=== PATIENT | male | born 1945 | race Caucasian/White ===

== ENCOUNTER 2016-10-25 06:45 | Day surgery (SDC) | payer OTHER ==
[2016-10-25] VITALS (10 sets, daily range): BP systolic 111–127; BP diastolic 57–61; PULSE 60–72; TEMP 36.6–37; O2SAT 93–96; Ht 182.9 cm; Wt 91.0 kg
[~2016-10-25] VITALS: Ht 182.9 cm; Wt 91.0 kg
--- NOTE | 2016-10-25 06:23 | History and Physical ---
History & Physical Date of Service October 25, 2016. History & Physical Dear Dr. Alston: I had the pleasure of seeing Mr. Vieyra in the office for a consultation today regarding peripheral arterial disease with claudication. The patient states that he has been having worsening discomfort in his right calf when ambulating. He states that his symptoms begin in calf and extend up into his distal thigh area as well. He states that this occurs after walking approximately 1-1/2 blocks, although he will frequently just push himself through it and continue trying to ambulate, but he states that it does appear to be getting worse. He denies rest pain, but states that he does get discomfort in his bilateral feet from his diabetic neuropathy, which is fairly severe. He denies any nonhealing wounds or ulcerations as well. He denies headaches, fevers, chills, dizziness, chest pain, shortness of breath, abdominal pain, nausea, vomiting, diarrhea, constipation, dysuria, hematuria, or other complaints. He did undergo an ultrasound evaluation at the present prior to today's appointment, which demonstrates an occlusion of distal right SFA with reconstitution of his popliteal with a high-grade stenosis of his proximal right SFA and the mid SFA of 90% and monophasic waveforms throughout his right lower extremity. He did appear to have a patent posterior tibial and dorsalis pedis artery. HIS ALLERGIES INCLUDE AZITHROMYCIN AND WOOL. His home medications were reconciled on the chart and include the following: Acetaminophen, amiodarone, aspirin, carvedilol, furosemide, glyburide, Klor-Con , losartan, metformin, nitroglycerin, ranitidine, rosuvastatin, spironolactone, tamsulosin, topiramate, Ventolin and vitamin D3. His past medical history is positive for atrial fibrillation, diabetes mellitus , hyperlipidemia, hypertension, benign prostatic hypertrophy, ischemic cardiomyopathy with an EF of 30% per patient, coronary artery disease status post coronary artery bypass grafting as well as coronary stent insertion, and chronic kidney disease. His past surgical history is positive for tonsillectomy, hernia repair, coronary artery stenting, coronary artery bypass graft, pacemaker insertion and mitral valve repair. Family history is positive for cancer, stroke and kidney disease. His social history is positive for a past history of tobacco use. The patient was smoking 1 pack of cigarettes daily and quit 3 weeks ago. He smoked for 50 years. He denies any alcohol or drug use. His review of systems is negative for fatigue, fevers, sweats, weight loss, abnormal moles or rashes, vision changes or photophobia, ear pain, sinus problems or sore throat, cough, shortness of breath, hemoptysis or wheezing, chest pain, palpitations, edema or syncope, abdominal pain, nausea, vomiting, diarrhea, constipation, dysuria, hematuria, rest pain, ulcerations, muscle weakness, headaches, dizziness, numbness or seizures. On physical examination, the patient's vital signs are as follows: Blood pressure of 134/60, heart rate of 75, respiratory rate of 18, oxygenation 93% on room air. Constitutional: In general, the patient is a chronically ill- appearing middle-aged male in no acute distress. He ambulates without assistance and is active, alert and oriented x4 with normal recent and remote memory. Head is normocephalic, atraumatic. Eyes are EOMI. ENMT exam demonstrates no hearing loss, rhinorrhea or pharyngeal erythema. Neck is supple , nontender with midline trachea without masses or crepitus. Lung exam demonstrates no dyspnea. They are decreased throughout with sparse wheezing noted. Cardiovascular exam demonstrates a nondisplaced apical impulse with a regular rate and rhythm. He does have a systolic ejection murmur noted. Peripheral pulses are full and equal in all extremities unless otherwise noted, specifically they are normal in his carotid, brachial and radial pulses. His right femoral pulse is +3. His left femoral pulse is +1. His left lower extremity distal pulses are +1. His right lower extremity distal pulses are nonpalpable. He has brisk capillary refill, warm, pink feet. No signs of distal ischemia in either foot. His abdomen is soft, nontender with normoactive bowel sounds in all 4 quadrants without guarding or rebound. He does have a right lower quadrant, likely an iliac artery bruit noted. Neurologic: The patient has grossly intact cranial nerves and grossly intact sensation. ASSESSMENT: Peripheral arterial disease with claudication in the right lower extremity. PLAN: At this time, after discussion with Dr. Cavazos who also met the patient today was to recommend that the patient to consider undergoing a right lower extremity angiography with intervention. While the patient likely has a distal SFA occlusion, opening up the severe stenoses proximal to the lesion would likely benefit his collateral circulation and hopefully alleviate his claudication even if unable to cross the distal SFA occlusion. The procedure, risks, benefits, alternatives were discussed at length with the patient. He expressed understanding and agreement to proceed. Patient was seen, examined, and chart reviewed. Agree with exam and treatment plan of the Vascular PA. I have discussed the risks options and benefits of the procedure with the patient. The patient understands the risks options and benefits and agrees to the procedure.
[~2016-10-25 06:45] MED LIST: ASPEC325 PO; CARV12.5 PO; CEFAZOLIN 2000 MG/60 ML D5W 60 ML IV SCH; CHOLTAB3 PO; D5W AND 1/4NSS 1,000 ML IV SCH; DOCU100C31 PO; FURO40TA3 PO; GLC500 PO; IBUP-1050 PO; LOSA1TAB PO; MCR5 PO; NORT50CA PO; NTRGSL/4 UT; POTA10CA28 PO; ROSU40TA PO; SPIR50TA2 PO; TAMS0.4C38 PO; ZNTT/150 PO
[2016-10-25] MEDS: SODIUM CHLORIDE 0.9% 1000ML 1,000 ML IV SCH ×2 (07:20→07:35)
[2016-10-25] MEDS ORDERED: NURSING VERBAL MED ORDER ONE ×2 (07:30→09:30)
[2016-10-25 07:45] LABS: BLOOD UREA NITROGEN 27 mg/dl (7-18)
[2016-10-25] MEDS ORDERED: ACET325T96 PO (07:46)
[2016-10-25] MEDS ORDERED: AMIO200T4 PO (07:46)
[2016-10-25] MEDS ORDERED: CLR10 PO (07:50)
[2016-10-25] MEDS ORDERED: ventolin inhaler INH (07:50)
--- NOTE | 2016-10-25 07:57 | History & Physical Bridge Note ---
H&P Re-Evaluation Bridge Note: I have examined the patient, reviewed the History & Physical and in the interval since the performance of the History & Physical I have noted the following changes of clinical significance: No changes noted
--- NOTE | 2016-10-25 07:57 | Procedure Note ---
Pre-Mod Sedation Assessment General Date of Moderate Sedation: October 25, 2016. Pre-Sedation Airway Assessment Smoking Status: Former Smoker Mallampati Classification: Class I ASA Classification: Class II Notes The planned sedation has been discussed with the patient and consent obtained. I have identified the patient, determined the appropriateness of sedation and have assessed the patient immediately prior to the procedure. All medicine(s) and interventions are by my order.
[2016-10-25] MEDS ORDERED: PRVHFAIN INH (08:56)
[2016-10-25] MEDS ORDERED: ALBUTEROL HFA 8 GM INHALER INH ONE (09:00)
[2016-10-25] MEDS ORDERED: HEPARIN SOD (PORCINE) 1000 UNIT/ML 10 ML VIAL ONE (09:48)
[2016-10-25] MEDS ORDERED: FENTANYL CITRATE INJ 50 MCG/1 ML 2 ML VIAL ONE (09:48)
[2016-10-25] MEDS ORDERED: MIDAZOLAM HCL 1 MG/ML 2ML VIAL ONE (09:48)
[2016-10-25] MEDS ORDERED: FENTANYL CITRATE INJ 50 MCG/1 ML 2 ML VIAL IV ONE ×2 (10:30→10:52)
[2016-10-25] MEDS ORDERED: MIDAZOLAM HCL 1 MG/ML 2ML VIAL IV ONE (10:33)
[2016-10-25] MEDS ORDERED: LIDOCAINE HCL 1% 20 ML VIAL SQ ONE (10:33)
[2016-10-25] MEDS ORDERED: HEPARIN SOD (PORCINE) 1000 UNIT/ML 10 ML VIAL IV ONE (10:45)
--- NOTE | 2016-10-25 11:26 | Procedure Note ---
Post-Moderate Sedation Plan General Date of Moderate Sedation October 25, 2016. Vital Signs: Vital Signs Past 12 Hours Date Time Temp Pulse Resp B/P Pulse Ox O2 Delivery O2 Flow Rate FiO2 10/25/16 09:55 36.9 72 18 122/58 94 Room Air 10/25/16 07:05 36.9 72 18 122/58 94 Room Air Review - Discharge Plan Post Moderate Sedation Plan: On clinical assessment, the patient appears to have tolerated the conscious sedation without complications. Patient is recovering as anticipated. Patient will continue to be monitored by nursing and may be discharged when conscious sedation discharge criteria are met.
--- NOTE | 2016-10-25 11:28 | [facility] Post Operative Brief Note ---
Immediate Operative Summary Operative Date October 25, 2016. Pre-Operative Diagnosis Right Lower Extremity Claudication Post-Operative Diagnosis Same Procedure(s) Performed Right Lower Extremity Angiogram, Percutaneous Transluminal Angioplasty and Stenting of Right Popliteal Artery and Right Superficial Femoral Artery, Mechanical Closure of Left Femoral Artery. Moderate Sedation (1030- 1125 ) Surgeon Dr. Cavazos Wig Comber Surgeon(s) None Estimated Blood Loss 10 Findings good PT and DP to doppler Specimens None Anesthesia Local with conscious sedation Complication(s) None Disposition
[2016-10-25] MEDS ORDERED: SODIUM CHLORIDE 0.9% 1000ML 1,000 ML IV SCH (11:29)
[2016-10-25] MEDS ORDERED: CLOPIDOGREL BISULFATE 300 MG TAB PO STA (11:29)
[2016-10-25] MEDS ORDERED: OXYCODONE/ACETAMINOPHEN 5-325 TAB PO PRN (11:30)
[2016-10-25] MEDS ORDERED: CLOP1TAB5 PO (11:33)
--- NOTE | 2016-10-25 11:33 | Discharge Instructions ---
Discharge Instructions Date of Service October 25, 2016. Visit Reason for Visit: Rue Peripheral Artery Disease W/Claudication Discharge Discharge Diagnosis / Problem: Right leg claudication, severe Discharge Goals Goal(s): Therapeutic intervention Activity Recommendations Activity Limitations: per Instructions/Follow-up section Anesthesia . Post Anesthesia Instructions: If you have had General Anesthesia or IV Sedation: * Do not drive today. * Resume driving when surgeon permits. * Do not make important decisions or sign legal documents today. * Call surgeon for: 1. Temperature elevations greater than 101 degrees F. 2. Uncontrollable pain. 3. Excessive bleeding. 4. Persistent nausea and vomiting. 5. Medication intolerance (nausea, vomiting or rash). * For nausea and vomiting use only clear liquids such as: tea, soda, bouillon until nausea subsides, then gradually increase diet as tolerated. * If you have any concerns or questions, call your surgeon's office. If physician is unavailable and it is an emergency, call 911 or go to the nearest emergency room. . Instructions / Follow-Up Instructions / Follow-Up Call [phone] to schedule a follow up appointment if one not already scheduled. SPECIAL CARE INSTRUCTIONS: Medications: * Continue to take your medications as directed. If you have been given a prescription for Plavix, please fill it immediately and take as directed. Incision Care: * Your puncture site may have some bruising and minor swelling for about one week. * You will have a small dressing covering your puncture site. You may remove the dressing after 24 hours and shower. You may let the warm soapy water run over it, but be sure to dry the puncture site well and keep it dry. * DO NOT IMMERSE THE INCISION IN A TUB/POOL/etc. UNTIL HEALED. * Puncture sites should be kept covered with a band-aid until it begins to heal. Restrictions: * Depending on whether you leg or arm was punctured to access the arteries, you will be required to lay flat, hold your arm still, or both, for about 4 hours after the procedure to prevent bleeding. * Limit your activity for the first 48 hours. You may walk and go up and down steps. Avoid excessive bending or movement at the puncture site. Possible Complications: * Excessive Swelling - after blood flow is improved you may notice increased swelling in the lower legs. This is a normal response. This usually depends on the amount of blockages in the leg, how long they have been there prior to your procedure and how much blood flow was restored. Elevating your legs will help to improve this. Please notify our office ([phone] ) if the swelling does not go away after lying in bed overnight. * Infection/Drainage/Bleeding - Drainage or bleeding from the puncture site should be minimal. If you have excessive bleeding or drainage, call our office ([phone]) right away. * Pain - You may experience some mild pain or soreness at your puncture site. If your pain does not improve, please contact our office ([phone]). Call your doctor and seek emergent treatment if you develop: * Temperature above 101 degrees * Any fever or chills * Any redness or purulent drainage from the puncture site * Any new dusky/blue colored toes or feet with coolness or sharp or aching pain. SKIN IRRITATION: * You may experience some redness and/or swelling in the area where radiation was administered. If any skin irritation occurs, please contact your family physician. FOLLOW UP VISIT: Keep any scheduled doctor appointments. Diet Recommendations Recommended Home Diet: resume previous diet Procedures Procedures Performed: Right Lower Extremity Angiogram, Percutaneous Transluminal Angioplasty and Stenting of Right Popliteal Artery and Right Superficial Femoral Artery, Mechanical Closure of Left Femoral Artery. Moderate Sedation (1030- 1125 ) Pending Studies Studies pending at discharge: no Medical Emergencies . Who to Call and When: Medical Emergencies: If at any time you feel your situation is an emergency, please call 911 immediately. . Non-Emergent Contact Non-Emergency issues call your: Surgeon . . "Provider Documentation" section prepared by Nikolas Cavazos. .
--- NOTE | 2016-10-25 12:29 | DIAGNOSTIC IMAGING REPORT ---
DATE OF PROCEDURE: 10/25/2016 PREOPERATIVE DIAGNOSIS: Severe significant claudication, right lower extremity. POSTOPERATIVE DIAGNOSIS: Same with occluded superficial femoral and proximal popliteal arteries. PROCEDURES: 1. Right lower extremity arteriography, balloon angioplasty and stenting in the proximal popliteal and superficial femoral artery. 2. Mechanical closure of the left femoral artery. 3. Conscious sedation with 55 minutes. SURGEON: Dr. Cavazos. ANESTHETIC: Local with conscious sedation. PROCEDURE INDICATIONS: The patient is a 71-year-old gentleman with severe claudication which is limiting his walking to a block. He was found to have superficial femoral artery occlusion and proximal popliteal artery occlusion on noninvasives with high grade stenosis of the proximal superficial femoral. Arteriography with intervention was recommended. He understood the risks, options and benefits and agreed to have this procedure. The patient was taken to the angio suite and placed in supine position. After the groins were prepped and draped in a sterile manner, local anesthetic was administered. Percutaneous puncture was made of the left common femoral artery. A 5-Wallisian sheath was inserted. An 0.035 wire and rim catheter was used and the right side was cannulated from the left. The rim catheter was passed down to the external iliac artery. Arteriography was then performed which showed a patent external and common profunda femoral arteries. The superficial femoral artery was patent at its origin, had a moderate stenosis in the proximal third of the artery, moderate to severe stenosis in the mid portion and occlusion from the distal superficial femoral artery to just beyond the adductor hiatus. The 0.035 stiffened Glidewire was inserted. Rim catheter was removed. The 5 Wallisian sheath was exchanged for a 6-Wallisian destination. Using an 0.035 wire and Quick-Cross the lesions were crossed. They went fairly easily. Once we were through the lesion the wire was removed. Quick-Cross was injected showing it to be true lumen in the distal popliteal. He did have anterior tibial runoff and posterior tibial runoff to his foot. At that point, a 800 balloon was then used. The occluded area was dilated. Once this was done, we decided to stent the area. We first placed the 6 x 100 and stacked it with a 6 x 60. There were still lesions noted above this. We then used the 7 x 80 and 7 x 100 to stent the more proximal superficial femoral artery. Hand injection done at that time showed the artery to be widely patent with minimal residual stenosis with excellent runoff down to the foot through the posterior tibial and anterior tibial arteries. No further lesions were noted. The sheath was then pulled over to the left side. Hand injection showed the puncture to be in the common femoral artery anteriorly. The Star closure device was then used to close the puncture site in the left groin. Adequate hemostasis was then obtained. The wounds were then dressed in a sterile manner. The patient left the angio suite in good condition and tolerated the procedure well. He had excellent dorsalis pedis and posterior tibial Doppler flow at the end of the procedure.
== END 2016-10-25 14:50 | disposition home or self-care (01) ==
LOC: C.ACU 06:45
PROVIDERS: ATTEND Surgery Vascular Surgery
DX: I73.9 Peripheral vascular disease, unspecified (principal); E11.40 Type 2 diabetes mellitus with diabetic neuropathy, unspecified; I48.91 Unspecified atrial fibrillation; E78.5 Hyperlipidemia, unspecified; N40.0 Benign prostatic hyperplasia without lower urinary tract symptoms; I25.5 Ischemic cardiomyopathy; I25.10 Atherosclerotic heart disease of native coronary artery without angina pectoris; Z79.82 Long term (current) use of aspirin; N18.9 Chronic kidney disease, unspecified; Z87.891 Personal history of nicotine dependence; Z95.1 Presence of aortocoronary bypass graft; Z95.0 Presence of cardiac pacemaker; Z82.3 Family history of stroke; Z84.1 Family history of disorders of kidney and ureter

== ENCOUNTER → 2017-09-25 | Outpatient (CLI) | payer OTHER ==
[~2017-09-25] MED LIST changes: +AMIO200T4 PO; -ASPEC325 PO; +ASPI-391 PO; -CEFAZOLIN 2000 MG/60 ML D5W 60 ML IV SCH; +CHOL1000 PO; +CHOL400C7 PO; -CHOLTAB3 PO; +CLOP1TAB15 PO; -D5W AND 1/4NSS 1,000 ML IV SCH; -GLC500 PO; +GLYB5TAB8 PO; +LEVA45AE INH; -MCR5 PO; -NORT50CA PO; +POTA8CAP6 PO; +RANI150T85 PO; +RANI300T2 PO; +SPIR25TA PO; -ZNTT/150 PO
[2017-09-25 09:21] LABS: BLOOD UREA NITROGEN 30 mg/dl (7-18); CALCIUM 9.1 mg/dl (8.5-10.1); CARBON DIOXIDE 30 mmol/L (21-32); CREATININE 2.07 mg/dl (0.60-1.40); GLUCOSE 125 mg/dl (70-99); POTASSIUM 4.5 mmol/L (3.5-5.1); SODIUM 141 mmol/L (136-145)
== END | disposition home or self-care (01) ==
LOC: C.LABSPEC 08:46
PROVIDERS: ATTEND Physician Assistant Medical
DX: Z01.818 Encounter for other preprocedural examination (principal); N18.9 Chronic kidney disease, unspecified

== ENCOUNTER 2017-09-29 12:40 | Inpatient (IN) | payer OTHER ==
[~2017-09-29] VITALS: Ht 182.9 cm; Wt 89.0 kg
[~2017-09-29 12:40] MED LIST changes: -ASPI-391 PO; -CHOL400C7 PO; -POTA8CAP6 PO; -RANI300T2 PO; -SPIR25TA PO
[2017-09-29] MEDS ORDERED: POTA8CAP6 PO (12:59)
[2017-09-29] MEDS ORDERED: SPIR25TA PO (12:59)
[2017-09-29] MEDS ORDERED: CHOL400C7 PO (12:59)
[2017-09-29] MEDS ORDERED: RANI300T2 PO (12:59)
[2017-09-29] MEDS ORDERED: ASPI-391 PO (12:59)
--- NOTE | 2017-09-29 13:21 | EMERGENCY ROOM VISIT NOTE ---
History First contact with patient: 13:10 Chief Complaint: LEG PAIN,LEG INJURY Stated Complaint: POSSIBLE BLOOD CLOT IN LEG, LEG PAIN History of Present Illness The patient is a 72 year old male who presents to the Emergency Room via state correctional vehicle accompanied correctional officers by with complaints of "possible blood clot in leg, leg pain". The patient states that he has a history of lower extremity neuropathy, as well as poor arterial flow to the right leg. He notes that he had surgery recently on the right leg for poor arterial flow of which was performed here at this hospital by Dr. Cavazos. The patient states that since then the leg pain has increased, and now his right foot has been red for the past 2 weeks. There is concern for potential DVT/ arterial occlusion. There is also concern for cellulitis. He notes no fevers, chills, cuts or scrapes but does note that today he did just find a cut that he is unsure how old it is on the medial aspect of the right distal great toe. Review of Systems A complete 10-point Review of Systems was discussed with the patient, with pertinent positives and negatives listed in the History of Present Illness. All remaining Review of Systems questions can be considered negative unless otherwise specified. Past Medical/Surgical History Medical Problems: (1) Congestive Heart Failure Nos (2) Coronary Atherosclerosis Of [place] Coronary Vessel (3) Esophageal Reflux (4) Hx Of Alcoholism (5) Hypothyroidism Nos (6) Mitral Stenosis Surgical Problems: (1) Hx of CABG (2) Stented coronary artery Social History Smoking Status: Former Smoker Alcohol Use: other Drug Use: other Marital Status: single Housing Status: other Occupation Status: other Current/Historical Medications Scheduled Amiodarone Hcl (Cordarone), 200 MG PO QAM Carvedilol (Coreg), 12.5 MG PO BID Cholecalciferol (Vitamin D 400 Iu), 400 INTER.UNIT PO BID Clopidogrel (Plavix), 75 MG PO DAILY Docusate Sodium (Docusate Sodium), 100 MG PO BID Furosemide (Lasix), 120 MG PO QAM Glyburide (Micronase), 5 MG PO BID Losartan Potassium (Cozaar), 25 MG PO DAILY Nitroglycerin (Nitrostat), 0.4 MG UT PRN Potassium Chloride (Klor-Con Ext Rel), 8 MEQ PO DAILY Ranitidine (Zantac), 300 MG PO BID Rosuvastatin Calcium (Crestor), 40 MG PO HS Spironolactone (Aldactone), 50 MG PO BID Tamsulosin Hcl (Flomax), 0.4 MG PO HS Scheduled PRN Ynhilsh-Eajjhwmbhqnll-Czyjzdwf (Excedrin Extra Strength), 2 TAB PO BID PRN for Pain Levalbuterol Tartrate (Levalbuterol Tartrate Hfa), 2 PUFF INH Q6 PRN for SOB/ Wheezing Physical Exam Vital Signs Date Time Temp Pulse Resp B/P (MAP) Pulse Ox O2 Delivery O2 Flow Rate FiO2 09/29/17 15:55 67 16 142/60 97 Room Air 09/29/17 12:43 36.4 72 20 157/71 96 Room Air Physical Exam VITAL SIGNS - Vital signs and nursing notes were reviewed. Stable. Afebrile. GENERAL -72-year-old male appearing his stated age who is in no acute distress. Communicates well with provider and answers questions appropriately. SKIN -there is erythema to the entire right foot extending to the right ankle. There is little petechial like rashes with some blanching. No purulence. No edema. Small subcentimeter superficial cut to the medial aspect of the right great toe. HEAD - NC/AT. EYES - Sclera anicteric. EARS - No deformities of external structures noted on gross examination bilaterally. NOSE - Midline and without cyanosis. EXTREMITIES - No clubbing or peripheral cyanosis. No pretibial edema present. I am unable to palpate pulses in the right lower extremity beginning at the ankle working just distal to this region. +5/5 strength noted in UE/LE bilaterally. There is tenderness noted to the right foot. NEUROLOGIC - Cranial nerves II through XII grossly intact. Sensory intact to light touch throughout. PSYCH - A&O, and cooperates fully with examiner. Pt is very pleasant and interacts well with examiner. Medical Decision & Procedures ER Provider Diagnostic Interpretation: R VENOUS DOPP LOWER EXT UNILAT CLINICAL HISTORY: R lower leg pain with R calf cramping. Hx arterial surgery. Pain. Edema. TECHNIQUE: Venous Doppler COMPARISON STUDY: 02/09/2015 FINDINGS: Normal venous Doppler right leg. Compressibility flow and augmentation characteristics are normal. IMPRESSION: Normal study The above report was generated using voice recognition software. It may contain grammatical, syntax or spelling errors. Electronically signed by: Pérez Mathews M.D. 09/29/2017 3:27 PM Dictated Date/Time: 09/29/2017 3:26 PM ARTERIAL DOPPLER ULTRASOUND THE RIGHT LOWER EXTREMITY CLINICAL HISTORY: Right lower leg pain. History bacterial surgery. COMPARISON STUDY: Right leg arteriographic study dated 10/25/2016 FINDINGS: The brachial arm systolic pressure on the right was 1 27 mmHg. The brachial arm systolic pressures in the left was 118 mmHg. Posterior tibial systolic pressures were 35 mmHg on the right and 95 mmHg on the left. Dorsalis pedis systolic pressures were 49 mmHg on the right and 104 mmHg on the left. These measurements indicate Ankle-brachial index on the right of 0.39, and an ankle-brachial index on the left of 0.82 There is monophasic flow within the right common femoral artery. There is a right profunda artery stenosis with an elevated velocity measuring 572 cm/s. The right superficial femoral artery is occluded. There is no evidence of acute distal reconstitution with monophasic popliteal anterior tibial and peroneal waveforms. There is evidence of prior superficial femoral artery stenting. IMPRESSION: 1. There is occlusion of the patient's right superficial femoral artery and stents. 2. The right superficial femoral artery is occluded from its proximal to distal portion. 3. Diminished right-sided ankle-brachial index of 0.39 Electronically signed by: Boris Hernandez M.D. 09/29/2017 3:45 PM Dictated Date/Time: 09/29/2017 3:40 PM Laboratory Results 09/29/17 13:25 Red Blood Count 4.13, Mean Corpuscular Volume 99.8, Mean Corpuscular Hemoglobin 35.6, Mean Corpuscular Hemoglobin Concent 35.7, Mean Platelet Volume 9.8, Neutrophils (%) (Auto) 72.1, Lymphocytes (%) (Auto) 13.9, Monocytes (%) (Auto) 9.6, Eosinophils (%) (Auto) 3.1, Basophils (%) (Auto) 0.8, Neutrophils # (Auto) 5.40, Lymphocytes # (Auto) 1.04, Monocytes # (Auto) 0.72, Eosinophils # (Auto) 0.23, Basophils # (Auto) 0.06 09/29/17 13:25 Test 09/29/17 13:25 White Blood Count 7.49 K/uL (4.8-10.8) Red Blood Count 4.13 M/uL (4.7-6.1) Hemoglobin 14.7 g/dL (14.0-18.0) Hematocrit 41.2 % (42-52) Mean Corpuscular Volume 99.8 fL (80-100) Mean Corpuscular Hemoglobin 35.6 pg (25-34) Mean Corpuscular Hemoglobin Concent 35.7 g/dl (32-36) Platelet Count 107 K/uL (130-400) Mean Platelet Volume 9.8 fL (7.4-10.4) Neutrophils (%) (Auto) 72.1 % Lymphocytes (%) (Auto) 13.9 % Monocytes (%) (Auto) 9.6 % Eosinophils (%) (Auto) 3.1 % Basophils (%) (Auto) 0.8 % Neutrophils # (Auto) 5.40 K/uL (1.4-6.5) Lymphocytes # (Auto) 1.04 K/uL (1.2-3.4) Monocytes # (Auto) 0.72 K/uL (0.11-0.59) Eosinophils # (Auto) 0.23 K/uL (0-0.5) Basophils # (Auto) 0.06 K/uL (0-0.2) RDW Standard Deviation 46.0 fL (36.4-46.3) RDW Coefficient of Variation 12.7 % (11.5-14.5) Immature Granulocyte % (Auto) 0.5 % Immature Granulocyte # (Auto) 0.04 K/uL (0.00-0.02) Anion Gap 4.0 mmol/L (3-11) Est Creatinine Clear Calc Drug Dose 46.0 ml/min Estimated GFR () 48.4 Estimated GFR (Non- 41.7 BUN/Creatinine Ratio 16.4 (10-20) Calcium Level 8.9 mg/dl (8.5-10.1) Medical Decision Patient was seen and evaluated as above in room D4. Review was performed of nursing notes and vital signs. After obtaining a thorough history and physical examination the above work up was performed. He presents to us today with redness of the left foot and ankle as well as severe pain in this region. He has a history of poor arterial flow. Surgery was performed in the past by Dr. Cavazos to restore vascular flow to the foot last october. Patient does note that there is pain with walking on the foot and it is now red 2 weeks. No fevers or chills. He does note a small cut on the side of the right great toe. He noticed this today. He was sent here from the correctional facility for further evaluation of his presentation here today. The venous Doppler was negative. There is no concerning leukocytosis noted. He does have evidence of kidney dysfunction however this appears to be chronic and is not new. The arterial study does reveal occlusion of the superficial femoral artery with further results as above. I discussed this with Dr. Cavazos as well as the physician surgical supply assistant. He recommended that the patient be admitted. I discussed this with the medicine team. Dr. Cavazos noted that he would place orders for the patient. The patient will be admitted for further evaluation and management. In the evaluation and treatment of this patient the following differential diagnoses were entertained: DVT, arterial occlusion, cellulitis, compartment syndrome, among others. Case was discussed with the attending physician. Impression Primary Impression: Leg pain, right Additional Impression: Superficial femoral artery occlusion Departure Information Dispostion Admitted as an inpatient Condition FAIR Referrals Nic MASSEY (PCP) Patient Instructions My [facility] Problem Qualifiers
[2017-09-29 13:39] LABS: BASO % 0.8 %; BASO ABS # 0.06 K/uL (0-0.2); EOS % 3.1 %; EOS ABS # 0.23 K/uL (0-0.5); HEMATOCRIT 41.2 % (42-52); HEMOGLOBIN 14.7 g/dL (14.0-18.0); IG# 0.04 K/uL (0.00-0.02); LYMPH % 13.9 %; LYMPH ABS # 1.04 K/uL (1.2-3.4); MEAN CELL VOLUME 99.8 fL (80-100); MEAN CORPUSCULAR HEMOGLOBIN 35.6 pg (25-34); MEAN CORPUSCULAR HGB CONC 35.7 g/dl (32-36); MEAN PLATELET VOLUME 9.8 fL (7.4-10.4); MONO % 9.6 %; MONO ABS # 0.72 K/uL (0.11-0.59); NEUT % 72.1 %; PLATELET COUNT 107 K/uL (130-400); RED CELL DISTRIBUTION WIDTH CV 12.7 % (11.5-14.5); WHITE BLOOD COUNT 7.49 K/uL (4.8-10.8)
[2017-09-29 13:52] LABS: CALCIUM 8.9 mg/dl (8.5-10.1); CREATININE 1.64 mg/dl (0.60-1.40); POTASSIUM 4.3 mmol/L (3.5-5.1)
--- NOTE | 2017-09-29 15:28 | DIAGNOSTIC IMAGING REPORT ---
R VENOUS DOPP LOWER EXT UNILAT CLINICAL HISTORY: R lower leg pain with R calf cramping. Hx arterial surgery. Pain. Edema. TECHNIQUE: Venous Doppler COMPARISON STUDY: 02/09/2015 FINDINGS: Normal venous Doppler right leg. Compressibility flow and augmentation characteristics are normal. IMPRESSION: Normal study The above report was generated using voice recognition software. It may contain grammatical, syntax or spelling errors. Electronically signed by: Pérez Mathews M.D. 09/29/2017 3:27 PM Dictated Date/Time: 09/29/2017 3:26 PM
--- NOTE | 2017-09-29 15:47 | DIAGNOSTIC IMAGING REPORT ---
ARTERIAL DOPPLER ULTRASOUND THE RIGHT LOWER EXTREMITY CLINICAL HISTORY: Right lower leg pain. History bacterial surgery. COMPARISON STUDY: Right leg arteriographic study dated 10/25/2016 FINDINGS: The brachial arm systolic pressure on the right was 1 27 mmHg. The brachial arm systolic pressures in the left was 118 mmHg. Posterior tibial systolic pressures were 35 mmHg on the right and 95 mmHg on the left. Dorsalis pedis systolic pressures were 49 mmHg on the right and 104 mmHg on the left. These measurements indicate Ankle-brachial index on the right of 0.39, and an ankle-brachial index on the left of 0.82 There is monophasic flow within the right common femoral artery. There is a right profunda artery stenosis with an elevated velocity measuring 572 cm/s. The right superficial femoral artery is occluded. There is no evidence of acute distal reconstitution with monophasic popliteal anterior tibial and peroneal waveforms. There is evidence of prior superficial femoral artery stenting. IMPRESSION: 1. There is occlusion of the patient's right superficial femoral artery and stents. 2. The right superficial femoral artery is occluded from its proximal to distal portion. 3. Diminished right-sided ankle-brachial index of 0.39 Electronically signed by: Boris Hernandez M.D. 09/29/2017 3:45 PM Dictated Date/Time: 09/29/2017 3:40 PM
--- NOTE | 2017-09-29 16:10 | EMERGENCY ROOM VISIT NOTE ---
ED Visit Note First contact with patient: 13:10 I did evaluate and examine this patient myself. I did guide management for the patient. I agree with the PA's assessment as discussed. Please see the PAs dictation for further details. I did independently review the ultrasound and blood work. He does have occlusion of his stent. The case was discussed with Dr. Cavazos. The patient was admitted to the hospital for further care and evaluation.
[2017-09-29] MEDS ORDERED: GLUCAGON FOR INJ 1 MG VIAL SQ PRN (17:15)
[2017-09-29] MEDS ORDERED: MAGNESIUM HYDROXIDE SUSP 30 ML UDC PO PRN (17:15)
[2017-09-29] MEDS ORDERED: LEValbuterol HFA 15GM INHALER INH PRN (17:15)
[2017-09-29] MEDS ORDERED: ONDANSETRON INJ 2 MG/ML 2 ML VIAL IV PRN (17:15)
[2017-09-29] MEDS ORDERED: DEXTROSE 50% 50 ML SYR IV PRN (17:15)
[2017-09-29] MEDS ORDERED: ALUMINUM/MAGNESIUM/SIMETH (MAALOX MAX) 30 ML UDC PO PRN (17:15)
[2017-09-29] MEDS ORDERED: GLUCOSE 40% GEL 15 GM TUBE PO PRN (17:15)
[2017-09-29] MEDS ORDERED: GLUCOSE 10 TABS/TUBE PO PRN (17:15)
[2017-09-29] MEDS ORDERED: POLYETHYLENE (MIRALAX) 17 GM PACK PO PRN (17:15)
[2017-09-29] MEDS ORDERED: ACETAMINOPHEN 325 MG TAB PO PRN (17:15)
[2017-09-29] MEDS ORDERED: ZOLPIDEM TARTRATE 5 MG TAB PO PRN ×2 (17:15)
[2017-09-29] MEDS ORDERED: NON-FORMULARY MEDICATION (Aspirin-Acetaminophen-Caffeine (Excedrin Extra Strength) 2 TAB) PO PRN (17:15)
--- NOTE | 2017-09-29 17:47 | History and Physical ---
History & Physical Date & Time of Service: Sep 29, 2017 at 17:33 Chief Complaint: Possible Blood Clot In Leg, Leg Pain Primary Care Physician: Nic MASSEY History of Present Illness Source: patient, hospital records 72 years old man with past medical history of severe peripheral vascular disease , coronary artery disease status post CABG/valve replacement in 2002, followed by multiple cardiac stents, diabetes mellitus and oral hypoglycemic, hypertension, ischemic cardiomyopathy with ejection fraction of 30% and global hypokinesia based on echo in 2014, Patient had a recent vascular procedure on October 2016 status post Right Lower Extremity Angiogram, [employer] and stenting of right popliteal/right superficial femoral artery and mechanical occlusion of left femoral artery. As per patient he is taking Excedrin and instead of aspirin, he was taking off Plavix a one month ago. About 2-3 weeks ago patient started having erythema, severe pain, tenderness and skin sensitivity in his right foot. Symptoms got progressively worse currently his right foot is swollen, tender, erythematous and painful. Patient denies any chest pain or shortness of breath. Prior to his right lower extremity pain he was able to walk for more than a block and go up the stairs for 2 flights without having any chest pain or shortness of breath Currently in the correction facility, smokes intermittently Strong family history for heart disease, his father from heart attack in his early 50s Past Medical/Surgical History Medical Problems: (1) Abdominal pain (2) Acute renal failure (3) Chronic kidney disease, stage III (moderate) (4) Congestive Heart Failure Nos (5) Coronary Atherosclerosis Of [place] Coronary Vessel (6) Esophageal Reflux (7) Hx Of Alcoholism (8) Hyperkalemia (9) Hypotension (10) Hypothyroidism Nos (11) Ischemic cardiomyopathy (12) Mitral Stenosis (13) Renal failure (14) SIRS (systemic inflammatory response syndrome) (15) Superficial femoral artery occlusion (16) supericial femoral artery occlusion (17) Ventricular tachycardia Surgical Problems: (1) Hx of CABG (2) Stented coronary artery Social History Smoking Status: Former Smoker Drug Use: other Marital Status: single Housing status: other Occupational Status: other Immunizations History of Influenza Vaccine: Unknown History of Tetanus Vaccine?: Unknown History of Pneumococcal: Unknown History of Hepatitis B Vaccine: Unknown Allergies Coded Allergies: Tetracycline (Unverified Allergy, Unknown, rash, 09/19/17) Home Medications Scheduled Amiodarone Hcl (Cordarone), 200 MG PO QAM Carvedilol (Coreg), 12.5 MG PO BID Cholecalciferol (Vitamin D 400 Iu), 400 INTER.UNIT PO BID Clopidogrel (Plavix), 75 MG PO DAILY Docusate Sodium (Docusate Sodium), 100 MG PO BID Furosemide (Lasix), 120 MG PO QAM Glyburide (Micronase), 5 MG PO BID Losartan Potassium (Cozaar), 25 MG PO DAILY Nitroglycerin (Nitrostat), 0.4 MG UT PRN Potassium Chloride (Klor-Con Ext Rel), 8 MEQ PO DAILY Ranitidine (Zantac), 300 MG PO BID Rosuvastatin Calcium (Crestor), 40 MG PO HS Spironolactone (Aldactone), 50 MG PO BID Tamsulosin Hcl (Flomax), 0.4 MG PO HS Scheduled PRN Geoonvu-Odlhdotgzrplg-Jghflgzq (Excedrin Extra Strength), 2 TAB PO BID PRN for Pain Levalbuterol Tartrate (Levalbuterol Tartrate Hfa), 2 PUFF INH Q6 PRN for SOB/ Wheezing Review of Systems Review of system Constitutional: No fever / no chills / no sweats / no weakness / no fatigue Eyes: no blurring of vision / no eye pain / no discharge / no redness ENT: no hearing loss / no epistaxis /no swallowing problems Respiratory: no cough / no wheezing / no SOB / no hemoptysis Cardiovascular: no Chest pain / no lower extremity edema / no palpitation Abdomen: no pain / no nausea / no vomiting / no constipation Musculoskeletal: As mentioned in HPI about right lower extremity Genitourinary: no dysuria / no incontinence / no urinary retention Neurologic: no focal weakness / no numbness/tingling / no ataxia Psychiatric: no depression symptoms / no anxiety / no insomnia Endocrine: no excessive thirst / no excessive urination Hematologic: no abnormal bleeding / no bruising / no LN swelling Skin: No rash / no pallor Physical Exam Vital Signs Date Time Temp Pulse Resp B/P (MAP) Pulse Ox O2 Delivery O2 Flow Rate FiO2 09/29/17 15:55 67 16 142/60 97 Room Air 09/29/17 12:43 36.4 72 20 157/71 96 Room Air Physical examination General patient appears to be comfortable, not in acute distress HEENT: Atraumatic , normocephalic /no jaundice /no pallor /anicteric /no dry mucous membrane /normal external ear inspection Neck: Supple /no swelling /central trach Heart: S1/S2 normal/regular rate and rhythm/no gallop /no rub /no murmur Lungs: Clear to auscultation bilaterally/normal chest with expansion/no rhonchi/ no rales/no wheezing/no use of accessory muscles of respiration Abdomen: Soft/nontender/no guarding/no rebound/no organomegaly/no pulsatile mass Musculoskeletal: Right lower extremity appears to be erythematous, tender, no pedal pulse is felt, left lower extremity is normal pedal pulse is +1 Neuro exam: Awake alert oriented 3/cranial nerves II through XII appear to be intact/sensation intact/moves all extremities/no abnormal movements Psychiatric evaluation: No depressed mood/normal affect Skin: No rash on exposed skin area/no erythema Extremity: Normal pulse/no pitting edema/no clubbing or cyanosis Endocrine/lymphatic: No obvious lymphadenopathy /no lymphedema Diagnostics Laboratory Results Results Past 24 Hours Test 09/29/17 13:25 09/29/17 17:09 Range/Units White Blood Count 7.49 4.8-10.8 K/uL Red Blood Count 4.13 4.7-6.1 M/uL Hemoglobin 14.7 14.0-18.0 g/dL Hematocrit 41.2 42-52 % Mean Corpuscular Volume 99.8 80-100 fL Mean Corpuscular Hemoglobin 35.6 25-34 pg Mean Corpuscular Hemoglobin Concent 35.7 32-36 g/dl Platelet Count 107 130-400 K/uL Mean Platelet Volume 9.8 7.4-10.4 fL Neutrophils (%) (Auto) 72.1 % Lymphocytes (%) (Auto) 13.9 % Monocytes (%) (Auto) 9.6 % Eosinophils (%) (Auto) 3.1 % Basophils (%) (Auto) 0.8 % Neutrophils # (Auto) 5.40 1.4-6.5 K/uL Lymphocytes # (Auto) 1.04 1.2-3.4 K/uL Monocytes # (Auto) 0.72 0.11-0.59 K/uL Eosinophils # (Auto) 0.23 0-0.5 K/uL Basophils # (Auto) 0.06 0-0.2 K/uL RDW Standard Deviation 46.0 36.4-46.3 fL RDW Coefficient of Variation 12.7 11.5-14.5 % Immature Granulocyte % (Auto) 0.5 % Immature Granulocyte # (Auto) 0.04 0.00-0.02 K/uL Sodium Level 140 136-145 mmol/L Potassium Level 4.3 3.5-5.1 mmol/L Chloride Level 110 98-107 mmol/L Carbon Dioxide Level 26 21-32 mmol/L Anion Gap 4.0 3-11 mmol/L Blood Urea Nitrogen 27 7-18 mg/dl Creatinine 1.64 0.60-1.40 mg/dl Est Creatinine Clear Calc Drug Dose 46.0 ml/min Estimated GFR () 48.4 Estimated GFR (Non- 41.7 BUN/Creatinine Ratio 16.4 10-20 Random Glucose 98 70-99 mg/dl Calcium Level 8.9 8.5-10.1 mg/dl Impression Assessment and Plan 72 years old man with past medical history of severe peripheral vascular disease , coronary artery disease status post CABG/valve replacement in 2002, followed by multiple cardiac stents, diabetes mellitus and oral hypoglycemic, hypertension, ischemic cardiomyopathy with ejection fraction of 30% and global hypokinesia based on echo in 2014, Patient had a recent vascular procedure on October 2016 status post Right Lower Extremity Angiogram, [employer] and stenting of right popliteal/right superficial femoral artery and mechanical occlusion of left femoral artery. Presented to the hospital with acute/subacute right superficial femoral artery occlusion Assessment Acute right superficial femoral artery occlusion Severe peripheral vascular disease Coronary artery disease status post CABG/valve replacement in 2002 followed by multiple coronary stents Chronic systolic congestive heart failure without exacerbation Hypertension Diabetes mellitus on oral hypoglycemics Plan Admit patient to telemetry N.p.o. from midnight Case discussed with Dr. Cavazos, vascular surgeon who will take patient to the OR name Heparin drip, aspirin Hold off Plavix as per Dr. Cavazos as he will load him, after the procedure tomorrow Hold oral hypoglycemic, start patient on a sliding scale insulin Obtain hemoglobin A1c and lipids panel to stratify patient's risk factors Since patient will be n.p.o. and will go through a surgery will hold Lasix in a.m. Also hold potassium We will lower the dose of Aldactone from 50 mg twice daily to 12.5 mg twice daily Continue Coreg Continue ranitidine for GI prophylaxis Discussed with patient CODE STATUS, patient is full code Resuscitation Status VTE Prophylaxis Will order VTE Prophylaxis: Yes
[2017-09-29 18:19] VITALS: BP 143/73; PULSE 66; TEMP 36.2; O2SAT 97; Ht 182.9 cm; Wt 89.0 kg
[2017-09-29 20:00] VITALS: BP 115/60; PULSE 66; TEMP 36.6; O2SAT 95
[2017-09-29] MEDS ORDERED: HEPARIN 25,000 UNIT/500ML D5W 500 ML IV SCH (20:15)
[2017-09-29] MEDS ORDERED: HEPARIN IV BOLUS 7,000 UNIT in SYRINGE 0 ML IV ONE (20:15)
[2017-09-29] MEDS: RANITIDINE HCL 150 MG TAB PO SCH (20:19)
[2017-09-29] MEDS: ROSUVASTATIN CALCIUM 20 MG TAB PO SCH (20:20)
[2017-09-29] MEDS: SPIRONOLACTONE 25 MG TAB PO SCH (20:21)
[2017-09-29] MEDS: CARVEDILOL 12.5 MG TAB PO SCH (20:22)
[2017-09-29] MEDS: TAMSULOSIN HCL 0.4 MG CAP PO SCH (20:24)
[2017-09-29] MEDS: INSULIN ASPART 100 UNITS/ML 3 ML PEN SC SCH (20:30)
[2017-09-29] MEDS: MoRPHine SULFATE 2 MG/ML CARP IV PRN (20:33)
[2017-09-29] MEDS: SODIUM CHLORIDE 0.9% 1000ML 1,000 ML IV SCH (20:33)
[2017-09-29 20:37] LABS: PTT PATIENT 26.1 SECONDS (21.0-31.0)
[2017-09-29] MEDS ORDERED: SPIRONOLACTONE 25 MG TAB PO SCH (21:00)
[2017-09-29 23:40] VITALS: BP 122/57; PULSE 68; TEMP 36.8; O2SAT 95
[2017-09-30] VITALS (20 sets, daily range): BP systolic 96–139; BP diastolic 44–65; PULSE 58–64; TEMP 36.6–37.1; O2SAT 94–99
[2017-09-30] MEDS: MoRPHine SULFATE 2 MG/ML CARP IV PRN (00:02)
[2017-09-30] MEDS: ACETYLCYSTEINE 600 MG CAP PO SCH ×3 (00:02→21:46)
[2017-09-30 02:43] LABS: BASO % 0.4 %; BASO ABS # 0.03 K/uL (0-0.2); EOS % 2.3 %; EOS ABS # 0.17 K/uL (0-0.5); HEMATOCRIT 37.9 % (42-52); HEMOGLOBIN 13.5 g/dL (14.0-18.0); IG# 0.04 K/uL (0.00-0.02); LYMPH % 17.9 %; LYMPH ABS # 1.34 K/uL (1.2-3.4); MEAN CELL VOLUME 99.2 fL (80-100); MEAN CORPUSCULAR HEMOGLOBIN 35.3 pg (25-34); MEAN CORPUSCULAR HGB CONC 35.6 g/dl (32-36); MONO % 8.2 %; MONO ABS # 0.61 K/uL (0.11-0.59); NEUT % 70.7 %; NEUT ABS # 5.28 K/uL (1.4-6.5); PLATELET COUNT 100 K/uL (130-400); RED CELL DISTRIBUTION WIDTH CV 12.6 % (11.5-14.5); RED CELL DISTRIBUTION WIDTH SD 45.7 fL (36.4-46.3); WHITE BLOOD COUNT 7.47 K/uL (4.8-10.8)
[2017-09-30 03:10] LABS: ALBUMIN 2.9 gm/dl (3.4-5.0); CALCIUM 8.4 mg/dl (8.5-10.1); CREATININE 1.54 mg/dl (0.60-1.40); POTASSIUM 3.8 mmol/L (3.5-5.1)
[2017-09-30 03:15] LABS: PHOSPHORUS 3.4 mg/dl (2.5-4.9)
[2017-09-30 03:17] LABS: PTT PATIENT 105.2 SECONDS (21.0-31.0)
[2017-09-30] MEDS ORDERED: CEFAZOLIN 2000MG IV PUSH 15 ML IV SCH (05:00)
[2017-09-30] MEDS ORDERED: SODIUM BICARBONATE 8.4% INJ 100 MEQ in STERILE WATER 1000 ML 1,000 ML IV SCH (05:00)
--- NOTE | 2017-09-30 06:24 | Medical Consult ---
Consultation Note Date of Service Sep 30, 2017. Consultation Note CC: Severe right leg pain HPI: Mr. Vieyra has been having worsening discomfort in his right that started about two weeks ago. It has gotten progressively worse, He had stents place in his right SFA one year ago. He has been doing well till recently. He can still has feeling in his foot and has good mobility. HIS ALLERGIES INCLUDE AZITHROMYCIN AND WOOL. His home medications were reconciled on the chart and include the following: Acetaminophen, amiodarone, aspirin, carvedilol, furosemide, glyburide, Klor-Con , losartan, metformin, nitroglycerin, ranitidine, rosuvastatin, spironolactone, tamsulosin, topiramate, Ventolin and vitamin D3. His past medical history is positive for atrial fibrillation, diabetes mellitus , hyperlipidemia, hypertension, benign prostatic hypertrophy, ischemic cardiomyopathy with an EF of 30% per patient, coronary artery disease status post coronary artery bypass grafting as well as coronary stent insertion, and chronic kidney disease. His past surgical history is positive for tonsillectomy, hernia repair, coronary artery stenting, coronary artery bypass graft, pacemaker insertion and mitral valve repair. Family history is positive for cancer, stroke and kidney disease. His social history is positive for a past history of tobacco use. The patient was smoking 1 pack of cigarettes daily and quit 3 weeks ago. He smoked for 50 years. He denies any alcohol or drug use. His review of systems is negative for fatigue, fevers, sweats, weight loss, abnormal moles or rashes, vision changes or photophobia, ear pain, sinus problems or sore throat, cough, shortness of breath, hemoptysis or wheezing, chest pain, palpitations, edema or syncope, abdominal pain, nausea, vomiting, diarrhea, constipation, dysuria, hematuria, rest pain, ulcerations, muscle weakness, headaches, dizziness, numbness or seizures. On physical examination, the patient's vital signs are as follows: Blood pressure of 134/60, heart rate of 75, respiratory rate of 18, oxygenation 93% on room air. Constitutional: In general, the patient is a chronically ill- appearing middle-aged male in no acute distress. He ambulates without assistance and is active, alert and oriented x4 with normal recent and remote memory. Head is normocephalic, atraumatic. Eyes are EOMI. ENMT exam demonstrates no hearing loss, rhinorrhea or pharyngeal erythema. Neck is supple , nontender with midline trachea without masses or crepitus. Lung exam demonstrates no dyspnea. They are decreased throughout with sparse wheezing noted. Cardiovascular exam demonstrates a nondisplaced apical impulse with a regular rate and rhythm. He does have a systolic ejection murmur noted. Peripheral pulses are full and equal in all extremities unless otherwise noted, specifically they are normal in his carotid, brachial and radial pulses. His right femoral pulse is +3. His left femoral pulse is +1. His left lower extremity distal pulses are +1. His right lower extremity distal pulses are nonpalpable. He has brisk capillary refill, warm, pink feet on the left. No signs of distal ischemia of his left foot. His right foot is cool with decreased capillary refill. His abdomen is soft, nontender with normoactive bowel sounds in all 4 quadrants without guarding or rebound. He does have a right lower quadrant, likely an iliac artery bruit noted. Neurologic: The patient has grossly intact cranial nerves and grossly intact sensation. ASSESSMENT: Occlusion of the SFA of the right lower extremity. PLAN: Patient is to undergo arteriography with possible intervention. I have discussed the risks options and benefits of the procedure with the patient. The patient understands the risks options and benefits and agrees to the procedure.
[2017-09-30 06:32] LABS: HEMOGLOBIN A1C 5.8 % (4.5-5.6)
[2017-09-30] MEDS: INSULIN ASPART 100 UNITS/ML 3 ML PEN SC SCH ×4 (07:00→21:48)
[2017-09-30] MEDS: RANITIDINE HCL 150 MG TAB PO SCH ×2 (09:00→21:47)
[2017-09-30] MEDS: AMIODARONE 200 MG TAB PO SCH (09:00)
[2017-09-30] MEDS: CARVEDILOL 12.5 MG TAB PO SCH ×2 (09:00→21:48)
[2017-09-30] MEDS: SPIRONOLACTONE 25 MG TAB PO SCH ×2 (09:00→21:46)
[2017-09-30] MEDS: FUROSEMIDE 40 MG TAB PO SCH (09:00)
[2017-09-30] MEDS ORDERED: CLOPIDOGREL BISULFATE 75 MG TAB PO SCH (09:00)
--- NOTE | 2017-09-30 09:29 | Pre Sedation Assessment ---
Pre Sedation Assessment General Date of Sedation: Sep 30, 2017. Vital Signs Past 12 Hours Date Time Temp Pulse Resp B/P (MAP) Pulse Ox O2 Delivery O2 Flow Rate FiO2 09/30/17 07:09 36.7 62 20 121/44 (69) 94 Room Air 09/30/17 04:00 Room Air 09/30/17 03:51 36.8 62 20 123/50 (74) 96 Room Air 09/30/17 00:00 Room Air 09/29/17 23:40 36.8 68 21 122/57 (78) 95 Room Air Review Cardiovascular: regular rate, rhythm Lungs: lungs clear Pre-Sedation Airway Assessment Smoking Status: Current Every Day Smoker Hx of Sleep Apnea: No Short Thick Neck: No Thyro-mental Distance: > 3 Finger Breadths Oral Cavity: Dentures Mallampati Classification: Class I ASA Classification: Class II NPO Status Date of Last Intake of Fluids: Sep 29, 2017 Time of Last Intake of Fluids: 2330 Date of Last Intake of Solids: Sep 29, 2017 Time of Last Intake of Solids: 2029 Procedure Planning Contraindications for Sedation: None Current Medications Reviewed: Yes Notes The planned sedation has been discussed with the patient. Informed Consent was obtained. I have identified the patient, determined the appropriateness of sedation and have assessed the patient immediately prior to the procedure. All medicine(s) and interventions are by my order.
[2017-09-30] MEDS ORDERED: FENTANYL CITRATE INJ 50 MCG/1 ML 2 ML VIAL ONE (09:46)
[2017-09-30] MEDS ORDERED: HEPARIN SOD (PORCINE) 1000 UNIT/ML 10 ML VIAL ONE (09:46)
[2017-09-30] MEDS ORDERED: MIDAZOLAM HCL 1 MG/ML 2ML VIAL ONE (09:46)
[2017-09-30] MEDS ORDERED: FENTANYL CITRATE INJ 50 MCG/1 ML 2 ML VIAL IV ONE (10:14)
[2017-09-30] MEDS ORDERED: MIDAZOLAM HCL 1 MG/ML 2ML VIAL IV ONE (10:14)
--- NOTE | 2017-09-30 11:03 | [facility] Post Operative Brief Note ---
Immediate Operative Summary Operative Date Sep 30, 2017. Pre-Operative Diagnosis Occlusion of the SFA of the right lower extremity. Post-Operative Diagnosis Occlusion of the SFA of the right lower extremity. Procedure(s) Performed Right Lower Extremity Angiogram Insertion of Infusion Catheter Thrombolytic infusion Moderate Sedation [id number] Surgeon Dirk Manager Actuarial Surgeon(s) Hardeep Estimated Blood Loss 5 Findings Consistent with Post-Op Diagnosis Specimens None Drains None Anesthesia Type IV Sedat Cons RN Only Complication(s) none Disposition Accompanied Pt To Recover: no Disposition:
[2017-09-30] MEDS ORDERED: LIDOCAINE HCL 1% 20 ML VIAL INJ ONE (11:05)
[2017-09-30] MEDS ORDERED: IODIXANOL (VISIPAQUE) 270 MG/ML 50ML XX ONE (11:05)
[2017-09-30] MEDS ORDERED: NURSING VERBAL MED ORDER ONE ×2 (11:15→17:45)
[2017-09-30] MEDS ORDERED: ONDANSETRON INJ 2 MG/ML 2 ML VIAL IV PRN (11:15)
--- NOTE | 2017-09-30 11:22 | Post Sedation Assessment ---
Post Sedation Assessment General Date of Sedation Sep 30, 2017. Vital Signs: Vital Signs Past 12 Hours Date Time Temp Pulse Resp B/P (MAP) Pulse Ox O2 Delivery O2 Flow Rate FiO2 09/30/17 07:09 36.7 62 20 121/44 (69) 94 Room Air 09/30/17 04:00 Room Air 09/30/17 03:51 36.8 62 20 123/50 (74) 96 Room Air 09/30/17 00:00 Room Air 09/29/17 23:40 36.8 68 21 122/57 (78) 95 Room Air Post Procedure Recovery Score Activity: (2) Moves 4 extremities * Respiration: (2) Deep breath/cough Circulation: (2) +/-20% PreAnes Value Consciousness: (2) Fully Awake Oxygen Saturation: (2) > 92% On Room Air Post Anesthesia Score: 10 Discharge Sedation Level of Care: Fast Track Phase II Post Sedation Plan On clinical assessment, the patient appears to have tolerated the sedation without complications. Patient is recovering as anticipated. Patient will continue to be monitored by nursing and may be discharged when sedation discharge criteria are met per below protocol. Upon Completions of procedure and additional 15 minutes continue every 5 minute vital signs and the P.A.R. score; then discharge to a Phase I or Fast Track to Phase II per the following guidelines: * Discharge Patient to appropriate Phase II area if PAR is 8 or greater or return to pre- procedure baseline. The post - procedure orders will be as directed. * If PAR score is less than 8 or not return to pre-procedure baseline then patient will follow Phase I monitoring till PAR is reached for Phase II. The Phase I may be done in procedure room or may call to secure a Phase I area. * If naloxone or flumazenil are used for reversal, hold in Phase I for an additional 60 -120 minutes before discharge to Phase II. Please call the Sedation Physician to re-evaluate and complete post-note for discharge to Phase II area. Do NOT discharge from procedure sedation or Phase 1 until post- sedation evaluation note is complete by procedure /sedation MD Sedation Discharge Instructions to be given to the patient at discharge to home.
[2017-09-30 11:43] LABS: HEMATOCRIT 37.9 % (42-52); HEMOGLOBIN 13.1 g/dL (14.0-18.0); MEAN CELL VOLUME 100.8 fL (80-100); MEAN CORPUSCULAR HEMOGLOBIN 34.8 pg (25-34); RED CELL DISTRIBUTION WIDTH CV 12.6 % (11.5-14.5); WHITE BLOOD COUNT 8.38 K/uL (4.8-10.8)
[2017-09-30] MEDS ORDERED: SODIUM CHLORIDE 0.9% 1000ML 1,000 ML IV SCH (11:45)
[2017-09-30 11:47] LABS: MEAN CORPUSCULAR HGB CONC 34.6 g/dl (32-36); PLATELET COUNT 93 K/uL (130-400)
[2017-09-30] MEDS ORDERED: SODIUM CHLORIDE 0.9% IV SCH ×2 (12:00)
[2017-09-30] MEDS ORDERED: ALTEPLASE IV SCH ×2 (12:00)
[2017-09-30] MEDS ORDERED: RECOMBINANT IV SCH ×2 (12:00)
[2017-09-30 12:05] LABS: BASO % 0.5 %; BASO ABS # 0.04 K/uL (0-0.2); EOS % 2.4 %; IG# 0.02 K/uL (0.00-0.02); LYMPH % 15.8 %; LYMPH ABS # 1.32 K/uL (1.2-3.4); MONO % 8.6 %; MONO ABS # 0.72 K/uL (0.11-0.59); NEUT % 72.5 %; NEUT ABS # 6.08 K/uL (1.4-6.5)
[2017-09-30] MEDS: SODIUM CHLORIDE 0.9% 1000ML 1,000 ML IV SCH ×2 (12:08→18:05)
[2017-09-30] MEDS: HEPARIN 25,000 UNIT/500ML D5W 500 ML IV SCH ×2 (12:11→18:05)
[2017-09-30 12:18] LABS: PTT PATIENT 60.9 SECONDS (21.0-31.0)
--- NOTE | 2017-09-30 16:22 | Hospitalist Progress Note ---
Hospitalist Progress Note Date of Service Sep 30, 2017. (Liz Guillen ., JEFF) Subjective Pt evaluation today including: conversation w/ patient, physical exam, chart review, lab review, review of inpatient medication list Voiding: no voiding problems Mr. Vieyra is post Right Lower Extremity Angiogram, Insertion of Infusion Catheter , and Thrombolytic infusion. He is in the ICU for close observation. He has some mild back pain from laying down but otherwise has no complaints ROS Constitutional: no chills, aches, sweats or fever Respiratory: no sob,cough, sputum, or wheezing Cardiac: no chest pain, palpitations, edema, orthopnea or lightheadedness GI: no abdominal pain, nausea, vomiting, diarrhea or constipation : no dysuria or hesitancy Extremities: no joint pain or weakness Skin: no rash All other systems reviewed and negative (Liz Guillen ., JEFF) Medications Medications Administered Medications (Trade) Dose Ordered Sig/Ronnie Route Start Time Stop Time Status Last Admin Dose Admin Carvedilol (Coreg Tab) 12.5 mg BID PO 09/29/17 21:00 10/29/17 20:59 09/29/17 20:22 12.5 MG Rosuvastatin Calcium (Crestor Tab) 40 mg HS PO 09/29/17 21:00 10/29/17 20:59 09/29/17 20:20 40 MG Ranitidine HCl (zANTac TAB) 300 mg BID PO 09/29/17 21:00 10/29/17 20:59 09/29/17 20:19 300 MG Sodium Chloride 1,000 ml @ 15 mls/hr Q24H IV 09/29/17 19:30 10/29/17 19:29 09/29/17 20:33 15 MLS/HR Morphine Sulfate (MoRPHine SULFATE INJ) 2 mg Q30M PRN IV 09/29/17 17:15 09/30/17 11:26 DC 09/30/17 00:02 2 MG Insulin Aspart (novoLOG ASPART) SLIDING SCALE If C... ACHS SC 09/29/17 21:00 10/29/17 20:59 09/29/17 20:30 2 UNITS Spironolactone (Aldactone Tab) 12.5 mg BID PO 09/29/17 21:00 10/29/17 20:59 09/29/17 20:21 12.5 MG Heparin Sodium (Porcine) 7000 unit/Syringe 7 ml @ 10 mls/min NOW ONCE IV 09/29/17 20:15 09/29/17 20:16 DC 09/29/17 20:31 10 MLS/MIN Heparin Sodium/ Dextrose 500 ml @ 26 mls/hr [id number] IV 09/29/17 20:15 09/30/17 11:17 DC 09/29/17 20:32 29 MLS/HR Cefazolin Sodium 15 ml @ 3.75 mls/ min PRE-SPECIALS@0500 IV 09/30/17 05:00 09/30/17 18:00 09/30/17 09:38 3.75 MLS/MIN Acetylcysteine (Acetylcysteine Cap) 600 mg Q12H PO 09/29/17 22:00 10/01/17 10:01 09/30/17 14:42 600 MG Sodium Chloride 1,000 ml @ 44 mls/hr [id number] IV 09/30/17 05:00 10/30/17 04:59 09/30/17 12:08 44 MLS/HR Sodium Bicarbonate 100 meq/Sterile Water 1,100 ml @ 80 mls/hr [id number] IV 09/30/17 05:00 09/30/17 14:00 DC 09/30/17 07:19 80 MLS/HR Lidocaine HCl (Xylocaine 1% Inj (Local)) 2 ml ONE ONCE INJ 09/30/17 11:05 09/30/17 11:07 DC 09/30/17 11:05 2 ML Heparin Sodium/ Sodium Chloride (Heparin Sod/Ns 2 Units/Ml) 100 unit ONE ONCE IV 09/30/17 11:05 09/30/17 11:07 DC 09/30/17 11:05 100 UNIT Iodixanol (Visipaque 50ml) 8,100 mg ONE ONCE XX 09/30/17 11:05 09/30/17 11:07 DC 09/30/17 11:05 8,100 MG Midazolam HCl (Versed Inj) 2 mg ONE ONCE IV 09/30/17 10:14 09/30/17 11:07 DC 09/30/17 10:14 2 MG Fentanyl Citrate (Fentanyl Inj) 50 mcg ONE ONCE IV 09/30/17 10:14 09/30/17 11:07 DC 09/30/17 10:14 50 MCG Heparin Sodium/ Dextrose 500 ml @ 16 mls/hr Q24H IV 09/30/17 11:15 10/30/17 11:14 09/30/17 12:11 16 MLS/HR Alteplase, Recombinant 24 mg/ Sodium Chloride 240 ml @ 20 mls/hr Q12H IV 09/30/17 12:00 09/30/17 23:59 09/30/17 12:12 20 MLS/HR Sodium Chloride 1,000 ml @ 30 mls/hr Q24H IV 09/30/17 11:45 09/30/17 12:00 DC 09/30/17 12:15 30 MLS/HR (Liz Guillen, JEFF) Objective Vital Signs Date Time Temp Pulse Resp B/P (MAP) Pulse Ox O2 Delivery O2 Flow Rate FiO2 09/30/17 15:00 58 20 122/53 (76) 96 09/30/17 14:00 61 134/55 (81) 97 09/30/17 13:15 61 18 123/52 (75) 96 Room Air 09/30/17 13:00 62 16 138/55 (82) 97 Room Air 09/30/17 12:30 60 16 96/47 (63) 96 Room Air 09/30/17 12:15 64 17 129/48 (75) 99 Room Air 09/30/17 12:00 96 09/30/17 12:00 37.1 61 16 114/50 (71) 95 Room Air 09/30/17 11:45 62 14 118/49 (72) 95 Room Air 09/30/17 11:30 60 21 131/53 (79) 09/30/17 11:15 65 19 126/56 96 Oxymask 2 09/30/17 11:10 66 19 119/65 96 Oxymask 2 09/30/17 11:05 60 19 135/62 98 Oxymask 2 09/30/17 11:00 62 15 133/56 98 Oxymask 2 09/30/17 10:59 98 Oxymask 2 09/30/17 10:54 98 Oxymask 2 09/30/17 10:49 60 12 119/58 98 Oxymask 2 09/30/17 10:44 60 12 119/58 98 Oxymask 2 09/30/17 10:39 60 19 112/54 99 Oxymask 2 09/30/17 10:34 60 16 115/55 98 Oxymask 2 09/30/17 10:29 61 10 115/53 98 Oxymask 2 09/30/17 10:24 61 11 116/54 98 Oxymask 2 09/30/17 10:19 61 11 105/47 97 Oxymask 2 09/30/17 10:14 64 14 131/59 98 Oxymask 2 09/30/17 10:05 60 17 133/60 99 Oxymask 2 09/30/17 07:09 36.7 62 20 121/44 (69) 94 Room Air 09/30/17 04:00 Room Air 09/30/17 03:51 36.8 62 20 123/50 (74) 96 Room Air 09/30/17 00:00 Room Air 09/29/17 23:40 36.8 68 21 122/57 (78) 95 Room Air 09/29/17 20:00 Room Air 09/29/17 20:00 36.6 66 16 115/60 (78) 95 Room Air 09/29/17 18:19 36.2 66 14 143/73 97 Room Air 09/29/17 18:02 61 15 115/63 95 09/29/17 15:55 67 16 142/60 97 Room Air (Liz Guillen CRNP) Physical Exam Notes: General: no distress Eyes: normal inspection, PERLL Respiratory: chest non tender, clear to auscultation, normal breath sounds, no respiratory distress, no accessory muscle use Cardiac: regular rate and rhythm, no rub or gallop, no murmur, no edema, no jvd , pedal and tibial pulses dopplered by nursing while I was bedside - right pedal weak GI/: active bowel sounds, no abd pain or tenderness, soft, non distended Extremities: normal range of motion, normal strength, non tender Neuro/Psych: alert and oriented x 3, normal mood and affect Skin: normal color, dry (Liz Guillen CRNP) Laboratory Results Last 24 Hours Test 09/29/17 19:57 09/29/17 20:04 09/30/17 02:31 09/30/17 06:02 Bedside Glucose 140 mg/dl 119 mg/dl Prothrombin Time 10.4 SECONDS Prothromb Time International Ratio 1.0 Activated Partial Thromboplast Time 26.1 SECONDS 105.2 SECONDS Partial Thromboplastin Ratio 1.0 4.0 White Blood Count 7.47 K/uL Red Blood Count 3.82 M/uL Hemoglobin 13.5 g/dL Hematocrit 37.9 % Mean Corpuscular Volume 99.2 fL Mean Corpuscular Hemoglobin 35.3 pg Mean Corpuscular Hemoglobin Concent 35.6 g/dl Platelet Count 100 K/uL Mean Platelet Volume 10.0 fL Neutrophils (%) (Auto) 70.7 % Lymphocytes (%) (Auto) 17.9 % Monocytes (%) (Auto) 8.2 % Eosinophils (%) (Auto) 2.3 % Basophils (%) (Auto) 0.4 % Neutrophils # (Auto) 5.28 K/uL Lymphocytes # (Auto) 1.34 K/uL Monocytes # (Auto) 0.61 K/uL Eosinophils # (Auto) 0.17 K/uL Basophils # (Auto) 0.03 K/uL RDW Standard Deviation 45.7 fL RDW Coefficient of Variation 12.6 % Immature Granulocyte % (Auto) 0.5 % Immature Granulocyte # (Auto) 0.04 K/uL Sodium Level 142 mmol/L Potassium Level 3.8 mmol/L Chloride Level 112 mmol/L Carbon Dioxide Level 26 mmol/L Anion Gap 4.0 mmol/L Blood Urea Nitrogen 23 mg/dl Creatinine 1.54 mg/dl Est Creatinine Clear Calc Drug Dose 49.0 ml/min Estimated GFR () 52.2 Estimated GFR (Non- 45.0 BUN/Creatinine Ratio 15.3 Random Glucose 121 mg/dl Estimated Average Glucose 120 mg/dl Hemoglobin A1c 5.8 % Calcium Level 8.4 mg/dl Phosphorus Level 3.4 mg/dl Magnesium Level 2.1 mg/dl Total Bilirubin 0.6 mg/dl Aspartate Amino Transf (AST/SGOT) 14 U/L Alanine Aminotransferase (ALT/SGPT) 23 U/L Alkaline Phosphatase 67 U/L Total Protein 6.0 gm/dl Albumin 2.9 gm/dl Globulin 3.1 gm/dl Albumin/Globulin Ratio 0.9 Triglycerides Level 79 mg/dl Cholesterol Level 166 mg/dl HDL Cholesterol 42 mg/dl LDL Cholesterol, Calculated 108 mg/dl VLDL Cholesterol, Calculated 16 mg/dl Cholesterol/HDL Ratio 4.0 Test 09/30/17 11:31 09/30/17 12:19 White Blood Count 8.38 K/uL Red Blood Count 3.76 M/uL Hemoglobin 13.1 g/dL Hematocrit 37.9 % Mean Corpuscular Volume 100.8 fL Mean Corpuscular Hemoglobin 34.8 pg Mean Corpuscular Hemoglobin Concent 34.6 g/dl Platelet Count 93 K/uL Mean Platelet Volume 10.0 fL Neutrophils (%) (Auto) 72.5 % Lymphocytes (%) (Auto) 15.8 % Monocytes (%) (Auto) 8.6 % Eosinophils (%) (Auto) 2.4 % Basophils (%) (Auto) 0.5 % Neutrophils # (Auto) 6.08 K/uL Lymphocytes # (Auto) 1.32 K/uL Monocytes # (Auto) 0.72 K/uL Eosinophils # (Auto) 0.20 K/uL Basophils # (Auto) 0.04 K/uL RDW Standard Deviation 46.0 fL RDW Coefficient of Variation 12.6 % Immature Granulocyte % (Auto) 0.2 % Immature Granulocyte # (Auto) 0.02 K/uL Platelet Estimate DECREASED Macrocytosis PRESENT Activated Partial Thromboplast Time 60.9 SECONDS Partial Thromboplastin Ratio 2.3 Fibrinogen 352 mg/dl Bedside Glucose 109 mg/dl (Liz Guillen ., JEFF) Assessment and Plan 72 years old man with past medical history of severe peripheral vascular disease , coronary artery disease status post CABG/valve replacement in 2002, followed by multiple cardiac stents, diabetes mellitus and oral hypoglycemic, hypertension, ischemic cardiomyopathy with ejection fraction of 30% and global hypokinesia based on echo in 2014, Patient had a recent vascular procedure on October 2016 status post Right Lower Extremity Angiogram, 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 Presented to the hospital with acute/subacute right superficial femoral artery occlusion Acute right superficial femoral artery occlusion, severe PVD - post OR today with vascular surgery for angiogram and antithrombotic infusion - sent to ICU - will return to OR tomorrow - remain NPO - Continue alteplase, heparin infusions per vascular surgery orders - Hold off Plavix as per Dr. Cavazos as he will load him, after the procedure tomorrow Diabetes mellitus on oral hypoglycemics - Hold oral hypoglycemic, continue ss - bsgs ac & hs - A1c 5.8, lipids wnl Htn, CAD post CABG/valve replacement in 2002 and multiple stents, chronic systolic CHF without exacerbation - continue coreg and lasix when taking po, - hold potassium for now - continue lowered dose of Aldactone from 50 mg twice daily to 12.5 mg twice daily CKD III - Creat 1.5 - unknown what his baseline is - prp am - acetylcysteine per surgery Full code (Liz Guillen, JEFF) Supervising Note Dr. Vázquez I performed a history and physical examination on the patient. I reviewed above note and agree with it. I discussed plan with APC and patient. During my face to face encounter with the patient, I answered all of the patient's questions. Patient will need to go to OR again tomorrow for popliteal thrombosis. (Harvinder Vázquez M.D.)
[2017-09-30 17:14] LABS: HEMATOCRIT 37.4 % (42-52); HEMOGLOBIN 13.3 g/dL (14.0-18.0); MEAN CORPUSCULAR HEMOGLOBIN 35.6 pg (25-34); MEAN CORPUSCULAR HGB CONC 35.6 g/dl (32-36); RED CELL DISTRIBUTION WIDTH CV 12.7 % (11.5-14.5); RED CELL DISTRIBUTION WIDTH SD 46.4 fL (36.4-46.3)
[2017-09-30 17:34] LABS: PLATELET COUNT 89 K/uL (130-400)
[2017-09-30 17:35] LABS: BASO % 0.4 %; BASO ABS # 0.03 K/uL (0-0.2); EOS % 2.6 %; EOS ABS # 0.21 K/uL (0-0.5); IG# 0.04 K/uL (0.00-0.02); LYMPH % 15.4 %; LYMPH ABS # 1.26 K/uL (1.2-3.4); MONO % 8.4 %; MONO ABS # 0.69 K/uL (0.11-0.59); NEUT % 72.7 %; NEUT ABS # 5.97 K/uL (1.4-6.5)
[2017-09-30 18:14] LABS: PTT PATIENT 41.1 SECONDS (21.0-31.0)
[2017-09-30] MEDS: MoRPHine SULFATE 4 MG/ML 1 ML CARP\\VIAL IV PRN ×2 (20:26→23:16)
--- NOTE | 2017-09-30 21:14 | Critical Care Consultation ---
Critical Care Consultation Date of Consultation: Sep 30, 2017. Attending Physician: Brigid Rosario MD Reason for Consultation: Right Superficial Femoral Occlusion History of Present Illness Melquiades Vieyra is a 72yo inmate from [facility] with a past medical hx including PVD, CAD with CABG and 2002 mitral valve replacement, multiple coronary stents, DM, HTN, ischemic cardiomyopathy, 02/2015 ECHO with EF 30% and Global Hypokinesis. Pt presents with 2-3 weeks of redness, pain, and sensitivity to his right foot which has progressed over time until it became severely painful and swollen without fevers or chills. Arterial Doppler US in the ED demonstrated occlusion of the R SFA and stents, R SFA occlusion from it s proximal to distal portion, and diminished right-sided ankle-brachial index of 0.39. Pt has prior stenting of right SFA 1 yr ago. He also has history of occlusion to the LLE. He is ambulatory at baseline. Pt smokes intermittently, 1ppd, states he quit approx 3 weeks ago after 50 yr hx. Pt was taken by Dr. Cavazos to the OR and underwent Right lower extremity angiogram, insertion of infusion catheter, thrombolytic infusion for occlusion of the Right superficial femoral artery. EBL of 5cc. The patient denies weight loss, fever, dizziness, headache, muscle weakness, numbness, change in vision, sore throat, chest pain, palpitations, awareness of tachyarrhythmias, shortness of breath, nausea, vomiting, bloody stools, diarrhea , constipation, abdominal pain, other changes in urine or bowel habits. Pt has a hx of hypothyroidism but does not take medication. Does admit to mildly productive cough without SOB. Past Medical/Surgical History Medical Problems: BPH Congestive Heart Failure Nos CAD CABG Coronary Artery Stenting CKD Diabetes Mellitus Dyslipidemia Esophageal Reflux Hx Of Alcoholism Hypothyroidism Nos Ischemic Cardiomyopathy Ischemia of right lower extremity Mitral Stenosis Superficial femoral artery occlusion Surgical Problems: Hx of CABG Stented coronary artery Tonsillectomy Herniorrhaphy Pacemaker Insertion Mitral Valve Replacement Family History Family history is positive for cancer, stroke and kidney disease. 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) Alcohol Use: Prior Hx Marital Status: single Housing Status: other (Inmate) Occupation Status: other (Inmate at [facility]) Allergies Coded Allergies: Tetracycline (Unverified Allergy, Unknown, rash, 09/19/17) Home Medications Scheduled Amiodarone Hcl (Cordarone), 200 MG PO QAM Carvedilol (Coreg), 12.5 MG PO BID Cholecalciferol (Vitamin D 400 Iu), 400 INTER.UNIT PO BID Clopidogrel (Plavix), 75 MG PO DAILY Docusate Sodium (Docusate Sodium), 100 MG PO BID Furosemide (Lasix), 120 MG PO QAM Glyburide (Micronase), 5 MG PO BID Losartan Potassium (Cozaar), 25 MG PO DAILY Nitroglycerin (Nitrostat), 0.4 MG UT PRN Potassium Chloride (Klor-Con Ext Rel), 8 MEQ PO DAILY Ranitidine (Zantac), 300 MG PO BID Rosuvastatin Calcium (Crestor), 40 MG PO HS Spironolactone (Aldactone), 50 MG PO BID Tamsulosin Hcl (Flomax), 0.4 MG PO HS Scheduled PRN Clnkifn-Dhijzovmekuyh-Gaguzxdq (Excedrin Extra Strength), 2 TAB PO BID PRN for Pain Levalbuterol Tartrate (Levalbuterol Tartrate Hfa), 2 PUFF INH Q6 PRN for SOB/ Wheezing Current Inpatient Medications Current Inpatient Medications Medications (Trade) Dose Ordered Sig/Ronnie Route Start Time Stop Time Status Last Admin Dose Admin Amiodarone HCl (Cordarone Tab) 200 mg QAM PO 09/30/17 09:00 10/30/17 08:59 Carvedilol (Coreg Tab) 12.5 mg BID PO 09/29/17 21:00 10/29/17 20:59 09/29/17 20:22 12.5 MG Furosemide (Lasix Tab) 40 mg QAM PO 09/30/17 09:00 10/30/17 08:59 Levalbuterol (Xopenex Hfa Inhaler) 2 puffs Q6 PRN INH 09/29/17 17:15 10/29/17 17:14 Rosuvastatin Calcium (Crestor Tab) 40 mg HS PO 09/29/17 21:00 10/29/17 20:59 09/29/17 20:20 40 MG Tamsulosin HCl (Flomax Cap) 0.4 mg HS PO 09/29/17 21:00 10/29/17 20:59 Ranitidine HCl (zANTac TAB) 300 mg BID PO 09/29/17 21:00 10/29/17 20:59 09/29/17 20:19 300 MG Sodium Chloride 1,000 ml @ 15 mls/hr Q24H IV 09/29/17 19:30 10/29/17 19:29 09/29/17 20:33 15 MLS/HR Acetaminophen (Tylenol Tab) 650 mg Q8H PRN PO 09/29/17 17:15 10/29/17 17:14 Al Hydrox/Mg Hydrox/Simethicone (Maalox Max Susp) 15 ml Q4H PRN PO 09/29/17 17:15 10/29/17 17:14 Magnesium Hydroxide (Milk Of Magnesia Susp) 30 ml Q12H PRN PO 09/29/17 17:15 10/29/17 17:14 Zolpidem Tartrate (Ambien Tab) 5 mg HSZ PRN PO 09/29/17 17:15 10/29/17 17:14 Polyethylene (Miralax Powder Packet) 17 gm DAILY PRN PO 09/29/17 17:15 10/29/17 17:14 Insulin Aspart (novoLOG ASPART) SLIDING SCALE If C... ACHS SC 09/29/17 21:00 10/29/17 20:59 09/29/17 20:30 2 UNITS Glucose (Glucose 40% Gel) 15-30 GRAMS 15 GRAMS... UD PRN PO 09/29/17 17:15 10/29/17 17:14 Glucose (Glucose Chew Tab) 4-8 Tablets 4 Tabl... UD PRN PO 09/29/17 17:15 10/29/17 17:14 Dextrose (Dextrose 50% 50ML Syringe) 25-50ML OF 50% DW IV FOR... UD PRN IV 09/29/17 17:15 10/29/17 17:14 Glucagon (Glucagon Inj) 1 mg UD PRN SQ 09/29/17 17:15 10/29/17 17:14 Spironolactone (Aldactone Tab) 12.5 mg BID PO 09/29/17 21:00 10/29/17 20:59 09/29/17 20:21 12.5 MG Acetylcysteine (Acetylcysteine Cap) 600 mg Q12H PO 09/29/17 22:00 10/01/17 10:01 09/30/17 14:42 600 MG Sodium Chloride 1,000 ml @ 44 mls/hr [id number] IV 09/30/17 05:00 10/30/17 04:59 09/30/17 12:08 44 MLS/HR Sodium Bicarbonate 100 meq/Sterile Water 1,100 ml @ 80 mls/hr [id number] IV 10/01/17 05:00 10/31/17 04:59 Morphine Sulfate (MoRPHine SULFATE INJ) Q2H PRN IV 09/30/17 11:15 10/14/17 11:14 Ondansetron HCl (Zofran Inj) 4 mg Q6H PRN IV 09/30/17 11:15 10/30/17 11:14 Heparin Sodium/ Dextrose 500 ml @ 12 mls/hr Q24H IV 09/30/17 11:15 10/30/17 11:14 09/30/17 18:05 12 MLS/HR Alteplase, Recombinant 24 mg/ Sodium Chloride 240 ml @ 20 mls/hr Q12H IV 09/30/17 12:00 09/30/17 23:59 09/30/17 12:12 20 MLS/HR Alteplase, Recombinant 12 mg/ Sodium Chloride 240 ml @ 20 mls/hr Q12H IV 10/01/17 00:00 10/01/17 11:59 Cefazolin Sodium 15 ml @ 3.75 mls/ min PREOP IV 10/01/17 06:00 10/01/17 18:00 Review of Systems 12 systems reviewed and negative other than previously mentioned in the HPI. Physical Exam Date Time Temp Pulse Resp B/P (MAP) Pulse Ox O2 Delivery O2 Flow Rate FiO2 09/30/17 18:00 63 20 139/65 (89) 97 Room Air 09/30/17 17:00 63 20 117/50 (72) 95 Room Air 09/30/17 16:00 96 09/30/17 16:00 37.0 58 20 133/50 (77) 95 Room Air 09/30/17 15:00 58 20 122/53 (76) 96 09/30/17 14:00 61 134/55 (81) 97 09/30/17 13:15 61 18 123/52 (75) 96 Room Air 09/30/17 13:00 62 16 138/55 (82) 97 Room Air 09/30/17 12:30 60 16 96/47 (63) 96 Room Air 09/30/17 12:15 64 17 129/48 (75) 99 Room Air 09/30/17 12:00 96 09/30/17 12:00 37.1 61 16 114/50 (71) 95 Room Air 09/30/17 11:45 62 14 118/49 (72) 95 Room Air 09/30/17 11:30 60 21 131/53 (79) 09/30/17 11:15 65 19 126/56 96 Oxymask 2 09/30/17 11:10 66 19 119/65 96 Oxymask 2 09/30/17 11:05 60 19 135/62 98 Oxymask 2 09/30/17 11:00 62 15 133/56 98 Oxymask 2 09/30/17 10:59 98 Oxymask 2 09/30/17 10:54 98 Oxymask 2 09/30/17 10:49 60 12 119/58 98 Oxymask 2 09/30/17 10:44 60 12 119/58 98 Oxymask 2 09/30/17 10:39 60 19 112/54 99 Oxymask 2 09/30/17 10:34 60 16 115/55 98 Oxymask 2 09/30/17 10:29 61 10 115/53 98 Oxymask 2 09/30/17 10:24 61 11 116/54 98 Oxymask 2 09/30/17 10:19 61 11 105/47 97 Oxymask 2 09/30/17 10:14 64 14 131/59 98 Oxymask 2 09/30/17 10:05 60 17 133/60 99 Oxymask 2 09/30/17 07:09 36.7 62 20 121/44 (69) 94 Room Air 09/30/17 04:00 Room Air 09/30/17 03:51 36.8 62 20 123/50 (74) 96 Room Air 09/30/17 00:00 Room Air 09/29/17 23:40 36.8 68 21 122/57 (78) 95 Room Air 09/29/17 20:00 Room Air 09/29/17 20:00 36.6 66 16 115/60 (78) 95 Room Air Vital Signs - as noted Laboratory Data - as noted Physical Exam: General - NAD, resting comfortably in bed Eyes - PERRL, EOMI No icterus, gaze conjugate ENT - Mucosa dry, no lesions or candidiasis, edentulous Neck - Supple, trachea midline, no masses or lymphadenopathy, no JVD. Bilateral bruits L > R Lungs - No paradoxical chest wall movement, clear to auscultation bilaterally, no wheezes, rales, or rhonchi Heart - Reg rate and rhythm, No murmur, rubs, clicks, or gallops appreciated Abdomen - BS present, no bruits noted, tympanic to percussion, soft, nontender, nondistended, no organomegaly Extremities - right foot erythema minimal swelling noted, pulses not palpable, can be located via doppler. Surgical dressing in place in left groin, clean dry and intact. lower left without edema and pulses intact Neuro - A&OX3 Strength extremities equal and appropriate bilaterally Reflexes: normal and equal CN:PERRL, EOMI, no facial asymmetry, uvula/tongue midline Laboratory Results Last 24 Hours Test 09/29/17 20:04 09/30/17 02:31 09/30/17 06:02 09/30/17 11:31 Prothrombin Time 10.4 SECONDS Prothromb Time International Ratio 1.0 Activated Partial Thromboplast Time 26.1 SECONDS 105.2 SECONDS 60.9 SECONDS Partial Thromboplastin Ratio 1.0 4.0 2.3 White Blood Count 7.47 K/uL 8.38 K/uL Red Blood Count 3.82 M/uL 3.76 M/uL Hemoglobin 13.5 g/dL 13.1 g/dL Hematocrit 37.9 % 37.9 % Mean Corpuscular Volume 99.2 fL 100.8 fL Mean Corpuscular Hemoglobin 35.3 pg 34.8 pg Mean Corpuscular Hemoglobin Concent 35.6 g/dl 34.6 g/dl Platelet Count 100 K/uL 93 K/uL Mean Platelet Volume 10.0 fL 10.0 fL Neutrophils (%) (Auto) 70.7 % 72.5 % Lymphocytes (%) (Auto) 17.9 % 15.8 % Monocytes (%) (Auto) 8.2 % 8.6 % Eosinophils (%) (Auto) 2.3 % 2.4 % Basophils (%) (Auto) 0.4 % 0.5 % Neutrophils # (Auto) 5.28 K/uL 6.08 K/uL Lymphocytes # (Auto) 1.34 K/uL 1.32 K/uL Monocytes # (Auto) 0.61 K/uL 0.72 K/uL Eosinophils # (Auto) 0.17 K/uL 0.20 K/uL Basophils # (Auto) 0.03 K/uL 0.04 K/uL RDW Standard Deviation 45.7 fL 46.0 fL RDW Coefficient of Variation 12.6 % 12.6 % Immature Granulocyte % (Auto) 0.5 % 0.2 % Immature Granulocyte # (Auto) 0.04 K/uL 0.02 K/uL Sodium Level 142 mmol/L Potassium Level 3.8 mmol/L Chloride Level 112 mmol/L Carbon Dioxide Level 26 mmol/L Anion Gap 4.0 mmol/L Blood Urea Nitrogen 23 mg/dl Creatinine 1.54 mg/dl Est Creatinine Clear Calc Drug Dose 49.0 ml/min Estimated GFR () 52.2 Estimated GFR (Non- 45.0 BUN/Creatinine Ratio 15.3 Random Glucose 121 mg/dl Estimated Average Glucose 120 mg/dl Hemoglobin A1c 5.8 % Calcium Level 8.4 mg/dl Phosphorus Level 3.4 mg/dl Magnesium Level 2.1 mg/dl Total Bilirubin 0.6 mg/dl Aspartate Amino Transf (AST/SGOT) 14 U/L Alanine Aminotransferase (ALT/SGPT) 23 U/L Alkaline Phosphatase 67 U/L Total Protein 6.0 gm/dl Albumin 2.9 gm/dl Globulin 3.1 gm/dl Albumin/Globulin Ratio 0.9 Triglycerides Level 79 mg/dl Cholesterol Level 166 mg/dl HDL Cholesterol 42 mg/dl LDL Cholesterol, Calculated 108 mg/dl VLDL Cholesterol, Calculated 16 mg/dl Cholesterol/HDL Ratio 4.0 Bedside Glucose 119 mg/dl Platelet Estimate DECREASED Macrocytosis PRESENT Fibrinogen 352 mg/dl Test 09/30/17 12:19 09/30/17 16:33 09/30/17 17:03 Bedside Glucose 109 mg/dl 85 mg/dl White Blood Count 8.20 K/uL Red Blood Count 3.74 M/uL Hemoglobin 13.3 g/dL Hematocrit 37.4 % Mean Corpuscular Volume 100.0 fL Mean Corpuscular Hemoglobin 35.6 pg Mean Corpuscular Hemoglobin Concent 35.6 g/dl Platelet Count 89 K/uL Mean Platelet Volume 10.0 fL Neutrophils (%) (Auto) 72.7 % Lymphocytes (%) (Auto) 15.4 % Monocytes (%) (Auto) 8.4 % Eosinophils (%) (Auto) 2.6 % Basophils (%) (Auto) 0.4 % Neutrophils # (Auto) 5.97 K/uL Lymphocytes # (Auto) 1.26 K/uL Monocytes # (Auto) 0.69 K/uL Eosinophils # (Auto) 0.21 K/uL Basophils # (Auto) 0.03 K/uL RDW Standard Deviation 46.4 fL RDW Coefficient of Variation 12.7 % Immature Granulocyte % (Auto) 0.5 % Immature Granulocyte # (Auto) 0.04 K/uL Activated Partial Thromboplast Time 41.1 SECONDS Partial Thromboplastin Ratio 1.6 Fibrinogen 352 mg/dl Diagnostic Results ARTERIAL DOPPLER ULTRASOUND THE RIGHT LOWER EXTREMITY CLINICAL HISTORY: Right lower leg pain. History bacterial surgery. COMPARISON STUDY: Right leg arteriographic study dated 10/25/2016 FINDINGS: The brachial arm systolic pressure on the right was 1 27 mmHg. The brachial arm systolic pressures in the left was 118 mmHg. Posterior tibial systolic pressures were 35 mmHg on the right and 95 mmHg on the left. Dorsalis pedis systolic pressures were 49 mmHg on the right and 104 mmHg on the left. These measurements indicate Ankle-brachial index on the right of 0.39, and an ankle-brachial index on the left of 0.82 There is monophasic flow within the right common femoral artery. There is a right profunda artery stenosis with an elevated velocity measuring 572 cm/s. The right superficial femoral artery is occluded. There is no evidence of acute distal reconstitution with monophasic popliteal anterior tibial and peroneal waveforms. There is evidence of prior superficial femoral artery stenting. IMPRESSION: 1. There is occlusion of the patient's right superficial femoral artery and stents. 2. The right superficial femoral artery is occluded from its proximal to distal portion. 3. Diminished right-sided ankle-brachial index of 0.39 Electronically signed by: Boris Hernandez M.D. 09/29/2017 3:45 PM Dictated Date/Time: 09/29/2017 3:40 PM R VENOUS DOPP LOWER EXT UNILAT CLINICAL HISTORY: R lower leg pain with R calf cramping. Hx arterial surgery. Pain. Edema. TECHNIQUE: Venous Doppler COMPARISON STUDY: 02/09/2015 FINDINGS: Normal venous Doppler right leg. Compressibility flow and augmentation characteristics are normal. IMPRESSION: Normal study The above report was generated using voice recognition software. It may contain grammatical, syntax or spelling errors. Electronically signed by: Pérez Mathews M.D. 09/29/2017 3:27 PM Dictated Date/Time: 09/29/2017 3:26 PM Assessment & Plan (1) Ischemic cardiomyopathy (2) Chronic kidney disease, stage III (moderate) (3) Hypothyroidism Nos (4) Esophageal Reflux (5) Coronary Atherosclerosis Of [place] Coronary Vessel (6) Congestive Heart Failure Nos (7) Superficial femoral artery occlusion Reason Critically Ill: Patient is a 72-year-old male who is transferred to the ICU for management and monitoring 2/2 right superficial femoral artery occlusion s/p catheter directed thrombolysis. PLAN: Heme: * Arterial Occlusion POD # 0 for Right lower extremity angiogram, insertion of infusion catheter, thrombolytic infusion for occlusion of the Right superficial femoral artery * Pt with left groin infusion catheter with TPA and Heparin infusion per Dr. Cavazos * Clean, dry and intact dressing * Pulses non-palpable * DVT Prophylaxis: PTT prolonged secondary to Heparin infusion Neuro: * Morphine for pain control when necessary * Recently treated with 4mg of Morphine, pt reported some improvement * Alert and Oriented * Neuro checks per protocol. Resp: * Supplemental oxygen as required * Currently on room air with adequate saturations * Hx of heart failure with reduced EF, monitor for fluid overload * Respiratory regimen in place PRN CV: * Hx fo HF, Dyslipidemia, and A. Fib * Continue Amiodarone, Coreg, Lasix, Crestor * Lasix increased currently 120mg PO qAM * EKG unchanged from prior EKGs per Cardiology review * Wide QRS with ICD in place Fluids/Renal: * NSS @ 44ml/hr, reduced rate due to HF Hx * Continue Tamsulosin for BPH * Hold Losartan * Spironolactone dose reduced to 12.5 BID * BUN/Cr: 23/1.54 (Unknown baseline, last admit 10/25/16 1.5) * Monitor Daily * Without thomas, using urinal * Strict I&Os ID: * Preop Ancef * Afebrile without leukocytosis * Trend fever curve * Daily CBC for WBC GI/Nutrition: * Hx of Reflux: Zantac 300mg PO BID * NPO after midnight in preparation for additional procedure in AM * No elevation in LFTs Endocrine: * DM * Accu-Checks per protocol, started insulin infusion for 2 blood sugars greater than 180 * SSI in place * Hx of hypothyroidism: * Recheck TSH * No outpt medication on EMR/ per pt does not take oral meds for thyroid Thank you for involving us in the care of this patient. Please refer to Dr. Rudy Luna's addendum for further recommendations. I have personally evaluated and examined this patient. I agree with assessment and plan of Melba Jack PA-C. Patient's anticoagulation being managed per vascular surgery, patient critically ill due to need for TPA given acute arterial thrombus.
[2017-09-30] MEDS: ROSUVASTATIN CALCIUM 20 MG TAB PO SCH (21:47)
[2017-09-30] MEDS: TAMSULOSIN HCL 0.4 MG CAP PO SCH (21:47)
[2017-09-30 23:03] LABS: HEMATOCRIT 34.9 % (42-52); HEMOGLOBIN 12.4 g/dL (14.0-18.0); MEAN CELL VOLUME 100.3 fL (80-100); MEAN CORPUSCULAR HEMOGLOBIN 35.6 pg (25-34); MEAN CORPUSCULAR HGB CONC 35.5 g/dl (32-36); RED CELL DISTRIBUTION WIDTH CV 12.6 % (11.5-14.5); RED CELL DISTRIBUTION WIDTH SD 45.9 fL (36.4-46.3); WHITE BLOOD COUNT 8.12 K/uL (4.8-10.8)
[2017-09-30 23:05] LABS: MEAN PLATELET VOLUME 9.9 fL (7.4-10.4); PLATELET COUNT 92 K/uL (130-400)
[2017-09-30 23:38] LABS: BASO % 0.4 %; BASO ABS # 0.03 K/uL (0-0.2); EOS % 2.8 %; EOS ABS # 0.23 K/uL (0-0.5); IG# 0.05 K/uL (0.00-0.02); LYMPH % 15.3 %; LYMPH ABS # 1.24 K/uL (1.2-3.4); MONO % 9.1 %; MONO ABS # 0.74 K/uL (0.11-0.59); NEUT % 71.8 %; NEUT ABS # 5.83 K/uL (1.4-6.5)
[2017-10-01] VITALS (73 sets, daily range): BP systolic 86–145; BP diastolic 35–72; PULSE 58–155; TEMP 36.7–37.2; O2SAT 91–100
[2017-10-01 00:01] LABS: PTT PATIENT 33.4 SECONDS (21.0-31.0)
[2017-10-01] MEDS ORDERED: NURSING VERBAL MED ORDER ONE ×4 (00:15→18:45)
[2017-10-01] MEDS: HEPARIN 25,000 UNIT/500ML D5W 500 ML IV SCH (00:21)
[2017-10-01] MEDS ORDERED: HEPARIN IV BOLUS 3,000 UNIT in SYRINGE 0 ML IV ONE (00:30)
[2017-10-01] MEDS: MoRPHine SULFATE 4 MG/ML 1 ML CARP\\VIAL IV PRN ×7 (03:51→14:18)
[2017-10-01] MEDS: SODIUM CHLORIDE 0.9% 1000ML 1,000 ML IV SCH ×2 (04:02→23:18)
[2017-10-01 04:23] LABS: HEMATOCRIT 35.2 % (42-52); HEMOGLOBIN 12.2 g/dL (14.0-18.0); MEAN CELL VOLUME 100.3 fL (80-100); MEAN CORPUSCULAR HEMOGLOBIN 34.8 pg (25-34); RED CELL DISTRIBUTION WIDTH CV 12.6 % (11.5-14.5); RED CELL DISTRIBUTION WIDTH SD 45.9 fL (36.4-46.3); WHITE BLOOD COUNT 9.51 K/uL (4.8-10.8)
[2017-10-01 04:26] LABS: MEAN CORPUSCULAR HGB CONC 34.7 g/dl (32-36); MEAN PLATELET VOLUME 9.8 fL (7.4-10.4); PLATELET COUNT 93 K/uL (130-400)
[2017-10-01 04:48] LABS: CALCIUM 7.7 mg/dl (8.5-10.1); CREATININE 1.45 mg/dl (0.60-1.40); POTASSIUM 4.1 mmol/L (3.5-5.1)
[2017-10-01 04:54] LABS: BASO % 0.3 %; BASO ABS # 0.03 K/uL (0-0.2); EOS % 2.9 %; EOS ABS # 0.28 K/uL (0-0.5); IG# 0.05 K/uL (0.00-0.02); LYMPH % 11.7 %; LYMPH ABS # 1.11 K/uL (1.2-3.4); MONO % 9.9 %; MONO ABS # 0.94 K/uL (0.11-0.59); NEUT % 74.7 %
[2017-10-01] MEDS ORDERED: SODIUM BICARBONATE 8.4% INJ 100 MEQ in STERILE WATER 1000 ML 1,000 ML IV SCH (05:00)
[2017-10-01] MEDS ORDERED: SODIUM CHLORIDE 0.9% 1000ML 1,000 ML IV SCH ×2 (05:00→07:45)
[2017-10-01 05:03] LABS: PTT PATIENT 46.5 SECONDS (21.0-31.0)
[2017-10-01] MEDS ORDERED: CEFAZOLIN 2000MG IV PUSH 15 ML IV SCH ×2 (06:00→13:00)
[2017-10-01] MEDS ORDERED: CEFAZOLIN IV 2,000 MG in DEXTROSE 5% 50ML 50 ML IV SCH (06:00)
[2017-10-01] MEDS: INSULIN ASPART 100 UNITS/ML 3 ML PEN SC SCH ×4 (06:45→22:02)
--- NOTE | 2017-10-01 07:04 | Progress Note ---
Progress Note Date of Service Oct 01, 2017. Progress Note Patient for recheck of his TPA with possible intervention. I have discussed the risks options and benefits of the procedure with the patient. The patient understands the risks options and benefits and agrees to the procedure. Doppler PT on right I have examined the patient, reviewed the History & Physical and in the interval since the performance of the History & Physical I have noted the following changes of clinical significance: No changes noted
--- NOTE | 2017-10-01 07:15 | Pre Sedation Assessment ---
Pre Sedation Assessment General Date of Sedation: Oct 01, 2017. Vital Signs Past 12 Hours Date Time Temp Pulse Resp B/P (MAP) Pulse Ox O2 Delivery O2 Flow Rate FiO2 10/01/17 06:03 62 19 129/56 (78) 97 10/01/17 05:05 71 18 132/69 (90) 97 10/01/17 04:02 Oxymask 3.0 10/01/17 04:02 37.2 Oxymask 3.0 10/01/17 04:02 61 22 114/49 (62) 99 10/01/17 03:06 63 20 143/57 (76) 99 10/01/17 02:03 65 22 125/53 (97) 98 10/01/17 01:09 60 18 135/57 (79) 97 10/01/17 00:03 36.7 60 20 97 Oxymask 3.0 10/01/17 00:00 Oxymask 3.0 10/01/17 00:00 36.7 58 16 117/53 (74) 98 09/30/17 23:01 64 18 132/52 (73) 99 09/30/17 22:01 60 20 118/47 (77) 94 09/30/17 21:01 61 19 98/50 (66) 95 09/30/17 20:01 61 20 132/51 (72) 96 09/30/17 20:00 36.6 09/30/17 20:00 96 Room Air Review Cardiovascular: regular rate, rhythm Lungs: lungs clear Pre-Sedation Airway Assessment Smoking Status: Current 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 Informed Consent was obtained. I have identified the patient, determined the appropriateness of sedation and have assessed the patient immediately prior to the procedure. All medicine(s) and interventions are by my order.
[2017-10-01] MEDS ORDERED: FENTANYL CITRATE INJ 50 MCG/1 ML 2 ML VIAL ONE ×3 (07:36→19:39)
[2017-10-01] MEDS ORDERED: MIDAZOLAM HCL 1 MG/ML 2ML VIAL ONE ×2 (07:36→15:07)
[2017-10-01] MEDS ORDERED: FENTANYL CITRATE INJ 50 MCG/1 ML 2 ML VIAL IV ONE (08:11)
[2017-10-01] MEDS ORDERED: MIDAZOLAM HCL 1 MG/ML 2ML VIAL IV ONE ×2 (08:11→16:21)
[2017-10-01] MEDS: RANITIDINE HCL 150 MG TAB PO SCH ×2 (09:00→21:58)
[2017-10-01] MEDS: CARVEDILOL 12.5 MG TAB PO SCH ×2 (09:00→21:57)
[2017-10-01] MEDS: SPIRONOLACTONE 25 MG TAB PO SCH ×2 (09:00→21:56)
--- NOTE | 2017-10-01 09:55 | Post Sedation Assessment ---
Post Sedation Assessment General Date of Sedation Oct 01, 2017. Vital Signs: Vital Signs Past 12 Hours Date Time Temp Pulse Resp B/P (MAP) Pulse Ox O2 Delivery O2 Flow Rate FiO2 10/01/17 08:00 96 Room Air Oxymask 10/01/17 08:00 36.8 78 16 119/60 (79) 96 Oxymask 2.0 10/01/17 06:03 62 19 129/56 (78) 97 10/01/17 05:05 71 18 132/69 (90) 97 10/01/17 04:02 Oxymask 3.0 10/01/17 04:02 37.2 Oxymask 3.0 10/01/17 04:02 61 22 114/49 (62) 99 10/01/17 03:06 63 20 143/57 (76) 99 10/01/17 02:03 65 22 125/53 (97) 98 10/01/17 01:09 60 18 135/57 (79) 97 10/01/17 00:03 36.7 60 20 97 Oxymask 3.0 10/01/17 00:00 Oxymask 3.0 10/01/17 00:00 36.7 58 16 117/53 (74) 98 09/30/17 23:01 64 18 132/52 (73) 99 09/30/17 22:01 60 20 118/47 (77) 94 Post Procedure Recovery Score Activity: (2) Moves 4 extremities * Respiration: (2) Deep breath/cough Circulation: (2) +/-20% PreAnes Value Consciousness: (2) Fully Awake Oxygen Saturation: (2) > 92% On Room Air Post Anesthesia Score: 10 Discharge Sedation Level of Care: Higher Level of Care Post Sedation Plan On clinical assessment, the patient appears to have tolerated the sedation without complications. Patient is recovering as anticipated. Patient will continue to be monitored by nursing and may be discharged when sedation discharge criteria are met per below protocol. Upon Completions of procedure and additional 15 minutes continue every 5 minute vital signs and the P.A.R. score; then discharge to a Phase I or Fast Track to Phase II per the following guidelines: * Discharge Patient to appropriate Phase II area if PAR is 8 or greater or return to pre- procedure baseline. The post - procedure orders will be as directed. * If PAR score is less than 8 or not return to pre-procedure baseline then patient will follow Phase I monitoring till PAR is reached for Phase II. The Phase I may be done in procedure room or may call to secure a Phase I area. * If naloxone or flumazenil are used for reversal, hold in Phase I for an additional 60 -120 minutes before discharge to Phase II. Please call the Sedation Physician to re-evaluate and complete post-note for discharge to Phase II area. Do NOT discharge from procedure sedation or Phase 1 until post- sedation evaluation note is complete by procedure /sedation MD Sedation Discharge Instructions to be given to the patient at discharge to home.
--- NOTE | 2017-10-01 09:56 | [facility] Post Operative Brief Note ---
Immediate Operative Summary Operative Date Oct 01, 2017. Pre-Operative Diagnosis Recheck TPA Post-Operative Diagnosis Popliteal Thrombos Procedure(s) Performed Right Lower Extremity Angiogram Percutaneous angioplasty and Stenting of Right Superficial Femoral Artery Insertion of Infusion Catheter Moderate Sedation [id number] Surgeon Dirk Solar Sales Manager Surgeon(s) Hardeep Estimated Blood Loss 5 Findings Consistent with Post-Op Diagnosis Specimens None Drains None Anesthesia Type IV Sedat Cons RN Only Complication(s) none Disposition Accompanied Pt To Recover: no Disposition:
[2017-10-01] MEDS: ACETYLCYSTEINE 600 MG CAP PO SCH (10:00)
[2017-10-01] MEDS ORDERED: IODIXANOL (VISIPAQUE) 270 MG/ML 150ML IV ONE (10:01)
[2017-10-01] MEDS ORDERED: ALTEPLASE IV SCH ×4 (10:30)
[2017-10-01] MEDS ORDERED: RECOMBINANT IV SCH ×4 (10:30)
[2017-10-01] MEDS ORDERED: SODIUM CHLORIDE 0.9% IV SCH ×4 (10:30)
--- NOTE | 2017-10-01 10:42 | Critical Care Progress Note ---
Critical Care Progress Note Date of Service Oct 01, 2017. Attending Dr. Luna Subjective Found patient resting comfortably this morning. States that his right groin feels sore. Otherwise he denies any acute pains to include chest pain, shortness of breath, or other extremity pains. No voiced patient concerns acutely. He is aware he is going back to the OR shortly. Objective General Appearance: Awake, alert & oriented, comfortable in general, NAD. CV: +S1S2 RRR, no murmur. Pulm: Clear to auscultation throughout. Abdomen: +BS, soft, non-tender, non-distended. Surgical dressing over left groin is clean, dry, and intact. Extremities: Right foot feels cool to touch. Patient can move bilateral toes without difficulty. Neuro: No gross neuro deficits. Intact distal sensation to bilateral feet. Assessment & Plan 72-year-old male admitted on [id number] for an acute/subacute right superficial femoral artery occlusion. PMH: Severe peripheral vascular disease, CAD s/p CABG and valve replacement in 2002, multiple cardiac stents, DM, HTN, ischemic cardiomyopathy and global hypokinesia, GERD, hypothyroidism, V tach in 2014, CKD stage 3, alcoholism, BPH , CVA PSH: Tonsillectomy, hernia repair, pacemaker insertion, CABG x3 vessel in 1999, stents x3 s/p [place] in 2000, mitral valve repair. October 2016 s/p RLE angiogram [employer] [facility] [employer] and stenting of right popliteal/right superficial femoral artery and mechanical occlusion of left femoral artery. BRICK YARD HAND: CAM-ICU negative. Received 4 mg morphine overnight. Pain control as needed. Otherwise no known underlying issues. Pulm: On 3L oxygen mask overnight with good saturation. PMH heart failure with reduced EF. On Xopenex as needed. CVS: POD #1 (24Apr) for right lower extremity angiogram, insertion of infusion catheter, thrombolytic infusion for occlusion of the right superficial femoral artery. Past medical history of heart failure, dyslipidemia, and A. fib. ICD in place. Continuing amiodarone, Coreg, Crestor. Spironolactone reduced to 12.5 mg twice daily. Holding losartan. - Plan for thrombectomy this morning. ID: Received perioperative Ancef. Afebrile without leukocytosis. Monitoring. Endo: History of diabetes and hypothyroidism. No outpatient meds for the latter. Blood sugars currently under control. HbA1c 5.8. Renal/Lytes: Current Cr 1.45. Unknown baseline. Monitoring I's and O's. On tamsulosin for BPH. GI: History of reflux. On Zantac BID. Heme: Hb stable at 12. Platelets slightly decreased to 93. Monitoring. DVT prophy: Heparin. Lines: Left femoral access. Code status: Full code. PT/OT: Deferred. Disposition: ICU. Back to OR today. Resident of [place]. Resident Physician Supervision Note: Dr. De La Rosa was resident physician during care of patient. I separately evaluated patient and did history and exam. I discussed the case with the resident and generally agree with the findings and plan. Patient required repeat trip to OR for arterial thrombus. While in the operating room he had an episode of ventricular tachycardia, this nonsustained ventricular tachycardia continued upon return to the ICU. Ultimately the patient developed recurrent ventricular tachycardia for which his AICD did not fire. I believe that this could possibly be atrial fibrillation with aberrancy or his AICD settings are set at a higher zone than the tachycardia the patient is experiencing because at this time he is not experiencing shocks with the wide complex tachycardia. Initially treated the patient with a 150 mg bolus of amiodarone with an infusion to continue, while waiting for the infusion to arrive from pharmacy the patient developed another episode of prolonged ventricular tachycardia and was given a second 150 mg load and the infusion was subsequently started. I discussed the case with oncology account specialist cardiology and we will also administer beta-vianney as this may be driven by an adrenergic predominance given the operative nature of the patient's admission. We will also obtain a AICD interrogation of his device. I have personally spent 85 minutes of critical care time in the direct management of this patient. This is a life/limb threatening event. This includes time spent evaluating patient, direct bedside care, chart review, placing orders, interpretation of diagnostic studies, discussion with consultants, patient, and/or family members regarding treatment decisions, as well as other required patient management activities. This time is exclusive of all separately billable procedures, and teaching time and separate from and in addition to any other critical care service time. Documented By: Rudy Luna DO Consults & Procedures Procedures: See assessment and plan. Data Medications: Current Inpatient Medications Medications (Trade) Dose Ordered Sig/Ronnie Route Start Time Stop Time Status Last Admin Dose Admin Amiodarone HCl (Cordarone Tab) 200 mg QAM PO 09/30/17 09:00 10/30/17 08:59 Carvedilol (Coreg Tab) 12.5 mg BID PO 09/29/17 21:00 10/29/17 20:59 09/30/17 21:48 12.5 MG Furosemide (Lasix Tab) 40 mg QAM PO 09/30/17 09:00 10/30/17 08:59 Levalbuterol (Xopenex Hfa Inhaler) 2 puffs Q6 PRN INH 09/29/17 17:15 10/29/17 17:14 Rosuvastatin Calcium (Crestor Tab) 40 mg HS PO 09/29/17 21:00 10/29/17 20:59 09/30/17 21:47 40 MG Tamsulosin HCl (Flomax Cap) 0.4 mg HS PO 09/29/17 21:00 10/29/17 20:59 09/30/17 21:47 0.4 MG Ranitidine HCl (zANTac TAB) 300 mg BID PO 09/29/17 21:00 10/29/17 20:59 09/30/17 21:47 300 MG Acetaminophen (Tylenol Tab) 650 mg Q8H PRN PO 09/29/17 17:15 10/29/17 17:14 Al Hydrox/Mg Hydrox/Simethicone (Maalox Max Susp) 15 ml Q4H PRN PO 09/29/17 17:15 10/29/17 17:14 Magnesium Hydroxide (Milk Of Magnesia Susp) 30 ml Q12H PRN PO 09/29/17 17:15 10/29/17 17:14 Zolpidem Tartrate (Ambien Tab) 5 mg HSZ PRN PO 09/29/17 17:15 10/29/17 17:14 Polyethylene (Miralax Powder Packet) 17 gm DAILY PRN PO 09/29/17 17:15 10/29/17 17:14 Insulin Aspart (novoLOG ASPART) SLIDING SCALE If C... ACHS SC 09/29/17 21:00 10/29/17 20:59 09/29/17 20:30 2 UNITS Glucose (Glucose 40% Gel) 15-30 GRAMS 15 GRAMS... UD PRN PO 09/29/17 17:15 10/29/17 17:14 Glucose (Glucose Chew Tab) 4-8 Tablets 4 Tabl... UD PRN PO 09/29/17 17:15 10/29/17 17:14 Dextrose (Dextrose 50% 50ML Syringe) 25-50ML OF 50% DW IV FOR... UD PRN IV 09/29/17 17:15 10/29/17 17:14 Glucagon (Glucagon Inj) 1 mg UD PRN SQ 09/29/17 17:15 10/29/17 17:14 Spironolactone (Aldactone Tab) 12.5 mg BID PO 09/29/17 21:00 10/29/17 20:59 09/30/17 21:46 12.5 MG Sodium Chloride 1,000 ml @ 100 mls/hr Q10H IV 09/30/17 05:00 10/30/17 04:59 10/01/17 04:02 44 MLS/HR Sodium Bicarbonate 100 meq/Sterile Water 1,100 ml @ 80 mls/hr [id number] IV 10/01/17 05:00 10/31/17 04:59 10/01/17 05:04 80 MLS/HR Morphine Sulfate (MoRPHine SULFATE INJ) Q2H PRN IV 09/30/17 11:15 10/14/17 11:14 10/01/17 07:53 4 MG Ondansetron HCl (Zofran Inj) 4 mg Q6H PRN IV 09/30/17 11:15 10/30/17 11:14 Heparin Sodium/ Dextrose 500 ml @ 14 mls/hr Q24H IV 09/30/17 11:15 10/30/17 11:14 10/01/17 00:21 14 MLS/HR Cefazolin Sodium 15 ml @ 3.75 mls/ min PREOP IV 10/01/17 06:00 10/01/17 18:00 10/01/17 07:52 3.75 MLS/MIN Alteplase, Recombinant 6 mg/ Sodium Chloride 120 ml @ 20 mls/hr Q6H IV 10/01/17 10:30 10/01/17 16:29 Cefazolin Sodium 1000 mg/Syringe 7.5 ml @ 2.5 mls/min PREOP IV 10/01/17 13:00 10/01/17 20:00 Vital Signs: Date Time Temp Pulse Resp B/P (MAP) Pulse Ox O2 Delivery O2 Flow Rate FiO2 10/01/17 10:05 72 18 165/67 94 Room Air 10/01/17 10:00 70 16 139/59 94 Room Air 10/01/17 09:55 66 13 132/59 98 Oxymask 2 10/01/17 09:50 68 12 146/50 99 Oxymask 2 10/01/17 09:45 66 16 135/53 99 Oxymask 2 10/01/17 09:40 68 14 135/61 99 Oxymask 2 10/01/17 09:35 85 15 124/58 98 Oxymask 2 10/01/17 09:30 72 12 151/56 99 Oxymask 2 10/01/17 09:25 68 16 130/60 99 Oxymask 2 10/01/17 09:20 66 12 133/58 99 Oxymask 2 10/01/17 09:15 65 15 160/63 99 Oxymask 2 10/01/17 09:10 64 14 135/59 99 Oxymask 2 10/01/17 09:05 66 14 122/55 99 Oxymask 2 10/01/17 09:00 82 14 131/56 99 Oxymask 2 10/01/17 08:55 84 17 129/57 98 Oxymask 2 10/01/17 08:50 68 17 118/56 98 Oxymask 2 10/01/17 08:45 82 16 117/57 98 Oxymask 2 10/01/17 08:40 82 18 115/57 98 Oxymask 2 10/01/17 08:35 81 19 118/56 98 Oxymask 2 10/01/17 08:30 80 16 118/56 98 Oxymask 2 10/01/17 08:25 80 13 140/56 98 Oxymask 2 10/01/17 08:20 79 13 118/59 98 Oxymask 2 10/01/17 08:15 82 16 111/51 97 Oxymask 2 10/01/17 08:10 79 20 139/63 96 Oxymask 2 10/01/17 08:05 60 21 153/62 98 Oxymask 2 10/01/17 08:00 96 Room Air Oxymask 10/01/17 08:00 36.8 78 16 119/60 (79) 96 Oxymask 2.0 10/01/17 06:03 62 19 129/56 (78) 97 10/01/17 05:05 71 18 132/69 (90) 97 10/01/17 04:02 Oxymask 3.0 10/01/17 04:02 37.2 Oxymask 3.0 10/01/17 04:02 61 22 114/49 (62) 99 10/01/17 03:06 63 20 143/57 (76) 99 10/01/17 02:03 65 22 125/53 (97) 98 10/01/17 01:09 60 18 135/57 (79) 97 10/01/17 00:03 36.7 60 20 97 Oxymask 3.0 10/01/17 00:00 Oxymask 3.0 10/01/17 00:00 36.7 58 16 117/53 (74) 98 09/30/17 23:01 64 18 132/52 (73) 99 09/30/17 22:01 60 20 118/47 (77) 94 09/30/17 21:01 61 19 98/50 (66) 95 09/30/17 20:01 61 20 132/51 (72) 96 09/30/17 20:00 36.6 09/30/17 20:00 96 Room Air 09/30/17 19:01 63 20 128/55 (87) 96 09/30/17 18:00 63 20 139/65 (89) 97 Room Air 09/30/17 17:00 63 20 117/50 (72) 95 Room Air 09/30/17 16:00 96 09/30/17 16:00 37.0 58 20 133/50 (77) 95 Room Air 09/30/17 15:00 58 20 122/53 (76) 96 09/30/17 14:00 61 134/55 (81) 97 09/30/17 13:15 61 18 123/52 (75) 96 Room Air 09/30/17 13:00 62 16 138/55 (82) 97 Room Air 09/30/17 12:30 60 16 96/47 (63) 96 Room Air 09/30/17 12:15 64 17 129/48 (75) 99 Room Air 09/30/17 12:00 96 09/30/17 12:00 37.1 61 16 114/50 (71) 95 Room Air 09/30/17 11:45 62 14 118/49 (72) 95 Room Air 09/30/17 11:30 60 21 131/53 (79) 09/30/17 11:15 65 19 126/56 96 Oxymask 2 09/30/17 11:10 66 19 119/65 96 Oxymask 2 09/30/17 11:05 60 19 135/62 98 Oxymask 2 09/30/17 11:00 62 15 133/56 98 Oxymask 2 09/30/17 10:59 98 Oxymask 2 09/30/17 10:54 98 Oxymask 2 09/30/17 10:49 60 12 119/58 98 Oxymask 2 09/30/17 10:44 60 12 119/58 98 Oxymask 2 09/30/17 10:39 60 19 112/54 99 Oxymask 2 09/30/17 10:34 60 16 115/55 98 Oxymask 2 Laboratory Results: Last 24 Hours Test 09/30/17 11:31 09/30/17 12:19 09/30/17 16:33 09/30/17 17:03 White Blood Count 8.38 K/uL 8.20 K/uL Red Blood Count 3.76 M/uL 3.74 M/uL Hemoglobin 13.1 g/dL 13.3 g/dL Hematocrit 37.9 % 37.4 % Mean Corpuscular Volume 100.8 fL 100.0 fL Mean Corpuscular Hemoglobin 34.8 pg 35.6 pg Mean Corpuscular Hemoglobin Concent 34.6 g/dl 35.6 g/dl Platelet Count 93 K/uL 89 K/uL Mean Platelet Volume 10.0 fL 10.0 fL Neutrophils (%) (Auto) 72.5 % 72.7 % Lymphocytes (%) (Auto) 15.8 % 15.4 % Monocytes (%) (Auto) 8.6 % 8.4 % Eosinophils (%) (Auto) 2.4 % 2.6 % Basophils (%) (Auto) 0.5 % 0.4 % Neutrophils # (Auto) 6.08 K/uL 5.97 K/uL Lymphocytes # (Auto) 1.32 K/uL 1.26 K/uL Monocytes # (Auto) 0.72 K/uL 0.69 K/uL Eosinophils # (Auto) 0.20 K/uL 0.21 K/uL Basophils # (Auto) 0.04 K/uL 0.03 K/uL RDW Standard Deviation 46.0 fL 46.4 fL RDW Coefficient of Variation 12.6 % 12.7 % Immature Granulocyte % (Auto) 0.2 % 0.5 % Immature Granulocyte # (Auto) 0.02 K/uL 0.04 K/uL Platelet Estimate DECREASED Macrocytosis PRESENT Activated Partial Thromboplast Time 60.9 SECONDS 41.1 SECONDS Partial Thromboplastin Ratio 2.3 1.6 Fibrinogen 352 mg/dl 352 mg/dl Bedside Glucose 109 mg/dl 85 mg/dl Test 09/30/17 20:45 09/30/17 22:52 10/01/17 04:14 10/01/17 06:39 Bedside Glucose 123 mg/dl 143 mg/dl White Blood Count 8.12 K/uL 9.51 K/uL Red Blood Count 3.48 M/uL 3.51 M/uL Hemoglobin 12.4 g/dL 12.2 g/dL Hematocrit 34.9 % 35.2 % Mean Corpuscular Volume 100.3 fL 100.3 fL Mean Corpuscular Hemoglobin 35.6 pg 34.8 pg Mean Corpuscular Hemoglobin Concent 35.5 g/dl 34.7 g/dl Platelet Count 92 K/uL 93 K/uL Mean Platelet Volume 9.9 fL 9.8 fL Neutrophils (%) (Auto) 71.8 % 74.7 % Lymphocytes (%) (Auto) 15.3 % 11.7 % Monocytes (%) (Auto) 9.1 % 9.9 % Eosinophils (%) (Auto) 2.8 % 2.9 % Basophils (%) (Auto) 0.4 % 0.3 % Neutrophils # (Auto) 5.83 K/uL 7.10 K/uL Lymphocytes # (Auto) 1.24 K/uL 1.11 K/uL Monocytes # (Auto) 0.74 K/uL 0.94 K/uL Eosinophils # (Auto) 0.23 K/uL 0.28 K/uL Basophils # (Auto) 0.03 K/uL 0.03 K/uL RDW Standard Deviation 45.9 fL 45.9 fL RDW Coefficient of Variation 12.6 % 12.6 % Immature Granulocyte % (Auto) 0.6 % 0.5 % Immature Granulocyte # (Auto) 0.05 K/uL 0.05 K/uL Red Blood Cell Morphology Unremarkable Unremarkable Activated Partial Thromboplast Time 33.4 SECONDS 46.5 SECONDS Partial Thromboplastin Ratio 1.3 1.8 Fibrinogen 314 mg/dl 342 mg/dl Sodium Level 139 mmol/L Potassium Level 4.1 mmol/L Chloride Level 109 mmol/L Carbon Dioxide Level 27 mmol/L Anion Gap 3.0 mmol/L Blood Urea Nitrogen 18 mg/dl Creatinine 1.45 mg/dl Est Creatinine Clear Calc Drug Dose 52.0 ml/min Estimated GFR () 56.1 Estimated GFR (Non- 48.4 BUN/Creatinine Ratio 12.1 Random Glucose 120 mg/dl Calcium Level 7.7 mg/dl Phosphorus Level 3.0 mg/dl Magnesium Level 1.9 mg/dl Resident Tracking Resident Involvement: Resident Care Provided Care Provided: Adult Hospital Medicine (ICU)
[2017-10-01 11:30] LABS: HEMATOCRIT 32.9 % (42-52); HEMOGLOBIN 11.7 g/dL (14.0-18.0); MEAN CELL VOLUME 99.4 fL (80-100); MEAN CORPUSCULAR HEMOGLOBIN 35.3 pg (25-34); MEAN CORPUSCULAR HGB CONC 35.6 g/dl (32-36); RED CELL DISTRIBUTION WIDTH CV 12.4 % (11.5-14.5); WHITE BLOOD COUNT 9.79 K/uL (4.8-10.8)
[2017-10-01 11:39] LABS: PTT PATIENT 37.7 SECONDS (21.0-31.0)
[2017-10-01 11:56] LABS: MEAN PLATELET VOLUME 9.9 fL (7.4-10.4); PLATELET COUNT 86 K/uL (130-400)
[2017-10-01 12:01] LABS: BASO % 0.3 %; BASO ABS # 0.03 K/uL (0-0.2); EOS % 1.6 %; EOS ABS # 0.16 K/uL (0-0.5); IG# 0.05 K/uL (0.00-0.02); LYMPH % 9.8 %; LYMPH ABS # 0.96 K/uL (1.2-3.4); MONO % 9.7 %; MONO ABS # 0.95 K/uL (0.11-0.59); NEUT % 78.1 %; NEUT ABS # 7.64 K/uL (1.4-6.5)
[2017-10-01] MEDS ORDERED: CEFAZOLIN IV 1,000 MG in SYRINGE 0 ML IV SCH (13:00)
--- NOTE | 2017-10-01 14:11 | Progress Note ---
Progress Note Date of Service Oct 01, 2017. Progress Note Patient for recheck of his TPA infusion. I have discussed the risks options and benefits of the procedure with the patient. The patient understands the risks options and benefits and agrees to the procedure.
--- NOTE | 2017-10-01 14:12 | Pre Sedation Assessment ---
Pre Sedation Assessment General Date of Sedation: Oct 01, 2017. Vital Signs Past 12 Hours Date Time Temp Pulse Resp B/P (MAP) Pulse Ox O2 Delivery O2 Flow Rate FiO2 10/01/17 12:00 91 Room Air Oxymask 10/01/17 12:00 36.8 86 16 136/61 (86) 91 Room Air 10/01/17 11:45 84 124/58 (80) 10/01/17 11:15 87 124/54 (77) 10/01/17 11:00 83 132/54 (80) 10/01/17 10:45 86 136/57 (83) 10/01/17 10:30 83 133/57 (82) 10/01/17 10:17 83 112/59 (76) 10/01/17 10:05 72 18 165/67 94 Room Air 10/01/17 10:00 70 16 139/59 94 Room Air 10/01/17 09:55 66 13 132/59 98 Oxymask 2 10/01/17 09:50 68 12 146/50 99 Oxymask 2 10/01/17 09:45 66 16 135/53 99 Oxymask 2 10/01/17 09:40 68 14 135/61 99 Oxymask 2 10/01/17 09:35 85 15 124/58 98 Oxymask 2 10/01/17 09:30 72 12 151/56 99 Oxymask 2 10/01/17 09:25 68 16 130/60 99 Oxymask 2 10/01/17 09:20 66 12 133/58 99 Oxymask 2 10/01/17 09:15 65 15 160/63 99 Oxymask 2 10/01/17 09:10 64 14 135/59 99 Oxymask 2 10/01/17 09:05 66 14 122/55 99 Oxymask 2 10/01/17 09:00 82 14 131/56 99 Oxymask 2 10/01/17 08:55 84 17 129/57 98 Oxymask 2 10/01/17 08:50 68 17 118/56 98 Oxymask 2 10/01/17 08:45 82 16 117/57 98 Oxymask 2 10/01/17 08:40 82 18 115/57 98 Oxymask 2 10/01/17 08:35 81 19 118/56 98 Oxymask 2 10/01/17 08:30 80 16 118/56 98 Oxymask 2 10/01/17 08:25 80 13 140/56 98 Oxymask 2 10/01/17 08:20 79 13 118/59 98 Oxymask 2 10/01/17 08:15 82 16 111/51 97 Oxymask 2 10/01/17 08:10 79 20 139/63 96 Oxymask 2 10/01/17 08:05 60 21 153/62 98 Oxymask 2 10/01/17 08:00 Oxymask 10/01/17 08:00 96 Room Air Oxymask 10/01/17 08:00 36.8 78 16 119/60 (79) 96 Oxymask 2.0 10/01/17 06:03 62 19 129/56 (78) 97 10/01/17 05:05 71 18 132/69 (90) 97 10/01/17 04:02 Oxymask 3.0 10/01/17 04:02 37.2 Oxymask 3.0 10/01/17 04:02 61 22 114/49 (62) 99 10/01/17 03:06 63 20 143/57 (76) 99 Review Cardiovascular: regular rate, rhythm Lungs: lungs clear Pre-Sedation Airway Assessment Smoking Status: Current Every Day Smoker (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 Informed Consent was obtained. I have identified the patient, determined the appropriateness of sedation and have assessed the patient immediately prior to the procedure. All medicine(s) and interventions are by my order.
--- NOTE | 2017-10-01 15:59 | [facility] Post Operative Brief Note ---
Immediate Operative Summary Operative Date Oct 01, 2017. Pre-Operative Diagnosis Popliteal Thrombosis Post-Operative Diagnosis Popliteal Thrombosis Procedure(s) Performed TPA recheck and compleation, Percutaneous Transluminal Angioplasty of Popliteal Artery, Moderate Sedation from [id number], Mechanical Closure of Left femoral artery. Surgeon Dr. Cavazos Religious Education Coordinator Surgeon(s) Dr. Meier Estimated Blood Loss 5 Findings Consistent with Post-Op Diagnosis Specimens None Drains None Anesthesia Type None Complication(s) none Disposition Accompanied Pt To Recover: no Disposition: Surgical ICU
[2017-10-01] MEDS ORDERED: CLOPIDOGREL BISULFATE 300 MG TAB PO STA (16:00)
--- NOTE | 2017-10-01 16:13 | Post Sedation Assessment ---
Post Sedation Assessment General Date of Sedation Oct 01, 2017. Vital Signs: Vital Signs Past 12 Hours Date Time Temp Pulse Resp B/P (MAP) Pulse Ox O2 Delivery O2 Flow Rate FiO2 10/01/17 12:00 91 Room Air Oxymask 10/01/17 12:00 36.8 86 16 136/61 (86) 91 Room Air 10/01/17 11:45 84 124/58 (80) 10/01/17 11:15 87 124/54 (77) 10/01/17 11:00 83 132/54 (80) 10/01/17 10:45 86 136/57 (83) 10/01/17 10:30 83 133/57 (82) 10/01/17 10:17 83 112/59 (76) 10/01/17 10:05 72 18 165/67 94 Room Air 10/01/17 10:00 70 16 139/59 94 Room Air 10/01/17 09:55 66 13 132/59 98 Oxymask 2 10/01/17 09:50 68 12 146/50 99 Oxymask 2 10/01/17 09:45 66 16 135/53 99 Oxymask 2 10/01/17 09:40 68 14 135/61 99 Oxymask 2 10/01/17 09:35 85 15 124/58 98 Oxymask 2 10/01/17 09:30 72 12 151/56 99 Oxymask 2 10/01/17 09:25 68 16 130/60 99 Oxymask 2 10/01/17 09:20 66 12 133/58 99 Oxymask 2 10/01/17 09:15 65 15 160/63 99 Oxymask 2 10/01/17 09:10 64 14 135/59 99 Oxymask 2 10/01/17 09:05 66 14 122/55 99 Oxymask 2 10/01/17 09:00 82 14 131/56 99 Oxymask 2 10/01/17 08:55 84 17 129/57 98 Oxymask 2 10/01/17 08:50 68 17 118/56 98 Oxymask 2 10/01/17 08:45 82 16 117/57 98 Oxymask 2 10/01/17 08:40 82 18 115/57 98 Oxymask 2 10/01/17 08:35 81 19 118/56 98 Oxymask 2 10/01/17 08:30 80 16 118/56 98 Oxymask 2 10/01/17 08:25 80 13 140/56 98 Oxymask 2 10/01/17 08:20 79 13 118/59 98 Oxymask 2 10/01/17 08:15 82 16 111/51 97 Oxymask 2 10/01/17 08:10 79 20 139/63 96 Oxymask 2 10/01/17 08:05 60 21 153/62 98 Oxymask 2 10/01/17 08:00 Oxymask 10/01/17 08:00 96 Room Air Oxymask 10/01/17 08:00 36.8 78 16 119/60 (79) 96 Oxymask 2.0 10/01/17 06:03 62 19 129/56 (78) 97 10/01/17 05:05 71 18 132/69 (90) 97 Post Procedure Recovery Score Activity: (2) Moves 4 extremities * Respiration: (2) Deep breath/cough Circulation: (2) +/-20% PreAnes Value Consciousness: (1) Arouseable (by name) Oxygen Saturation: (2) > 92% On Room Air Post Anesthesia Score: 9 Discharge Sedation Level of Care: Fast Track Phase II Post Sedation Plan On clinical assessment, the patient appears to have tolerated the sedation without complications. Patient is recovering as anticipated. Patient will continue to be monitored by nursing and may be discharged when sedation discharge criteria are met per below protocol. Upon Completions of procedure and additional 15 minutes continue every 5 minute vital signs and the P.A.R. score; then discharge to a Phase I or Fast Track to Phase II per the following guidelines: * Discharge Patient to appropriate Phase II area if PAR is 8 or greater or return to pre- procedure baseline. The post - procedure orders will be as directed. * If PAR score is less than 8 or not return to pre-procedure baseline then patient will follow Phase I monitoring till PAR is reached for Phase II. The Phase I may be done in procedure room or may call to secure a Phase I area. * If naloxone or flumazenil are used for reversal, hold in Phase I for an additional 60 -120 minutes before discharge to Phase II. Please call the Sedation Physician to re-evaluate and complete post-note for discharge to Phase II area. Do NOT discharge from procedure sedation or Phase 1 until post- sedation evaluation note is complete by procedure /sedation MD Sedation Discharge Instructions to be given to the patient at discharge to home.
[2017-10-01] MEDS ORDERED: IODIXANOL (VISIPAQUE) 270 MG/ML 50ML FLUSH ONE (16:21)
--- NOTE | 2017-10-01 17:08 | Progress Note ---
Progress Note Date of Service Oct 01, 2017. Progress Note 18 [place] cathether inserted using usual sterile technique. 1000 cc clear urine obtained
[2017-10-01] MEDS: MAGNESIUM SULFATE 1GM / D5W 100 ML IV SCH ×2 (17:21→18:32)
[2017-10-01] MEDS: FUROSEMIDE 40 MG TAB PO SCH (17:23)
[2017-10-01] MEDS: AMIODARONE 200 MG TAB PO SCH (17:24)
--- NOTE | 2017-10-01 17:27 | DIAGNOSTIC IMAGING REPORT ---
DATE OF PROCEDURE: 10/01/2017 PREOPERATIVE DIAGNOSIS: Popliteal thrombus. POSTOPERATIVE DIAGNOSIS: Popliteal thrombus with a popliteal dissection. PROCEDURE: Right lower extremity angiogram, percutaneous transluminal angioplasty of popliteal artery with 4 x 80 balloon, moderate sedation 30 minutes, mechanical closure of left femoral artery with StarClose closure device. SURGEON: Dr. Nikolas Cavazos. GARAGE MANAGER: Dr. Phyllis Meier. ESTIMATED BLOOD LOSS: 5 mL FINDINGS: Intraoperative self-limited episode of V-tach lasting approximately 30 seconds. SPECIMEN: None. ANESTHESIA: Moderate sedation. COMPLICATIONS: None. INDICATIONS: Mr. Jarrell Arnett is a 72-year-old gentleman with history of atrial fibrillation, diabetes, hyperlipidemia, hypertension, BPH, ischemic cardiomyopathy with EF of 30%, coronary artery disease status post CABG, chronic kidney disease with history of in-stent thrombosis of his previously placed right SFA stents. He underwent 2 previous right lower extremity angiograms with placement of a lytic catheter followed by placement of 4 Viabahn stents within the right SFA. Following stent placement, he had a formation of thrombus within his popliteal artery. A lytic catheter was placed and he was brought back to the ICU earlier today for continued TPA infusion through the lytic catheter. He presents for repeat right lower extremity angiogram and possible intervention. Risks, benefits and alternatives were discussed with the patient and he consented to the procedure. DESCRIPTION OF PROCEDURE: Patient was taken to the endovascular suite and placed in the supine position. A safety timeout was performed and the patient, procedure, and sidedness were correctly identified. Prior to removing the dressing, contrast was injected through the previously placed sheath and infusion catheter. This showed the improvement in the right popliteal thrombus with peroneal and posterior tibial arteries patent which was significantly improved from the angiogram earlier this morning. The sterile dressing was removed and the bilateral groins were prepped and draped in the usual sterile fashion. We accessed the previously placed infusion catheter and placed a floppy angled Glidewire through the infusion catheter. The catheter was removed and a 4 x 80 balloon was placed over the wire and down into the popliteal artery at the level of the knee joint. This was used to angioplasty an area of dissection within the popliteal artery. The balloon was withdrawn and an angiogram was obtained. This showed improvement in the dissection; however, the dissection was still present. It did not appear to be flow limiting. The balloon was withdrawn and angiogram was obtained of the right groin. This showed a patent common femoral, SFA and newly placed SFA stents, and profunda arteries. The destination sheath was withdrawn. An angiogram was obtained over the left groin to assess the access to see if it was adequate for a mechanical closure. It appeared appropriate for closure device. The sheath was removed and a StarClose device was placed in the left groin. This was deployed without difficulty. Of note, the patient did have a slight hematoma in the left groin prior to placement of the StarClose. The closure device deployed without difficulty and manual pressure was held over the access site for several minutes with good hemostasis. The hematoma was stable following mechanical closure device placement. Patient had a dopplerable PT signal on the right at the close of the case. He was transferred to the ICU in stable condition. Of note, he did have a less than 30-second episode of V-tach intraoperatively that was self-limited and resolved without intervention. He was stable throughout that episode. Dr. Nikolas Cavazos was present for the entire procedure.
[2017-10-01] MEDS ORDERED: AMIODARONE IV BOLUS / DRIP IV STA (18:23)
[2017-10-01] MEDS ORDERED: AMIODARONE / D5W 100 ML PHARMACY PREPARED IV ONE ×2 (19:00)
[2017-10-01] MEDS ORDERED: 0.2 MICRON FILTER SET 1 EA IV SCH (19:00)
[2017-10-01] MEDS ORDERED: AMIODARONE / D5W 200 ML IV SCH (19:10)
[2017-10-01] MEDS ORDERED: ETOMIDATE 2 MG/ML 20 ML VIAL IV ONE (19:38)
[2017-10-01] MEDS ORDERED: ADENOSINE IV SOLN 3 MG/ML 2 ML VIAL ONE (19:39)
[2017-10-01] MEDS ORDERED: METOPROLOL TARTRATE 1 MG/ML VIAL ONE (20:00)
[2017-10-01 20:01] LABS: CALCIUM 7.5 mg/dl (8.5-10.1); CREATININE 1.4 mg/dl (0.60-1.40); PHOSPHORUS 3.2 mg/dl (2.5-4.9); POTASSIUM 4.1 mmol/L (3.5-5.1)
[2017-10-01] MEDS ORDERED: METOPROLOL TARTRATE 1 MG/ML VIAL IV STA (20:01)
[2017-10-01] MEDS ORDERED: POTASSIUM CHLORIDE 10 MEQ TABCR PO STA (20:02)
[2017-10-01] MEDS ORDERED: AMIODARONE HCL INJ 50 MG/ML 3 ML VIAL IV ONE (20:22)
[2017-10-01] MEDS ORDERED: DEXTROSE 5% 100 ML BAG IV ONE (20:22)
[2017-10-01] MEDS: ROSUVASTATIN CALCIUM 20 MG TAB PO SCH (21:57)
[2017-10-01] MEDS: TAMSULOSIN HCL 0.4 MG CAP PO SCH (21:58)
--- NOTE | 2017-10-01 22:50 | Progress Note ---
Subjective Date of Service: Oct 01, 2017. Subjective Pt evaluation today including: conversation w/ patient, physical exam 72 yo male who is seen at 19:30. Patient had surgery today. Patient had 2 interventions yesterday to relieve a Occlusion of the SFA and popliteal thrombosis of the right lower extremity. Patient reports he is very hungry. Denies any symptoms, during the patient encounter, patient developed Ventricular tachycardia in the 150s. Patient remained awake throughout this event. The rhtym would maintain and would abtae for about 10 seconds but then retrun to V Tach. Patient has a pacemaker and an AICD and patient states that it fired once before but not during this hospital stay. Dr. Luna was the code leader throughout this event. Problem List Medical Problems: (1) Leg pain, right Status: Acute (2) Superficial femoral artery occlusion Status: Acute Review of Systems Constitutional: no chills, aches, sweats or fever Respiratory: no sob,cough, sputum, or wheezing Cardiac: no chest pain, palpitations, edema, orthopnea or lightheadedness GI: no abdominal pain, nausea, vomiting, diarrhea or constipation : no dysuria or hesitancy Extremities: no joint pain or weakness Skin: no rash All other systems reviewed and negative All Other Systems: Reviewed and Negative Medications Current Inpatient Medications Medications (Trade) Dose Ordered Sig/Ronnie Route Start Time Stop Time Status Last Admin Dose Admin Amiodarone HCl (Cordarone Tab) 200 mg QAM PO 09/30/17 09:00 10/30/17 08:59 Future Hold 10/01/17 17:24 200 MG Carvedilol (Coreg Tab) 12.5 mg BID PO 09/29/17 21:00 10/29/17 20:59 10/01/17 21:57 12.5 MG Furosemide (Lasix Tab) 40 mg QAM PO 09/30/17 09:00 10/30/17 08:59 10/01/17 17:23 40 MG Levalbuterol (Xopenex Hfa Inhaler) 2 puffs Q6 PRN INH 09/29/17 17:15 10/29/17 17:14 Rosuvastatin Calcium (Crestor Tab) 40 mg HS PO 09/29/17 21:00 10/29/17 20:59 10/01/17 21:57 40 MG Tamsulosin HCl (Flomax Cap) 0.4 mg HS PO 09/29/17 21:00 10/29/17 20:59 10/01/17 21:58 0.4 MG Ranitidine HCl (zANTac TAB) 300 mg BID PO 09/29/17 21:00 10/29/17 20:59 10/01/17 21:58 300 MG Acetaminophen (Tylenol Tab) 650 mg Q8H PRN PO 09/29/17 17:15 10/29/17 17:14 Al Hydrox/Mg Hydrox/Simethicone (Maalox Max Susp) 15 ml Q4H PRN PO 09/29/17 17:15 10/29/17 17:14 Magnesium Hydroxide (Milk Of Magnesia Susp) 30 ml Q12H PRN PO 09/29/17 17:15 10/29/17 17:14 Zolpidem Tartrate (Ambien Tab) 5 mg HSZ PRN PO 09/29/17 17:15 10/29/17 17:14 Polyethylene (Miralax Powder Packet) 17 gm DAILY PRN PO 09/29/17 17:15 10/29/17 17:14 Insulin Aspart (novoLOG ASPART) SLIDING SCALE If C... ACHS SC 09/29/17 21:00 10/29/17 20:59 10/01/17 22:02 2 UNITS Glucose (Glucose 40% Gel) 15-30 GRAMS 15 GRAMS... UD PRN PO 09/29/17 17:15 10/29/17 17:14 Glucose (Glucose Chew Tab) 4-8 Tablets 4 Tabl... UD PRN PO 09/29/17 17:15 10/29/17 17:14 Dextrose (Dextrose 50% 50ML Syringe) 25-50ML OF 50% DW IV FOR... UD PRN IV 09/29/17 17:15 10/29/17 17:14 Glucagon (Glucagon Inj) 1 mg UD PRN SQ 09/29/17 17:15 10/29/17 17:14 Spironolactone (Aldactone Tab) 12.5 mg BID PO 09/29/17 21:00 10/29/17 20:59 10/01/17 21:56 12.5 MG Morphine Sulfate (MoRPHine SULFATE INJ) Q2H PRN IV 09/30/17 11:15 10/14/17 11:14 10/02/17 06:47 4 MG Ondansetron HCl (Zofran Inj) 4 mg Q6H PRN IV 09/30/17 11:15 10/30/17 11:14 Acetaminophen/ Hydrocodone Bitart ([place] 5/325 Tab) FOR MODERATE PAIN ... Q6H PRN PO 10/01/17 16:00 10/15/17 15:59 Clopidogrel Bisulfate (plAVix TAB) 75 mg QAM PO 10/02/17 09:00 11/01/17 08:59 Amiodarone HCL/ Dextrose 200 ml @ 16.7 mls/hr [id number] IV 10/02/17 01:11 11/01/17 01:10 10/02/17 01:09 16.7 MLS/HR Objective Vital Signs Date Time Temp Pulse Resp B/P (MAP) Pulse Ox O2 Delivery O2 Flow Rate FiO2 10/01/17 20:16 71 101/45 10/01/17 16:48 97 21 145/65 (91) 99 Oxymask 3.0 10/01/17 16:34 92 24 98 Oxymask 3.0 10/01/17 16:19 37.1 91 117/56 (76) 91 Oxymask 3.0 10/01/17 16:19 92 Oxymask 3.0 10/01/17 16:00 92 16 119/61 98 Oxymask 2 10/01/17 15:55 92 14 101/55 97 Oxymask 2 10/01/17 15:50 92 14 123/58 99 Oxymask 2 10/01/17 15:45 91 18 123/58 100 Oxymask 2 10/01/17 15:40 88 21 123/59 100 Oxymask 2 10/01/17 15:35 91 21 137/59 100 Oxymask 2 10/01/17 15:30 94 21 134/57 100 Oxymask 2 10/01/17 15:25 93 20 116/55 100 Oxymask 2 10/01/17 15:20 93 14 152/60 100 Oxymask 2 10/01/17 15:08 91 12 128/61 99 Oxymask 2 10/01/17 12:00 91 Room Air Oxymask 10/01/17 12:00 36.8 86 16 136/61 (86) 91 Room Air 10/01/17 11:45 84 124/58 (80) 10/01/17 11:15 87 124/54 (77) 10/01/17 11:00 83 132/54 (80) 10/01/17 10:45 86 136/57 (83) 10/01/17 10:30 83 133/57 (82) 10/01/17 10:17 83 112/59 (76) 10/01/17 10:05 72 18 165/67 94 Room Air 10/01/17 10:00 70 16 139/59 94 Room Air 10/01/17 09:55 66 13 132/59 98 Oxymask 2 10/01/17 09:50 68 12 146/50 99 Oxymask 2 10/01/17 09:45 66 16 135/53 99 Oxymask 2 10/01/17 09:40 68 14 135/61 99 Oxymask 2 10/01/17 09:35 85 15 124/58 98 Oxymask 2 10/01/17 09:30 72 12 151/56 99 Oxymask 2 10/01/17 09:25 68 16 130/60 99 Oxymask 2 10/01/17 09:20 66 12 133/58 99 Oxymask 2 10/01/17 09:15 65 15 160/63 99 Oxymask 2 10/01/17 09:10 64 14 135/59 99 Oxymask 2 10/01/17 09:05 66 14 122/55 99 Oxymask 2 10/01/17 09:00 82 14 131/56 99 Oxymask 2 10/01/17 08:55 84 17 129/57 98 Oxymask 2 10/01/17 08:50 68 17 118/56 98 Oxymask 2 10/01/17 08:45 82 16 117/57 98 Oxymask 2 10/01/17 08:40 82 18 115/57 98 Oxymask 2 10/01/17 08:35 81 19 118/56 98 Oxymask 2 10/01/17 08:30 80 16 118/56 98 Oxymask 2 10/01/17 08:25 80 13 140/56 98 Oxymask 2 10/01/17 08:20 79 13 118/59 98 Oxymask 2 10/01/17 08:15 82 16 111/51 97 Oxymask 2 10/01/17 08:10 79 20 139/63 96 Oxymask 2 10/01/17 08:05 60 21 153/62 98 Oxymask 2 10/01/17 08:00 Oxymask 10/01/17 08:00 96 Room Air Oxymask 10/01/17 08:00 36.8 78 16 119/60 (79) 96 Oxymask 2.0 10/01/17 06:03 62 19 129/56 (78) 97 10/01/17 05:05 71 18 132/69 (90) 97 10/01/17 04:02 Oxymask 3.0 10/01/17 04:02 37.2 Oxymask 3.0 10/01/17 04:02 61 22 114/49 (62) 99 10/01/17 03:06 63 20 143/57 (76) 99 10/01/17 02:03 65 22 125/53 (97) 98 10/01/17 01:09 60 18 135/57 (79) 97 10/01/17 00:03 36.7 60 20 97 Oxymask 3.0 10/01/17 00:00 Oxymask 3.0 10/01/17 00:00 36.7 58 16 117/53 (74) 98 09/30/17 23:01 64 18 132/52 (73) 99 Physical Exam Comments: General: no distress Eyes: normal inspection, PERLL Respiratory: clear to auscultation, normal breath sounds, no respiratory distress, no accessory muscle use Cardiac: AICD is noted, Tachycardia, no rub or gallop, no murmur, no edema, no jvd, GI/: active bowel sounds, no abd pain or tenderness, soft, non distended Extremities: normal range of motion, normal strength, non tender Neuro/Psych: alert and oriented x 3, normal mood and affect Skin: normal color, dry Laboratory Results Last 24 Hours Test 09/30/17 22:52 10/01/17 04:14 10/01/17 06:39 10/01/17 11:20 White Blood Count 8.12 K/uL 9.51 K/uL Red Blood Count 3.48 M/uL 3.51 M/uL Hemoglobin 12.4 g/dL 12.2 g/dL Hematocrit 34.9 % 35.2 % Mean Corpuscular Volume 100.3 fL 100.3 fL Mean Corpuscular Hemoglobin 35.6 pg 34.8 pg Mean Corpuscular Hemoglobin Concent 35.5 g/dl 34.7 g/dl Platelet Count 92 K/uL 93 K/uL Mean Platelet Volume 9.9 fL 9.8 fL Neutrophils (%) (Auto) 71.8 % 74.7 % Lymphocytes (%) (Auto) 15.3 % 11.7 % Monocytes (%) (Auto) 9.1 % 9.9 % Eosinophils (%) (Auto) 2.8 % 2.9 % Basophils (%) (Auto) 0.4 % 0.3 % Neutrophils # (Auto) 5.83 K/uL 7.10 K/uL Lymphocytes # (Auto) 1.24 K/uL 1.11 K/uL Monocytes # (Auto) 0.74 K/uL 0.94 K/uL Eosinophils # (Auto) 0.23 K/uL 0.28 K/uL Basophils # (Auto) 0.03 K/uL 0.03 K/uL RDW Standard Deviation 45.9 fL 45.9 fL RDW Coefficient of Variation 12.6 % 12.6 % Immature Granulocyte % (Auto) 0.6 % 0.5 % Immature Granulocyte # (Auto) 0.05 K/uL 0.05 K/uL Red Blood Cell Morphology Unremarkable Unremarkable Activated Partial Thromboplast Time 33.4 SECONDS 46.5 SECONDS 37.7 SECONDS Partial Thromboplastin Ratio 1.3 1.8 1.5 Fibrinogen 314 mg/dl 342 mg/dl 334 mg/dl Sodium Level 139 mmol/L Potassium Level 4.1 mmol/L Chloride Level 109 mmol/L Carbon Dioxide Level 27 mmol/L Anion Gap 3.0 mmol/L Blood Urea Nitrogen 18 mg/dl Creatinine 1.45 mg/dl Est Creatinine Clear Calc Drug Dose 52.0 ml/min Estimated GFR () 56.1 Estimated GFR (Non- 48.4 BUN/Creatinine Ratio 12.1 Random Glucose 120 mg/dl Calcium Level 7.7 mg/dl Phosphorus Level 3.0 mg/dl Magnesium Level 1.9 mg/dl Bedside Glucose 143 mg/dl Test 10/01/17 11:21 10/01/17 14:09 10/01/17 17:27 10/01/17 18:51 White Blood Count 9.79 K/uL Red Blood Count 3.31 M/uL Hemoglobin 11.7 g/dL Hematocrit 32.9 % Mean Corpuscular Volume 99.4 fL Mean Corpuscular Hemoglobin 35.3 pg Mean Corpuscular Hemoglobin Concent 35.6 g/dl Platelet Count 86 K/uL Mean Platelet Volume 9.9 fL Neutrophils (%) (Auto) 78.1 % Lymphocytes (%) (Auto) 9.8 % Monocytes (%) (Auto) 9.7 % Eosinophils (%) (Auto) 1.6 % Basophils (%) (Auto) 0.3 % Neutrophils # (Auto) 7.64 K/uL Lymphocytes # (Auto) 0.96 K/uL Monocytes # (Auto) 0.95 K/uL Eosinophils # (Auto) 0.16 K/uL Basophils # (Auto) 0.03 K/uL RDW Standard Deviation 45.0 fL RDW Coefficient of Variation 12.4 % Immature Granulocyte % (Auto) 0.5 % Immature Granulocyte # (Auto) 0.05 K/uL Bedside Glucose 144 mg/dl 140 mg/dl Sodium Level 136 mmol/L Potassium Level 4.1 mmol/L Chloride Level 106 mmol/L Carbon Dioxide Level 25 mmol/L Anion Gap 5.0 mmol/L Blood Urea Nitrogen 18 mg/dl Creatinine 1.40 mg/dl Est Creatinine Clear Calc Drug Dose 53.9 ml/min Estimated GFR () 58.6 Estimated GFR (Non- 50.5 BUN/Creatinine Ratio 13.0 Random Glucose 171 mg/dl Calcium Level 7.5 mg/dl Phosphorus Level 3.2 mg/dl Magnesium Level 2.3 mg/dl Troponin I 0.041 ng/ml Test 10/01/17 21:19 Bedside Glucose 198 mg/dl Assessment and Plan 72 years old man with past medical history of severe peripheral vascular disease , coronary artery disease status post CABG/valve replacement in 2002, followed by multiple cardiac stents, diabetes mellitus and oral hypoglycemic, hypertension, ischemic cardiomyopathy with ejection fraction of 30% and global hypokinesia based on echo in 2014, Patient had a recent vascular procedure on October 2016 status post Right Lower Extremity Angiogram, ROD FILLER and stenting of right popliteal/right superficial femoral artery and mechanical occlusion of left femoral artery. Presented to the hospital with acute/subacute right superficial femoral artery occlusion Vent. Tachycardia in the setting of a. fib Patient may have an adrenergic rsponse from surgery. Given that underlying rate appears to be a. fib as EKG was obtained. Patient was started on amiodarone. IV beta blockers were also initiated. Cardio and Vascular were notified by Code logistics team lead. I remained as part of the code team to assist. Event lasted for about 30 minutes. Patient rthym was controlled with HR in the 60s Will have AICD and pacemaker interrogated tomorrow. Acute right superficial femoral artery occlusion, severe PVD - Patient had 3 interventions. It appear the third procedure was a success - remain NPO - Continue alteplase, heparin infusions per vascular surgery orders - Hold off Plavix as per Dr. Cavazos as he will load him, after the procedure tomorrow Diabetes mellitus on oral hypoglycemics - Hold oral hypoglycemic, continue ss - bsgs ac & hs - A1c 5.8, lipids wnl Htn, CAD post CABG/valve replacement in 2002 and multiple stents, chronic systolic CHF without exacerbation - continue coreg and lasix when taking po, - hold potassium for now - continue lowered dose of Aldactone from 50 mg twice daily to 12.5 mg twice daily CKD III - Creat 1.5 - unknown what his baseline is - prp am - acetylcysteine per surgery Full code Spent 45 minutes with patient.
[2017-10-02] VITALS (14 sets, daily range): BP systolic 92–127; BP diastolic 43–58; PULSE 63–75; TEMP 36.8–37.6; O2SAT 90–100
[2017-10-02] MEDS ORDERED: NURSING VERBAL MED ORDER ONE (00:30)
[2017-10-02] MEDS: AMIODARONE / D5W 200 ML IV SCH ×2 (01:09→14:20)
[2017-10-02 06:25] LABS: HEMATOCRIT 26.3 % (42-52); HEMOGLOBIN 9.6 g/dL (14.0-18.0); MEAN CORPUSCULAR HEMOGLOBIN 35.4 pg (25-34); MEAN CORPUSCULAR HGB CONC 36.5 g/dl (32-36); RED CELL DISTRIBUTION WIDTH CV 12.3 % (11.5-14.5); WHITE BLOOD COUNT 12.09 K/uL (4.8-10.8)
[2017-10-02] MEDS: MoRPHine SULFATE 4 MG/ML 1 ML CARP\\VIAL IV PRN (06:47)
[2017-10-02 06:51] LABS: BASO % 0.3 %; BASO ABS # 0.04 K/uL (0-0.2); EOS % 0.5 %; EOS ABS # 0.06 K/uL (0-0.5); IG# 0.04 K/uL (0.00-0.02); LYMPH % 5.7 %; LYMPH ABS # 0.69 K/uL (1.2-3.4); MEAN PLATELET VOLUME 9.9 fL (7.4-10.4); MONO % 11.9 %; MONO ABS # 1.44 K/uL (0.11-0.59); NEUT % 81.3 %; NEUT ABS # 9.82 K/uL (1.4-6.5); PLATELET COUNT 78 K/uL (130-400)
[2017-10-02 06:55] LABS: CALCIUM 7.7 mg/dl (8.5-10.1); CREATININE 1.35 mg/dl (0.60-1.40); POTASSIUM 4.4 mmol/L (3.5-5.1)
--- NOTE | 2017-10-02 07:26 | Progress Note ---
Progress Note Date of Service: Oct 02, 2017. Subjective Occasional foot pain but not like pre intervention. Pain is very intermittent and just sharp stabbing in nature Problem List Medical Problems: (1) Leg pain, right Status: Acute (2) Superficial femoral artery occlusion Status: Acute Objective Vital Signs Vital Signs Past 12 Hours Date Time Temp Pulse Resp B/P (MAP) Pulse Ox O2 Delivery O2 Flow Rate FiO2 10/02/17 06:01 66 20 102/43 (62) 98 10/02/17 05:01 65 18 112/48 (81) 100 10/02/17 04:01 63 18 92/47 (61) 98 10/02/17 04:00 97 Oxymask 3.0 10/02/17 04:00 36.8 10/02/17 03:01 66 20 106/46 (80) 97 10/02/17 02:01 66 19 94/45 (60) 98 10/02/17 01:01 71 21 113/46 (82) 94 10/02/17 00:01 72 19 106/44 (75) 90 10/01/17 23:59 99 Oxymask 3.0 10/01/17 23:59 36.8 10/01/17 23:01 72 20 101/45 (67) 98 10/01/17 20:35 73 21 107/51 (69) 99 10/01/17 20:33 72 23 106/49 (68) 99 10/01/17 20:31 73 29 97/67 (77) 98 10/01/17 20:30 73 21 99 10/01/17 20:29 73 29 102/47 (65) 99 10/01/17 20:27 72 19 107/52 (70) 99 10/01/17 20:25 73 20 99/50 (66) 99 10/01/17 20:23 71 22 98/35 (56) 99 10/01/17 20:21 72 23 93/49 (64) 100 10/01/17 20:19 72 25 100/53 (69) 100 10/01/17 20:17 72 25 96/63 (74) 100 10/01/17 20:16 71 101/45 10/01/17 20:15 69 20 101/45 (63) 99 10/01/17 20:13 71 22 95/50 (65) 98 10/01/17 20:11 68 23 101/60 (74) 98 10/01/17 20:09 68 24 101/50 (67) 99 10/01/17 20:07 68 24 112/47 (68) 97 10/01/17 20:05 69 23 95/52 (66) 98 10/01/17 20:03 73 19 105/55 (72) 98 10/01/17 20:01 70 10 98/49 (65) 98 10/01/17 20:00 71 16 98 10/01/17 20:00 94 Oxymask 3.0 10/01/17 19:59 68 25 105/50 (68) 97 10/01/17 19:53 125 14 122/ (40) 97 10/01/17 19:51 146 25 117/72 (87) 97 10/01/17 19:49 143 27 89/55 (66) 97 10/01/17 19:47 149 18 91/64 (73) 100 10/01/17 19:45 153 90/67 (75) 99 10/01/17 19:43 148 20 86/58 (67) 98 10/01/17 19:41 155 21 108/58 (75) 99 10/01/17 19:39 143 24 94/64 (74) 99 10/01/17 19:31 75 125/58 (80) 99 10/01/17 19:30 77 98 Exam VSS Afebrile No further V tach after two boluses and drip of amiodarone Groin hematomas are unchanged. Good Post tib to doppler on right. Meza in place due to inability of void Laboratory and Microbiology Results Past 24 Hours Test 10/01/17 11:20 10/01/17 11:21 10/01/17 14:09 10/01/17 17:27 Range/Units Activated Partial Thromboplast Time 37.7 21.0-31.0 SECONDS Partial Thromboplastin Ratio 1.5 Fibrinogen 334 184-400 mg/dl White Blood Count 9.79 4.8-10.8 K/uL Red Blood Count 3.31 4.7-6.1 M/uL Hemoglobin 11.7 14.0-18.0 g/dL Hematocrit 32.9 42-52 % Mean Corpuscular Volume 99.4 80-100 fL Mean Corpuscular Hemoglobin 35.3 25-34 pg Mean Corpuscular Hemoglobin Concent 35.6 32-36 g/dl Platelet Count 86 130-400 K/uL Mean Platelet Volume 9.9 7.4-10.4 fL Neutrophils (%) (Auto) 78.1 % Lymphocytes (%) (Auto) 9.8 % Monocytes (%) (Auto) 9.7 % Eosinophils (%) (Auto) 1.6 % Basophils (%) (Auto) 0.3 % Neutrophils # (Auto) 7.64 1.4-6.5 K/uL Lymphocytes # (Auto) 0.96 1.2-3.4 K/uL Monocytes # (Auto) 0.95 0.11-0.59 K/uL Eosinophils # (Auto) 0.16 0-0.5 K/uL Basophils # (Auto) 0.03 0-0.2 K/uL RDW Standard Deviation 45.0 36.4-46.3 fL RDW Coefficient of Variation 12.4 11.5-14.5 % Immature Granulocyte % (Auto) 0.5 % Immature Granulocyte # (Auto) 0.05 0.00-0.02 K/uL Bedside Glucose 144 140 70-99 mg/dl Test 10/01/17 18:51 10/01/17 21:19 10/02/17 00:24 10/02/17 06:07 Range/Units Sodium Level 136 136-145 mmol/L Potassium Level 4.1 3.5-5.1 mmol/L Chloride Level 106 98-107 mmol/L Carbon Dioxide Level 25 21-32 mmol/L Anion Gap 5.0 3-11 mmol/L Blood Urea Nitrogen 18 7-18 mg/dl Creatinine 1.40 0.60-1.40 mg/dl Est Creatinine Clear Calc Drug Dose 53.9 ml/min Estimated GFR () 58.6 Estimated GFR (Non- 50.5 BUN/Creatinine Ratio 13.0 10-20 Random Glucose 171 70-99 mg/dl Calcium Level 7.5 8.5-10.1 mg/dl Phosphorus Level 3.2 2.5-4.9 mg/dl Magnesium Level 2.3 1.8-2.4 mg/dl Troponin I 0.041 0.043 0-0.045 ng/ml Bedside Glucose 198 174 70-99 mg/dl Test 4/26/18 06:18 Range/Units White Blood Count 12.09 4.8-10.8 K/uL Red Blood Count 2.71 4.7-6.1 M/uL Hemoglobin 9.6 14.0-18.0 g/dL Hematocrit 26.3 42-52 % Mean Corpuscular Volume 97.0 80-100 fL Mean Corpuscular Hemoglobin 35.4 25-34 pg Mean Corpuscular Hemoglobin Concent 36.5 32-36 g/dl Platelet Count 78 130-400 K/uL Mean Platelet Volume 9.9 7.4-10.4 fL Neutrophils (%) (Auto) 81.3 % Lymphocytes (%) (Auto) 5.7 % Monocytes (%) (Auto) 11.9 % Eosinophils (%) (Auto) 0.5 % Basophils (%) (Auto) 0.3 % Neutrophils # (Auto) 9.82 1.4-6.5 K/uL Lymphocytes # (Auto) 0.69 1.2-3.4 K/uL Monocytes # (Auto) 1.44 0.11-0.59 K/uL Eosinophils # (Auto) 0.06 0-0.5 K/uL Basophils # (Auto) 0.04 0-0.2 K/uL RDW Standard Deviation 44.0 36.4-46.3 fL RDW Coefficient of Variation 12.3 11.5-14.5 % Immature Granulocyte % (Auto) 0.3 % Immature Granulocyte # (Auto) 0.04 0.00-0.02 K/uL Platelet Estimate DECREASED Sodium Level 135 136-145 mmol/L Potassium Level 4.4 3.5-5.1 mmol/L Chloride Level 106 98-107 mmol/L Carbon Dioxide Level 25 21-32 mmol/L Anion Gap 4.0 3-11 mmol/L Blood Urea Nitrogen 17 7-18 mg/dl Creatinine 1.35 0.60-1.40 mg/dl Est Creatinine Clear Calc Drug Dose 55.9 ml/min Estimated GFR () 61.2 Estimated GFR (Non- 52.8 BUN/Creatinine Ratio 12.5 10-20 Random Glucose 159 70-99 mg/dl Calcium Level 7.7 8.5-10.1 mg/dl Phosphorus Level 3.0 2.5-4.9 mg/dl Magnesium Level 2.3 1.8-2.4 mg/dl Troponin I 0.042 0-0.045 ng/ml Imp: Post right lower extremity intervention Urinary retention V tach Plan: Will continue on plavix for at least 3months and then reevaluate. May d/c from a vascular standpoint once medically stable.
[2017-10-02] MEDS ORDERED: POTASSIUM CHLORIDE 10 MEQ TABCR PO STA (08:36)
--- NOTE | 2017-10-02 08:53 | DIAGNOSTIC IMAGING REPORT ---
SINGLE VIEW CHEST CLINICAL HISTORY: Postoperative examination. FINDINGS: An AP, portable, upright chest radiograph is compared to study dated 02/11/2015. The examination is degraded by portable technique and apical lordotic positioning. A 2-lead cardiac AICD partially obscures the left apex. This is new from 2014. The patient is status post midline sternotomy. The heart is enlarged and there is atherosclerotic calcification of the thoracic aorta. The pulmonary vasculature is noncongested. Chronic interstitial thickening is similar to previous. Small pleural effusions are identified. No airspace consolidation is seen typical for pneumonia. No pneumothorax is seen. The skeletal structures are osteopenic. The bony thorax is grossly intact. IMPRESSION: 1. Cardiomegaly and AICD. There is no radiographic evidence of congestive failure. 2. Trace pleural effusions are identified. No airspace consolidation is seen typical for pneumonia. Electronically signed by: Radu Butler M.D. 10/02/2017 8:37 AM Dictated Date/Time: 10/02/2017 8:35 AM
--- NOTE | 2017-10-02 09:57 | Progress Note ---
Subjective Date of Service: Oct 02, 2017. Subjective Pt evaluation today including: conversation w/ patient, chart review, lab review Voiding: thomas catheter in place (patent, draining clear, yellow urine ) Patient status post thrombectomy by Dr. Cavazos. consulted for Thomas catheter placement after surgery. Thomas catheter currently in place draining clear yellow urine. Patient reports baseline nocturia 3-4 times per night. Denies weak stream or hesitancy prior to admission. He states that he is currently on Flomax and has been on this for several years.Patient denies a family history of prostate cancer or history of elevated PSA. Patient has never seen a urologist in the past. Patient complains of pain in right foot this morning. Problem List Medical Problems: (1) Leg pain, right Status: Acute (2) Superficial femoral artery occlusion Status: Acute Review of Systems Constitutional: No fever, No chills Respiratory: No shortness of breath Cardiac: No chest pain Abdomen: No pain, No nausea, No vomiting Musculoskeletal: + problem reported (Right foot pain) Male : No hematuria Heme: No abnormal bleeding/bruising Objective Vital Signs Date Time Temp Pulse Resp B/P (MAP) Pulse Ox O2 Delivery O2 Flow Rate FiO2 10/02/17 08:00 36.8 71 18 112/48 (69) 100 Oxymask 2.0 10/02/17 06:01 66 20 102/43 (62) 98 10/02/17 05:01 65 18 112/48 (81) 100 10/02/17 04:01 63 18 92/47 (61) 98 10/02/17 04:00 97 Oxymask 3.0 10/02/17 04:00 36.8 10/02/17 03:01 66 20 106/46 (80) 97 10/02/17 02:01 66 19 94/45 (60) 98 10/02/17 01:01 71 21 113/46 (82) 94 10/02/17 00:01 72 19 106/44 (75) 90 10/01/17 23:59 99 Oxymask 3.0 10/01/17 23:59 36.8 10/01/17 23:01 72 20 101/45 (67) 98 10/01/17 20:35 73 21 107/51 (69) 99 10/01/17 20:33 72 23 106/49 (68) 99 18 20:31 73 29 97/67 (77) 98 18 20:30 73 21 99 18 20:29 73 29 102/47 (65) 99 18 20:27 72 19 107/52 (70) 99 10/01/18 20:25 73 20 99/50 (66) 99 10/01/18 20:23 71 22 98/35 (56) 99 18 20:21 72 23 93/49 (64) 100 10/01/18 20:19 72 25 100/53 (69) 100 10/01/18 20:17 72 25 96/63 (74) 100 18 20:16 71 101/45 18 20:15 69 20 101/45 (63) 99 10/01/18 20:13 71 22 95/50 (65) 98 18 20:11 68 23 101/60 (74) 98 10/01/17 20:09 68 24 101/50 (67) 99 10/01/17 20:07 68 24 112/47 (68) 97 18 20:05 69 23 95/52 (66) 98 18 20:03 73 19 105/55 (72) 98 10/01/17 20:01 70 10 98/49 (65) 98 18 20:00 71 16 98 10/01/17 20:00 94 Oxymask 3.0 10/01/17 19:59 68 25 105/50 (68) 97 18 19:53 125 14 122/ (40) 97 18 19:51 146 25 117/72 (87) 97 18 19:49 143 27 89/55 (66) 97 18 19:47 149 18 91/64 (73) 100 18 19:45 153 90/67 (75) 99 18 19:43 148 20 86/58 (67) 98 10/01/18 19:41 155 21 108/58 (75) 99 10/01/18 19:39 143 24 94/64 (74) 99 10/01/18 19:31 75 125/58 (80) 99 10/01/18 19:30 77 98 4//18 19:16 80 116/56 (76) 98 10/01/17 19:15 82 10/01/17 19:01 83 117/63 (81) 99 10/01/17 19:00 84 98 10/01/17 18:46 84 121/50 (73) 100 10/01/17 18:45 84 100 10/01/17 18:31 87 127/67 (87) 99 10/01/17 18:30 86 10/01/17 18:22 87 108/62 (77) 100 10/01/17 18:16 87 113/51 (71) 100 10/01/17 18:15 86 10/01/17 18:01 89 116/54 (74) 99 10/01/17 18:00 87 100 10/01/17 17:46 88 21 118/51 (73) 99 10/01/17 17:45 88 27 10/01/17 17:31 91 27 131/56 (81) 98 10/01/17 17:30 91 30 100 10/01/17 17:16 90 34 129/57 (81) 100 10/01/17 17:15 89 27 100 10/01/17 17:01 94 19 130/55 (80) 99 10/01/17 17:00 92 18 99 10/01/17 16:48 97 21 145/65 (91) 99 Oxymask 3.0 10/01/17 16:34 92 24 98 Oxymask 3.0 10/01/17 16:19 37.1 91 117/56 (76) 91 Oxymask 3.0 10/01/17 16:19 92 Oxymask 3.0 10/01/17 16:00 92 16 119/61 98 Oxymask 2 10/01/17 15:55 92 14 101/55 97 Oxymask 2 10/01/17 15:50 92 14 123/58 99 Oxymask 2 10/01/17 15:45 91 18 123/58 100 Oxymask 2 10/01/17 15:40 88 21 123/59 100 Oxymask 2 10/01/17 15:35 91 21 137/59 100 Oxymask 2 10/01/17 15:30 94 21 134/57 100 Oxymask 2 10/01/17 15:25 93 20 116/55 100 Oxymask 2 10/01/17 15:20 93 14 152/60 100 Oxymask 2 10/01/17 15:08 91 12 128/61 99 Oxymask 2 10/01/17 12:00 91 Room Air Oxymask 10/01/17 12:00 36.8 86 16 136/61 (86) 91 Room Air 10/01/17 11:45 84 124/58 (80) 10/01/17 11:15 87 124/54 (77) 10/01/17 11:00 83 132/54 (80) 10/01/17 10:45 86 136/57 (83) 10/01/17 10:30 83 133/57 (82) 10/01/17 10:17 83 112/59 (76) 10/01/17 10:05 72 18 165/67 94 Room Air 10/01/17 10:00 70 16 139/59 94 Room Air 10/01/17 09:55 66 13 132/59 98 Oxymask 2 10/01/17 09:50 68 12 146/50 99 Oxymask 2 10/01/17 09:45 66 16 135/53 99 Oxymask 2 Physical Exam General Appearance: no apparent distress Eyes: normal inspection ENT: hearing grossly normal Neck: no JVD Respiratory/Chest: no respiratory distress, no accessory muscle use Cardiovascular: no JVD Extremities: + pertinent finding (Right foot erythema and swelling) Neurologic/Psychiatric: alert, normal mood/affect, oriented x 3 Skin: normal color Laboratory Results Last 24 Hours Test 10/01/17 11:20 10/01/17 11:21 10/01/17 14:09 10/01/17 17:27 Activated Partial Thromboplast Time 37.7 SECONDS Partial Thromboplastin Ratio 1.5 Fibrinogen 334 mg/dl White Blood Count 9.79 K/uL Red Blood Count 3.31 M/uL Hemoglobin 11.7 g/dL Hematocrit 32.9 % Mean Corpuscular Volume 99.4 fL Mean Corpuscular Hemoglobin 35.3 pg Mean Corpuscular Hemoglobin Concent 35.6 g/dl Platelet Count 86 K/uL Mean Platelet Volume 9.9 fL Neutrophils (%) (Auto) 78.1 % Lymphocytes (%) (Auto) 9.8 % Monocytes (%) (Auto) 9.7 % Eosinophils (%) (Auto) 1.6 % Basophils (%) (Auto) 0.3 % Neutrophils # (Auto) 7.64 K/uL Lymphocytes # (Auto) 0.96 K/uL Monocytes # (Auto) 0.95 K/uL Eosinophils # (Auto) 0.16 K/uL Basophils # (Auto) 0.03 K/uL RDW Standard Deviation 45.0 fL RDW Coefficient of Variation 12.4 % Immature Granulocyte % (Auto) 0.5 % Immature Granulocyte # (Auto) 0.05 K/uL Bedside Glucose 144 mg/dl 140 mg/dl Test 10/01/17 18:51 10/01/17 21:19 10/02/17 00:24 10/02/17 06:07 Sodium Level 136 mmol/L Potassium Level 4.1 mmol/L Chloride Level 106 mmol/L Carbon Dioxide Level 25 mmol/L Anion Gap 5.0 mmol/L Blood Urea Nitrogen 18 mg/dl Creatinine 1.40 mg/dl Est Creatinine Clear Calc Drug Dose 53.9 ml/min Estimated GFR () 58.6 Estimated GFR (Non- 50.5 BUN/Creatinine Ratio 13.0 Random Glucose 171 mg/dl Calcium Level 7.5 mg/dl Phosphorus Level 3.2 mg/dl Magnesium Level 2.3 mg/dl Troponin I 0.041 ng/ml 0.043 ng/ml Bedside Glucose 198 mg/dl 174 mg/dl Test 10/02/17 06:18 White Blood Count 12.09 K/uL Red Blood Count 2.71 M/uL Hemoglobin 9.6 g/dL Hematocrit 26.3 % Mean Corpuscular Volume 97.0 fL Mean Corpuscular Hemoglobin 35.4 pg Mean Corpuscular Hemoglobin Concent 36.5 g/dl Platelet Count 78 K/uL Mean Platelet Volume 9.9 fL Neutrophils (%) (Auto) 81.3 % Lymphocytes (%) (Auto) 5.7 % Monocytes (%) (Auto) 11.9 % Eosinophils (%) (Auto) 0.5 % Basophils (%) (Auto) 0.3 % Neutrophils # (Auto) 9.82 K/uL Lymphocytes # (Auto) 0.69 K/uL Monocytes # (Auto) 1.44 K/uL Eosinophils # (Auto) 0.06 K/uL Basophils # (Auto) 0.04 K/uL RDW Standard Deviation 44.0 fL RDW Coefficient of Variation 12.3 % Immature Granulocyte % (Auto) 0.3 % Immature Granulocyte # (Auto) 0.04 K/uL Platelet Estimate DECREASED Sodium Level 135 mmol/L Potassium Level 4.4 mmol/L Chloride Level 106 mmol/L Carbon Dioxide Level 25 mmol/L Anion Gap 4.0 mmol/L Blood Urea Nitrogen 17 mg/dl Creatinine 1.35 mg/dl Est Creatinine Clear Calc Drug Dose 55.9 ml/min Estimated GFR () 61.2 Estimated GFR (Non- 52.8 BUN/Creatinine Ratio 12.5 Random Glucose 159 mg/dl Calcium Level 7.7 mg/dl Phosphorus Level 3.0 mg/dl Magnesium Level 2.3 mg/dl Troponin I 0.042 ng/ml Assessment and Plan A/P: Urinary retention AFVSS Will plan to leave Thomas catheter in place for now. Plan for trial of void prior to discharge. Continue Flomax. Will check a PSA while inpatient. Will continue to follow along with primary service.
[2017-10-02] MEDS: SPIRONOLACTONE 25 MG TAB PO SCH ×2 (10:43→20:56)
[2017-10-02] MEDS: FUROSEMIDE 40 MG TAB PO SCH (10:43)
[2017-10-02] MEDS: RANITIDINE HCL 150 MG TAB PO SCH ×2 (10:43→20:55)
[2017-10-02] MEDS: CARVEDILOL 12.5 MG TAB PO SCH ×2 (10:43→20:55)
[2017-10-02] MEDS: CLOPIDOGREL BISULFATE 75 MG TAB PO SCH (10:43)
[2017-10-02] MEDS ORDERED: POTASSIUM CHLORIDE 10 MEQ TABCR ONE (10:54)
[2017-10-02] MEDS: HEPARIN SOD 5000 UNIT/0.5 ML CARP SQ SCH ×2 (10:56→21:00)
[2017-10-02] MEDS: INSULIN ASPART 100 UNITS/ML 3 ML PEN SC SCH ×3 (11:00→20:55)
--- NOTE | 2017-10-02 11:10 | Critical Care Progress Note ---
Critical Care Progress Note Date of Service Oct 02, 2017. Attending Dr. Luna Subjective Found patient resting comfortably in bed. His only current concern/complaint was being hungry. He denies any chest pain or shortness of breath. Says is mostly right foot pain was controlled by IV medication. No other acute concerns. Objective General Appearance: Awake, alert & oriented, comfortable in general, NAD. CV: +S1S2 RRR, no murmur. Pulm: Clear to auscultation throughout. Abdomen: +BS, soft, non-tender, non-distended. Surgical dressing over left groin is clean, dry, and intact. Extremities: Bilateral feet warmer to touch today. Mild right foot edema. Neuro: No gross neuro deficits. Intact distal sensation to bilateral feet. Assessment & Plan 72-year-old male admitted on [id number] for an acute/subacute right superficial femoral artery occlusion. PMH: Severe peripheral vascular disease, CAD s/p CABG and valve replacement in 2002, multiple cardiac stents, DM, HTN, ischemic cardiomyopathy and global hypokinesia, GERD, hypothyroidism, V tach in 2014, CKD stage 3, alcoholism, BPH , CVA PSH: Tonsillectomy, hernia repair, pacemaker insertion, CABG x3 vessel in 1999, stents x3 s/p ND in 2000, mitral valve repair. October 2016 s/p RLE angiogram [employer] and stenting of right popliteal/right superficial femoral artery and mechanical occlusion of left femoral artery. 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 Receiving morphine as needed for pain control postop. Otherwise no known underlying issues. Pulm: Was on CPAP overnight. Presently on 3L oxygen mask overnight with good saturation. PMH heart failure with reduced EF. On Xopenex as needed. CVS: POD #2 (24Apr) for right lower extremity angiogram, insertion of infusion catheter, thrombolytic infusion for occlusion of the right superficial femoral artery. POD #1 (25Apr) for angioplasty of popliteal artery, mechanical closure of left femoral artery. - ? V tach: Noted non- and sustained wide complex tachycardia in the OR and again yesterday evening. Question of A. fib with aberrancy (pt has prior history of A. fib) versus V. tach. His AICD did not fire, which may be related to its settings versus malfunction. Previously on home amiodarone. During the evening's event, pt was given amiodarone 150 mg 2 boluses with follow-on infusion. Case discussed with on-call cardiology. Thought to be adrenergic drive. Given metoprolol 2.5 mg 1. Patient remained awake, comfortable, and hemodynamically stable throughout the evening's events. No further overnights events. Max TnI 0.043. Working towards AICD interrogation today. - PMH heart failure and dyslipidemia. On coreg, Crestor. Spironolactone reduced to 12.5 mg twice daily. Holding losartan. - Echocardiogram read pending. Written cardiology consult recommendations pending. ID: Received perioperative Ancef. Afebrile, WBC 12. No known acute infectious issues. Monitoring. Endo: History of diabetes and hypothyroidism. No outpatient meds for the latter. Blood sugars currently under control. HbA1c 5.8. Renal/Lytes: Max Cr 1.64, current Cr 1.35. Unknown baseline. Urology consulted for urinary retention. Placed Meza. They plan on trial of void prior to discharge and PSA check. Please see their note. Continue Flomax. - Monitoring I's and O's. Is approximately 2 L positive thus far. Started on Lasix 40 mg p.o. daily. GI: History of reflux. On Zantac BID. DM2 and AHA diet. Heme: Hb down to 9.6 postop. Thrombocytopenia down to 78. Vascular surgery recommended Plavix for 3 months. On heparin here. Monitoring surgical sites and overall. DVT prophy: Heparin 5000 units subq BID. Lines: Left arm PIV 2. Right arm PIV 2. Code status: Full code. PT/OT: Deferred. Disposition: ICU. Stable for transfer to telemetry. Resident of [facility]. Resident Physician Supervision Note: Dr. De La Rosa was resident physician during care of patient. I separately evaluated patient and did history and exam. I discussed the case with the resident and generally agree with the findings and plan. Patient was slated for possible operative procedure, that has been canceled per Dr. Thompson. There is been no recurrence of the wide-complex tachycardia, discussed the case with Dr. Mai. At this point we will continue the amiodarone loading as this appears to be effective. We are reinstituting DVT prophylaxis in the form of heparin 5000 units twice daily, I have reviewed that the patient is mildly thrombocytopenic. We are awaiting a pacemaker AICD interrogation and patient's acute critical care issues are resolved and the patient is stable for downgrade to telemetry status. Documented By: Rudy Luna DO Consults & Procedures Procedures: See assessment and plan. Data Medications: Current Inpatient Medications Medications (Trade) Dose Ordered Sig/Ronnie Route Start Time Stop Time Status Last Admin Dose Admin Carvedilol (Coreg Tab) 12.5 mg BID PO 09/29/17 21:00 10/29/17 20:59 10/02/17 10:43 12.5 MG Furosemide (Lasix Tab) 40 mg QAM PO 09/30/17 09:00 10/30/17 08:59 10/02/17 10:43 40 MG Levalbuterol (Xopenex Hfa Inhaler) 2 puffs Q6 PRN INH 09/29/17 17:15 10/29/17 17:14 Rosuvastatin Calcium (Crestor Tab) 40 mg HS PO 09/29/17 21:00 10/29/17 20:59 10/01/17 21:57 40 MG Tamsulosin HCl (Flomax Cap) 0.4 mg HS PO 09/29/17 21:00 10/29/17 20:59 10/01/17 21:58 0.4 MG Ranitidine HCl (zANTac TAB) 300 mg BID PO 09/29/17 21:00 10/29/17 20:59 10/02/17 10:43 300 MG Acetaminophen (Tylenol Tab) 650 mg Q8H PRN PO 09/29/17 17:15 10/29/17 17:14 Al Hydrox/Mg Hydrox/Simethicone (Maalox Max Susp) 15 ml Q4H PRN PO 09/29/17 17:15 10/29/17 17:14 Magnesium Hydroxide (Milk Of Magnesia Susp) 30 ml Q12H PRN PO 09/29/17 17:15 10/29/17 17:14 Zolpidem Tartrate (Ambien Tab) 5 mg HSZ PRN PO 09/29/17 17:15 10/29/17 17:14 Polyethylene (Miralax Powder Packet) 17 gm DAILY PRN PO 09/29/17 17:15 10/29/17 17:14 Insulin Aspart (novoLOG ASPART) SLIDING SCALE If C... ACHS SC 09/29/17 21:00 10/29/17 20:59 10/01/17 22:02 2 UNITS Glucose (Glucose 40% Gel) 15-30 GRAMS 15 GRAMS... UD PRN PO 09/29/17 17:15 10/29/17 17:14 Glucose (Glucose Chew Tab) 4-8 Tablets 4 Tabl... UD PRN PO 09/29/17 17:15 10/29/17 17:14 Dextrose (Dextrose 50% 50ML Syringe) 25-50ML OF 50% DW IV FOR... UD PRN IV 09/29/17 17:15 10/29/17 17:14 Glucagon (Glucagon Inj) 1 mg UD PRN SQ 09/29/17 17:15 10/29/17 17:14 Spironolactone (Aldactone Tab) 12.5 mg BID PO 09/29/17 21:00 10/29/17 20:59 10/02/17 10:43 12.5 MG Morphine Sulfate (MoRPHine SULFATE INJ) Q2H PRN IV 09/30/17 11:15 10/14/17 11:14 10/02/17 06:47 4 MG Ondansetron HCl (Zofran Inj) 4 mg Q6H PRN IV 09/30/17 11:15 10/30/17 11:14 Acetaminophen/ Hydrocodone Bitart ([place] 5/325 Tab) FOR MODERATE PAIN ... Q6H PRN PO 10/01/17 16:00 10/15/17 15:59 Clopidogrel Bisulfate (plAVix TAB) 75 mg QAM PO 10/02/17 09:00 11/01/17 08:59 10/02/17 10:43 75 MG Amiodarone HCL/ Dextrose 200 ml @ 16.7 mls/hr [id number] IV 10/02/17 01:11 11/01/17 01:10 10/02/17 01:09 16.7 MLS/HR Heparin Sodium (Porcine) (Heparin Sq 5000 Unit/0.5ml) 5,000 unit Q12 SQ 10/02/17 10:15 11/01/17 10:14 10/02/17 10:56 5,000 UNIT Vital Signs: Date Time Temp Pulse Resp B/P (MAP) Pulse Ox O2 Delivery O2 Flow Rate FiO2 10/02/17 08:00 36.8 71 18 112/48 (69) 100 Oxymask 2.0 10/02/17 06:01 66 20 102/43 (62) 98 10/02/17 05:01 65 18 112/48 (81) 100 10/02/17 04:01 63 18 92/47 (61) 98 10/02/17 04:00 97 Oxymask 3.0 10/02/17 04:00 36.8 10/02/17 03:01 66 20 106/46 (80) 97 10/02/17 02:01 66 19 94/45 (60) 98 10/02/17 01:01 71 21 113/46 (82) 94 10/02/17 00:01 72 19 106/44 (75) 90 10/01/17 23:59 99 Oxymask 3.0 10/01/17 23:59 36.8 10/01/17 23:01 72 20 101/45 (67) 98 10/01/17 20:35 73 21 107/51 (69) 99 10/01/17 20:33 72 23 106/49 (68) 99 10/01/17 20:31 73 29 97/67 (77) 98 10/01/17 20:30 73 21 99 10/01/17 20:29 73 29 102/47 (65) 99 10/01/17 20:27 72 19 107/52 (70) 99 10/01/17 20:25 73 20 99/50 (66) 99 10/01/17 20:23 71 22 98/35 (56) 99 10/01/17 20:21 72 23 93/49 (64) 100 10/01/17 20:19 72 25 100/53 (69) 100 18 20:17 72 25 96/63 (74) 100 10/01/17 20:16 71 101/45 10/01/17 20:15 69 20 101/45 (63) 99 18 20:13 71 22 95/50 (65) 98 18 20:11 68 23 101/60 (74) 98 18 20:09 68 24 101/50 (67) 99 10/01/17 20:07 68 24 112/47 (68) 97 10/01/17 20:05 69 23 95/52 (66) 98 4/25/18 20:03 73 19 105/55 (72) 98 4/25/18 20:01 70 10 98/49 (65) 98 4//18 20:00 71 16 98 4/25/18 20:00 94 Oxymask 3.0 4/18 19:59 68 25 105/50 (68) 97 4/25/18 19:53 125 14 122/ (40) 97 4/25/18 19:51 146 25 117/72 (87) 97 4/25/18 19:49 143 27 89/55 (66) 97 4//18 19:47 149 18 91/64 (73) 100 4//18 19:45 153 90/67 (75) 99 4//18 19:43 148 20 86/58 (67) 98 4//18 19:41 155 21 108/58 (75) 99 4/25/18 19:39 143 24 94/64 (74) 99 //18 19:31 75 125/58 (80) 99 4//18 19:30 77 98 4/25/18 19:16 80 116/56 (76) 98 4//18 19:15 82 4//18 19:01 83 117/63 (81) 99 4//18 19:00 84 98 4//18 18:46 84 121/50 (73) 100 4//18 18:45 84 100 4//18 18:31 87 127/67 (87) 99 4/18 18:30 86 4//18 18:22 87 108/62 (77) 100 4//18 18:16 87 113/51 (71) 100 4/25/18 18:15 86 4/25/18 18:01 89 116/54 (74) 99 4/25/18 18:00 87 100 4/25/18 17:46 88 21 118/51 (73) 99 4/25/18 17:45 88 27 4/25/18 17:31 91 27 131/56 (81) 98 4/25/18 17:30 91 30 100 4/25/18 17:16 90 34 129/57 (81) 100 4/25/18 17:15 89 27 100 4/25/18 17:01 94 19 130/55 (80) 99 10/01/17 17:00 92 18 99 10/01/17 16:48 97 21 145/65 (91) 99 Oxymask 3.0 10/01/17 16:34 92 24 98 Oxymask 3.0 10/01/17 16:19 37.1 91 117/56 (76) 91 Oxymask 3.0 10/01/17 16:19 92 Oxymask 3.0 10/01/17 16:00 92 16 119/61 98 Oxymask 2 10/01/17 15:55 92 14 101/55 97 Oxymask 2 10/01/17 15:50 92 14 123/58 99 Oxymask 2 10/01/17 15:45 91 18 123/58 100 Oxymask 2 10/01/17 15:40 88 21 123/59 100 Oxymask 2 10/01/17 15:35 91 21 137/59 100 Oxymask 2 10/01/17 15:30 94 21 134/57 100 Oxymask 2 10/01/17 15:25 93 20 116/55 100 Oxymask 2 10/01/17 15:20 93 14 152/60 100 Oxymask 2 10/01/17 15:08 91 12 128/61 99 Oxymask 2 10/01/17 12:00 91 Room Air Oxymask 10/01/17 12:00 36.8 86 16 136/61 (86) 91 Room Air 10/01/17 11:45 84 124/58 (80) 10/01/17 11:15 87 124/54 (77) Laboratory Results: Last 24 Hours Test 10/01/17 11:20 10/01/17 11:21 10/01/17 14:09 10/01/17 17:27 Activated Partial Thromboplast Time 37.7 SECONDS Partial Thromboplastin Ratio 1.5 Fibrinogen 334 mg/dl White Blood Count 9.79 K/uL Red Blood Count 3.31 M/uL Hemoglobin 11.7 g/dL Hematocrit 32.9 % Mean Corpuscular Volume 99.4 fL Mean Corpuscular Hemoglobin 35.3 pg Mean Corpuscular Hemoglobin Concent 35.6 g/dl Platelet Count 86 K/uL Mean Platelet Volume 9.9 fL Neutrophils (%) (Auto) 78.1 % Lymphocytes (%) (Auto) 9.8 % Monocytes (%) (Auto) 9.7 % Eosinophils (%) (Auto) 1.6 % Basophils (%) (Auto) 0.3 % Neutrophils # (Auto) 7.64 K/uL Lymphocytes # (Auto) 0.96 K/uL Monocytes # (Auto) 0.95 K/uL Eosinophils # (Auto) 0.16 K/uL Basophils # (Auto) 0.03 K/uL RDW Standard Deviation 45.0 fL RDW Coefficient of Variation 12.4 % Immature Granulocyte % (Auto) 0.5 % Immature Granulocyte # (Auto) 0.05 K/uL Bedside Glucose 144 mg/dl 140 mg/dl Test 10/01/17 18:51 10/01/17 21:19 10/02/17 00:24 10/02/17 06:07 Sodium Level 136 mmol/L Potassium Level 4.1 mmol/L Chloride Level 106 mmol/L Carbon Dioxide Level 25 mmol/L Anion Gap 5.0 mmol/L Blood Urea Nitrogen 18 mg/dl Creatinine 1.40 mg/dl Est Creatinine Clear Calc Drug Dose 53.9 ml/min Estimated GFR () 58.6 Estimated GFR (Non- 50.5 BUN/Creatinine Ratio 13.0 Random Glucose 171 mg/dl Calcium Level 7.5 mg/dl Phosphorus Level 3.2 mg/dl Magnesium Level 2.3 mg/dl Troponin I 0.041 ng/ml 0.043 ng/ml Bedside Glucose 198 mg/dl 174 mg/dl Test 10/02/17 06:18 White Blood Count 12.09 K/uL Red Blood Count 2.71 M/uL Hemoglobin 9.6 g/dL Hematocrit 26.3 % Mean Corpuscular Volume 97.0 fL Mean Corpuscular Hemoglobin 35.4 pg Mean Corpuscular Hemoglobin Concent 36.5 g/dl Platelet Count 78 K/uL Mean Platelet Volume 9.9 fL Neutrophils (%) (Auto) 81.3 % Lymphocytes (%) (Auto) 5.7 % Monocytes (%) (Auto) 11.9 % Eosinophils (%) (Auto) 0.5 % Basophils (%) (Auto) 0.3 % Neutrophils # (Auto) 9.82 K/uL Lymphocytes # (Auto) 0.69 K/uL Monocytes # (Auto) 1.44 K/uL Eosinophils # (Auto) 0.06 K/uL Basophils # (Auto) 0.04 K/uL RDW Standard Deviation 44.0 fL RDW Coefficient of Variation 12.3 % Immature Granulocyte % (Auto) 0.3 % Immature Granulocyte # (Auto) 0.04 K/uL Platelet Estimate DECREASED Sodium Level 135 mmol/L Potassium Level 4.4 mmol/L Chloride Level 106 mmol/L Carbon Dioxide Level 25 mmol/L Anion Gap 4.0 mmol/L Blood Urea Nitrogen 17 mg/dl Creatinine 1.35 mg/dl Est Creatinine Clear Calc Drug Dose 55.9 ml/min Estimated GFR () 61.2 Estimated GFR (Non- 52.8 BUN/Creatinine Ratio 12.5 Random Glucose 159 mg/dl Calcium Level 7.7 mg/dl Phosphorus Level 3.0 mg/dl Magnesium Level 2.3 mg/dl Troponin I 0.042 ng/ml Prostate Specific Antigen 0.455 ng/ml Resident Tracking Resident Involvement: Resident Care Provided Care Provided: Adult Hospital Medicine (ICU)
--- NOTE | 2017-10-02 11:26 | ECHOCARDIOGRAM REPORT ---
*NOTICE TO RECEIVING [facility] This information is strictly Confidential and protected under [place] law. [place] law prohibits you from making any further disclosure of this information unless further disclosure is expressly permitted by the written consent of the person to whom it pertains or is authorized by law. A general authorization for the release of medical or other information is not sufficient for this purpose. Hospital accepts no responsibility if the information is made available to any other person, INCLUDING THE PATIENT. Interpretation Summary * Name: ROLANDO HICKS [id number] Study Date: 10/02/2017 06:36 AM BP: 106/46 mmHg * Patient Location: .MSICU\S\E101\S\1 HR: 66 * : 1945 (M/d/yyyy) Gender: Male Height: 72 in * Age: 72 yrs Ethnicity: [place] Weight: 195 lb * Ordering Physician: Rudy Luna * Referring Physician: Nic MASSEY * Performed By: Chantale Ayala RDCS * * Reason For Study: V-Flutter * BSA: 2.1 m2 * -- Conclusions -- * 1. Normal LV size. Normal LV wall thickness. * 2. Moderate LV dysfunction. LVEF 35-40%. Aneurysmal apex. * 3. Normal RV size with borderline RV dysfunction * 4. Mild mitral stenosis, mild mitral regurgitation. * 5. Mild aortic regurgitation. * 6. Normal estimated PA and RA pressures. * 7. Trivial pericardial effusion * 8. Compared with prior study on 02/09/2015: LV function mildly improved. Regional wall motion abnormalities persist. Procedure Details * A complete two-dimensional transthoracic echocardiogram was performed (2D, M-mode, Doppler and color flow Doppler). Left Ventricle * The left ventricle is grossly normal size. * There is normal left ventricular wall thickness. * Ejection Fraction = 35-40%. * Aneurysmal apex. See bull's-eye for details. Right Ventricle * The right ventricle is grossly normal size. * There is a pacemaker lead in the right ventricle. * The right ventricular systolic function is mildly reduced. Atria * The left atrium is mildly dilated. * Right atrial size is normal. * No ASD detected; PFO is not assessed. Mitral Valve * Suspected mitral annuloplasty ring * There is mild mitral stenosis. * There is mild mitral regurgitation. Tricuspid Valve * Significant tricuspid regurgitation is absent. Aortic Valve * The aortic valve opens well. * No hemodynamically significant valvular aortic stenosis. * Mild aortic regurgitation. Pulmonic Valve * The pulmonary valve is inadequately visualized, but the Doppler data is adequate for interpretation. * Pulmonic stenosis is absent. * There is no significant pulmonary regurgitation. Pericardium/Pleural * Trivial pericardial effusion Great Vessels * Normal inferior vena cava size and collapsability with sniff indicates a normal right atrial pressure of 3 mmHg MMode 2D Measurements and Calculations IVSd 0.93 cm LVIDd 4.0 cm LVIDs 3.0 cm LVPWd 0.87 cm IVS/LVPW 1.1 FS 24.7 % EDV(Teich) 69.1 ml ESV(Teich) 34.9 ml EF(Teich) 49.5 % EDV(cubed) 63.0 ml ESV(cubed) 26.9 ml EF(cubed) 57.3 % LV mass(C)d 108.7 grams LV mass(C)dI 51.6 grams/m\S\2 SV(Teich) 34.2 ml SI(Teich) 16.2 ml/m\S\2 SV(cubed) 36.1 ml SI(cubed) 17.1 ml/m\S\2 Ao root diam 3.4 cm Ao root area 9.1 cm\S\2 ACS 1.6 cm asc Aorta Diam 3.4 cm LVOT diam 2.0 cm LVOT area 3.2 cm\S\2 LVAd ap4 45.1 cm\S\2 LVLd ap4 10.3 cm EDV(MOD-sp4) 161.8 ml EDV(sp4-el) 168.5 ml LVAs ap4 35.7 cm\S\2 LVLs ap4 9.8 cm ESV(MOD-sp4) 102.5 ml ESV(sp4-el) 109.9 ml EF(MOD-sp4) 36.6 % EF(sp4-el) 34.8 % LVAd ap2 46.0 cm\S\2 LVLd ap2 10.3 cm EDV(MOD-sp2) 166.4 ml EDV(sp2-el) 175.2 ml LVAs ap2 30.2 cm\S\2 LVLs ap2 9.5 cm ESV(MOD-sp2) 77.0 ml ESV(sp2-el) 81.7 ml EF(MOD-sp2) 53.7 % EF(sp2-el) 53.4 % LVLd %diff 0.12 % EDV(MOD-bp) 164.8 ml LVLs %diff -3.72 % ESV(MOD-bp) 90.0 ml EF(MOD-bp) 45.4 % SV(MOD-sp4) 59.3 ml SI(MOD-sp4) 28.1 ml/m\S\2 SV(MOD-sp2) 89.4 ml SI(MOD-sp2) 42.4 ml/m\S\2 SV(MOD-bp) 74.8 ml SI(MOD-bp) 35.5 ml/m\S\2 SV(sp4-el) 58.6 ml SI(sp4-el) 27.8 ml/m\S\2 SV(sp2-el) 93.5 ml SI(sp2-el) 44.4 ml/m\S\2 Doppler Measurements and Calculations MV E max mindy 171.4 cm/sec MV A max mindy 70.7 cm/sec MV E/A 2.4 MV dec time 0.36 sec Ao V2 max 150.7 cm/sec Ao max PG 9.1 mmHg Ao max PG (full) 4.8 mmHg DELORES(V,A) 2.2 cm\S\2 DELORES(V,D) 2.2 cm\S\2 AI max mindy 281.3 cm/sec AI max PG 31.7 mmHg AI dec slope 150.1 cm/sec\S\2 AI P1/2t 548.8 msec LV V1 max PG 4.3 mmHg LV V1 max 103.6 cm/sec PA V2 max 94.0 cm/sec PA max PG 3.5 mmHg PA acc slope 532.5 cm/sec\S\2 PA acc time 0.13 sec TR max mindy 231.9 cm/sec PA pr(Accel) 20.7 mmHg
[2017-10-02] MEDS: HYDROCODONE/ACETAMIN 5/325MG TAB PO PRN ×2 (12:10→19:28)
--- NOTE | 2017-10-02 18:05 | Hospitalist Progress Note ---
Hospitalist Progress Note Date of Service Oct 02, 2017. (Liz Guillen ., JEFF) Subjective Pt evaluation today including: conversation w/ patient, physical exam, chart review, lab review, review of inpatient medication list Mr. Vieyra is having some pain in his right leg but otherwise has no complaints. He has some Vtach last evening but no events overnight ROS Constitutional: no chills, aches, sweats or fever Respiratory: no sob,cough, sputum, or wheezing Cardiac: no chest pain, palpitations, edema, orthopnea or lightheadedness GI: no abdominal pain, nausea, vomiting, diarrhea or constipation : no dysuria or hesitancy Extremities: no joint pain or weakness Skin: no rash All other systems reviewed and negative (Liz Guillen CRNP) Medications Medications Administered Medications (Trade) Dose Ordered Sig/Ronnie Route Start Time Stop Time Status Last Admin Dose Admin Amiodarone HCl (Cordarone Tab) 200 mg QAM PO 09/30/17 09:00 10/02/17 09:42 DC 10/01/17 17:24 200 MG Carvedilol (Coreg Tab) 12.5 mg BID PO 09/29/17 21:00 10/29/17 20:59 10/02/17 10:43 12.5 MG Furosemide (Lasix Tab) 40 mg QAM PO 09/30/17 09:00 10/30/17 08:59 10/02/17 10:43 40 MG Rosuvastatin Calcium (Crestor Tab) 40 mg HS PO 09/29/17 21:00 10/29/17 20:59 10/01/17 21:57 40 MG Tamsulosin HCl (Flomax Cap) 0.4 mg HS PO 09/29/17 21:00 10/29/17 20:59 10/01/17 21:58 0.4 MG Ranitidine HCl (zANTac TAB) 300 mg BID PO 09/29/17 21:00 10/29/17 20:59 10/02/17 10:43 300 MG Sodium Chloride 1,000 ml @ 15 mls/hr Q24H IV 09/29/17 19:30 10/01/17 10:06 DC 09/29/17 20:33 15 MLS/HR Morphine Sulfate (MoRPHine SULFATE INJ) 2 mg Q30M PRN IV 09/29/17 17:15 09/30/17 11:26 DC 09/30/17 00:02 2 MG Insulin Aspart (novoLOG ASPART) SLIDING SCALE If C... ACHS SC 09/29/17 21:00 10/29/17 20:59 10/02/17 17:42 4 UNITS Spironolactone (Aldactone Tab) 12.5 mg BID PO 09/29/17 21:00 10/29/17 20:59 10/02/17 10:43 12.5 MG Heparin Sodium (Porcine) 7000 unit/Syringe 7 ml @ 10 mls/min NOW ONCE IV 09/29/17 20:15 09/29/17 20:16 DC 09/29/17 20:31 10 MLS/MIN Heparin Sodium/ Dextrose 500 ml @ 26 mls/hr [id number] IV 09/29/17 20:15 09/30/17 11:17 DC 09/29/17 20:32 29 MLS/HR Cefazolin Sodium 15 ml @ 3.75 mls/ min PRE-SPECIALS@0500 IV 09/30/17 05:00 09/30/17 18:00 DC 09/30/17 09:38 3.75 MLS/MIN Acetylcysteine (Acetylcysteine Cap) 600 mg Q12H PO 09/29/17 22:00 10/01/17 10:01 DC 09/30/17 21:46 600 MG Sodium Chloride 1,000 ml @ 100 mls/hr Q10H IV 09/30/17 05:00 10/01/17 18:00 DC 10/01/17 04:02 44 MLS/HR Sodium Bicarbonate 100 meq/Sterile Water 1,100 ml @ 80 mls/hr [id number] IV 09/30/17 05:00 09/30/17 14:00 DC 09/30/17 07:19 80 MLS/HR Lidocaine HCl (Xylocaine 1% Inj (Local)) 2 ml ONE ONCE INJ 09/30/17 11:05 09/30/17 11:07 DC 09/30/17 11:05 2 ML Heparin Sodium/ Sodium Chloride (Heparin Sod/Ns 2 Units/Ml) 100 unit ONE ONCE IV 09/30/17 11:05 09/30/17 11:07 DC 09/30/17 11:05 100 UNIT Iodixanol (Visipaque 50ml) 8,100 mg ONE ONCE XX 09/30/17 11:05 09/30/17 11:07 DC 09/30/17 11:05 8,100 MG Midazolam HCl (Versed Inj) 2 mg ONE ONCE IV 09/30/17 10:14 09/30/17 11:07 DC 09/30/17 10:14 2 MG Fentanyl Citrate (Fentanyl Inj) 50 mcg ONE ONCE IV 09/30/17 10:14 09/30/17 11:07 DC 09/30/17 10:14 50 MCG Sodium Bicarbonate 100 meq/Sterile Water 1,100 ml @ 80 mls/hr [id number] IV 10/01/17 05:00 10/01/17 18:00 DC 10/01/17 05:04 80 MLS/HR Morphine Sulfate (MoRPHine SULFATE INJ) Q2H PRN IV 09/30/17 11:15 10/14/17 11:14 10/02/17 06:47 4 MG Heparin Sodium/ Dextrose 500 ml @ 14 mls/hr Q24H IV 09/30/17 11:15 10/01/17 16:09 DC 10/01/17 00:21 14 MLS/HR Alteplase, Recombinant 24 mg/ Sodium Chloride 240 ml @ 20 mls/hr Q12H IV 09/30/17 12:00 09/30/17 23:59 DC 09/30/17 12:12 20 MLS/HR Alteplase, Recombinant 12 mg/ Sodium Chloride 240 ml @ 20 mls/hr Q12H IV 10/01/17 00:00 10/01/17 07:41 DC 09/30/17 23:54 20 MLS/HR Sodium Chloride 1,000 ml @ 30 mls/hr Q24H IV 09/30/17 11:45 09/30/17 12:00 DC 09/30/17 12:15 30 MLS/HR Cefazolin Sodium 15 ml @ 3.75 mls/ min PREOP IV 10/01/17 06:00 10/01/17 16:09 DC 10/01/17 07:52 3.75 MLS/MIN Heparin Sodium (Porcine) 3000 unit/Syringe 3 ml @ 10 mls/min NOW ONCE IV 10/01/17 00:30 10/01/17 00:31 DC 10/01/17 00:20 10 MLS/MIN Sodium Chloride 1,000 ml @ 30 mls/hr Q24H IV 10/01/17 07:45 10/01/17 10:06 DC 10/01/17 08:11 30 MLS/HR Alteplase, Recombinant 6 mg/ Sodium Chloride 120 ml @ 20 mls/hr Q6H IV 10/01/17 10:30 10/01/17 16:09 DC 10/01/17 10:46 20 MLS/HR Iodixanol (Visipaque 150ml) 14,800 mg ONE ONCE IV 10/01/17 10:01 10/01/17 10:03 DC 10/01/17 10:01 14,800 MG Heparin Sodium/ Sodium Chloride (Heparin Sod/Ns 2 Units/Ml) 200 unit ONE ONCE IV 10/01/17 10:01 10/01/17 10:03 DC 10/01/17 10:01 200 UNIT Midazolam HCl (Versed Inj) 2 mg ONE ONCE IV 10/01/17 08:11 10/01/17 10:03 DC 10/01/17 08:11 2 MG Fentanyl Citrate (Fentanyl Inj) 25 mcg ONE ONCE IV 10/01/17 08:11 10/01/17 10:03 DC 10/01/17 08:11 25 MCG Cefazolin Sodium 15 ml @ 3.75 mls/ min PREOP IV 10/01/17 13:00 10/01/17 16:09 DC 10/01/17 14:43 3.75 MLS/MIN Acetaminophen/ Hydrocodone Bitart (Snyder 5/325 Tab) FOR MODERATE PAIN ... Q6H PRN PO 10/01/17 16:00 10/15/17 15:59 10/02/17 12:10 2 TAB Clopidogrel Bisulfate (plAVix TAB) 300 mg NOW STAT PO 10/01/17 16:00 10/01/17 16:27 DC 10/01/17 17:25 300 MG Clopidogrel Bisulfate (plAVix TAB) 75 mg QAM PO 10/02/17 09:00 11/01/17 08:59 10/02/17 10:43 75 MG Heparin Sodium (Porcine) (Heparin 100 Unit/ml 5ml Flush) 60 ml ONE ONCE FLUSH 10/01/17 16:21 10/01/17 16:22 DC 10/01/17 16:21 60 ML Iodixanol (Visipaque 50ml) 38 mg ONE ONCE FLUSH 10/01/17 16:21 10/01/17 16:22 DC 10/01/17 16:21 38 MG Midazolam HCl (Versed Inj) 2 mg ONE ONCE IV 10/01/17 16:21 10/01/17 16:22 DC 10/01/17 16:21 2 MG Magnesium Sulfate 100 ml @ 100 mls/hr Q1H IV 10/01/17 17:15 10/01/17 19:14 DC 10/01/17 18:32 100 MLS/HR Amiodarone HCl 150 mg/Dextrose 103 ml @ 618 mls/hr 1900 ONCE IV 10/01/17 19:00 10/01/17 19:09 DC 10/01/17 19:02 618 MLS/HR Amiodarone HCL/ Dextrose 200 ml @ 33.3 mls/hr Q6H1M IV 10/01/17 19:10 10/02/17 01:10 DC 10/01/17 20:10 33.3 MLS/HR Amiodarone HCL/ Dextrose 200 ml @ 16.7 mls/hr [id number] IV 10/02/17 01:11 11/01/17 01:10 10/02/17 14:20 16.7 MLS/HR Fentanyl Citrate (Fentanyl Inj) 100 mcg STK-MED ONCE .ROUTE 10/01/17 19:39 10/01/17 19:40 DC 10/02/17 00:25 50 MCG Metoprolol Tartrate (Lopressor Iv) 2.5 mg NOW STAT IV 10/01/17 20:01 10/01/17 20:03 DC 10/01/17 20:16 2.5 MG Potassium Chloride (Klor-Con M10) 20 meq NOW STAT PO 10/01/17 20:02 10/01/17 20:04 DC 10/01/17 21:56 20 MEQ Potassium Chloride (Klor-Con M10) 40 meq NOW STAT PO 10/02/17 08:36 10/02/17 08:46 DC 10/02/17 10:54 40 MEQ Heparin Sodium (Porcine) (Heparin Sq 5000 Unit/0.5ml) 5,000 unit Q12 SQ 10/02/17 10:15 11/01/17 10:14 10/02/17 10:56 5,000 UNIT (Liz Guillen CRNP) Objective Vital Signs Date Time Temp Pulse Resp B/P (MAP) Pulse Ox O2 Delivery O2 Flow Rate FiO2 10/02/17 16:00 Room Air 10/02/17 16:00 37.0 71 18 101/47 (65) 92 Room Air 10/02/17 12:00 36.8 71 18 126/58 (80) 95 Room Air 10/02/17 12:00 Room Air 10/02/17 08:00 Oxymask 10/02/17 08:00 Room Air 10/02/17 08:00 36.8 71 18 112/48 (69) 100 Oxymask 2.0 10/02/17 06:01 66 20 102/43 (62) 98 10/02/17 05:01 65 18 112/48 (81) 100 10/02/17 04:01 63 18 92/47 (61) 98 10/02/17 04:00 97 Oxymask 3.0 10/02/17 04:00 36.8 10/02/17 03:01 66 20 106/46 (80) 97 10/02/17 02:01 66 19 94/45 (60) 98 10/02/17 01:01 71 21 113/46 (82) 94 10/02/17 00:01 72 19 106/44 (75) 90 10/01/17 23:59 99 Oxymask 3.0 10/01/17 23:59 36.8 10/01/17 23:01 72 20 101/45 (67) 98 10/01/17 20:35 73 21 107/51 (69) 99 10/01/17 20:33 72 23 106/49 (68) 99 10/01/17 20:31 73 29 97/67 (77) 98 10/01/17 20:30 73 21 99 10/01/17 20:29 73 29 102/47 (65) 99 10/01/17 20:27 72 19 107/52 (70) 99 10/01/17 20:25 73 20 99/50 (66) 99 10/01/17 20:23 71 22 98/35 (56) 99 10/01/17 20:21 72 23 93/49 (64) 100 4/25/18 20:19 72 25 100/53 (69) 100 10/01/18 20:17 72 25 96/63 (74) 100 10/01/18 20:16 71 101/45 4//18 20:15 69 20 101/45 (63) 99 //18 20:13 71 22 95/50 (65) 98 //18 20:11 68 23 101/60 (74) 98 10/01/18 20:09 68 24 101/50 (67) 99 10/01/18 20:07 68 24 112/47 (68) 97 10/01/18 20:05 69 23 95/52 (66) 98 10/01/18 20:03 73 19 105/55 (72) 98 18 20:01 70 10 98/49 (65) 98 10/01/18 20:00 71 16 98 18 20:00 94 Oxymask 3.0 10/01/17 19:59 68 25 105/50 (68) 97 10/01/18 19:53 125 14 122/ (40) 97 10/01/18 19:51 146 25 117/72 (87) 97 18 19:49 143 27 89/55 (66) 97 18 19:47 149 18 91/64 (73) 100 18 19:45 153 90/67 (75) 99 18 19:43 148 20 86/58 (67) 98 10/01/18 19:41 155 21 108/58 (75) 99 10/01/18 19:39 143 24 94/64 (74) 99 10/01/18 19:31 75 125/58 (80) 99 10/01/18 19:30 77 98 10/01/18 19:16 80 116/56 (76) 98 10/01/18 19:15 82 //18 19:01 83 117/63 (81) 99 10/01/18 19:00 84 98 10/01/18 18:46 84 121/50 (73) 100 10/01/18 18:45 84 100 10/01/18 18:31 87 127/67 (87) 99 10/01/18 18:30 86 4//18 18:22 87 108/62 (77) 100 10/01/17 18:16 87 113/51 (71) 100 10/01/17 18:15 86 10/01/17 18:01 89 116/54 (74) 99 10/01/17 18:00 87 100 (Liz Guillen CRNP) Physical Exam Notes: General: no distress Eyes: normal inspection, PERLL Respiratory: chest non tender, clear to auscultation, normal breath sounds, no respiratory distress, no accessory muscle use Cardiac: regular rate and rhythm, no rub or gallop, no murmur, no edema, no jvd GI/: active bowel sounds, no abd pain or tenderness, soft, non distended Extremities: normal range of motion, normal strength, non tender, dressing site soft, no bleeding Neuro/Psych: alert and oriented x 3, normal mood and affect Skin: normal color, dry (Liz Guillen CRNP) Laboratory Results Last 24 Hours Test 10/01/17 18:51 10/01/17 21:19 10/02/17 00:24 10/02/17 06:07 Sodium Level 136 mmol/L Potassium Level 4.1 mmol/L Chloride Level 106 mmol/L Carbon Dioxide Level 25 mmol/L Anion Gap 5.0 mmol/L Blood Urea Nitrogen 18 mg/dl Creatinine 1.40 mg/dl Est Creatinine Clear Calc Drug Dose 53.9 ml/min Estimated GFR () 58.6 Estimated GFR (Non- 50.5 BUN/Creatinine Ratio 13.0 Random Glucose 171 mg/dl Calcium Level 7.5 mg/dl Phosphorus Level 3.2 mg/dl Magnesium Level 2.3 mg/dl Troponin I 0.041 ng/ml 0.043 ng/ml Bedside Glucose 198 mg/dl 174 mg/dl Test 10/02/17 06:18 10/02/17 10:59 10/02/17 16:08 White Blood Count 12.09 K/uL Red Blood Count 2.71 M/uL Hemoglobin 9.6 g/dL Hematocrit 26.3 % Mean Corpuscular Volume 97.0 fL Mean Corpuscular Hemoglobin 35.4 pg Mean Corpuscular Hemoglobin Concent 36.5 g/dl Platelet Count 78 K/uL Mean Platelet Volume 9.9 fL Neutrophils (%) (Auto) 81.3 % Lymphocytes (%) (Auto) 5.7 % Monocytes (%) (Auto) 11.9 % Eosinophils (%) (Auto) 0.5 % Basophils (%) (Auto) 0.3 % Neutrophils # (Auto) 9.82 K/uL Lymphocytes # (Auto) 0.69 K/uL Monocytes # (Auto) 1.44 K/uL Eosinophils # (Auto) 0.06 K/uL Basophils # (Auto) 0.04 K/uL RDW Standard Deviation 44.0 fL RDW Coefficient of Variation 12.3 % Immature Granulocyte % (Auto) 0.3 % Immature Granulocyte # (Auto) 0.04 K/uL Platelet Estimate DECREASED Sodium Level 135 mmol/L Potassium Level 4.4 mmol/L Chloride Level 106 mmol/L Carbon Dioxide Level 25 mmol/L Anion Gap 4.0 mmol/L Blood Urea Nitrogen 17 mg/dl Creatinine 1.35 mg/dl Est Creatinine Clear Calc Drug Dose 55.9 ml/min Estimated GFR () 61.2 Estimated GFR (Non- 52.8 BUN/Creatinine Ratio 12.5 Random Glucose 159 mg/dl Calcium Level 7.7 mg/dl Phosphorus Level 3.0 mg/dl Magnesium Level 2.3 mg/dl Troponin I 0.042 ng/ml Prostate Specific Antigen 0.455 ng/ml Bedside Glucose 206 mg/dl 168 mg/dl (Liz Guillen ., JEFF) Assessment and Plan 72 years old man with past medical history of severe peripheral vascular disease , coronary artery disease status post CABG/valve replacement in 2002, followed by multiple cardiac stents, diabetes mellitus and oral hypoglycemic, hypertension, ischemic cardiomyopathy with ejection fraction of 30% and global hypokinesia based on echo in 2014, Patient had a recent vascular procedure on October 2016 status post Right Lower Extremity Angiogram, [employer]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 Presented to the hospital with acute/subacute right superficial femoral artery occlusion Acute right superficial femoral artery occlusion, severe PVD - post OR today with vascular surgery for thrombectomy - Yesterday OR with Dr. Cavazos for angiogram/alteplase, heparin infusions - Continue Plavix per Dr. 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 - PSA Full code (Liz Guillen ., JEFF) Supervising Note Dr. Vázquez I performed a history and physical examination on the patient. I reviewed above note and agree with it. I discussed plan with APC and patient. During my face to face encounter with the patient, I answered all of the patient's questions. Patient has [employer]tr[employer] pacemaker. Awaiting for interrogation. (Harvinder Vázquez M.D.)
[2017-10-02] MEDS ORDERED: AMIODARONE 200 MG TAB PO ONE (18:30)
--- NOTE | 2017-10-02 19:46 | CARDIOLOGY CONSULTATION ---
DATE OF CONSULTATION: 10/02/2017 Cardiology consult. CONSULTING PHYSICIAN: Dr. De La Rosa. REASON FOR CONSULTATION: Recurrent ventricular tachycardia. TIME: 1806. HISTORY OF PRESENT ILLNESS: Mr. Vieyra is a 72-year-old gentleman with a history significant for severe peripheral vascular disease, CAD status post CABG x3 and also PCI x3, reported valve repair during the time of his CABG, stroke, ischemic cardiomyopathy, ventricular tachycardia status post ICD, diabetes. In October of 2016, he reportedly underwent right lower extremity angiography, [employer], and stenting of the right popliteal/right superficial femoral artery with mechanical occlusion of the left femoral artery. He then replaced aspirin with Excedrin and stopped taking Plavix several weeks ago. He then started to have a developing erythema and pain in his right foot. He presented to [facility] and underwent further vascular procedures by Dr. Cavazos. On 09/30/2017 he underwent right lower extremity angiography and thrombolytic infusion for an occluded right SFA. On 10/01/2017, he underwent angioplasty and stenting of the right SFA. Later that day, he underwent [employer] of the popliteal thrombosis, once again with Dr. Cavazos. Yesterday he was noted to have sustained episodes of ventricular tachycardia. Dr. Luna reported that his systolic blood pressure was approximately 120 and would drop into the 90s during these sustained episodes. He did not undergo cardioversion and did not receive an ICD therapy via his indwelling ICD. He was then placed on IV amiodarone after receiving 150 mg bolus x2. His ventricular tachycardia then resolved. He had been taking amiodarone 200 mg daily as an outpatient and missed one dose while hospitalized. He takes carvedilol as an outpatient and a total of 2 doses had been held during the hospitalization up until that point. He denied shortness of breath while experiencing ventricular tachycardia but did feel palpitations as though his heart was fast/racing and then developed chest discomfort and lightheadedness. When the palpitations resolved, his chest pain and lightheadedness also resolved. He recalls being shocked with his ICD on one occasion since he has had the ICD. He believes he had the ICD placed in 2014 and follows with [facility] in [place] for ICD interrogations twice per year. Currently, he denies chest discomfort, palpitations, shortness of breath, syncope or near syncope. He denies bleeding. He has had some discomfort in his right lower extremity. REVIEW OF SYSTEMS: As above. Review of systems is otherwise negative/unremarkable. PAST MEDICAL HISTORY: 1. Ischemic cardiomyopathy status post ICD. 2. Coronary artery disease status post CABG x3 and PCI x3. Underwent CABG in the year 1999 at [facility]. PCI performed in 2000 following PR. 3. He has reported in the past, heart valve repair. 4. Diabetes. 5. Stroke in 2004. 6. Dyslipidemia. 7. Chronic systolic congestive heart failure. 8. Ventricular tachycardia status post ICD and on amiodarone therapy. 9. Peripheral arterial disease status post intervention as described above. 10. CKD. 11. Esophageal reflux. 12. Hypothyroidism. 13. Nonsevere mitral stenosis. HOME MEDICATIONS: Include: 1. Amiodarone 200 mg daily. 2. Carvedilol 12.5 mg b.i.d. 3. Plavix 75 mg daily, however, he has not taken for 3 weeks. 4. Lasix 120 mg daily, however, he reports taking only 100 mg. 5. Losartan 25 mg daily. 6. Glyburide 5 mg b.i.d. 7. Potassium chloride 8 mEq daily. 8. Zantac 300 mg b.i.d. 9. Crestor 40 mg at bedtime. 10. Spironolactone 50 mg b.i.d. 11. Flomax 0.4 mg at bedtime. INPATIENT MEDICATIONS: Include: 1. Amiodarone drip. 2. Carvedilol 12.5 mg b.i.d. 3. Plavix 75 mg daily. 4. Lasix 40 mg daily. 5. Heparin 5000 units subQ q. 12 hours. 6. Crestor 40 mg daily. 7. Zantac 300 mg b.i.d. 8. Spironolactone 12.5 mg p.o. b.i.d. 9. Flomax 0.4 mg at bedtime. ALLERGIES: INCLUDE TETRACYCLINE. SOCIAL HISTORY: He has smoked up to 4 packs per day in the past and currently smoking approximately 4 cigarettes per day. He denies alcohol or drugs. He is not . He has 5 children. He has been incarcerated for 30+ years. FAMILY HISTORY: No known premature CAD. PHYSICAL EXAMINATION: Exam was performed earlier this morning. VITAL SIGNS: Temperature was 36.8 degrees, heart rate 71 beats per minute, respiration rate 18, blood pressure 112/48 mmHg, oxygen saturation 100% on 2 liters. Weight 89.5 kilograms. I's and O's positive 1.8 liters yesterday. GENERAL: No acute distress. He was alert and oriented. HEENT: Anicteric sclerae. NECK: No appreciable JVD. Bilateral carotid bruits. Normal carotid upstrokes bilaterally. CARDIAC EXAMINATION: PMI was nonpalpable. There was no ventricular heave, irregular, normal S1 and S2. 1/6 systolic murmur. No rubs or gallops. LUNGS: Decreased breath sounds throughout, otherwise clear. ABDOMEN: Soft, nontender, nondistended. Normoactive bowel sounds. EXTREMITIES: 2+ radial pulses bilaterally. 1+ left dorsalis pedis pulse. Right distal lower extremity pulses were not palpable. No cyanosis. No pitting edema. PSYCHIATRIC: Affect appears appropriate. LABORATORY DATA: White blood cell count 12.09, hemoglobin 9.6, platelets 78. Sodium 135, potassium 4.4, BUN 17, creatinine 1.35, magnesium 2.3. Troponin peak was 0.043, which is within normal limits. ECG is personally reviewed. ECG 09/29/2017 appears to be a possibly junctional rhythm with IVCD. Inferior and lateral T-wave abnormality. ECG 10/01/2017 at 1826. Possible junctional rhythm at [address]-T wave abnormality. Telemetry personally reviewed. Sustained episodes of ventricular tachycardia noted yesterday. Currently, on telemetry, appears to be junctional rhythm but cannot rule out atrial fibrillation as there appeared to be some irregularity at times. Chest x-ray reports trace pleural effusions, no airspace consolidation. No evidence of CHF per radiology. Echocardiogram was performed today and reports moderately reduced LV systolic function with an EF of 35-40%. Aneurysmal apex. Borderline RV dysfunction. Mild mitral stenosis with mild regurgitation. Mild aortic regurgitation. Normal estimated PA and RA pressures. Trivial pericardial effusion. Compared to 02/09/2015 study, LV systolic function mildly improved per report. ASSESSMENT AND PLAN: 1. Ventricular tachycardia: He had sustained ventricular tachycardia and was symptomatic, but was not unstable. Agree with the amiodarone. Dr. Haines of electrophysiology was contacted to see if he would be able to interrogate ICD and make adjustments if necessary. The fact that he did not receive defibrillation would suggest that perhaps the ventricular tachycardia was at a lower rate than what was programmed for detection of arrhythmia. Continue beta vianney. After further discussion with electrophysiology, it was suggested that perhaps intravenous amiodarone be held for now to evaluate for further arrhythmia. We will increase amiodarone to 200 mg p.o. b.i.d. first dose of amiodarone or oral amiodarone now and overlap with the amiodarone drip for 1-2 hours. If sustained ventricular arrhythmia overnight, would resume intravenous amiodarone. TSH will be ordered. 2. Ischemic cardiomyopathy: Moderately reduced left ventricular systolic function, according to today's echo. Continue carvedilol. Would consider resuming ARB and titrate beta vianney and ARB as tolerated to maximal doses if tolerated given his reduced systolic function and history of systolic congestive heart failure. 3. Chronic systolic congestive heart failure: He appears compensated and euvolemic on exam. Continue oral diuretic. 4. Coronary artery disease status post coronary artery bypass graft and percutaneous coronary intervention: Continue antiplatelet therapy indefinitely. He is currently on Plavix. No current angina, but did have chest discomfort during ventricular tachycardia. Fortunately, he did not have significant elevation in his troponin levels. Continue high intensity statin therapy. 5. Junctional rhythm: He appears to possibly have junctional rhythm but did have some irregularity on telemetry this morning. Repeat ECG ordered at this time. 6. Mitral valve stenosis and regurgitation: Mild per echo. This can be followed as an outpatient. 7. implantable cardioverter defibrillator: Dr. Haines was asked to further evaluate with an interrogation as noted above. Appreciate Dr. Haines's assistance. 8. Disposition: Cardiology will continue to follow. Electrophysiology, Dr. Haines, was asked to provide continued care tomorrow as I will be away from the hospital for the next 3 days. The patient was also signed out to nurse discharge planner, Dr. Dinero who will be covering for the weekend. Patient's care has been communicated with Dr. Luna earlier this morning. Recommendations regarding amiodarone was communicated with Dr. De La Rosa of the critical care team. Highly complex medical issues. Thank you for allowing me to participate in the care of Mr. Vieyra. [facility]
[2017-10-02] MEDS: ROSUVASTATIN CALCIUM 20 MG TAB PO SCH (20:57)
[2017-10-02] MEDS: TAMSULOSIN HCL 0.4 MG CAP PO SCH (20:57)
[2017-10-03] VITALS (9 sets, daily range): BP systolic 102–123; BP diastolic 51–65; PULSE 70–77; TEMP 36.8–37.8; O2SAT 91–96
[2017-10-03 07:17] LABS: HEMATOCRIT 23.6 % (42-52); HEMOGLOBIN 8.5 g/dL (14.0-18.0); MEAN CELL VOLUME 97.9 fL (80-100); MEAN CORPUSCULAR HEMOGLOBIN 35.3 pg (25-34); RED CELL DISTRIBUTION WIDTH CV 12.4 % (11.5-14.5); RED CELL DISTRIBUTION WIDTH SD 44.4 fL (36.4-46.3); WHITE BLOOD COUNT 8.34 K/uL (4.8-10.8)
[2017-10-03 07:19] LABS: MEAN PLATELET VOLUME 10.2 fL (7.4-10.4); PLATELET COUNT 79 K/uL (130-400)
[2017-10-03] MEDS: FUROSEMIDE 40 MG TAB PO SCH (07:37)
[2017-10-03] MEDS: RANITIDINE HCL 150 MG TAB PO SCH ×2 (07:38→21:16)
[2017-10-03] MEDS: CLOPIDOGREL BISULFATE 75 MG TAB PO SCH (07:38)
[2017-10-03] MEDS: CARVEDILOL 12.5 MG TAB PO SCH ×2 (07:38→21:14)
[2017-10-03] MEDS: AMIODARONE 200 MG TAB PO SCH ×3 (07:38→21:14)
[2017-10-03] MEDS: SPIRONOLACTONE 25 MG TAB PO SCH ×2 (07:39→21:13)
[2017-10-03] MEDS: HEPARIN SOD 5000 UNIT/0.5 ML CARP SQ SCH ×2 (07:42→21:20)
[2017-10-03] MEDS: INSULIN ASPART 100 UNITS/ML 3 ML PEN SC SCH ×4 (07:42→21:19)
[2017-10-03 07:54] LABS: CALCIUM 7.8 mg/dl (8.5-10.1); CREATININE 1.69 mg/dl (0.60-1.40); POTASSIUM 4.3 mmol/L (3.5-5.1)
--- NOTE | 2017-10-03 10:02 | Progress Note ---
Subjective Date of Service: Oct 03, 2017. Subjective Pt evaluation today including: conversation w/ patient, chart review Voiding: thomas catheter in place (Patent, draining clear yellow urine) 72-year-old man status post thrombectomy by Dr. Cavazos. Thomas catheter placement by Dr. Cage. Patient complaining of some right foot pain again this morning. Denies issues with the Thomas catheter. Problem List Medical Problems: (1) Leg pain, right Status: Acute (2) Superficial femoral artery occlusion Status: Acute Review of Systems Constitutional: No fever, No chills Respiratory: No shortness of breath Cardiac: No chest pain Abdomen: No pain, No nausea, No vomiting Male : No hematuria Heme: No abnormal bleeding/bruising Objective Vital Signs Date Time Temp Pulse Resp B/P (MAP) Pulse Ox O2 Delivery O2 Flow Rate FiO2 10/03/17 08:03 37.1 71 18 106/53 (70) 96 10/03/17 04:00 Nasal Cannula 2.0 10/03/17 03:37 37.1 70 22 111/62 (78) 96 Nasal Cannula 2.0 10/03/17 00:27 37.8 72 18 106/55 (72) 93 Nasal Cannula 2.0 10/03/17 00:00 Nasal Cannula 2.0 10/02/17 23:01 37.6 75 24 115/55 (75) 91 Room Air 10/02/17 20:01 37.6 73 20 127/56 (79) 92 Room Air 10/02/17 20:00 92 Room Air 10/02/17 16:00 Room Air 10/02/17 16:00 37.0 71 18 101/47 (65) 92 Room Air 10/02/17 12:00 36.8 71 18 126/58 (80) 95 Room Air 10/02/17 12:00 Room Air Physical Exam General Appearance: no apparent distress Eyes: normal inspection ENT: hearing grossly normal Neck: no JVD Respiratory/Chest: no respiratory distress, no accessory muscle use Cardiovascular: no JVD Extremities: + swelling (Slight swelling and erythema of the right foot noted) Neurologic/Psychiatric: alert, normal mood/affect, oriented x 3 Skin: normal color Laboratory Results Last 24 Hours Test 10/02/17 10:59 10/02/17 16:08 10/02/17 20:40 10/03/17 06:03 Bedside Glucose 206 mg/dl 168 mg/dl 178 mg/dl 172 mg/dl Test 10/03/17 06:42 White Blood Count 8.34 K/uL Red Blood Count 2.41 M/uL Hemoglobin 8.5 g/dL Hematocrit 23.6 % Mean Corpuscular Volume 97.9 fL Mean Corpuscular Hemoglobin 35.3 pg Mean Corpuscular Hemoglobin Concent 36.0 g/dl RDW Standard Deviation 44.4 fL RDW Coefficient of Variation 12.4 % Platelet Count 79 K/uL Mean Platelet Volume 10.2 fL Sodium Level 135 mmol/L Potassium Level 4.3 mmol/L Chloride Level 104 mmol/L Carbon Dioxide Level 26 mmol/L Anion Gap 5.0 mmol/L Blood Urea Nitrogen 22 mg/dl Creatinine 1.69 mg/dl Est Creatinine Clear Calc Drug Dose 34.2 ml/min Estimated GFR () 46.7 Estimated GFR (Non- 40.3 BUN/Creatinine Ratio 13.0 Random Glucose 145 mg/dl Calcium Level 7.8 mg/dl Assessment and Plan A/P: Urinary retention AFVSS Will plan to leave Thomas catheter in place for now. Plan for trial of void prior to discharge. Continue Flomax. PSA noted to be normal at 0.455. No further management at this time. Recall PRN issues. Thanks for allowing us to participate in this patient's care. Will arrange for outpatient follow-up with Dr. Cage.
--- NOTE | 2017-10-03 13:11 | Cardiology Follow-Up ---
Subjective Date of Service: Oct 03, 2017. Pt evaluation today including: conversation w/ patient, physical exam, lab review, review of inpatient medication list History of Present Illness He is feeling well today, he has no cardiovascular complaints. He is complaining of a cough. 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) History of Alcohol Use: No Review of Systems Respiratory: No shortness of breath Cardiac: No chest pain Medications Cardiovascular: Item Value Date Time Amiodarone HCl 200 mg 10/03/17 0800 (Cordarone Tab) BID/PO 10/03/17 0738 Clopidogrel 75 mg 10/02/17 0900 Bisulfate QAM/PO 10/03/17 0738 (plAVix TAB) Furosemide 40 mg 09/30/17 0900 (Lasix Tab) QAM/PO 10/03/17 0737 Carvedilol 12.5 mg 09/29/17 2100 (Coreg Tab) BID/PO 10/03/17 0738 Rosuvastatin 40 mg 09/29/17 2100 Calcium HS/PO 10/02/172056 (Crestor Tab) Spironolactone 12.5 mg 09/29/17 2100 (Aldactone Tab) BID/PO 10/03/17 0739 Objective Vital Signs Past 12 Hours Date Time Temp Pulse Resp B/P (MAP) Pulse Ox O2 Delivery O2 Flow Rate FiO2 10/03/17 12:27 77 123/65 (84) 10/03/17 11:30 37.3 72 18 102/54 (70) 95 10/03/17 08:03 37.1 71 18 106/53 (70) 96 10/03/17 08:00 Nasal Cannula 2.0 10/03/17 04:00 Nasal Cannula 2.0 10/03/17 03:37 37.1 70 22 111/62 (78) 96 Nasal Cannula 2.0 Last Recorded Weight-Kilograms: 59.500 Physical Exam Constitutional: Level of Distress: NAD Lungs: Respiratory effort: good air movement Auscultation: no rales/crackles Cardiovascular: Heart Auscultation: RRR Extremities: no edema Data Laboratory Results: Last 24 Hours Test 10/02/17 16:08 10/02/17 20:40 10/03/17 06:03 10/03/17 06:42 Bedside Glucose 168 mg/dl 178 mg/dl 172 mg/dl White Blood Count 8.34 K/uL Red Blood Count 2.41 M/uL Hemoglobin 8.5 g/dL Hematocrit 23.6 % Mean Corpuscular Volume 97.9 fL Mean Corpuscular Hemoglobin 35.3 pg Mean Corpuscular Hemoglobin Concent 36.0 g/dl RDW Standard Deviation 44.4 fL RDW Coefficient of Variation 12.4 % Platelet Count 79 K/uL Mean Platelet Volume 10.2 fL Sodium Level 135 mmol/L Potassium Level 4.3 mmol/L Chloride Level 104 mmol/L Carbon Dioxide Level 26 mmol/L Anion Gap 5.0 mmol/L Blood Urea Nitrogen 22 mg/dl Creatinine 1.69 mg/dl Est Creatinine Clear Calc Drug Dose 34.2 ml/min Estimated GFR () 46.7 Estimated GFR (Non- 40.3 BUN/Creatinine Ratio 13.0 Random Glucose 145 mg/dl Calcium Level 7.8 mg/dl Test 10/03/17 11:16 Bedside Glucose 223 mg/dl Telemetry reviewed: No further ventricular tachycardia past 24 hours Assessment and Plan 1. Ventricular tachycardia: He had very frequent runs of ventricular tachycardia during and shortly after surgery, this appears to have been related to holding beta-blockade. I cannot find a 12-lead showing the morphology of his tachycardia, one premature ventricular beat recorded in 2014 suggests right ventricular outflow tract origin. I think it is conceivable that this is a right ventricular outflow tract tachycardia, as such it should respond to beta- blockade. Perhaps going up on beta-blockade and discontinuation of amiodarone would be an option. Although his amiodarone was held for surgery that is long- acting drug and that is not likely to have influenced his arrhythmia. If we follow the patient I would recommend doing this, if he follows up elsewhere I will leave it in their hands. For now I would continue his current regimen. 2. ICD: His ICD is functioning well, interrogation of the device yesterday showed that he had only 2 episodes of ventricular tachycardia recently and those were in April, prior to the frequent episodes he had here. Many of his episodes this admission were below the rate cut off of the device therefore I adjusted the rate. In addition I adjusted some of the antitachycardia algorithms. Thank you for allowing me to participate in his care.
--- NOTE | 2017-10-03 13:12 | DIAGNOSTIC IMAGING REPORT ---
CHEST 2 VIEWS ROUTINE CLINICAL HISTORY: sob, adventitious breath sounds dyspnea COMPARISON STUDY: 10/02/2017 FINDINGS: Moderate cardiomegaly. Permanent bipolar cardiac pacemaker. Components of congestive heart failure. Very small bilateral pleural effusions. IMPRESSION: Congestive heart failure The above report was generated using voice recognition software. It may contain grammatical, syntax or spelling errors. Electronically signed by: Pérez Mathews M.D. 10/03/2017 1:11 PM Dictated Date/Time: 10/03/2017 1:09 PM
--- NOTE | 2017-10-03 13:40 | Progress Note ---
Progress Note Date of Service: Oct 03, 2017. Subjective 72 yo m with multiple medical problems, s/p RLE revascularization d/t acute/ subacute occlusion, seen in f/u today. Pt admits occasional R thigh sharp pains which wrap around to his hip/buttock. Denies any pain in foot. Problem List Medical Problems: (1) Leg pain, right Status: Acute (2) Superficial femoral artery occlusion Status: Acute Objective Vital Signs Vital Signs Past 12 Hours Date Time Temp Pulse Resp B/P (MAP) Pulse Ox O2 Delivery O2 Flow Rate FiO2 10/03/17 12:27 77 123/65 (84) 10/03/17 12:00 Nasal Cannula 2.0 10/03/17 11:30 37.3 72 18 102/54 (70) 95 10/03/17 08:03 37.1 71 18 106/53 (70) 96 10/03/17 08:00 Nasal Cannula 2.0 10/03/17 04:00 Nasal Cannula 2.0 10/03/17 03:37 37.1 70 22 111/62 (78) 96 Nasal Cannula 2.0 Exam CONST: A&O x3, NAD EXT: R groin with mild ecchymosis noted, mild edema around hip. No large, firm hematoma visible. femoral pulses +3, RLE PT pulse +1, toes + cap refill. Laboratory and Microbiology Results Past 24 Hours Test 10/02/17 16:08 10/02/17 20:40 10/03/17 06:03 10/03/17 06:42 Range/Units Bedside Glucose 168 178 172 70-99 mg/dl White Blood Count 8.34 4.8-10.8 K/uL Red Blood Count 2.41 4.7-6.1 M/uL Hemoglobin 8.5 14.0-18.0 g/dL Hematocrit 23.6 42-52 % Mean Corpuscular Volume 97.9 80-100 fL Mean Corpuscular Hemoglobin 35.3 25-34 pg Mean Corpuscular Hemoglobin Concent 36.0 32-36 g/dl RDW Standard Deviation 44.4 36.4-46.3 fL RDW Coefficient of Variation 12.4 11.5-14.5 % Platelet Count 79 130-400 K/uL Mean Platelet Volume 10.2 7.4-10.4 fL Sodium Level 135 136-145 mmol/L Potassium Level 4.3 3.5-5.1 mmol/L Chloride Level 104 98-107 mmol/L Carbon Dioxide Level 26 21-32 mmol/L Anion Gap 5.0 3-11 mmol/L Blood Urea Nitrogen 22 7-18 mg/dl Creatinine 1.69 0.60-1.40 mg/dl Est Creatinine Clear Calc Drug Dose 34.2 ml/min Estimated GFR () 46.7 Estimated GFR (Non- 40.3 BUN/Creatinine Ratio 13.0 10-20 Random Glucose 145 70-99 mg/dl Calcium Level 7.8 8.5-10.1 mg/dl Test 10/03/17 11:16 Range/Units Bedside Glucose 223 70-99 mg/dl ASSESSMENT and PLAN: s/p RLE revascualrization RLE arterial occlusion V Tach Pt may have a small hematoma in R hip per Dr Cavazos, has been present since procedure. No intervention recommended, may use warm compresses to area. Otherwise RLE is doing well post revascularization. Please call if needed.
[2017-10-03] MEDS ORDERED: FUROSEMIDE INJ 40 MG in SYRINGE 0 ML IV ONE (14:00)
[2017-10-03] MEDS: LIDOCAINE / D5W 4MG/ML DRIP 500 ML IV SCH ×2 (14:00→21:46)
--- NOTE | 2017-10-03 14:36 | Hospitalist Progress Note ---
Hospitalist Progress Note Date of Service Oct 03, 2017. (Liz Guillen .JEFF) Subjective Pt evaluation today including: conversation w/ patient, physical exam, chart review, lab review, conversation w/ change consultant Voiding: thomas catheter in place Mr. Vieyra continues to have intermittent runs of Vtach on the monitor. He is asymptomatic with this dysrhythmia. His only complaint is some right leg pain. Patient's right foot is a bit warm and erythematous - likely part of the revascularization process. I did ask nursing just to notify vascular and let them know ROS Constitutional: no chills, aches, sweats or fever Respiratory: no sob,cough, sputum, or wheezing Cardiac: no chest pain, palpitations, edema, orthopnea or lightheadedness GI: no abdominal pain, nausea, vomiting, diarrhea or constipation : no dysuria or hesitancy Extremities: see HPI Skin: no rash All other systems reviewed and negative (Liz Guillen CRNP) Medications Medications Administered Medications (Trade) Dose Ordered Sig/Ronnie Route Start Time Stop Time Status Last Admin Dose Admin Amiodarone HCl (Cordarone Tab) 200 mg QAM PO 09/30/17 09:00 10/02/17 09:42 DC 10/01/17 17:24 200 MG Carvedilol (Coreg Tab) 12.5 mg BID PO 09/29/17 21:00 10/29/17 20:59 10/03/17 07:38 12.5 MG Furosemide (Lasix Tab) 40 mg QAM PO 09/30/17 09:00 10/30/17 08:59 10/03/17 07:37 40 MG Rosuvastatin Calcium (Crestor Tab) 40 mg HS PO 09/29/17 21:00 10/29/17 20:59 10/02/17 20:57 40 MG Tamsulosin HCl (Flomax Cap) 0.4 mg HS PO 09/29/17 21:00 10/29/17 20:59 10/02/17 20:57 0.4 MG Ranitidine HCl (zANTac TAB) 300 mg BID PO 09/29/17 21:00 10/29/17 20:59 10/03/17 07:38 300 MG Sodium Chloride 1,000 ml @ 15 mls/hr Q24H IV 09/29/17 19:30 10/01/17 10:06 DC 09/29/17 20:33 15 MLS/HR Morphine Sulfate (MoRPHine SULFATE INJ) 2 mg Q30M PRN IV 09/29/17 17:15 09/30/17 11:26 DC 09/30/17 00:02 2 MG Insulin Aspart (novoLOG ASPART) SLIDING SCALE If C... ACHS SC 09/29/17 21:00 10/29/17 20:59 10/03/17 12:03 6 UNITS Spironolactone (Aldactone Tab) 12.5 mg BID PO 09/29/17 21:00 10/29/17 20:59 10/03/17 07:39 12.5 MG Heparin Sodium (Porcine) 7000 unit/Syringe 7 ml @ 10 mls/min NOW ONCE IV 09/29/17 20:15 09/29/17 20:16 DC 09/29/17 20:31 10 MLS/MIN Heparin Sodium/ Dextrose 500 ml @ 26 mls/hr [id number] IV 09/29/17 20:15 09/30/17 11:17 DC 09/29/17 20:32 29 MLS/HR Cefazolin Sodium 15 ml @ 3.75 mls/ min PRE-SPECIALS@0500 IV 09/30/17 05:00 09/30/17 18:00 DC 09/30/17 09:38 3.75 MLS/MIN Acetylcysteine (Acetylcysteine Cap) 600 mg Q12H PO 09/29/17 22:00 10/01/17 10:01 DC 09/30/17 21:46 600 MG Sodium Chloride 1,000 ml @ 100 mls/hr Q10H IV 09/30/17 05:00 10/01/17 18:00 DC 10/01/17 04:02 44 MLS/HR Sodium Bicarbonate 100 meq/Sterile Water 1,100 ml @ 80 mls/hr [id number] IV 09/30/17 05:00 09/30/17 14:00 DC 09/30/17 07:19 80 MLS/HR Lidocaine HCl (Xylocaine 1% Inj (Local)) 2 ml ONE ONCE INJ 09/30/17 11:05 09/30/17 11:07 DC 09/30/17 11:05 2 ML Heparin Sodium/ Sodium Chloride (Heparin Sod/Ns 2 Units/Ml) 100 unit ONE ONCE IV 09/30/17 11:05 09/30/17 11:07 DC 09/30/17 11:05 100 UNIT Iodixanol (Visipaque 50ml) 8,100 mg ONE ONCE XX 09/30/17 11:05 09/30/17 11:07 DC 09/30/17 11:05 8,100 MG Midazolam HCl (Versed Inj) 2 mg ONE ONCE IV 09/30/17 10:14 09/30/17 11:07 DC 09/30/17 10:14 2 MG Fentanyl Citrate (Fentanyl Inj) 50 mcg ONE ONCE IV 09/30/17 10:14 09/30/17 11:07 DC 09/30/17 10:14 50 MCG Sodium Bicarbonate 100 meq/Sterile Water 1,100 ml @ 80 mls/hr [id number] IV 10/01/17 05:00 10/01/17 18:00 DC 10/01/17 05:04 80 MLS/HR Morphine Sulfate (MoRPHine SULFATE INJ) Q2H PRN IV 09/30/17 11:15 10/14/17 11:14 10/02/17 06:47 4 MG Heparin Sodium/ Dextrose 500 ml @ 14 mls/hr Q24H IV 09/30/17 11:15 10/01/17 16:09 DC 10/01/17 00:21 14 MLS/HR Alteplase, Recombinant 24 mg/ Sodium Chloride 240 ml @ 20 mls/hr Q12H IV 09/30/17 12:00 09/30/17 23:59 DC 09/30/17 12:12 20 MLS/HR Alteplase, Recombinant 12 mg/ Sodium Chloride 240 ml @ 20 mls/hr Q12H IV 10/01/17 00:00 10/01/17 07:41 DC 09/30/17 23:54 20 MLS/HR Sodium Chloride 1,000 ml @ 30 mls/hr Q24H IV 09/30/17 11:45 09/30/17 12:00 DC 09/30/17 12:15 30 MLS/HR Cefazolin Sodium 15 ml @ 3.75 mls/ min PREOP IV 10/01/17 06:00 10/01/17 16:09 DC 10/01/17 07:52 3.75 MLS/MIN Heparin Sodium (Porcine) 3000 unit/Syringe 3 ml @ 10 mls/min NOW ONCE IV 10/01/17 00:30 10/01/17 00:31 DC 10/01/17 00:20 10 MLS/MIN Sodium Chloride 1,000 ml @ 30 mls/hr Q24H IV 10/01/17 07:45 10/01/17 10:06 DC 10/01/17 08:11 30 MLS/HR Alteplase, Recombinant 6 mg/ Sodium Chloride 120 ml @ 20 mls/hr Q6H IV 10/01/17 10:30 10/01/17 16:09 DC 10/01/17 10:46 20 MLS/HR Iodixanol (Visipaque 150ml) 14,800 mg ONE ONCE IV 10/01/17 10:01 10/01/17 10:03 DC 10/01/17 10:01 14,800 MG Heparin Sodium/ Sodium Chloride (Heparin Sod/Ns 2 Units/Ml) 200 unit ONE ONCE IV 10/01/17 10:01 10/01/17 10:03 DC 10/01/17 10:01 200 UNIT Midazolam HCl (Versed Inj) 2 mg ONE ONCE IV 10/01/17 08:11 10/01/17 10:03 DC 10/01/17 08:11 2 MG Fentanyl Citrate (Fentanyl Inj) 25 mcg ONE ONCE IV 10/01/17 08:11 10/01/17 10:03 DC 10/01/17 08:11 25 MCG Cefazolin Sodium 15 ml @ 3.75 mls/ min PREOP IV 10/01/17 13:00 10/01/17 16:09 DC 10/01/17 14:43 3.75 MLS/MIN Acetaminophen/ Hydrocodone Bitart ([place] 5/325 Tab) FOR MODERATE PAIN ... Q6H PRN PO 10/01/17 16:00 10/15/17 15:59 10/02/17 19:28 2 TAB Clopidogrel Bisulfate (plAVix TAB) 300 mg NOW STAT PO 10/01/17 16:00 10/01/17 16:27 DC 10/01/17 17:25 300 MG Clopidogrel Bisulfate (plAVix TAB) 75 mg QAM PO 10/02/17 09:00 11/01/17 08:59 4/27/18 07:38 75 MG Heparin Sodium (Porcine) (Heparin 100 Unit/ml 5ml Flush) 60 ml ONE ONCE FLUSH 10/01/17 16:21 10/01/17 16:22 DC 10/01/17 16:21 60 ML Iodixanol (Visipaque 50ml) 38 mg ONE ONCE FLUSH 10/01/17 16:21 10/01/17 16:22 DC 10/01/17 16:21 38 MG Midazolam HCl (Versed Inj) 2 mg ONE ONCE IV 10/01/17 16:21 10/01/17 16:22 DC 10/01/17 16:21 2 MG Magnesium Sulfate 100 ml @ 100 mls/hr Q1H IV 10/01/17 17:15 10/01/17 19:14 DC 10/01/17 18:32 100 MLS/HR Amiodarone HCl 150 mg/Dextrose 103 ml @ 618 mls/hr 1900 ONCE IV 10/01/17 19:00 10/01/17 19:09 DC 10/01/17 19:02 618 MLS/HR Amiodarone HCL/ Dextrose 200 ml @ 33.3 mls/hr Q6H1M IV 10/01/17 19:10 10/02/17 01:10 DC 10/01/17 20:10 33.3 MLS/HR Amiodarone HCL/ Dextrose 200 ml @ 16.7 mls/hr [id number] IV 10/02/17 01:11 10/02/17 20:00 DC 10/02/17 14:20 16.7 MLS/HR Fentanyl Citrate (Fentanyl Inj) 100 mcg STK-MED ONCE .ROUTE 10/01/17 19:39 10/01/17 19:40 DC 10/02/17 00:25 50 MCG Metoprolol Tartrate (Lopressor Iv) 2.5 mg NOW STAT IV 10/01/17 20:01 10/01/17 20:03 DC 10/01/17 20:16 2.5 MG Potassium Chloride (Klor-Con M10) 20 meq NOW STAT PO 10/01/17 20:02 10/01/17 20:04 DC 10/01/17 21:56 20 MEQ Potassium Chloride (Klor-Con M10) 40 meq NOW STAT PO 10/02/17 08:36 10/02/17 08:46 DC 10/02/17 10:54 40 MEQ Heparin Sodium (Porcine) (Heparin Sq 5000 Unit/0.5ml) 5,000 unit Q12 SQ 10/02/17 10:15 11/01/17 10:14 10/03/17 07:42 5,000 UNIT Amiodarone HCl (Cordarone Tab) 200 mg BID PO 10/03/17 08:00 11/02/17 07:59 10/03/17 07:38 200 MG Amiodarone HCl (Cordarone Tab) 200 mg NOW ONCE PO 10/02/17 18:30 10/02/17 18:46 DC 10/02/17 19:28 200 MG (Liz Guillen CRNP) Objective Vital Signs Date Time Temp Pulse Resp B/P (MAP) Pulse Ox O2 Delivery O2 Flow Rate FiO2 10/03/17 12:27 77 123/65 (84) 10/03/17 12:00 Nasal Cannula 2.0 10/03/17 11:30 37.3 72 18 102/54 (70) 95 10/03/17 08:03 37.1 71 18 106/53 (70) 96 10/03/17 08:00 Nasal Cannula 2.0 10/03/17 04:00 Nasal Cannula 2.0 10/03/17 03:37 37.1 70 22 111/62 (78) 96 Nasal Cannula 2.0 10/03/17 00:27 37.8 72 18 106/55 (72) 93 Nasal Cannula 2.0 10/03/17 00:00 Nasal Cannula 2.0 10/02/17 23:01 37.6 75 24 115/55 (75) 91 Room Air 10/02/17 20:01 37.6 73 20 127/56 (79) 92 Room Air 10/02/17 20:00 92 Room Air 10/02/17 16:00 Room Air 10/02/17 16:00 37.0 71 18 101/47 (65) 92 Room Air (Liz Guillen CRNP) Physical Exam Notes: General: no distress Eyes: normal inspection, PERLL Respiratory: chest non tender, clear to auscultation, normal breath sounds, no respiratory distress, no accessory muscle use Cardiac: regular rate and rhythm, no rub or gallop, no murmur, no edema, no jvd GI/: active bowel sounds, no abd pain or tenderness, soft, non distended Extremities: normal range of motion, normal strength, non tender, Neuro/Psych: alert and oriented x 3, normal mood and affect Skin: normal color, dry (Liz Guillen, JFEF) Laboratory Results Last 24 Hours Test 10/02/17 16:08 10/02/17 20:40 10/03/17 06:03 10/03/17 06:42 Bedside Glucose 168 mg/dl 178 mg/dl 172 mg/dl White Blood Count 8.34 K/uL Red Blood Count 2.41 M/uL Hemoglobin 8.5 g/dL Hematocrit 23.6 % Mean Corpuscular Volume 97.9 fL Mean Corpuscular Hemoglobin 35.3 pg Mean Corpuscular Hemoglobin Concent 36.0 g/dl RDW Standard Deviation 44.4 fL RDW Coefficient of Variation 12.4 % Platelet Count 79 K/uL Mean Platelet Volume 10.2 fL Sodium Level 135 mmol/L Potassium Level 4.3 mmol/L Chloride Level 104 mmol/L Carbon Dioxide Level 26 mmol/L Anion Gap 5.0 mmol/L Blood Urea Nitrogen 22 mg/dl Creatinine 1.69 mg/dl Est Creatinine Clear Calc Drug Dose 34.2 ml/min Estimated GFR () 46.7 Estimated GFR (Non- 40.3 BUN/Creatinine Ratio 13.0 Random Glucose 145 mg/dl Calcium Level 7.8 mg/dl Test 10/03/17 11:16 Bedside Glucose 223 mg/dl (Liz Guillen CRNP) Assessment and Plan 72 years old man with past medical history of severe peripheral vascular disease , coronary artery disease status post CABG/valve replacement in 2002, followed by multiple cardiac stents, diabetes mellitus and oral hypoglycemic, hypertension, ischemic cardiomyopathy with ejection fraction of 30% and global hypokinesia based on echo in 2014, Patient had a recent vascular procedure on October 2016 status post Right Lower 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 Presented to the hospital with acute/subacute right superficial femoral artery occlusion Acute right superficial femoral artery occlusion, severe PVD - post OR 10/01 with vascular surgery for thrombectomy - 09/[address] Cavazos for angiogram/alteplase, heparin infusions - Continue Plavix per Dr. Cavazos Vtach - Continues to have seconds to minutes long runs of Vtach with no shock from ICD , likely because the tachycardia is slightly too slow for shock. Patient is asymptomatic with these episodes - Dr. Vázquez discussed with Dr. Dinero and patient will be started on a lidocaine infusion as dysrhythmia is breaking though his amiodarone regimen. - pacer interrogation - Medtronic pacer - continue telemetry monitoring Diabetes mellitus on oral hypoglycemics - Hold oral hypoglycemic, continue ss - bsgs ac & hs - A1c 5.8, lipids wnl Htn, CAD post CABG/valve replacement in 2002 and multiple stents, chronic systolic CHF exacerbation - continue coreg - hold potassium for now - wnl - continue lowered dose of Aldactone from 50 mg twice daily to 12.5 mg twice daily - bps borderline - Echo with EF 30% - Chest X ray showed congestion - 40 mg IV lasix now, sbp 120s CKD III - Creat 1.6 today - prp am to trend as patient is requiring some diuretic today for CHF exacerbation - acetylcysteine perioperatively surgery Thrombocytopenia - platelets stable in the 70s - per Mobile Marketing Manager restarted DVT prophylaxis, will continue to trend with CBC in am Urinary retention - urology consult - continue Thomas, Plan for trial of void prior to discharge per urology - Continue Flomax. - PSA Full code (Liz Guillen CRNP) Supervising Note Dr. Vázquez I performed a history and physical examination on the patient. I reviewed above note and agree with it. I discussed plan with APC and patient. During my face to face encounter with the patient, I answered all of the patient's questions. Patient continues to have beats of VTACH. D/W cardio. Will place patient on lidocaine drip. Patient does not need to be transferred to ICU as nursing staff in [facility] are allowed to use this drip. (Harvinder Vázquez M.D.)
[2017-10-03] MEDS: ROSUVASTATIN CALCIUM 20 MG TAB PO SCH (21:15)
[2017-10-03] MEDS: TAMSULOSIN HCL 0.4 MG CAP PO SCH (21:15)
[2017-10-04] VITALS (8 sets, daily range): BP systolic 85–138; BP diastolic 55–76; PULSE 60–141; TEMP 36.9–37.2; O2SAT 94–97
--- NOTE | 2017-10-04 02:03 | Progress Note ---
Progress Note Date of Service Oct 04, 2017. Progress Note Called re: patient's lidocaine drip - no instructions for titration on order. Currently 4mg/min, patient deemed to be more somnolent. No arrhythmias all evening. No documented titration instructions on hospitalist or cardiology notes or on medication order Spoke to pharmacy - stated lidocaine drip usually started at 1mg/min and titrated to max of 4mg/min. 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 Deemed reasonable to reduce dose, and titrate back up if V tach recurs. Patient tolerated 3mg/min without arrhythmia. Somnolence improved per nursing staff. Lidocaine being reduced to 2mg/min, per discussion with pharmacy as reasonable option For primary and cardiology team to address weaning/titration (instructions) further. Resident Tracking Resident Involvement: Resident Care Provided Care Provided: Adult Hospital Medicine
[2017-10-04] MEDS: LIDOCAINE / D5W 4MG/ML DRIP 500 ML IV SCH (02:38)
[2017-10-04 06:25] LABS: HEMATOCRIT 22.9 % (42-52); HEMOGLOBIN 8.1 g/dL (14.0-18.0); MEAN CELL VOLUME 98.3 fL (80-100); MEAN CORPUSCULAR HEMOGLOBIN 34.8 pg (25-34); MEAN CORPUSCULAR HGB CONC 35.4 g/dl (32-36); RED CELL DISTRIBUTION WIDTH CV 12.5 % (11.5-14.5); RED CELL DISTRIBUTION WIDTH SD 44.7 fL (36.4-46.3); WHITE BLOOD COUNT 8.75 K/uL (4.8-10.8)
[2017-10-04 06:39] LABS: MEAN PLATELET VOLUME 10.7 fL (7.4-10.4); PLATELET COUNT 89 K/uL (130-400)
[2017-10-04 06:57] LABS: CALCIUM 8.1 mg/dl (8.5-10.1); CREATININE 1.66 mg/dl (0.60-1.40); POTASSIUM 3.9 mmol/L (3.5-5.1)
[2017-10-04] MEDS: FUROSEMIDE 40 MG TAB PO SCH (07:54)
[2017-10-04] MEDS: AMIODARONE 200 MG TAB PO SCH ×2 (07:54→20:53)
[2017-10-04] MEDS: SPIRONOLACTONE 25 MG TAB PO SCH ×2 (07:54→20:52)
[2017-10-04] MEDS: CLOPIDOGREL BISULFATE 75 MG TAB PO SCH (07:55)
[2017-10-04] MEDS: HEPARIN SOD 5000 UNIT/0.5 ML CARP SQ SCH ×2 (07:59→20:55)
[2017-10-04] MEDS: RANITIDINE HCL 150 MG TAB PO SCH ×2 (07:59→20:54)
[2017-10-04] MEDS ORDERED: LIDOCAINE / D5W 4MG/ML DRIP 500 ML IV SCH (08:00)
[2017-10-04] MEDS: INSULIN ASPART 100 UNITS/ML 3 ML PEN SC SCH ×4 (08:03→20:57)
[2017-10-04] MEDS ORDERED: [UNRECOGNIZED DRUG - REMARK] ONE (09:00)
[2017-10-04] MEDS: CARVEDILOL 12.5 MG TAB PO SCH ×2 (09:16→20:53)
--- NOTE | 2017-10-04 11:10 | Cardiology Follow-Up ---
Subjective Date of Service: Oct 04, 2017. Pt evaluation today including: conversation w/ patient, physical exam, chart review, lab review, review of studies, review of inpatient medication list, conversation w/ attending History of Present Illness This morning the patient claims to be feeling well. He continues to have some discomfort in his foot. He denies any breathing difficulty. He has not any symptoms of chest discomfort. He has not noticed any palpitations or tachycardia recently. 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) History of Alcohol Use: No Review of Systems Respiratory: No shortness of breath Cardiac: No chest pain Objective Vital Signs Past 12 Hours Date Time Temp Pulse Resp B/P (MAP) Pulse Ox O2 Delivery O2 Flow Rate FiO2 10/04/17 08:00 Nasal Cannula 2.0 10/04/17 07:27 37.0 68 19 112/65 (81) 95 Nasal Cannula 2.0 10/04/17 04:41 36.9 67 18 99/63 (75) 95 10/04/17 04:00 Nasal Cannula 2.0 10/04/17 00:13 37.2 65 16 108/66 (80) 96 10/03/17 23:59 Nasal Cannula 2.0 Last Recorded Weight-Kilograms: 59.500 Physical Exam Constitutional: Level of Distress: NAD Lungs: Respiratory effort: good air movement Auscultation: no rales/crackles Cardiovascular: Heart Auscultation: RRR Extremities: no edema Feet are warm to the touch bilaterally Data Laboratory Results: Last 24 Hours Test 10/03/17 11:16 10/03/17 16:35 10/03/17 20:55 10/04/17 05:46 Bedside Glucose 223 mg/dl 190 mg/dl 196 mg/dl White Blood Count 8.75 K/uL Red Blood Count 2.33 M/uL Hemoglobin 8.1 g/dL Hematocrit 22.9 % Mean Corpuscular Volume 98.3 fL Mean Corpuscular Hemoglobin 34.8 pg Mean Corpuscular Hemoglobin Concent 35.4 g/dl RDW Standard Deviation 44.7 fL RDW Coefficient of Variation 12.5 % Platelet Count 89 K/uL Mean Platelet Volume 10.7 fL Sodium Level 132 mmol/L Potassium Level 3.9 mmol/L Chloride Level 101 mmol/L Carbon Dioxide Level 26 mmol/L Anion Gap 5.0 mmol/L Blood Urea Nitrogen 25 mg/dl Creatinine 1.66 mg/dl Est Creatinine Clear Calc Drug Dose 34.8 ml/min Estimated GFR () 47.7 Estimated GFR (Non- 41.1 BUN/Creatinine Ratio 15.1 Random Glucose 154 mg/dl Calcium Level 8.1 mg/dl Test 10/04/17 06:53 Bedside Glucose 181 mg/dl Telemetry reviewed: Multiple episodes of ventricular tachycardia yesterday generally speaking in the range of 140 6 beats per minute. No therapies from his device. Assessment and Plan 1. Ventricular tachycardia: This is likely an ischemic VT. The morphology of the VT is not consistent with an outflow tract tachycardia. He has a history of coronary artery disease, bypass surgery and valve surgery. 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 The overall rate of the VT is quite slow which has prevented therapy from his device. This is likely also prevented detection of the ventricular tachycardia by the device, so that no obvious VT has been recorded or documented even in the monitor zone. The device settings were changed yesterday in order to provide better tracking of his VT burden. The monitor zone was lowered to 133 beats per minute. The therapy zone was lowered to 143 beats per minute. Due to prolonged episodes of VT despite these changes the patient was placed on lidocaine infusion yesterday. He has not had significant VT since that time. He has been restarted on his amiodarone and carvedilol. He may require the addition of mexiletine or possibly referral for catheter based therapy in addition. 2. Coronary artery disease: Patient has not had symptoms of coronary insufficiency or angina. Continue aggressive secondary prevention.
[2017-10-04] MEDS: MoRPHine SULFATE 4 MG/ML 1 ML CARP\\VIAL IV PRN (13:24)
[2017-10-04] MEDS ORDERED: MoRPHine SULFATE 2 MG/ML CARP IV STA (14:19)
--- NOTE | 2017-10-04 14:20 | Progress Note ---
Subjective Date of Service: Oct 04, 2017. Subjective Patient reports he still has pain in his right groin. Patient reports he would like to talk to vascular surgeon. He states pain is not controlled with nmorphine Patient had questions on his v tach. Patient under impression he has been here for 10 days. I explained that it has cynthia only 5 nights. Problem List Medical Problems: (1) Leg pain, right Status: Acute (2) Superficial femoral artery occlusion Status: Acute Review of Systems ROS Constitutional: no chills, aches, sweats or fever Respiratory: no sob,cough, sputum, or wheezing Cardiac: no chest pain, palpitations, edema, orthopnea or lightheadedness GI: no abdominal pain, nausea, vomiting, diarrhea or constipation : no dysuria or hesitancy Extremities: see HPI Skin: no rash All other systems reviewed and negative All Other Systems: Reviewed and Negative Objective Vital Signs Date Time Temp Pulse Resp B/P (MAP) Pulse Ox O2 Delivery O2 Flow Rate FiO2 10/04/17 12:09 37.2 68 19 111/55 (73) 96 Room Air 10/04/17 12:00 Nasal Cannula 2.0 10/04/17 08:00 Nasal Cannula 2.0 10/04/17 07:27 37.0 68 19 112/65 (81) 95 Nasal Cannula 2.0 10/04/17 04:41 36.9 67 18 99/63 (75) 95 10/04/17 04:00 Nasal Cannula 2.0 10/04/17 00:13 37.2 65 16 108/66 (80) 96 10/03/17 23:59 Nasal Cannula 2.0 10/03/17 20:25 36.9 74 16 114/64 (81) 95 Nasal Cannula 2.0 10/03/17 20:00 95 Nasal Cannula 2.0 10/03/17 16:20 36.8 76 20 104/51 (68) 91 Nasal Cannula 2.0 10/03/17 16:00 91 Nasal Cannula 2.0 Physical Exam Comments: Physical Exam Notes: General: no distress Eyes: normal inspection, PERLL Respiratory: chest non tender, clear to auscultation, normal breath sounds, no respiratory distress, no accessory muscle use Cardiac: regular rate and rhythm, no rub or gallop, no murmur, no edema, no jvd GI/: active bowel sounds, no abd pain or tenderness, soft, non distended Extremities: normal range of motion, normal strength, non tender, Neuro/Psych: alert and oriented x 3, normal mood and affect Skin: normal color, dry Laboratory Results Last 24 Hours Test 10/03/17 16:35 10/03/17 20:55 10/04/17 05:46 10/04/17 06:53 Bedside Glucose 190 mg/dl 196 mg/dl 181 mg/dl White Blood Count 8.75 K/uL Red Blood Count 2.33 M/uL Hemoglobin 8.1 g/dL Hematocrit 22.9 % Mean Corpuscular Volume 98.3 fL Mean Corpuscular Hemoglobin 34.8 pg Mean Corpuscular Hemoglobin Concent 35.4 g/dl RDW Standard Deviation 44.7 fL RDW Coefficient of Variation 12.5 % Platelet Count 89 K/uL Mean Platelet Volume 10.7 fL Sodium Level 132 mmol/L Potassium Level 3.9 mmol/L Chloride Level 101 mmol/L Carbon Dioxide Level 26 mmol/L Anion Gap 5.0 mmol/L Blood Urea Nitrogen 25 mg/dl Creatinine 1.66 mg/dl Est Creatinine Clear Calc Drug Dose 34.8 ml/min Estimated GFR () 47.7 Estimated GFR (Non- 41.1 BUN/Creatinine Ratio 15.1 Random Glucose 154 mg/dl Calcium Level 8.1 mg/dl Test 10/04/17 11:13 Bedside Glucose 183 mg/dl Assessment and Plan 72 years old man with past medical history of severe peripheral vascular disease , coronary artery disease status post CABG/valve replacement in 2002, followed by multiple cardiac stents, diabetes mellitus and oral hypoglycemic, hypertension, ischemic cardiomyopathy with ejection fraction of 30% and global hypokinesia based on echo in 2014, Patient had a recent vascular procedure on October 2016 status post Right Lower 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 Presented to the hospital with acute/subacute right superficial femoral artery occlusion Acute right superficial femoral artery occlusion, severe PVD - post OR 10/01 with vascular surgery for thrombectomy - 09/[address] Cavazos for angiogram/alteplase, heparin infusions - Continue Plavix per Dr. Cavazos Vtach - Continues to have seconds to minutes long runs of Vtach with no shock from ICD , likely because the tachycardia is slightly too slow for shock. Patient is asymptomatic with these episodes - Dr. Vázquez discussed with Dr. Dinero and patient will be started on a lidocaine infusion as dysrhythmia is breaking though his amiodarone regimen. - pacer interrogation - Medtronic pacer - continue telemetry monitoring -will place patien on lidocaine drip after discussing with cardiology Diabetes mellitus on oral hypoglycemics - Hold oral hypoglycemic, continue ss - bsgs ac & hs - A1c 5.8, lipids wnl Htn, CAD post CABG/valve replacement in 2002 and multiple stents, chronic systolic CHF exacerbation - continue coreg - hold potassium for now - wnl - continue lowered dose of Aldactone from 50 mg twice daily to 12.5 mg twice daily - bps borderline - Echo with EF 30% - Chest X ray showed congestion - 40 mg IV lasix now, sbp 120s CKD III - Creat 1.6 today - prp am to trend as patient is requiring some diuretic today for CHF exacerbation - acetylcysteine perioperatively surgery Thrombocytopenia - platelets stable in the 70s - per Java [email or web address] Application Developer 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 - PSA Full code Spent 65 minutes with patient.
[2017-10-04] MEDS: ROSUVASTATIN CALCIUM 20 MG TAB PO SCH (20:53)
[2017-10-04] MEDS: TAMSULOSIN HCL 0.4 MG CAP PO SCH (20:54)
[2017-10-04] MEDS ORDERED: NURSING VERBAL MED ORDER STA (22:00)
[2017-10-04] MEDS ORDERED: AMIODARONE / D5W 100 ML PHARMACY PREPARED IV STA ×2 (22:06)
[2017-10-04] MEDS ORDERED: 0.2 MICRON FILTER SET 1 EA IV STA (22:07)
[2017-10-04] MEDS ORDERED: AMIODARONE / D5W 200 ML IV SCH (22:15)
[2017-10-04] MEDS: METOPROLOL TARTRATE 25 MG TAB PO STA (23:38)
[2017-10-04] MEDS ORDERED: LIDOCAINE HCL/D5W 4 MG/ML 2000 MG/500 ML BAG ONE (23:46)
[2017-10-05] VITALS (55 sets, daily range): BP systolic 78–140; BP diastolic 40–61; PULSE 60–140; TEMP 36.7–36.9; O2SAT 94–98
[2017-10-05] MEDS: LIDOCAINE / D5W 4MG/ML DRIP 500 ML IV PRN ×2 (00:15→09:43)
[2017-10-05] MEDS: METOPROLOL TARTRATE 25 MG TAB PO STA (00:24)
[2017-10-05] MEDS: ESMOLOL / NSS 2,500 MG in PREMIXED NSS 250 ML IV PRN ×2 (01:33→13:35)
[2017-10-05 02:35] LABS: HEMATOCRIT 28.2 % (42-52); HEMOGLOBIN 9.9 g/dL (14.0-18.0); MEAN CELL VOLUME 97.6 fL (80-100); MEAN CORPUSCULAR HEMOGLOBIN 34.3 pg (25-34); MEAN CORPUSCULAR HGB CONC 35.1 g/dl (32-36); MEAN PLATELET VOLUME 10.3 fL (7.4-10.4); PLATELET COUNT 104 K/uL (130-400); RED CELL DISTRIBUTION WIDTH CV 12.4 % (11.5-14.5); WHITE BLOOD COUNT 7.39 K/uL (4.8-10.8)
[2017-10-05 02:45] LABS: PTT PATIENT 29.2 SECONDS (21.0-31.0)
[2017-10-05 02:57] LABS: CALCIUM 8.1 mg/dl (8.5-10.1); CREATININE 1.65 mg/dl (0.60-1.40); POTASSIUM 3.7 mmol/L (3.5-5.1)
[2017-10-05 03:09] LABS: PHOSPHORUS 2.4 mg/dl (2.5-4.9)
--- NOTE | 2017-10-05 03:29 | Critical Care Progress Note ---
Critical Care Progress Note Date of Service Oct 05, 2017. Attending Dr. Luna Subjective Called to PCU due to patient's persistent wide-complex tachycardia. Found patient awake, alert, perhaps a little bit somnolent, but not complaining of any ongoing chest pain. Said that his chest hurt only after discharge of his ICD. Denied shortness of breath. Otherwise denied any immediate concerns outside of his tachycardia. Objective General Appearance: During periods of acute wide complex tachycardia, noted to be awake and at worst a bit tired, remained oriented, only complaining of discomfort following ICD discharge. CV: +S1S2 RRR, with periods of noted regular tachycardia, no murmur. Pulm: Minimal rales at bases, otherwise clear. Abdomen: +BS, soft, non-tender, non-distended. Extremities: Bilateral feet warm to touch . Mild right groin ecchymosis. Neuro: No gross neuro deficits. Intact distal sensation to bilateral feet. Assessment & Plan 72-year-old male admitted on [id number] for an acute/subacute right superficial femoral artery occlusion. Transferred back to ICU on Apr for sustained wide complex tachycardia. PMH: Severe peripheral vascular disease, CAD s/p CABG and valve replacement in 2002, multiple cardiac stents, DM, HTN, ischemic cardiomyopathy and global hypokinesia, GERD, hypothyroidism, V tach in 2014, CKD stage 3, alcoholism, BPH , CVA. PSH: Tonsillectomy, hernia repair, pacemaker insertion, CABG x3 vessel in 1999, stents x3 s/p KS in 2000, mitral valve repair. 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 GAS SINGER: CAM-ICU negative. Receiving morphine as needed for pain control . Otherwise no known underlying issues. Pulm: Presently on 2L oxygen mask with good saturation. PMH heart failure with reduced EF. On Xopenex as needed. Last CXR on Apr was suggestive of CHF. CVS: POD #5 (24Apr) for right lower extremity angiogram, insertion of infusion catheter, thrombolytic infusion for occlusion of the right superficial femoral artery. POD #4 (25Apr) for angioplasty of popliteal artery, mechanical closure of left femoral artery, as well as percutaneous angioplasty and stenting of right SFA. - Ventricular tachycardia: Periods of the same noted since Apr. Multiple rounds of amiodarone given during hospitalization. Cardiology / electrophysiology onboard. Had his ICD interrogated and adjusted. Thought to have an ischemic versus right ventricular outflow tract tachycardia that should respond to beta blockade. Also started on a lidocaine infusion briefly on - Apr. This evening reported to be in periods of wide complex tachycardia for the majority of 2.5 hours, longest sustained period over 10 minutes. For majority of this time patient was awake, alert but sometimes somnolent, and relatively pain-free. There was a brief approximately < 60 second period of V. fib where patient was unconscious and transient desaturations. Shocked twice during this time. Cardiology was acutely consulted again. Placed again on lidocaine infusion which was quickly maximized. Held his PO metoprolol, started on esmolol bolus plus infusion. His ICD discharged a total of eight times over about 3 hours[address] Placed magnet over pacemaker. - Close monitoring ongoing. Per most recent cardiology note, may require addition of mexiletine or referral for catheter based therapy. - Ischemic cardiomyopathy as suggested by echo performed on Apr. Also noted mild mitral valve stenosis and regurgitation. - PMH systolic heart failure and dyslipidemia. On coreg, crestor. Spironolactone reduced to 12.5 mg twice daily. Holding losartan. ID: Received perioperative Ancef. Afebrile, WBC 7. No known acute infectious issues. Monitoring. Endo: PMH of diabetes and hypothyroidism. No outpatient meds for the latter. Blood sugars trended upwards to the high 100s.. HbA1c 5.8. On sliding scale insulin. Renal/Lytes: Current Cr 1.65. Unknown baseline. Urology consulted for urinary retention, placed Meza. They plan on trial of void prior to discharge. PSA within normal range. Please see their note. Continue Flomax. - Monitoring I's and O's. Is approximately 715 mm negative thus far. On Lasix 40 mg p.o. daily. GI: History of reflux. On Zantac BID. DM2 and AHA diet. Heme: Hb 9.69. Thrombocytopenia improved to 104. Vascular surgery recommended Plavix for three months. On heparin and Plavix here. Monitoring surgical sites. DVT prophy: Heparin 5000 units subq BID. Lines: PIV x2. Meza cath. Code status: Full code. PT/OT: Deferred. Disposition: Transfer back to ICU. Resident of [facility]. Resident Physician Supervision Note: Dr. De La Rosa was resident physician during care of patient. I separately evaluated patient and did history and exam. I discussed the case with the resident and generally agree with the findings and plan. Patient has adequate control of the ventricular tachycardia with the addition of esmolol. At this point I am awaiting cardiology input for medication adjustment will continue the current therapy. I would anticipate increasing beta blockade however in reviewing cardiology notes EP intervention is also in the differential. Patient critically ill due to recurrent ventricular tachycardia with multiple AICD discharges, if AICD continues to discharge would place magnet to and activate AICD. I have personally spent 50 minutes of critical care time in the direct management of this patient. This is a life/limb threatening event. This includes time spent evaluating patient, direct bedside care, chart review, placing orders, interpretation of diagnostic studies, discussion with consultants, patient, and/or family members regarding treatment decisions, as well as other required patient management activities. This time is exclusive of all separately billable procedures, and teaching time and separate from and in addition to any other critical care service time. Documented By: Rudy Luna DO Consults & Procedures Consultants: Cardiology, urology, vascular surgery Procedures: See assessment and plan. Data Medications: Current Inpatient Medications Medications (Trade) Dose Ordered Sig/Ronnie Route Start Time Stop Time Status Last Admin Dose Admin Carvedilol (Coreg Tab) 12.5 mg BID PO 09/29/17 21:00 10/29/17 20:59 10/04/17 20:53 12.5 MG Furosemide (Lasix Tab) 40 mg QAM PO 09/30/17 09:00 10/30/17 08:59 10/04/17 07:54 40 MG Levalbuterol (Xopenex Hfa Inhaler) 2 puffs Q6 PRN INH 09/29/17 17:15 10/29/17 17:14 Rosuvastatin Calcium (Crestor Tab) 40 mg HS PO 09/29/17 21:00 10/29/17 20:59 10/04/17 20:53 40 MG Tamsulosin HCl (Flomax Cap) 0.4 mg HS PO 09/29/17 21:00 10/29/17 20:59 10/04/17 20:54 0.4 MG Ranitidine HCl (zANTac TAB) 300 mg BID PO 09/29/17 21:00 10/29/17 20:59 10/04/17 20:54 300 MG Acetaminophen (Tylenol Tab) 650 mg Q8H PRN PO 09/29/17 17:15 10/29/17 17:14 Al Hydrox/Mg Hydrox/Simethicone (Maalox Max Susp) 15 ml Q4H PRN PO 09/29/17 17:15 10/29/17 17:14 Magnesium Hydroxide (Milk Of Magnesia Susp) 30 ml Q12H PRN PO 09/29/17 17:15 10/29/17 17:14 Zolpidem Tartrate (Ambien Tab) 5 mg HSZ PRN PO 09/29/17 17:15 10/29/17 17:14 Polyethylene (Miralax Powder Packet) 17 gm DAILY PRN PO 09/29/17 17:15 10/29/17 17:14 Insulin Aspart (novoLOG ASPART) SLIDING SCALE If C... ACHS SC 09/29/17 21:00 10/29/17 20:59 10/04/17 20:57 1 UNITS Glucose (Glucose 40% Gel) 15-30 GRAMS 15 GRAMS... UD PRN PO 09/29/17 17:15 10/29/17 17:14 Glucose (Glucose Chew Tab) 4-8 Tablets 4 Tabl... UD PRN PO 09/29/17 17:15 10/29/17 17:14 Dextrose (Dextrose 50% 50ML Syringe) 25-50ML OF 50% DW IV FOR... UD PRN IV 09/29/17 17:15 10/29/17 17:14 Glucagon (Glucagon Inj) 1 mg UD PRN SQ 09/29/17 17:15 10/29/17 17:14 Spironolactone (Aldactone Tab) 12.5 mg BID PO 09/29/17 21:00 10/29/17 20:59 10/04/17 20:52 12.5 MG Morphine Sulfate (MoRPHine SULFATE INJ) Q2H PRN IV 09/30/17 11:15 10/14/17 11:14 10/04/17 13:24 4 MG Ondansetron HCl (Zofran Inj) 4 mg Q6H PRN IV 09/30/17 11:15 10/30/17 11:14 Acetaminophen/ Hydrocodone Bitart ([place] 5/325 Tab) FOR MODERATE PAIN ... Q6H PRN PO 10/01/17 16:00 10/15/17 15:59 10/02/17 19:28 2 TAB Clopidogrel Bisulfate (plAVix TAB) 75 mg QAM PO 10/02/17 09:00 11/01/17 08:59 10/04/17 07:55 75 MG Heparin Sodium (Porcine) (Heparin Sq 5000 Unit/0.5ml) 5,000 unit Q12 SQ 10/02/17 10:15 11/01/17 10:14 10/04/17 20:55 5,000 UNIT Amiodarone HCl (Cordarone Tab) 200 mg BID PO 10/03/17 08:00 11/02/17 07:59 10/04/17 20:53 200 MG Miscellaneous Information (Order Awaiting Action) 1 ea QS N/A 10/04/17 16:00 11/03/17 15:59 Lidocaine HCl/ Dextrose 500 ml @ 0.5 mls/min [id number] PRN IV 10/04/17 23:38 11/03/17 23:37 10/05/17 00:15 0.5 MLS/MIN Esmolol HCl 2500 mg/Prmx 250 ml @ 0 mls/hr Q0M PRN IV 10/05/17 01:00 11/04/17 00:59 10/05/17 01:33 17.9 MLS/HR Vital Signs: Date Time Temp Pulse Resp B/P (MAP) Pulse Ox O2 Delivery O2 Flow Rate FiO2 10/05/17 01:45 69 25 104/47 (66) 96 10/05/17 01:40 70 20 105/44 (64) 96 10/05/17 01:37 69 20 114/61 (78) 95 10/05/17 01:33 73 23 121/52 (75) 95 10/05/17 01:32 140 24 90/49 (63) 97 10/05/17 01:31 137 22 78/53 (61) 97 10/05/17 01:15 74 23 112/52 (72) 94 10/05/17 01:00 77 28 94 10/05/17 01:00 77 28 140/58 (85) 94 Nasal Cannula 2.0 10/05/17 00:45 77 23 105/49 (67) 95 Nasal Cannula 2.0 10/05/17 00:00 97 Nasal Cannula 2.0 10/04/17 23:30 37.2 141 18 85/56 (66) 97 10/04/17 20:00 97 Nasal Cannula 2.0 10/04/17 19:16 36.9 71 18 119/69 (86) 97 Nasal Cannula 10/04/17 16:00 Nasal Cannula 2.0 10/04/17 15:11 36.9 60 18 138/76 (96) 94 Nasal Cannula 10/04/17 12:09 37.2 68 19 111/55 (73) 96 Room Air 10/04/17 12:00 Nasal Cannula 2.0 10/04/17 08:00 Nasal Cannula 2.0 10/04/17 07:27 37.0 68 19 112/65 (81) 95 Nasal Cannula 2.0 10/04/17 04:41 36.9 67 18 99/63 (75) 95 10/04/17 04:00 Nasal Cannula 2.0 Laboratory Results: Last 24 Hours Test 10/04/17 05:46 10/04/17 06:53 10/04/17 11:13 10/04/17 16:18 White Blood Count 8.75 K/uL Red Blood Count 2.33 M/uL Hemoglobin 8.1 g/dL Hematocrit 22.9 % Mean Corpuscular Volume 98.3 fL Mean Corpuscular Hemoglobin 34.8 pg Mean Corpuscular Hemoglobin Concent 35.4 g/dl RDW Standard Deviation 44.7 fL RDW Coefficient of Variation 12.5 % Platelet Count 89 K/uL Mean Platelet Volume 10.7 fL Sodium Level 132 mmol/L Potassium Level 3.9 mmol/L Chloride Level 101 mmol/L Carbon Dioxide Level 26 mmol/L Anion Gap 5.0 mmol/L Blood Urea Nitrogen 25 mg/dl Creatinine 1.66 mg/dl Est Creatinine Clear Calc Drug Dose 34.8 ml/min Estimated GFR () 47.7 Estimated GFR (Non- 41.1 BUN/Creatinine Ratio 15.1 Random Glucose 154 mg/dl Calcium Level 8.1 mg/dl Bedside Glucose 181 mg/dl 183 mg/dl 148 mg/dl Test 10/04/17 20:49 10/05/17 01:36 10/05/17 02:16 Bedside Glucose 166 mg/dl 220 mg/dl White Blood Count 7.39 K/uL Red Blood Count 2.89 M/uL Hemoglobin 9.9 g/dL Hematocrit 28.2 % Mean Corpuscular Volume 97.6 fL Mean Corpuscular Hemoglobin 34.3 pg Mean Corpuscular Hemoglobin Concent 35.1 g/dl RDW Standard Deviation 44.0 fL RDW Coefficient of Variation 12.4 % Platelet Count 104 K/uL Mean Platelet Volume 10.3 fL Activated Partial Thromboplast Time 29.2 SECONDS Partial Thromboplastin Ratio 1.1 Sodium Level 132 mmol/L Potassium Level 3.7 mmol/L Chloride Level 100 mmol/L Carbon Dioxide Level 26 mmol/L Anion Gap 6.0 mmol/L Blood Urea Nitrogen 27 mg/dl Creatinine 1.65 mg/dl Est Creatinine Clear Calc Drug Dose 35.1 ml/min Estimated GFR () 48.0 Estimated GFR (Non- 41.4 BUN/Creatinine Ratio 16.3 Random Glucose 183 mg/dl Calcium Level 8.1 mg/dl Phosphorus Level 2.4 mg/dl Magnesium Level 2.0 mg/dl Troponin I 0.048 ng/ml Resident Tracking Resident Involvement: Resident Care Provided Care Provided: Adult Hospital Medicine (ICU)
[2017-10-05] MEDS ORDERED: AMIODARONE / D5W 200 ML IV SCH (04:00)
[2017-10-05] MEDS: AMIODARONE 200 MG TAB PO SCH (08:01)
[2017-10-05] MEDS: HEPARIN SOD 5000 UNIT/0.5 ML CARP SQ SCH (08:02)
[2017-10-05] MEDS: INSULIN ASPART 100 UNITS/ML 3 ML PEN SC SCH ×2 (08:03→11:43)
[2017-10-05] MEDS: SPIRONOLACTONE 25 MG TAB PO SCH (08:04)
[2017-10-05] MEDS: FUROSEMIDE 40 MG TAB PO SCH (08:04)
[2017-10-05] MEDS: CLOPIDOGREL BISULFATE 75 MG TAB PO SCH (08:05)
[2017-10-05] MEDS: RANITIDINE HCL 150 MG TAB PO SCH (08:05)
[2017-10-05] MEDS: CARVEDILOL 12.5 MG TAB PO SCH (08:05)
[2017-10-05] MEDS ORDERED: NURSING VERBAL MED ORDER ONE ×2 (12:00→15:00)
--- NOTE | 2017-10-05 12:27 | Cardiology Follow-Up ---
Subjective Date of Service: Oct 05, 2017. Pt evaluation today including: conversation w/ patient, physical exam, chart review, lab review, review of studies, review of inpatient medication list, conversation w/ attending History of Present Illness This morning the patient is feeling well. He had a rough evening and receives several therapies from his ICD. He has minimal discomfort in his right leg. He states that his breathing is normal currently. He did have a sense of mild dizziness or lightheadedness which was worse when sitting up. No current chest pain. 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) History of Alcohol Use: No Review of Systems Respiratory: No shortness of breath Cardiac: No chest pain Objective Vital Signs Past 12 Hours Date Time Temp Pulse Resp B/P (MAP) Pulse Ox O2 Delivery O2 Flow Rate FiO2 10/05/17 11:30 96 Nasal Cannula 2.0 10/05/17 08:00 97 Nasal Cannula 2.0 10/05/17 06:00 64 21 110/49 (69) 98 Nasal Cannula 2.0 10/05/17 05:46 61 20 106/47 (66) 96 10/05/17 05:30 61 20 106/47 (66) 97 Nasal Cannula 2.0 10/05/17 05:16 63 21 103/48 (66) 97 10/05/17 05:00 61 20 101/48 (65) 96 Nasal Cannula 2.0 10/05/17 04:46 61 21 107/44 (65) 96 10/05/17 04:30 64 19 110/42 (64) 97 Nasal Cannula 2.0 10/05/17 04:16 64 23 114/48 (70) 97 10/05/17 04:00 97 Nasal Cannula 2.0 10/05/17 04:00 36.9 63 23 104/44 (64) 96 Nasal Cannula 2.0 10/05/17 03:46 65 24 111/52 (71) 96 10/05/17 03:30 66 17 107/51 (69) 96 Nasal Cannula 2.0 10/05/17 03:16 64 20 102/46 (64) 96 10/05/17 03:00 65 10 109/49 (69) 97 Nasal Cannula 2.0 10/05/17 02:30 69 22 101/54 (70) 96 10/05/17 02:00 67 22 104/45 (64) 97 Nasal Cannula 2.0 10/05/17 01:45 69 25 104/47 (66) 96 10/05/17 01:40 70 20 105/44 (64) 96 10/05/17 01:37 69 20 114/61 (78) 95 10/05/17 01:33 73 23 121/52 (75) 95 10/05/17 01:32 140 24 90/49 (63) 97 10/05/17 01:31 137 22 78/53 (61) 97 10/05/17 01:15 74 23 112/52 (72) 94 10/05/17 01:00 77 28 94 10/05/17 01:00 77 28 140/58 (85) 94 Nasal Cannula 2.0 10/05/17 00:45 77 23 105/49 (67) 95 Nasal Cannula 2.0 Last Recorded Weight-Kilograms: 89.000 Physical Exam Constitutional: Level of Distress: NAD Lungs: Respiratory effort: good air movement Auscultation: no rales/crackles Cardiovascular: Heart Auscultation: RRR Extremities: no edema Feet are warm to the touch bilaterally Data Laboratory Results: Last 24 Hours Test 10/04/17 16:18 10/04/17 20:49 10/05/17 01:36 10/05/17 02:16 Bedside Glucose 148 mg/dl 166 mg/dl 220 mg/dl White Blood Count 7.39 K/uL Red Blood Count 2.89 M/uL Hemoglobin 9.9 g/dL Hematocrit 28.2 % Mean Corpuscular Volume 97.6 fL Mean Corpuscular Hemoglobin 34.3 pg Mean Corpuscular Hemoglobin Concent 35.1 g/dl RDW Standard Deviation 44.0 fL RDW Coefficient of Variation 12.4 % Platelet Count 104 K/uL Mean Platelet Volume 10.3 fL Activated Partial Thromboplast Time 29.2 SECONDS Partial Thromboplastin Ratio 1.1 Sodium Level 132 mmol/L Potassium Level 3.7 mmol/L Chloride Level 100 mmol/L Carbon Dioxide Level 26 mmol/L Anion Gap 6.0 mmol/L Blood Urea Nitrogen 27 mg/dl Creatinine 1.65 mg/dl Est Creatinine Clear Calc Drug Dose 35.1 ml/min Estimated GFR () 48.0 Estimated GFR (Non- 41.4 BUN/Creatinine Ratio 16.3 Random Glucose 183 mg/dl Calcium Level 8.1 mg/dl Phosphorus Level 2.4 mg/dl Magnesium Level 2.0 mg/dl Troponin I 0.048 ng/ml Test 10/05/17 06:34 10/05/17 08:12 10/05/17 11:18 Bedside Glucose 194 mg/dl 213 mg/dl Troponin I 0.115 ng/ml Telemetry reviewed: Several long runs of monomorphic ventricular tachycardia. One degenerated into ventricular fibrillation and required therapy from his device. There were several attempts at ATP some which were transiently successful. He did receive additional therapies during Re detection Assessment and Plan 1. Ventricular tachycardia: Patient continues to have frequent episodes of sustained ventricular tachycardia. The overall heart rates are low. The seem to be just below the current detection interval for his ICD. One extended episode last evening degenerated into ventricular fibrillation and required therapy. Subsequently the patient was placed on a lidocaine and esmolol infusion. He was given an extra dose of oral metoprolol. His rhythm appeared to stabilize over time but he received several additional therapies and attempts at ATP as well. We will continue to optimize his medical therapy to include oral mexiletine, on increased beta-vianney dose and increased amiodarone dose. However, his VT is relatively slow in nature which makes treatment with his ICD difficult. He is known to have an apical aneurysm and the morphology of his VT suggests that is the site of origin. He did have mildly elevated biomarkers today but that was after therapy from his device an extended episodes of ventricular tachycardia. All of these episodes have happened while he was in bed. He had no symptoms of the tachycardia itself or symptoms associated with the tachycardia such as chest discomfort. I do not think active ischemia is playing a role in his current difficulties. My impression is he may have had frequent episodes of relatively slow ventricular tachycardia over time there were not detected by his device. Based on the recurrent nature of his arrhythmia and the relative stability as well as his known structural heart disease he may be a good candidate for a VT ablation. I did contact Cardiology Department at [facility] in [place] who have agreed to accept the patient for evaluation. 2. Coronary artery disease: Patient has not had symptoms of coronary insufficiency or angina. He has mildly elevated biomarkers this morning after uneventful evening. I do not think this represents an acute coronary syndrome. I do not get the impression that his ventricular tachycardia is associated with acute ischemia. He has been very sedentary due to his peripheral vascular disease. He should continue aggressive secondary prevention. 3. Peripheral vascular disease: The vascular surgery service seems satisfied with the result in his right leg after thrombolytics therapy and intervention on the right popliteal artery. Patient was accessed from the left femoral artery. He is known to have stents in the superficial femoral and popliteal arteries on the right. The left femoral artery was closed with a [employer] device. He is known to have a small hematoma at that site. 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 4. Valvular heart disease: Patient is known to have a history of mitral valve disease having undergone mitral valve annuloplasty at the time of his bypass surgery. He was noted to have mild mitral regurgitation on the transesophageal echocardiogram performed in 2014, possibly due to a tethered posterior leaflet. 5. Ischemic cardiomyopathy: Patient is noted to have reduced LV systolic function. He is on aggressive outpatient regimen to include beta-blockade, ARB , diuretic and spironolactone. Currently appears to be well compensated. No symptoms pulmonary vascular congestion or breathing difficulty.
[2017-10-05] MEDS ORDERED: METOPROLOL TARTRATE 25 MG TAB PO STA (15:02)
--- NOTE | 2017-10-08 06:37 | Discharge Summary ---
Discharge Summary Date of Service October 08, 2017. Discharge Summary Admission Date: Sep 29, 2017 at 17:25 Discharge Disposition: Acute care facility Principal Diagnosis: V. Tach Immunizations: Have You Had Influenza Vaccine: Unknown History of Tetanus Vaccine?: Unknown History of Pneumococcal: Unknown History of Hepatitis B Vaccine: Unknown Discharge Exam ROS Constitutional: no chills, aches, sweats or fever Respiratory: no sob,cough, sputum, or wheezing Cardiac: no chest pain, palpitations, edema, orthopnea or lightheadedness GI: no abdominal pain, nausea, vomiting, diarrhea or constipation : no dysuria or hesitancy Extremities: see HPI Skin: no rash Physical Exam Notes: General: no distress Eyes: normal inspection, PERLL Respiratory: chest non tender, clear to auscultation, normal breath sounds, no respiratory distress, no accessory muscle use Cardiac: regular rate and rhythm, no rub or gallop, no murmur, no edema, no jvd GI/: active bowel sounds, no abd pain or tenderness, soft, non distended Extremities: normal range of motion, normal strength, non tender, Neuro/Psych: alert and oriented x 3, normal mood and affect Skin: normal color, dry Hospital Course Patient is being [facility] due to Recurrent Erwin. Tachycardia. Patient received amiodarone and lidocaine. However, he still get erwin. tachycardia. Patient will likely get cardio ablation there. Below is a summary of what has occurred during his hospital stay. Patient will be discharged on esmolol drip, lidocaine drip and amiodarone. 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 Presented to the hospital with acute/subacute right superficial femoral artery occlusion Acute right superficial femoral artery occlusion, severe PVD - post OR 10/01 with vascular surgery for thrombectomy - 09/[address] Cavazos for angiogram/alteplase, heparin infusions - Continue Plavix per Dr. Cavazos Vtach - Continues to have seconds to minutes long runs of Vtach with no shock from ICD , likely because the tachycardia is slightly too slow for shock. Patient is asymptomatic with these episodes - Dr. Vázquez discussed with Dr. Dinero and patient will be started on a lidocaine infusion as dysrhythmia is breaking though his amiodarone regimen. - pacer interrogation - Medtronic pacer - continue telemetry monitoring -placed on lidocaine drip after on amiodarone. Diabetes mellitus on oral hypoglycemics - Hold oral hypoglycemic, continue ss - bsgs ac & hs - A1c 5.8, lipids wnl Htn, CAD post CABG/valve replacement in 2002 and multiple stents, chronic systolic CHF exacerbation - continue coreg - hold potassium for now - wnl - continue lowered dose of Aldactone from 50 mg twice daily to 12.5 mg twice daily - bps borderline - Echo with EF 30% - Chest X ray showed congestion - 40 mg IV lasix now, sbp 120s CKD III - Creat 1.6 today - prp am to trend as patient is requiring some diuretic today for CHF exacerbation - acetylcysteine perioperatively surgery Thrombocytopenia - platelets stable in the 70s - 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 - PSA Full code Total Time Spent: Greater than 30 minutes This includes examination of the patient, discharge planning, medication reconciliation, and communication with other providers. Discharge Instructions Please refer to the electronic Patient Visit Report (Discharge Instructions) for additional information.
== END 2017-10-05 15:40 | disposition short-term general hospital (02) | DRG 253 ==
LOC: C.EDB 12:42 → C.2E 17:25 → ENRESERV 17:42 → C.MSICU 09-30 11:24 → C.2T 10-02 23:57 → C.MSICU 10-05 00:35
PROVIDERS: ADMIT Internal Medicine; ATTEND Internal Medicine Sports Medicine
PROC: 04QK3ZZ Repair Right Femoral Artery, Percutaneous Approach (ICD-10-PCS; principal; 2017-10-01 08:00)
PROC: B41FYZZ Fluoroscopy of Right Lower Extremity Arteries using Other Contrast (ICD-10-PCS; principal; 2017-10-01 08:00)
PROC: 047M3Z1 Dilation of Right Popliteal Artery using Drug-Coated Balloon, Percutaneous Approach (ICD-10-PCS; principal; 2017-10-01 08:00)
DX: I82.811 Embolism and thrombosis of superficial veins of right lower extremity (principal); I13.0 Hypertensive heart and chronic kidney disease with heart failure and stage 1 through stage 4 chronic kidney disease, or unspecified chronic kidney disease; I50.22 Chronic systolic (congestive) heart failure; I47.2 Ventricular tachycardia; E11.22 Type 2 diabetes mellitus with diabetic chronic kidney disease; N18.3 Chronic kidney disease, stage 3 (moderate); E11.51 Type 2 diabetes mellitus with diabetic peripheral angiopathy without gangrene; I73.9 Peripheral vascular disease, unspecified; I25.5 Ischemic cardiomyopathy; R33.9 Retention of urine, unspecified; I34.0 Nonrheumatic mitral (valve) insufficiency; I25.10 Atherosclerotic heart disease of native coronary artery without angina pectoris; Z79.02 Long term (current) use of antithrombotics/antiplatelets; Z79.84 Long term (current) use of oral hypoglycemic drugs; Z79.899 Other long term (current) drug therapy; Z87.891 Personal history of nicotine dependence; Z95.1 Presence of aortocoronary bypass graft; Z95.2 Presence of prosthetic heart valve; Z88.1 Allergy status to other antibiotic agents; Z95.810 Presence of automatic (implantable) cardiac defibrillator

== ENCOUNTER 2020-02-29 10:31 | Inpatient (IN) ==
--- OUTSIDE RECORDS SUMMARY | 2020-02-29 10:36 | External Medical Summary | Continuity of Care Document ---
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 Start: 03-Sep-2017 Refills: 0 Tamsulosin HCl - 0.4 MG Oral Capsule; TAKE 1 CAPSULE Bedtime , M.D. Start: 03-Sep-2017 Quantity: 30 Refills: 11 Spironolactone 25 MG Oral Tablet; TAKE 1 TABLET TWICE DAILY. , M.D. Start: 03-Sep-2017 Refills: 0 Rosuvastatin Calcium 40 MG Oral Tablet; TAKE 1 TABLET DAILY. , M.D. Start: 03-Sep-2017 Refills: 0 raNITIdine HCl - 300 MG Oral Tablet; TAKE 1 TABLET DAILY DIRECTED. , M.D. Start: 03-Sep-2017 Refills: 0 Excedrin Extra Strength 250-250-65 MG Or al Tablet; TAKE 1 TABLET 3 TIMES DAILY NEEDED. , M.D. Start: 03-Sep-2017 Refills: 0 Nitroglycerin 0.4 MG Sublingual Tablet S ublingual; PLACE 1 TABLET UNDER THE TONGUE EVERY 5 MINUTES FOR UP TO 3 DOSES NEEDED FOR CHEST PAIN.CALL 911 IF PAIN PERSISTS. , MAngeDAnge Start: 03-Sep-2017 Refills: 0 Losartan Potassium 25 MG Oral Tablet; TAKE 1 TABLET DAILY. , M.D. Start: 03-Sep-2017 Refills: 0 30 Tablet Bottle Potassium Chloride ER 8 MEQ Oral Tablet Extended Release; TAKE 1 TABLET DAILY WITH FOOD. M.D. Start: 03-Sep-2017 Refills: 0 glyBURIDE 5 MG Oral Tablet; TAKE 1 TABLET TWICE DAILY BEFORE MEALS. , M.D. Start: 03-Sep-2017 Refills: 0 Docusate Sodium 100 MG Oral Capsule; TAKE 1 CAPSULE 3 TIMES DAILY. , M.D. Start: 03-Sep-2017 Refills: 0 Clopidogrel Bisulfate 75 MG Oral Tablet; TAKE 1 TABLET DAILY . , M.D. Start: 03-Sep-2017 Refills: 0 30 Tablet Bottle Carvedilol 12.5 MG Oral Tablet; TAKE 1 TABLET TWICE DAILY. , M.DAnge Start: 03-Sep-2017 Refills: 0 Amiodarone HCl - 200 MG Oral Tablet; TAKE 1 TABLET DAILY. M.DAnge Start: 03-Sep-2017 Refills: 0 Xopenex HFA 45 MCG/ACT Inhalation Aeroso l; INHALE 1 TO 2 PUFFS EVERY 4 TO 6 HOURS NEEDED AND DIRECTED. , M.DAnge Start: 03-Sep-2017 Refills: 0 15 GM Inhaler Claritin 10 MG Oral Capsule , M.DAnge Start: Refills: 0 Aspirin 325 MG Oral Tablet; TAKE 1 TABLET DAILY. , M.DAnge Start: 19-Nov-2017 Refills: 0 Furosemide 40 MG Oral Tablet; TAKE 2 TAB LETS IN THE MORNING AND 1 TABLET IN THE EVENING. M.DAnge Start: 03-Sep-2017 Refills: 0 Procedures History of heart surgery Status: Complet ed History of cardiac catheterization with stent placement Status: Completed Immunizations Immunizations not documented Family History Mother Family history of malignant neoplasm (V16.9) (Z80.9) Status: Active Family history of (799.9) (R99) Status: Active Father Family history of (799.9) (R99) Status: Active Family history of renal failure (V18.69) (Z84.1) Status: Act desirae Social History - Smoking Status Smoker Plan of Treatment Planned Observations Planned Goals not documented Results No Known Results Results not documented
[2020-02-29 11:51] LABS: Albumin Level 3.5 gm/dl (3.4-5.0); BUN Creatinine Ratio 16.9 (10-20); Calcium 8.5 mg/dl (8.5-10.1); Creatinine Clr Calc Pharmacy 43.9 ml/min; Est GFR (African American) 46.7; Est GFR (Non-African American) 40.3; Potassium 3.6 mmol/L (3.5-5.1)
[2020-02-29 12:17] LABS: Basophils # (auto) 0.04 K/uL (0-0.2); Basophils % (auto) 0.5 %; Eosinophils # (auto) 0.24 K/uL (0-0.5); Eosinophils % (auto) 3.1 %; Hematocrit (blood only) 39.6 % (42-52); Hemoglobin 13.7 g/dL (14.0-18.0); Immature Granulocytes # (auto) 0.04 K/uL (0.00-0.02); Immature Granulocytes % (auto) 0.5 %; Lymphocytes # (auto) 0.85 K/uL (1.2-3.4); Lymphocytes % (auto) 10.8 %; Mean Corpuscular Hemoglobin 34.3 pg (25-34); Mean Corpuscular Hgb Conc 34.6 g/dL (32-36); Mean Corpuscular Volume 99.2 fL (80-100); Mean Platelet Volume 10.6 fL (7.4-10.4); Monocytes # (auto) 0.59 K/uL (0.11-0.59); Monocytes % (auto) 7.5 %; Neutrophils # (auto) 6.08 K/uL (1.4-6.5); Neutrophils % (auto) 77.6 %; Platelet Count 100 K/uL (130-400); RDW Coefficient of Variation 13.7 % (11.5-14.5); RDW Standard Deviation 49.6 fL (36.4-46.3); Red Blood Count 3.99 M/uL (4.7-6.1); White Blood Count 7.84 K/uL (4.8-10.8)
[2020-02-29] MEDS ORDERED: IOVERSOL 100ml IV ONE (12:17)
--- NOTE | 2020-02-29 12:19 | XRay Report ---
SINGLE VIEW CHEST CLINICAL HISTORY: General is weakness. FINDINGS: 2 AP, portable, upright chest radiographs are compared to study dated 10/02/2017. The patien t is status post midline sternotomy. A 3-lead cardiac AICD is unchanged in position. The heart is enl arged noting atherosclerotic calcification of the thoracic aorta. There is pulmonary vascular congest ion with evidence of interstitial edema. There are small pleural effusions with bibasilar consolidati on. No pneumothorax is seen. The skeletal structures are osteopenic. The bony thorax is grossly intac t. IMPRESSION: 1. Cardiomegaly and AICD with evidence of congestive failure and interstitial edema. 2. Small pleural effusions with bibasilar consolidation. ACT 112: Negative or not required by law. Electronically signed by: Radu Butler M.D. 02/29/2020 12:17 PM
[2020-02-29 12:29] LABS: Albumin Globulin Ratio 1.1 (0.9-2); Creatine Kinase MB 1.5 ng/ml (0.5-3.6); Globulin 3.2 gm/dl (2.5-4.0); Thyroid Stimulating Hormone 5.84 uIu/ml (0.300-4.500); Total Protein 6.7 gm/dl (6.4-8.2); Troponin I 0.164 ng/ml (0-0.045)
--- NOTE | 2020-02-29 12:33 | CT Scan Report ---
HEAD CT NONCONTRAST CT DOSE: 2457.99 mGy.cm HISTORY: Pt c/o fall TECHNIQUE: Multiaxial CT images of the head were performed without the use of intravenous contrast. A utomated exposure control was utilized for this study. A dose lowering technique was utilized adheri ng to the principles of ALARA. Comparison: None. Findings: The paranasal sinuses and mastoid air cells are clear. The calvarium and skull base are int act. The ventricles and sulci are within normal limits. There is no mass, hematoma, midline shift, or acute infarct. 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 Impression: No acute intracranial abnormality. ACT 112: Negative or not required by law. Electronically signed by: Giorgi Salmeron M.D. 02/29/2020 12:31 PM
[2020-02-29] MEDS ORDERED: PROCHLORPERAZINE 2 ML IV ONE (12:38)
[2020-02-29] MEDS ORDERED: DiphenhydrAMINE HCL 50 MG/ML VIAL IV STA (12:38)
[2020-02-29] MEDS ORDERED: ACETAMINOPHEN 1,000 MG/100 ML VIAL IV STA (12:38)
[2020-02-29] MEDS ORDERED: MAGNESIUM SULFATE / D5W 1 GM/100 ML BAG IV STA ×2 (12:39→13:01)
--- NOTE | 2020-02-29 12:40 | CT Scan Report ---
CT SCAN OF THE CERVICAL SPINE CLINICAL HISTORY: Trauma. Fall. COMPARISON STUDY: No priors. TECHNIQUE: CT scan of the cervical spine is performed from the skull base to the upper thoracic spine . Images are reviewed in the axial, sagittal, and coronal planes. IV contrast was not administered fo r this examination. A dose lowering technique was utilized adhering to the principles of ALARA. FINDINGS: Skeletal structures: The skeletal structures are osteopenic. There is no evidence of fracture or subl uxation involving the cervical spine. Vertebral body height and alignment are maintained. Small anter ior osteophytes are noted in the lower cervical region. There is straightening of the cervical lordos is. The odontoid process and lateral masses are intact. The atlantoaxial articulation is preserved no ting productive degenerative change. The spinous processes appear intact. Intervertebral discs: There is moderate to advanced disc space narrowing seen at C4-C5. Only minimal disc space narrowing is seen at the remaining cervical levels. Central canal: A large posterior disc osteophyte complex at C4-C5 likely contributes to acquired comp romise of the central canal. Soft tissues: The prevertebral and paraspinous soft tissues are within normal limits. There is athero sclerotic calcification of the carotid bulbs. Pacemaker leads are noted at the thoracic inlet on the left. Calvarium: The visualized calvarium at the skull base appears intact. Brain parenchyma: Partially visualized brain parenchyma the skull base is within normal limits. Sinuses and mastoids: The visualized paranasal sinuses are clear. The mastoid air cells are well pneu matized. Lung apices: Clear as visualized. IMPRESSION: 1. There is no evidence of fracture or subluxation involving the cervical spine. 2. Osteopenia and spondylotic change as above. ACT 112: Negative or not required by law. Electronically signed by: Radu Butler M.D. 02/29/2020 12:38 PM
--- NOTE | 2020-02-29 12:44 | CT Scan Report ---
CHEST CT WITH CONTRAST CT DOSE: HISTORY: Pt c/o fall, left sided flank pain and bruising TECHNIQUE: Multiaxial CT images of the chest were performed following the intravenous administration of contrast. A dose lowering technique was utilized adhering to the principles of ALARA. COMPARISON: None. FINDINGS: The central airways are patent. No pneumothorax. Moderate emphysema. Diffuse bronchial wall thickening. Mild volume loss within the right hemithorax. Mild diffuse right pleural thickening with minimal pleural fluid and a few calcifications. This is likely chronic. Linear densities within the base of the right lower lobe favor subsegmental and round atelectasis. Trace loculated fluid within t he right major fissure is also noted. Mild diffuse interstitial thickening which is likely chronic. T race loculated fluid within the left major fissure is also identified. Punctate calcified granuloma w ithin the base of the left lower lobe. Mild interlobular septal thickening suggests pulmonary edema. There are poststernotomy changes. No fractures within the visualized osseous structures of the chest. Left-sided pacemaker is noted. The visualized liver, spleen, and adrenal glands are unremarkable. No rmal esophagus. No mediastinal hematoma. Normal caliber thoracic aorta with no evidence for dissectio n. The heart is mildly enlarged. Small amount of pericardial calcifications are noted. Mildly dilated main pulmonary artery consistent with pulmonary arterial hypertension. The central pulmonary arterie s are patent. A mitral annulus ring is noted. Borderline enlarged mediastinal and left hilar lymph no mehdi. IMPRESSION: 1. No acute traumatic process within the chest. 2. Moderate emphysema and diffuse bronchial wall thickening likely representing a chronic bronchitis. 3. Mild interlobular septal thickening, cardiomegaly, and trace bilateral pleural effusions. This fav ors mild interstitial pulmonary edema. 4. Mild diffuse right pleural thickening and right lower lobe round atelectasis. This is likely chron ic and appears to account for the mild volume loss within the right hemithorax. 5. Mild pulmonary hypertension. 6. Borderline enlarged mediastinal and left hilar lymph nodes. 7. Please refer to the same day abdomen and pelvis CT for further evaluation of the abdominal structu res. ACT 112: Negative or not required by law. Electronically signed by: Giorgi Salmeron M.D. 02/29/2020 12:42 PM
--- NOTE | 2020-02-29 13:01 | Emergency Department Note ---
History of Present Illness General Chief complaint: Syncope Stated complaint: syncope/ sci [facility] Time Seen by Provider: 02/29/20 11:38 Source: patient, EMS, RN notes reviewed, old records reviewed and other (caretakers) Mode of arrival: EMS Limitations: no limitations History of Present Illness Provider complaint: syncope, fall Onset (ago): hour(s) less than 1 Location: abdomen and upper extremity Radiation: non-radiation Severity: moderate Pain Consistency: + intermittent Maximum Pain Intensity: 6 Current Pain Intensity: 6 Quality: + aching Relieved By: + immobilization Exacerbated By: + movement Associated symptoms: + headaches; no denies other symptoms, no confusion, no chest pain, no cough, no diaphoresis, no fever/chills, no nausea/vomiting, no shortness of breath and no weakness Treatments prior to arrival: none This is a 74-year-old male who presents emergency department complaining of a syncopal episode. Patient has a significant cardiac history and is on Plavix. The patient reports he felt weak and passed out striking his head. He is complaining of left shoulder pain as well as abdominal pain. He has good range of motion of the shoulder. He has not taken anything for the pain. He was brought in by EMS. He describes the pain as an ache made worse by movement however immobilization makes the pain better. Home Medications Home Medications Medication Instructions Recorded Confirmed Type acetaminophen 650 mg PO QID PRN 02/29/20 02/29/20 History amiodarone 400 mg PO DAILY 02/29/20 02/29/20 History aspirin 325 mg PO DAILY 02/29/20 02/29/20 History carvedilol 12.5 mg PO BID 02/29/20 02/29/20 History clopidogrel 75 mg PO DAILY 02/29/20 02/29/20 History furosemide 40 mg PO PM 02/29/20 02/29/20 History furosemide 80 mg PO QAM 02/29/20 02/29/20 History glyburide 5 mg PO BID 02/29/20 02/29/20 History levalbuterol tartrate [Xopenex HFA] 2 inh INHALATION Q6H PRN 02/29/20 02/29/20 History losartan 25 mg PO DAILY 02/29/20 02/29/20 History nitroglycerin 0.4 mg SUBLINGUAL UD PRN 02/29/20 02/29/20 History nortriptyline 50 mg PO PM 02/29/20 02/29/20 History omeprazole 20 mg PO DAILY 02/29/20 02/29/20 History rosuvastatin 40 mg PO HS 02/29/20 02/29/20 History spironolactone 50 mg PO DAILY 02/29/20 02/29/20 History umeclidinium [Incruse Ellipta] 1 inh INHALATION DAILY 02/29/20 02/29/20 History Allergies Allergy/AdvReac Type Severity Reaction Status Date / Time tetracycline Allergy Unknown rash Unverified 11/25/17 10:36 azithromycin Allergy Unknown Unverified 02/29/20 11:31 wool Allergy Unknown Unverified 02/29/20 11:32 Past Med/Surg History Medical History Anemia Atrial fibrillation CAD (coronary artery disease) Chronic kidney disease, stage III (moderate) Chronic systolic CHF (congestive heart failure) COPD (chronic obstructive pulmonary disease) Diabetes mellitus Elevated troponin I level GERD (gastroesophageal reflux disease) History of CVA (cerebrovascular accident) Hyperkalemia Hyperlipidemia Hypothyroid ICD (implantable cardioverter-defibrillator), dual, in situ Ischemia of right lower extremity Ischemic cardiomyopathy Pancreatic cyst Peripheral arterial disease with history of revascularization SIRS (systemic inflammatory response syndrome) Splenomegaly Superficial femoral artery occlusion Thrombocytopenia Ventricular tachycardia Surgical History History of mitral valve repair History of permanent cardiac pacemaker placement Hx of CABG Stented coronary artery Family History Other Family history non-contributory Social History Smoking Status: Former smoker Second Hand Exposure: No; Hx Alcohol Use: No Hx Substance Use: No Preferred Language: Pashto Communication Ability: Effective Time Motion Analyst Required: No Beliefs That Will Affect Care: None marital status: Unknown Current Living Situation: Other Current Living Situation Comment: [place] Feels Safe at Home: Yes Assistive Devices: Oxygen - Continuous Physical Exam Vital Signs Vital Signs - 24 hr 02/29/20 10:46 02/29/20 10:54 02/29/20 10:57 Temperature 36.4 C L Temperature Source Oral Pulse Rate 72 75 Pulse Rate from SpO2 Sensor 76 Respiratory Rate 19 18 Blood Pressure 134/56 L 133/67 Blood Pressure Mean 97 89 Pulse Oximetry 94 92 92 Oxygen Delivery Method Room Air Room Air Sepsis Recent Fever Within 48 Hours No Sepsis New/Unexplained Change in Mental Status No Sepsis Action Taken by Nursing No Action Required 02/29/20 11:00 02/29/20 11:30 02/29/20 12:00 Temperature Temperature Source Pulse Rate 75 76 75 Pulse Rate from SpO2 Sensor 78 79 75 Respiratory Rate 18 17 18 Blood Pressure 123/58 L 135/61 135/93 Blood Pressure Mean 90 98 110 Pulse Oximetry 94 96 96 Oxygen Delivery Method Sepsis Recent Fever Within 48 Hours Sepsis New/Unexplained Change in Mental Status Sepsis Action Taken by Nursing 02/29/20 13:30 Temperature Temperature Source Pulse Rate 73 Pulse Rate from SpO2 Sensor 71 Respiratory Rate 16 Blood Pressure 136/72 Blood Pressure Mean 102 Pulse Oximetry 93 Oxygen Delivery Method Sepsis Recent Fever Within 48 Hours Sepsis New/Unexplained Change in Mental Status Sepsis Action Taken by Nursing VITAL SIGNS - Vital signs and nursing notes were reviewed. GENERAL - 74-year-old male appearing stated age who is in no acute distress. Communicates well with provider and answers questions appropriately. In cervical collar SKIN - Without rashes. HEAD - NC/AT. EYES - PERRL with EOMI bilaterally. Sclera anicteric. Palpebral conjunctiva pink and moist with no injection noted. EARS - No deformities of external structures noted on gross examination bilate rally. No pain elicited with palpation of the tragus bilaterally. External auditory canals without discharge or otorrhea. Tympanic membranes pearly nagel without retraction or bulging. No fluid or purulent material visualized behind the TM. Handle of malleus, umbo, cone of light, pars tensa/flaccid all easily visualized. NOSE - Midline and without cyanosis. No epistaxis or purulent drainage noted. Septum midline without deviation or septal hematoma noted. MOUTH/OROPHARYNX - Without perioral cyanosis. Buccal mucosa pink and moist and without leukoplakia. Tongue midline with equal elevation of palate bilaterally. No tonsillar hypertrophy, erythema, or exudates noted. dentition noted. NECK - Neck with FROM. Supple to palpation. lymphadenopathy noted. No nuchal rigidity. LUNGS - Chest wall symmetric without accessory muscle use, intercostals retractions, or central cyanosis. Normal vesicular breath sounds CTA B/L. No wheezes, rales, or rhonchi appreciated. CARDIAC - RRR with S1/S2. No murmur, rubs, or gallops appreciated. ABDOMEN - Abdominal contour without pulsations or visible masses. BS normoactive all four quadrants. No tenderness, palpable masses, hepatosplenomegaly, or ascites noted. EXTREMITIES - No clubbing or peripheral cyanosis. No pretibial edema present. +3/5 radial, posterior tibial, and dorsalis pedis pulses palpated throughout. +5/5 strength noted in UE/LE bilaterally. Pt has good ROM of left shoulder NEUROLOGIC - Cranial nerves II through XII grossly intact. Sensory intact to light touch throughout. Patellar reflexes +2/4. PSYCH - A&Ox3 and cooperates fully with examiner. Pt is very pleasant and interacts well with examiner. Course Administered Medications Acetaminophen (Acetaminophen 325 Mg Tab) 650 mg PO QID PRN PRN Reason: Pain Stop: 03/30/20 16:29 Last Admin: 03/02/20 20:38 Dose: 650 mg Documented by: [id number] Amiodarone HCl (Amiodarone 200 Mg Tab) 400 mg PO DAILY SHADI Stop: 03/30/20 16:29 Last Admin: 03/03/20 07:48 Dose: 400 mg Documented by: [id number] Admin: 03/02/20 08:02 Dose: 400 mg Documented by: [id number] Admin: 03/01/20 08:55 Dose: 400 mg Documented by: [id number] Admin: 02/29/20 17:10 Dose: 400 mg Documented by: [id number] Aspirin (Aspirin 81 Mg Ectab) 81 mg PO DAILY SHADI Stop: 03/31/20 11:44 Last Admin: 03/03/20 07:47 Dose: 81 mg Documented by: [id number] Admin: 03/02/20 08:02 Dose: 81 mg Documented by: [id number] Admin: 03/01/20 12:22 Dose: 81 mg Documented by: [id number] Carvedilol (Carvedilol 12.5 Mg Tab) 12.5 mg PO BID SHADI Stop: 03/30/20 20:59 Last Admin: 02/29/20 21:43 Dose: 12.5 mg Documented by: [id number] Clopidogrel Bisulfate (Clopidogrel Bisulfate 75 Mg Tab) 75 mg PO DAILY SHADI Stop: 03/30/20 16:29 Last Admin: 03/03/20 07:48 Dose: 75 mg Documented by: [id number] Admin: 03/02/20 08:02 Dose: 75 mg Documented by: [id number] Admin: 03/01/20 08:55 Dose: 75 mg Documented by: [id number] Admin: 02/29/20 17:26 Dose: 75 mg Documented by: [id number] Docusate Sodium (Docusate Sodium 100 Mg Cap) 100 mg PO BID SHADI Stop: 03/30/20 20:59 Last Admin: 03/03/20 07:46 Dose: 100 mg Documented by: [id number] Admin: 03/02/20 20:39 Dose: 100 mg Documented by: [id number] Admin: 03/02/20 08:02 Dose: 100 mg Documented by: [id number] Admin: 03/01/20 21:30 Dose: 100 mg Documented by: [id number] Admin: 03/01/20 10:30 Dose: 100 mg Documented by: [id number] Admin: 02/29/20 21:43 Dose: 100 mg Documented by: [id number] Nitroglycerin/Dextrose (Nitroglycerin/D5w 100 Mcg/Ml) 250 mls @ 0 mls/hr IV .Q0M SHADI; Protocol Stop: 03/30/20 14:59 Last Admin: 03/02/20 07:59 Dose: Not Given Documented by: [id number] Titration: 03/02/20 07:58 Dose: 0 mcg/min, 0 mls/hr Documented by: [id number] Titration: 03/02/20 07:07 Dose: 1 mcg/min, 0.6 mls/hr Documented by: [id number] Cosigned by: [id number] Titration: 03/01/20 22:55 Dose: 1 mcg/min, 0.6 mls/hr Documented by: [id number] Titration: 03/01/20 21:43 Dose: 2 mcg/min, 1.2 mls/hr Documented by: [id number] Titration: 03/01/20 18:48 Dose: 2.5 mcg/min, 1.5 mls/hr Documented by: [id number] Cosigned by: [id number] Titration: 03/01/20 15:48 Dose: 2.5 mcg/min, 1.5 mls/hr Documented by: [id number] Titration: 03/01/20 09:01 Dose: 2.5 mcg/min, 1.5 mls/hr Documented by: [id number] Titration: 03/01/20 07:02 Dose: 5 mcg/min, 3 mls/hr Documented by: [id number] Cosigned by: [id number] Admin: 02/29/20 17:08 Dose: 5 mcg/min, 3 mls/hr Documented by: [id number] Cosigned by: [id number] Heparin Sodium/Dextrose (Heparin Sodium/Dextrose) 25,000 units in 500 mls @ 22 mls/hr IV .[id number] [facility]; Protocol Stop: 03/30/20 16:59 Last Titration: 03/03/20 07:06 Dose: 1,100 units/hr, 22 mls/hr Documented by: [id number] Cosigned by: [id number] Titration: 03/03/20 05:48 Dose: 1,100 units/hr, 22 mls/hr Documented by: [id number] Cosigned by: [id number] Admin: 03/03/20 01:38 Dose: 750 units/hr, 15 mls/hr Documented by: [id number] Cosigned by: [id number] Titration: 03/03/20 01:38 Dose: 750 units/hr, 15 mls/hr Documented by: [id number] Cosigned by: [id number] Titration: 03/02/20 19:05 Dose: 750 units/hr, 15 mls/hr Documented by: [id number] Cosigned by: [id number] Admin: 03/02/20 07:59 Dose: Not Given Documented by: [id number] Titration: 03/02/20 07:07 Dose: 750 units/hr, 15 mls/hr Documented by: [id number] Cosigned by: [id number] Titration: 03/01/20 18:49 Dose: 750 units/hr, 15 mls/hr Documented by: [id number] Cosigned by: [id number] Titration: 03/01/20 18:02 Dose: 750 units/hr, 15 mls/hr Documented by: [id number] Cosigned by: [id number] Admin: 03/01/20 17:30 Dose: 850 units/hr, 17 mls/hr Documented by: [id number] Cosigned by: [id number] Titration: 03/01/20 17:30 Dose: 850 units/hr, 17 mls/hr Documented by: [id number] Cosigned by: [id number] Admin: 03/01/20 13:45 Dose: Not Given Documented by: [id number] Titration: 03/01/20 13:42 Dose: 850 units/hr, 17 mls/hr Documented by: [id number] Cosigned by: [id number] Titration: 03/01/20 12:31 Dose: 0 units/hr, 0 mls/hr Documented by: [id number] Cosigned by: [id number] Titration: 03/01/20 07:02 Dose: 1,100 units/hr, 22 mls/hr Documented by: [id number] Cosigned by: [id number] Titration: 03/01/20 05:28 Dose: 1,100 units/hr, 22 mls/hr Documented by: [id number] Cosigned by: [id number] Titration: 03/01/20 01:01 Dose: 1,250 units/hr, 25 mls/hr Documented by: [id number] Cosigned by: [id number] Titration: 02/29/20 22:33 Dose: 0 units/hr, 0 mls/hr Documented by: [id number] Cosigned by: [id number] Admin: 02/29/20 17:26 Dose: 1,500 units/hr, 30 mls/hr Documented by: [id number] Cosigned by: [id number] Insulin Aspart (Insulin Aspart 100 Units/Ml 3 Ml Pen) 0 units SC ACHS SHADI Stop: 03/30/20 16:29 Last Admin: 03/03/20 07:45 Dose: 12 units Documented by: [id number] Cosigned by: [id number] Admin: 03/02/20 20:39 Dose: 7 units Documented by: [id number] Cosigned by: [id number] Admin: 03/02/20 17:11 Dose: 4 units Documented by: [id number] Cosigned by: [id number] Admin: 03/02/20 11:54 Dose: 4 units Documented by: [id number] Cosigned by: [id number] Admin: 03/02/20 08:03 Dose: 6 units Documented by: [id number] Cosigned by: [id number] Admin: 03/01/20 21:29 Dose: 3 units Documented by: [id number] Cosigned by: [id number] Admin: 03/01/20 16:47 Dose: 10 units Documented by: [id number] Cosigned by: [id number] Admin: 03/01/20 12:25 Dose: 3 units Documented by: [id number] Cosigned by: [id number] Admin: 03/01/20 10:35 Dose: 4 units Documented by: [id number] Cosigned by: [id number] Admin: 03/01/20 08:45 Dose: 2 units Documented by: [id number] Cosigned by: [id number] Admin: 02/29/20 21:46 Dose: 1 units Documented by: [id number] Cosigned by: [id number] Admin: 02/29/20 17:22 Dose: 5 units Documented by: [id number] Cosigned by: [id number] Insulin Glargine (Insulin Glargine Solostar 100 Units/Ml 3 Ml Pen) 20 units SC QAM SHADI Stop: 04/02/20 08:59 Last Admin: 03/03/20 07:50 Dose: 20 units Documented by: [id number] Cosigned by: [id number] Losartan Potassium (Losartan Potassium 25 Mg Tab) 25 mg PO DAILY [facility] Stop: 03/30/20 16:29 Last Admin: 02/29/20 17:14 Dose: Not Given Documented by: [id number] Pantoprazole Sodium (Pantoprazole 40 Mg Tab) 40 mg PO DAILY [facility]; Protocol Stop: 03/31/20 08:59 Last Admin: 03/03/20 07:48 Dose: 40 mg Documented by: [id number] Admin: 03/02/20 08:02 Dose: 40 mg Documented by: [id number] Admin: 03/01/20 08:57 Dose: 40 mg Documented by: [id number] Polyethylene Glycol (Polyethylene (Miralax) 17 Gm Pack) 17 gm PO DAILY SHADI Stop: 03/31/20 08:59 Last Admin: 03/03/20 07:49 Dose: 17 gm Documented by: [id number] Admin: 03/02/20 08:02 Dose: 17 gm Documented by: [id number] Admin: 03/01/20 10:31 Dose: 17 gm Documented by: [id number] Rosuvastatin Calcium (Rosuvastatin Calcium 20 Mg Tab) 40 mg PO HS SHADI Stop: 03/30/20 20:59 Last Admin: 03/02/20 20:39 Dose: 40 mg Documented by: [id number] Admin: 03/01/20 21:30 Dose: 40 mg Documented by: [id number] Admin: 02/29/20 21:44 Dose: 40 mg Documented by: [id number] Sennosides (Senna 8.6 Mg Tab) 8.6 mg PO QAM SHADI Stop: 03/30/20 16:29 Last Admin: 03/03/20 07:47 Dose: 8.6 mg Documented by: [id number] Admin: 03/02/20 08:02 Dose: 8.6 mg Documented by: [id number] Admin: 03/01/20 10:30 Dose: 8.6 mg Documented by: [id number] Admin: 02/29/20 17:25 Dose: 8.6 mg Documented by: [id number] Spironolactone (Spironolactone 25 Mg Tab) 50 mg PO DAILY SHADI Stop: 03/30/20 16:29 Last Admin: 02/29/20 17:09 Dose: 50 mg Documented by: [id number] Umeclidinium Lupton (Umeclidinium Lupton 62.5mcg/Blister 7 Puffs/Inhaler) 1 puffs INH DAILY [facility] Stop: 03/30/20 16:29 Last Admin: 03/03/20 07:51 Dose: 1 puffs Documented by: [id number] Admin: 03/02/20 08:02 Dose: 1 puffs Documented by: [id number] Admin: 03/01/20 08:43 Dose: 1 puffs Documented by: [id number] Admin: 02/29/20 17:21 Dose: 1 puffs Documented by: [id number] Discontinued Medications Aspirin (Aspirin 325 Mg Ectab) 325 mg PO DAILY [facility] Stop: 03/30/20 16:29 Last Admin: 03/01/20 11:45 Dose: Not Given Documented by: [id number] Admin: 02/29/20 17:21 Dose: 325 mg Documented by: [id number] Diphenhydramine HCl (Diphenhydramine Hcl 50 Mg/Ml Vial) 50 mg IV NOW STA Stop: 02/29/20 12:39 Last Admin: 02/29/20 13:09 Dose: 50 mg Documented by: [id number] Heparin Sodium (Porcine) (Heparin Sod (Porcine) 1000 Unit/Ml 10 Ml Vial) Confirm Administered Dose 10,000 units .ROUTE .STK-MED ONE Stop: 02/29/20 15:20 Last Admin: 02/29/20 15:27 Dose: 7,000 units Documented by: [id number] Cosigned by: [id number] Heparin Sodium/Dextrose (Heparin Iv Standard With Bolus) 1 ea N/A NOW STA; Protocol Stop: 02/29/20 15:00 Last Admin: 02/29/20 17:09 Dose: Not Given Documented by: [id number] Heparin Sodium/Dextrose (Heparin 80625 Unit/500 Ml D5w) Confirm Administered Dose 25,000 units IV .STK-MED ONE Stop: 02/29/20 15:20 Last Admin: 02/29/20 15:27 Dose: 1,500 units Documented by: [id number] Cosigned by: [id number] Heparin Sodium/Dextrose (Heparin Iv Standard With Bolus) 1 ea IV Q15M [facility]; Protocol Stop: 03/30/20 16:44 Last Admin: 02/29/20 17:43 Dose: Not Given Documented by: [id number] Acetaminophen (Ofirmev) 1,000 mg in 100 mls @ 400 mls/hr IV NOW STA Stop: 02/29/20 12:52 Last Infusion: 02/29/20 13:38 Dose: 0 mls/hr Documented by: [id number] Admin: 02/29/20 13:09 Dose: 400 mls/hr Documented by: [id number] Prochlorperazine (Compazine) 2 mls @ 1 mls/min IV ONE ONE Stop: 02/29/20 12:39 Last Admin: 02/29/20 13:09 Dose: 1 mls/min Documented by: [id number] Magnesium Sulfate/Dextrose (Magnesium Sulfate / D5w) 1 gm in 100 mls @ 100 mls/hr IV NOW STA Stop: 02/29/20 13:38 Last Infusion: 02/29/20 14:29 Dose: 0 mls/hr Documented by: [id number] Admin: 02/29/20 13:09 Dose: 200 mls/hr Documented by: [id number] Magnesium Sulfate/Dextrose (Magnesium Sulfate / D5w) 1 gm in 100 mls @ 200 mls/hr IV Q30M [facility] Stop: 02/29/20 14:00 Last Infusion: 02/29/20 15:35 Dose: 0 mls/hr Documented by: [id number] Admin: 02/29/20 15:00 Dose: 200 mls/hr Documented by: [id number] Infusion: 02/29/20 15:00 Dose: 0 mls/hr Documented by: [id number] Admin: 02/29/20 14:30 Dose: 200 mls/hr Documented by: [id number] Magnesium Sulfate/Dextrose (Magnesium Sulfate / D5w) 1 gm in 100 mls @ 100 mls/hr IV NOW STA Stop: 02/29/20 14:00 Last Infusion: 02/29/20 14:29 Dose: 0 mls/hr Documented by: [id number] Admin: 02/29/20 13:27 Dose: 100 mls/hr Documented by: [id number] Heparin Sodium/Dextrose (Heparin Sodium/Dextrose) 25,000 units in 500 mls @ 30 mls/hr IV .[id number] [facility]; Protocol Stop: 03/30/20 15:44 Last Admin: 02/29/20 17:43 Dose: Not Given Documented by: [id number] Parenteral Electrolytes (Normosol-R) 1,000 mls @ 80 mls/hr IV .[id number] [facility]I Stop: 03/31/20 09:29 Last Infusion: 03/02/20 08:49 Dose: 0 mls/hr Documented by: [id number] Infusion: 03/02/20 07:07 Dose: 80 mls/hr Documented by: [id number] Admin: 03/01/20 21:31 Dose: 80 mls/hr Documented by: [id number] Infusion: 03/01/20 21:31 Dose: 80 mls/hr Documented by: [id number] Admin: 03/01/20 10:23 Dose: 80 mls/hr Documented by: [id number] Parenteral Electrolytes (Normosol-R) 1,000 mls @ 80 mls/hr IV .[id number] [facility]I Stop: 04/01/20 08:29 Last Infusion: 03/02/20 09:25 Dose: 0 mls/hr Documented by: [id number] Admin: 03/02/20 08:47 Dose: 80 mls/hr Documented by: [id number] Heparin Sodium (Porcine) 7,000 (units/ Syringe) 7 mls @ 10 mls/min IV ONE ONE Stop: 03/03/20 05:46 Last Admin: 03/03/20 05:48 Dose: 10 mls/min Documented by: [id number] Cosigned by: [id number] Insulin Glargine (Insulin Glargine Solostar 100 Units/Ml 3 Ml Pen) 10 units SC QAM [facility]I Stop: 03/31/20 10:59 Last Admin: 03/02/20 08:02 Dose: 10 units Documented by: [id number] Cosigned by: [id number] Admin: 03/01/20 10:32 Dose: 10 units Documented by: [id number] Cosigned by: [id number] Insulin Glargine (Insulin Glargine Solostar 100 Units/Ml 3 Ml Pen) 10 units SC TODAY@1130 ONE Stop: 03/02/20 11:31 Last Admin: 03/02/20 11:52 Dose: 10 units Documented by: [id number] Cosigned by: [id number] Ioversol (Ioversol 100ml) 93 ml IV ONCE ONE Stop: 02/29/20 12:18 Last Admin: 02/29/20 12:18 Dose: 93 ml Documented by: [id number] Miscellaneous (Stat Iv Infusion Titration Per Protocol) 1 ea N/A NOW STA Stop: 02/29/20 16:31 Last Admin: 02/29/20 17:43 Dose: Not Given Documented by: [id number] Morphine Sulfate (Morphine Sulfate 10 Mg/Ml Carp/Vial) 6 mg IV NOW STA Stop: 02/29/20 13:08 Last Admin: 02/29/20 13:28 Dose: Not Given Documented by: [id number] Morphine Sulfate (Morphine Sulfate 4 Mg/Ml 1 Ml Carp\Vial) Confirm Administered Dose 4 mg .ROUTE .STK-MED ONE Stop: 02/29/20 13:24 Last Admin: 02/29/20 13:26 Dose: 4 mg Documented by: [id number] Morphine Sulfate (Morphine Sulfate 2 Mg/Ml Carp) Confirm Administered Dose 2 mg .ROUTE .STK-MED ONE Stop: 02/29/20 13:24 Last Admin: 02/29/20 13:27 Dose: 2 mg Documented by: [id number] Nitroglycerin (Nitroglycerin 2% Ointment 30gm Tube) 1 inch EXT NOW STA Stop: 02/29/20 13:13 Last Admin: 02/29/20 13:25 Dose: 1 inch Documented by: [id number] Nortriptyline HCl (Nortriptyline Hcl 25 Mg Cap) 50 mg PO PM [facility]I Stop: 03/30/20 20:59 Last Admin: 02/29/20 21:43 Dose: 50 mg Documented by: [id number] Ondansetron HCl (Ondansetron Inj 2 Mg/Ml 2 Ml Vial) 4 mg IV NOW STA Stop: 02/29/20 13:08 Last Admin: 02/29/20 13:33 Dose: 4 mg Documented by: [id number] Medical Decision Making Differential Diagnosis Cardiac ischemia, aortic dissection, pulmonary embolism, pneumothorax, pneumonia, pericarditis, myocarditis, esophageal rupture, GERD, cholecystitis, pancreatitis, musculoskeletal, as well as other pathologies. Medical Records Attestation: I reviewed the patient's medical records. Home Medications Current Medication List: was personally reviewed by me Laboratory Data Attestation: I reviewed the patient's lab results. Result diagrams: 03/02/20 04:44 03/02/20 04:44 Lab Results 02/29/20 02/29/20 02/29/20 Range/Units 10:40 10:40 10:40 WBC 7.84 (4.8-10.8) K/uL RBC 3.99 L (4.7-6.1) M/uL Hgb 13.7 L (14.0-18.0) g/dL Hct 39.6 L (42-52) % MCV 99.2 (80-100) fL MCH 34.3 H (25-34) pg MCHC 34.6 (32-36) g/dL RDW Std Deviation 49.6 H (36.4-46.3) fL RDW Coeff of Andrew 13.7 (11.5-14.5) % Plt Count 100 L (130-400) K/uL MPV 10.6 H (7.4-10.4) fL Immature Gran % (Auto) 0.5 % Neut % (Auto) 77.6 % Lymph % (Auto) 10.8 % Toole % (Auto) 7.5 % Eos % (Auto) 3.1 % Baso % (Auto) 0.5 % Neut # (Auto) 6.08 (1.4-6.5) K/uL Lymph # (Auto) 0.85 L (1.2-3.4) K/uL Toole # (Auto) 0.59 (0.11-0.59) K/uL Eos # (Auto) 0.24 (0-0.5) K/uL Baso # (Auto) 0.04 (0-0.2) K/uL Immature Gran # (Auto) 0.04 H (0.00-0.02) K/uL PT INR APTT PTT Ratio Sodium 142 (136-145) mmol/L Potassium 3.6 (3.5-5.1) mmol/L Chloride 107 (98-107) mmol/L Carbon Dioxide 28 (21-32) mmol/L Anion Gap 7.0 (3-11) BUN 28 H (7-18) mg/dl Creatinine 1.67 H (0.6-1.4) mg/dl Est Cr Clr Drug Dosing 43.9 ml/min Est GFR ( Amer) 46.7 Est GFR (Non-Af Amer) 40.3 BUN/Creatinine Ratio 16.9 (10-20) Glucose 181 H (70-99) mg/dl Calcium 8.5 (8.5-10.1) mg/dl Total Bilirubin 1.0 (0.2-1) mg/dl AST 33 (15-37) U/L ALT 49 (12-78) U/L Alkaline Phosphatase 148 H (45-117) U/L Total Creatine Kinase 60 (39-308) U/L CK-MB (CK-2) 1.5 (0.5-3.6) ng/ml CK/CKMB % Calc 2.5 (0-3.0) Troponin I 0.164 H* (0-0.045) ng/ml Total Protein 6.7 (6.4-8.2) gm/dl Albumin 3.5 (3.4-5.0) gm/dl Globulin 3.2 (2.5-4.0) gm/dl Albumin/Globulin Ratio 1.1 (0.9-2) Lipase 109 (73-393) U/L TSH 5.840 H (0.300-4.500) uIu/ml 02/29/20 02/29/20 Range/Units 12:10 12:54 WBC (4.8-10.8) K/uL RBC (4.7-6.1) M/uL Hgb (14.0-18.0) g/dL Hct (42-52) % MCV (80-100) fL MCH (25-34) pg MCHC (32-36) g/dL RDW Std Deviation (36.4-46.3) fL RDW Coeff of Andrew (11.5-14.5) % Plt Count (130-400) K/uL MPV (7.4-10.4) fL Immature Gran % (Auto) % Neut % (Auto) % Lymph % (Auto) % Toole % (Auto) % Eos % (Auto) % Baso % (Auto) % Neut # (Auto) (1.4-6.5) K/uL Lymph # (Auto) (1.2-3.4) K/uL Toole # (Auto) (0.11-0.59) K/uL Eos # (Auto) (0-0.5) K/uL Baso # (Auto) (0-0.2) K/uL Immature Gran # (Auto) (0.00-0.02) K/uL PT Cancelled 11.1 INR Cancelled 1.1 APTT Cancelled 27.5 PTT Ratio Cancelled 1.0 Sodium (136-145) mmol/L Potassium (3.5-5.1) mmol/L Chloride (98-107) mmol/L Carbon Dioxide (21-32) mmol/L Anion Gap (3-11) BUN (7-18) mg/dl Creatinine (0.6-1.4) mg/dl Est Cr Clr Drug Dosing ml/min Est GFR ( Amer) Est GFR (Non-Af Amer) BUN/Creatinine Ratio (10-20) Glucose (70-99) mg/dl Calcium (8.5-10.1) mg/dl Total Bilirubin (0.2-1) mg/dl AST (15-37) U/L ALT (12-78) U/L Alkaline Phosphatase (45-117) U/L Total Creatine Kinase (39-308) U/L CK-MB (CK-2) (0.5-3.6) ng/ml CK/CKMB % Calc (0-3.0) Troponin I (0-0.045) ng/ml Total Protein (6.4-8.2) gm/dl Albumin (3.4-5.0) gm/dl Globulin (2.5-4.0) gm/dl Albumin/Globulin Ratio (0.9-2) Lipase (73-393) U/L TSH (0.300-4.500) uIu/ml Imaging Data Radiologist's Impression: [facility], [place] [phone] CT Scan Report Patient: ROLANDO HICKS [id number] Date: 02/29/20 MR#: [id number]: BRYSON ALMANZA Acct ID:[id number]: SCOTT Sebastian Date: 1945 Zip: [id number] Age: 74Location: ED Sex: MRoom/Bed: Att Phy:Diagnosis: syncope/ [facility] Phy: [facility]: 02[facility]29[facility]20 Fam Phy:Interpreting Phy: Giorgi Salmeron MD Admit Phy: Ordering Phy: Ismael Stacy MD cc: ~ HEAD CT NONCONTRAST CT DOSE: 2457.99 mGy.cm HISTORY: Pt c/o fall TECHNIQUE: Multiaxial CT images of the head were performed without the use of intravenous contrast. Automated exposure control was utilized for this study. A dose lowering technique was utilized adhering to the principles of ALARA. Comparison: None. Findings: The paranasal sinuses and mastoid air cells are clear. The calvarium and skull base are intact. The ventricles and sulci are within normal limits. There is no mass, hematoma, midline shift, or acute infarct. 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 Impression: No acute intracranial abnormality. ACT 112: Negative or not required by law. Electronically signed by: Giorgi Salmeron M.D. 02/29/2020 12:31 PM Dictated: 02/29/20 1229 Transcribed: 02/29/20 1229 [facility], [place] [phone] CT Scan Report Patient: ROLANDO HICKS [id number] Date: 02/29/20 MR#: [id number]: BRYSON ALMANZA Acct ID:[id number]: SCOTT Sebastian Date: 1945 Zip: [place] [address] Age: 74Location: ED Sex: MRoom/Bed: Att Phy:Diagnosis: syncope/ [facility] Phy: [facility] Date: 02/29/20 Fam Phy:Interpreting Phy: Giorgi Salmeron MD Admit Phy: Ordering Phy: Ismael Stacy MD cc: ~ CHEST CT WITH CONTRAST CT DOSE: HISTORY: Pt c/o fall, left sided flank pain and bruising TECHNIQUE: Multiaxial CT images of the chest were performed following the intravenous administration of contrast. A dose lowering technique was utilized adhering to the principles of ALARA. COMPARISON: None. FINDINGS: The central airways are patent. No pneumothorax. Moderate emphysema. Diffuse bronchial wall thickening. Mild volume loss within the right hemithorax. Mild diffuse right pleural thickening with minimal pleural fluid and a few calcifications. This is likely chronic. Linear densities within the base of the right lower lobe favor subsegmental and round atelectasis. Trace loculated fluid within the right major fissure is also noted. Mild diffuse interstitial thickening which is likely chronic. Trace loculated fluid within the left major fissure is also identified. Punctate calcified granuloma within the base of the left lower lobe. Mild interlobular septal thickening suggests pulmonary edema. There are poststernotomy changes. No fractures within the visualized osseous st ructures of the chest. Left-sided pacemaker is noted. The visualized liver, spleen, and adrenal glands are unremarkable. Normal esophagus. No mediastinal hematoma. Normal caliber thoracic aorta with no evidence for dissection. The heart is mildly enlarged. Small amount of pericardial calcifications are noted. Mildly dilated main pulmonary artery consistent with pulmonary arterial hypertension. The central pulmonary arteries are patent. A mitral annulus ring is noted. Borderline enlarged mediastinal and left hilar lymph nodes. IMPRESSION: 1. No acute traumatic process within the chest. 2. Moderate emphysema and diffuse bronchial wall thickening likely representing a chronic bronchitis. 3. Mild interlobular septal thickening, cardiomegaly, and trace bilateral pleural effusions. This favors mild interstitial pulmonary edema. 4. Mild diffuse right pleural thickening and right lower lobe round atelectasis. This is likely chronic and appears to account for the mild volume loss within the right hemithorax. 5. Mild pulmonary hypertension. 6. Borderline enlarged mediastinal and left hilar lymph nodes. 7. Please refer to the same day abdomen and pelvis CT for further evaluation of the abdominal structures. ACT 112: Negative or not required by law. Electronically signed by: Giorgi Salmeron M.D. 02/29/2020 12:42 PM Dictated: 02/29/20 1232 Transcribed: 02/29/20 1232 [facility], [place] [phone] CT Scan Report Patient: ROLANDO HICKS [id number] Date: 02/29/20 MR#: [id number]: SCI [facility] Acct ID:[id number]: SCOTT Sebastian Date: 1945City Zip: [place] [address] Age: 74Location: ED Sex: MRoom/Bed: Att Phy:Diagnosis: syncope/ [facility] Phy: [facility] Date: 02/29/20 Fam Phy:Interpreting Phy: Radu Butler MD Admit Phy: Ordering Phy: Ismael Stacy MD cc: ~ CT SCAN OF THE CERVICAL SPINE CLINICAL HISTORY: Trauma. Fall. COMPARISON STUDY: No priors. TECHNIQUE: CT scan of the cervical spine is performed from the skull base to the upper thoracic spine. Images are reviewed in the axial, sagittal, and coronal planes. IV contrast was not administered for this examination. A dose lowering technique was utilized adhering to the principles of ALARA. FINDINGS: Skeletal structures: The skeletal structures are osteopenic. There is no evidence of fracture or subluxation involving the cervical spine. Vertebral body height and alignment are maintained. Small anterior osteophytes are noted in the lower cervical region. There is straightening of the cervical lordosis. The odontoid process and lateral masses are intact. The atlantoaxial articulation is preserved noting productive degenerative change. The spinous processes appear intact. Intervertebral discs: There is moderate to advanced disc space narrowing seen at C4-C5. Only minimal disc space narrowing is seen at the remaining cervical levels. Central canal: A large posterior disc osteophyte complex at C4-C5 likely co ntributes to acquired compromise of the central canal. Soft tissues: The prevertebral and paraspinous soft tissues are within normal limits. There is atherosclerotic calcification of the carotid bulbs. Pacemaker leads are noted at the thoracic inlet on the left. Calvarium: The visualized calvarium at the skull base appears intact. Brain parenchyma: Partially visualized brain parenchyma the skull base is within normal limits. Sinuses and mastoids: The visualized paranasal sinuses are clear. The mastoid air cells are well pneumatized. Lung apices: Clear as visualized. IMPRESSION: 1. There is no evidence of fracture or subluxation involving the cervical spine. 2. Osteopenia and spondylotic change as above. ACT 112: Negative or not required by law. Electronically signed by: Radu Butler M.D. 02/29/2020 12:38 PM Dictated: 02/29/20 1229 Transcribed: 02/29/20 [facility]29 [phone] Scan Report Patient: ROLANDO HICKS [id number] Date: 02/29/20 MR#: [id number]: SCI [facility] Acct ID:[id number]: BOX Romulo Date: 1945City Zip: [place] [address] Age: 74Location: ED Sex: MRoom/Bed: Att Phy:Diagnosis: syncope/ [facility] Phy: [facility] Date: 02/29/20 Fam Phy:Interpreting Phy: Boris Hernandez MD Admit Phy: Ordering Phy: Ismael Stacy MD cc: ~ CT abd pelvis IV con only CLINICAL HISTORY: Abdominal pain status post trauma. Right-sided abdominal bruising. COMPARISON STUDY: February 09, 2015 TECHNIQUE: The patient was scanned in a dynamic helical fashion during intravenous administration of 93 cc of Optiray 320. A dose lowering technique was utilized adhering to the principles of ALARA. CT DOSE: FINDINGS: Lower chest: The heart is enlarged. There are coronary artery and pericardial calcifications. There is interlobular septal thickening. There is right-sided pleural thickening with calcified pleural plaques. There are dependent atelectatic changes. Liver: The liver is hyperdense, a finding consistent with amiodarone indication use. No focal hepatic masses are visualized. Gallbladder: Mildly distended. No calculi identified. Spleen: Mildly enlarged measuring 13.5 cm Pancreas: There is a 22 mm cystic lesion at the level of the pancreatic head. A six-month follow-up MRI study is recommended. This may represent a IPMN. Adrenal glands: Unremarkable. Kidneys: There is a 7 mm lower pole right renal hypodensity likely representing a cyst. Bowel: There are no transition zones indicate bowel obstruction. The appendix appears normal. There is no evidence of acute diverticulitis. There is no pathologic interloop fluid. There is no pneumatosis Peritoneum: There is no intraperitoneal free air or abdominal ascites. There is stable prominent soft tissue at the level of the umbilicus. This is not felt to be of acute clinical significance. There is a small fat-containing left inguinal hernia versus lipomatous inguinal canal Vasculature: There are aortoiliac iliac atheromatous changes. There is no evidence of aneurysm. Adenopathy: None. Pelvic viscera: The prostate is enlarged. Skeletal structures: There is an old left 12th rib fracture. No acute fractures are visualized there is bilateral L5 spondylolysis. IMPRESSION: 1. No evidence of acute intra-abdominal injury 2. 22 mm cystic lesion involving the pancreatic head possibly representing a IPMN. A six-month follow-up MRI study is recommended. 3. Mild splenomegaly 4. Hyperdense liver consistent with amiodarone usage 5. Mild lower lung zone septal edema 6. Additional chronic findings as described above. ACT 112: Negative or not required by law. Electronically signed by: Boris Hernandez M.D. 02/29/2020 1:05 PM Dictated: 02/29/20 1252 Transcribed: 02/29/20 1252 [place], [place] [phone] XRay Report Patient: ROLANDO HICKS [id number] Date: 02/29/20 MR#: [id number]: [facility] Acct ID:[id number]: BOX [address] Date: 1945[facility] Zip: [place] [address] Age: 74Location: ED Sex: MRoom/Bed: Att Phy:Diagnosis: syncope/ [facility] Phy: [facility] Date: 02/29/20 Fam Phy:Interpreting Phy: Radu Butler MD Admit Phy: Ordering Phy: Ismael Stacy MD cc: ~ SINGLE VIEW CHEST CLINICAL HISTORY: General is weakness. FINDINGS: 2 AP, portable, upright chest radiographs are compared to study dated 10/02/2017. The patient is status post midline sternotomy. A 3-lead cardiac AICD is unchanged in position. The heart is enlarged noting atherosclerotic calcification of the thoracic aorta. There is pulmonary vascular congestion with evidence of interstitial edema. There are small pleural effusions with bibasilar consolidation. No pneumothorax is seen. The skeletal structures are osteopenic. The bony thorax is grossly intact. IMPRESSION: 1. Cardiomegaly and AICD with evidence of congestive failure and interstitial edema. 2. Small pleural effusions with bibasilar consolidation. ACT 112: Negative or not required by law. Electronically signed by: Radu Butler M.D. 02/29/2020 12:17 PM Dictated: 02/29/201215 Transcribed: 02/29/201215 ECG Data Attestation: I personally reviewed and interpreted this ECG as follows: Indication: + chest pain Rate (beats per minute): 74 Rhythm: + atrial fibrillation ECG Intervals/blocks: + Left bundle branch block ECG [place]: + Normal ECG ST segments: no ST depression and no ST elevation Comparison ECG Date: from (02/29/2020) Change: the following changes noted (afib has replaced NSR) Additional Comments: Repeat EKG shows ventricular rate 68 atrial fibrillation left bundle branch block T wave inversions in the lateral leads. MDM Narrative This is a 74-year-old male who presents the emergency department complaining of a syncopal episode along with left shoulder right abdominal pain. The patient arrives in a cervical collar. He was sent for real scan of his body. His troponin was found to be elevated and he appears to be in a new onset atrial fibrillation. I am concerned that this may have triggered the syncopal episode. Based on this and elevated troponin I did discuss the case with the hospitalist service as well as the warehouse manager service. Patient is in agreement with the treatment plan. In the meantime the patient was given Tylenol Compazine and Benadryl for the headache. He was started on nitro to see if this helps with the left shoulder pain and then given morphine. Patient was seen and evaluated as above in room A12. Review was performed of nursing notes and vital signs. I did review pertinent previous visits and patient history. After obtaining a thorough history and physical examination the above work up was performed. An order was placed for continuous cardiac monitoring. The monitor shows a rate of 99 with afib rhythm. The patient was evaluated during the global COVID-19 pandemic, and that homer gnosis was suspected/considered upon their initial presentation. Their evaluation, treatment and testing was consistent with current guidelines for patients who present with complaints or symptoms that may be related to COVID- 19. Impression & Plan Atrial fibrillation, Elevated troponin I level, Syncope Discharge Plan Visit Data Chief Complaint: Syncope Stated Complaint: syncope/ sci [facility] ED Provider: Regis,Ismael Discharge Problem: Atrial fibrillation, Elevated troponin I level, Syncope Patient Disposition: Admitted As Inpatient Discharge Instructions Interventions: ED Discharge Assessment Last Done: 02/29/20 15:46 Discharge Problem: Atrial fibrillation Qualifiers: Atrial fibrillation type: unspecified Qualified Code(s): I48.91 - Unspecified atrial fibrillation Syncope Qualifiers: Syncope type: unspecified Qualified Code(s): R55 - Syncope and collapse
--- NOTE | 2020-02-29 13:06 | CT Scan Report ---
CT abd pelvis IV con only CLINICAL HISTORY: Abdominal pain status post trauma. Right-sided abdominal bruising. COMPARISON STUDY: February 09, 2015 TECHNIQUE: The patient was scanned in a dynamic helical fashion during intravenous administration of 93 cc of Optiray 320. A dose lowering technique was utilized adhering to the principles of ALARA. CT DOSE: FINDINGS: Lower chest: The heart is enlarged. There are coronary artery and pericardial calcifications. There i s interlobular septal thickening. There is right-sided pleural thickening with calcified pleural plaq ues. There are dependent atelectatic changes. Liver: The liver is hyperdense, a finding consistent with amiodarone indication use. No focal hepatic masses are visualized. Gallbladder: Mildly distended. No calculi identified. Spleen: Mildly enlarged measuring 13.5 cm Pancreas: There is a 22 mm cystic lesion at the level of the pancreatic head. A six-month follow-up M RI study is recommended. This may represent a IPMN. Adrenal glands: Unremarkable. Kidneys: There is a 7 mm lower pole right renal hypodensity likely representing a cyst. Bowel: There are no transition zones indicate bowel obstruction. The appendix appears normal. There i s no evidence of acute diverticulitis. There is no pathologic interloop fluid. There is no pneumatosi s Peritoneum: There is no intraperitoneal free air or abdominal ascites. There is stable prominent soft tissue at the level of the umbilicus. This is not felt to be of acute clinical significance. There i s a small fat-containing left inguinal hernia versus lipomatous inguinal canal Vasculature: There are aortoiliac iliac atheromatous changes. There is no evidence of aneurysm. Adenopathy: None. Pelvic viscera: The prostate is enlarged. Skeletal structures: There is an old left 12th rib fracture. No acute fractures are visualized there is bilateral L5 spondylolysis. IMPRESSION: 1. No evidence of acute intra-abdominal injury 2. 22 mm cystic lesion involving the pancreatic head possibly representing a IPMN. A six-month follow -up MRI study is recommended. 3. Mild splenomegaly 4. Hyperdense liver consistent with amiodarone usage 5. Mild lower lung zone septal edema 6. Additional chronic findings as described above. ACT 112: Negative or not required by law. Electronically signed by: Boris Hernandez M.D. 02/29/2020 1:05 PM
[2020-02-29] MEDS ORDERED: ONDANSETRON INJ 2 MG/ML 2 ML VIAL IV STA (13:07)
[2020-02-29] MEDS ORDERED: MoRPHine SULFATE 10 MG/ML CARP/VIAL IV STA (13:07)
[2020-02-29] MEDS ORDERED: NITROGLYCERIN 2% OINTMENT 30GM TUBE EXT STA (13:12)
[2020-02-29] MEDS ORDERED: MoRPHine SULFATE 4 MG/ML 1 ML CARP\\VIAL ONE (13:23)
[2020-02-29 13:25] LABS: INR 1.1 (0.9-1.1); Partial Thromboplastin Time 27.5 Seconds (21.0-31.0); Prothrombin Time 11.1 Seconds (9.0-12.0)
[2020-02-29] MEDS: MoRPHine SULFATE 2 MG/ML CARP ONE (13:27)
--- NOTE | 2020-02-29 14:24 | History & Physical Report ---
Date of Service February 29, 2020 Assessment & Plan (1) Syncope: 74-year-old male with a past medical history of V. tach, ischemic cardiomyopathy, AICD in place, admitted for syncopal episodes, elevated troponin and concern for cardiac ischemia. - Syncope likely secondary to VT/Afib episodes on AICD interrogation - AICD fired on Feb 16 [patient denies feelings these] - continuous cardiac monitoring - optimize/replete electrolytes as necessary -Cardiology consultation appreciated-plan for possible cardiac catheterization tomorrow as increased frequent V. tach may be secondary to worsening underlying ischemia (2) Elevated troponin I level: most likely demand ischemia with repeated runs of Afib/VT as well as from being shocked this morning; however, suspect underlying ischemia as above contributing to recurrent V. tach trending trops Nitro drip given pt continuing to have left sided shoulder pain (anginal equivalent) EKG showing new Afib, LBBB, no ST segment changes (3) Ventricular tachycardia: With several runs of V. tach requiring shocks as per ICD/pacer interrogation with cardiology in the ER Continue amiodarone 400 mg daily -Replete electrolytes as above Continue carvedilol and titrate upwards to 25 mg p.o. twice daily if tolerated Plan for cardiac catheterization likely tomorrow Check echocardiogram (4) ICD (implantable cardioverter-defibrillator), dual, in situ: Placed for moderate ischemic cardiomyopathy and history of V. tach (5) Atrial fibrillation: New onset, noted on ECG here and on interrogation of pacemaker [id number] score significantly elevated at 7 Heparin drip with bolus for anticoagulation TTE ordered Cardiology consult Continue carvedilol 12.5 BID, Amiodarone 400 daily (6) CAD (coronary artery disease): hx 3V CABG as well as multiple JENNIFER remotely With left shoulder pain is anginal equivalent here relieved with nitroglycerin, mildly elevated troponin plan for cath in AM NPO at SC continue ASA, statin, carvedilol Holding losartan for mild increase in creatinine and plan for cardiac catheterization tomorrow (7) Ischemic cardiomyopathy: medications continued as above Most recent EF 35-40% on echo from 2018 Not volume overloaded at this time (8) Chronic kidney disease, stage III (moderate): Cr 1.67 at admission, roughly same as prior admissions daily BMP (9) Abdominal pain: RLQ, pt says he hasn't had a bowel movement in 4 days, prior to that was 8 days ago most likely related to constipation, CT abdomen/pelvis without acute pathology Begin bowel regimen: sennosides + docusate scheduled and daily Miralax (10) Hx of CABG: As above (11) COPD (chronic obstructive pulmonary disease): No acute issues CT of the chest with chronic pleural thickening and atelectasis, emphysematous changes Continue incruse ellipta albuterol PRN for SOB O2 goal >88% not on oxygen at baseline (12) Hypothyroid: TSH 5.8 on admission no hx thyroid disease Free T4 ordered for AM may contribute to tachycardic episodes (13) Splenomegaly: Noted to be mildly enlarged on CT scan at 13.5 cm With mild thrombocytopenia Follow as an outpatient (14) Thrombocytopenia: Platelets low at 100 but fairly stable from the past 2 years Splenomegaly may be contributing Perhaps has ITP or underlying liver issues? Check peripheral smear with CBC in the morning Consider hematology consultation as an outpatient Check B12 levels in the morning (15) Anemia: Macrocytic, mild Checking B12 and folate levels in the morning Follow CBC Peripheral smear as above (16) Hyperlipidemia: Continue statin high intensity for severe CAD (17) Diabetes mellitus: Most recent hemoglobin A1c was from 2018 and was 5.8% With blood glucose 200 here Check hemoglobin A1c in the morning Place on NovoLog supplemental insulin before meals and at bedtime with Accu- Cheks Is not on medications at home (18) Chronic systolic CHF (congestive heart failure): Noted as above and ischemic cardiomyopathy Continue guideline directed medical therapy with carvedilol and titrate up as able to, losartan which is currently on hold for mildly elevated creatinine in anticipation of cardiac catheterization, and Aldactone -Holding home Lasix (19) Peripheral arterial disease with history of revascularization: With a history of right lower extremity superficial femoral artery and right popliteal artery occlusions with angioplasty and stenting in 2018 Continue aspirin, statin (20) History of CVA (cerebrovascular accident): With a history of such, CT head here with small focus of encephalomalacia in the right frontal lobe favoring an old infarct Continue aspirin, statin Now on heparin drip for atrial fibrillation (21) Pancreatic cyst: Noted incidentally on CT scan with 2.2 cm cyst Needs outpatient follow-up (22) DVT prophylaxis: DVT ppx: on heparin drip FEN/GI: heart healthy, low sodium, NPO at SC Code Status: Full Code Dispo: ICU for monitoring on nitro drip given frequent AICD firings History of Present Illness 74-year-old male with a past medical history of V. tach, ischemic cardiomyopathy, AICD who presents from shelter for frequent syncopal episodes and recent falls. States that he is been having dizzy episodes for a couple of years but has been falling more in the last 2 weeks. He describes his dizzy spells as having the room spin, along with blurring vision. Denies hitting his head with any of the falls. Denies feeling his AICD go off. Says this morning he felt dizzy and fell and blacked out. Denies any chest pain in association with the episodes but has had trouble breathing with them. He does note that he has chest pain with exertion and activity. Has been taking all of his medications (discuss with shelter showed he is responsible for taking all of his medications except for plavix and pamelor). Interrogation of the AICD revealed multiple identified runs of new onset Afib, Vtach, as well as multiple firings from the AICD on Feb 16,,. He is being admitted for syncope and cardiac workup for new Afib, repeated episodes of VT and cardiac ischemia. Primary Care Provider: BRYSON Lucero Allergies Allergy/AdvReac Type Severity Reaction Status Date / Time tetracycline Allergy Unknown rash Unverified 11/25/17 10:36 azithromycin Allergy Unknown Unverified 02/29/20 11:31 wool Allergy Unknown Unverified 02/29/20 11:32 Home Medications Home Medications Medication Instructions Recorded Confirmed Type acetaminophen 650 mg PO QID PRN 02/29/20 02/29/20 History amiodarone 400 mg PO DAILY 02/29/20 02/29/20 History aspirin 325 mg PO DAILY 02/29/20 02/29/20 History carvedilol 12.5 mg PO BID 02/29/20 02/29/20 History clopidogrel 75 mg PO DAILY 02/29/20 02/29/20 History furosemide 40 mg PO PM 02/29/20 02/29/20 History furosemide 80 mg PO QAM 02/29/20 02/29/20 History glyburide 5 mg PO BID 02/29/20 02/29/20 History levalbuterol tartrate [Xopenex HFA] 2 inh INHALATION Q6H PRN 02/29/20 02/29/20 History losartan 25 mg PO DAILY 02/29/20 02/29/20 History nitroglycerin 0.4 mg SUBLINGUAL UD PRN 02/29/20 02/29/20 History nortriptyline 50 mg PO PM 02/29/20 02/29/20 History omeprazole 20 mg PO DAILY 02/29/20 02/29/20 History rosuvastatin 40 mg PO HS 02/29/20 02/29/20 History spironolactone 50 mg PO DAILY 02/29/20 02/29/20 History umeclidinium [Incruse Ellipta] 1 inh INHALATION DAILY 02/29/20 02/29/20 History Past Med/Surg History Medical History Anemia Atrial fibrillation CAD (coronary artery disease) Chronic kidney disease, stage III (moderate) Chronic systolic CHF (congestive heart failure) COPD (chronic obstructive pulmonary disease) Diabetes mellitus Elevated troponin I level GERD (gastroesophageal reflux disease) History of CVA (cerebrovascular accident) Hyperkalemia Hyperlipidemia Hypothyroid ICD (implantable cardioverter-defibrillator), dual, in situ Ischemia of right lower extremity Ischemic cardiomyopathy Peripheral arterial disease with history of revascularization SIRS (systemic inflammatory response syndrome) Splenomegaly Superficial femoral artery occlusion Thrombocytopenia Ventricular tachycardia Surgical History History of mitral valve repair History of permanent cardiac pacemaker placement Hx of CABG Stented coronary artery Family History Other Family history non-contributory Social History Smoking Status: Former smoker Second Hand Exposure: No; Hx Alcohol Use: No Hx Substance Use: No Preferred Language: Surinamese Communication Ability: Effective 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 Mill 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 Required: No Beliefs That Will Affect Care: None Current Living Situation: Other Current Living Situation Comment: shaun Feels Safe at Home: Yes Assistive Devices: Cane and Denture - Upper Review of Systems Constitutional: no fever, no chills, no sweats, no fatigue and no weakness Respiratory: + pain on inspiration; no cough, no dyspnea and no hemoptysis Cardiovascular: + chest pain with activity, + dyspnea on exertion, + palpitations, + lightheadedness and + syncope; no dyspnea at rest Gastrointestinal: + abdominal pain (RLQ) and + constipation; no heartburn, no nausea, no vomiting, no hematemesis, no cramping, no diarrhea/loose stools, no blood in stools and no melena Genitourinary: no dysuria Physical Exam Physical Exam: Constitutional: prisoner in no apparent distress, laying comfortably in bed with his eyes closed, though he has his fists clenched at his sides. Eyes: EOMI, pupils equal and reactive bilaterally, no scleral icterus Cardiac: irregularly irregular, tachycardic, no murmurs, gallops or rubs. Normal S1, S2 Pulm: CTA BL, no wheezes, rhonchi, crackles or rubs, moving air well throughout both lungs Abd: soft, tender to palp in RLQ, nondistended, normal bowel sounds, no rebound or guarding, tympanic to percussion at upper quadrants Extremities: 2+ peripheral pulses, no edema, Neuro: no focal deficits, moving all 4 limbs, A&Ox3 Results & Data Results & Data ([facility]) Vital Signs (Past 12 Hours) Vital Signs Temp Pulse Resp BP Pulse Ox 02/29/20 13:30 73 16 136/72 93 02/29/20 12:00 75 18 135/93 96 02/29/20 11:30 76 17 135/61 96 02/29/20 11:00 75 18 123/58 L 94 02/29/20 10:57 92 02/29/20 10:54 36.4 C L 75 18 133/67 92 02/29/20 10:46 72 19 134/56 L 94 Laboratory Results WBC 7.84 K/uL (4.8-10.8) 02/29/20 10:40 RBC 3.99 M/uL (4.7-6.1) L 02/29/20 10:40 Hgb 13.7 g/dL (14.0-18.0) L 02/29/20 10:40 Hct 39.6 % (42-52) L 02/29/20 10:40 MCV 99.2 fL (80-100) 02/29/20 10:40 MCH 34.3 pg (25-34) H 02/29/20 10:40 MCHC 34.6 g/dL (32-36) 02/29/20 10:40 RDW Std Deviation 49.6 fL (36.4-46.3) H 02/29/20 10:40 RDW Coeff of Andrew 13.7 % (11.5-14.5) 02/29/20 10:40 Plt Count 100 K/uL (130-400) L 02/29/20 10:40 MPV 10.6 fL (7.4-10.4) H 02/29/20 10:40 Immature Gran % (Auto) 0.5 % 02/29/20 10:40 Neut % (Auto) 77.6 % 02/29/20 10:40 Lymph % (Auto) 10.8 % 02/29/20 10:40 [place] % (Auto) 7.5 % 02/29/20 10:40 Eos % (Auto) 3.1 % 02/29/20 10:40 Baso % (Auto) 0.5 % 02/29/20 10:40 Neut # (Auto) 6.08 K/uL (1.4-6.5) 02/29/20 10:40 Lymph # (Auto) 0.85 K/uL (1.2-3.4) L 02/29/20 10:40 [place] # (Auto) 0.59 K/uL (0.11-0.59) 02/29/20 10:40 Eos # (Auto) 0.24 K/uL (0-0.5) 02/29/20 10:40 Baso # (Auto) 0.04 K/uL (0-0.2) 02/29/20 10:40 Immature Gran # (Auto) 0.04 K/uL (0.00-0.02) H 02/29/20 10:40 PT 11.1 Seconds (9.0-12.0) 02/29/20 12:54 INR 1.1 (0.9-1.1) 02/29/20 12:54 APTT 27.5 Seconds (21.0-31.0) 02/29/20 12:54 PTT Ratio 1.0 02/29/20 12:54 Sodium 139 mmol/L (136-145) 02/29/20 16:50 Potassium 3.9 mmol/L (3.5-5.1) 02/29/20 16:50 Chloride 106 mmol/L (98-107) 02/29/20 16:50 Carbon Dioxide 27 mmol/L (21-32) 02/29/20 16:50 Anion Gap 6.0 (3-11) 02/29/20 16:50 BUN 25 mg/dl (7-18) H 02/29/20 16:50 Creatinine 1.59 mg/dl (0.6-1.4) H 02/29/20 16:50 Est Cr Clr Drug Dosing 46.1 ml/min 02/29/20 16:50 Est GFR ( Amer) 49.5 02/29/20 16:50 Est GFR (Non-Af Amer) 42.7 02/29/20 16:50 BUN/Creatinine Ratio 15.4 (10-20) 02/29/20 16:50 Glucose 200 mg/dl (70-99) H 02/29/20 16:50 POC Glucose 207 mg/dl (70-99) H 02/29/20 16:12 Calcium 8.3 mg/dl (8.5-10.1) L 02/29/20 16:50 Magnesium 3.4 mg/dl (1.8-2.4) H 02/29/20 16:50 Total Bilirubin 1.0 mg/dl (0.2-1) 02/29/20 10:40 AST 33 U/L (15-37) 02/29/20 10:40 ALT 49 U/L (12-78) 02/29/20 10:40 Alkaline Phosphatase 148 U/L (45-117) H 02/29/20 10:40 Total Creatine Kinase 60 U/L (39-308) 02/29/20 10:40 CK-MB (CK-2) 1.5 ng/ml (0.5-3.6) 02/29/20 10:40 CK/CKMB % Calc 2.5 (0-3.0) 02/29/20 10:40 Troponin I 0.253 ng/ml (0-0.045) H* 02/29/20 16:50 Total Protein 6.7 gm/dl (6.4-8.2) 02/29/20 10:40 Albumin 3.5 gm/dl (3.4-5.0) 02/29/20 10:40 Globulin 3.2 gm/dl (2.5-4.0) 02/29/20 10:40 Albumin/Globulin Ratio 1.1 (0.9-2) 02/29/20 10:40 Lipase 109 U/L (73-393) 02/29/20 10:40 TSH 5.840 uIu/ml (0.300-4.500) H 02/29/20 10:40 ECG Additional Comments: ECG on 02/29/2020 at 1039 with atrial fibrillation, LBBB, T wave inversion in lateral leads, rate 74 ECG on 02/29/2020 at 1351 with atrial fibrillation, rate 68, LBBB, T wave inversions in lateral leads, unchanged from previous Code Status & VTE Plan Code Status Full code VTE Prophylaxis Plan VTE Prophylaxis will be ordered: Yes Supervising Physician Co-Signing Physician Notes I personally examined the patient and verified all velez points of history and exam, discussed case, and agree with decision making with Dr. Tomas with the following additions/exceptions: This patient is a 74-year-old male with a complex medical history of CAD status post CABG and JENNIFER, ICD/PPM, COPD, PAD, ischemic cardiomyopathy and chronic systolic CHF, DM 2, CKD 3, hyperlipidemia, hypothyroidism, anemia, thrombocytopenia, splenomegaly, CVA and ventricular tachycardia as well as mitral valve annuloplasty who presents here with syncope secondary to sustained ventricular tachycardia requiring ICD firing. He was having left shoulder pain upon arrival which was thought to be an anginal equivalent which was relieved with morphine and Nitropaste. Troponin was mildly elevated, ECG showed new onset atrial fibrillation and T wave inversions in the lateral leads. Interrogation of pacer in the ER by the warpman showed multiple firings of ICD for V. tach as well as new onset atrial fibrillation in the fairly recent time.. History and ROS reviewed as above Vitals reviewed Gen: AAOx3, NAD HEENT: Anicteric sclerae, EOMI CV: Irregularly irregular, normal rate no mgr nl S1S2 Pulm: Positive for crackles at the lower and middle lung chong bilaterally Abd: +BS soft, positive tenderness to palpation in the right lower quadrant without guarding or rebound ND no masses or hernias Ext: No edema, 1+ DP pulses Skin: No rashes, warm/dry, with left upper back with 2 cm x 1 cm slightly bloody scab Neuro: Full strength throughout 74-year-old male here with syncope secondary to ventricular tachycardia, also with new onset atrial fibrillation Thought to be secondary to ischemia Plan outlined as above and notations made to resident's note when appropriate Plan for cardiac catheterization likely tomorrow Trend troponin, check echocardiogram Continue medications as noted above Follow on telemetry Resident Activity Tracking Resident Involvement: Resident Care Provided Care Provided: Adult Hospital Medicine
[2020-02-29] MEDS: MAGNESIUM SULFATE / D5W 1 GM/100 ML BAG IV SCH ×2 (14:30→15:00)
[2020-02-29] MEDS ORDERED: ICU PROTOCOL FOR HYPERGLYCEMIA PRN (14:38)
--- NOTE | 2020-02-29 14:56 | Cardiology Consultation ---
Date of Consultation February 29, 2020 Assessment & Plan (1) Unresponsiveness: I believe he had loss of consciousness today prior to his transfer to the emergency room, although he does not recall that. What ever the event was (unresponsiveness or prolonged presyncope) it does coincide with a prolonged episode of ventricular tachycardia. (2) ICD (implantable cardioverter-defibrillator), dual, in situ: His ICD is working well although there is some difficulty with tachycardia detection due to the slow rate of his ventricular tachycardia at times and the presence of a dual tachycardia with atrial tachycardia and ventricular tachycardia. This led to some prolonged detection times and his symptoms. Device interrogation indicates that he has had a dramatic falloff in activity over the last several months consistent with his symptoms, additionally he has had frequent episodes of ventricular tachycardia receiving ICD shocks (12 episodes) over the last several weeks but none before that. He has also had identification of this atrial tachycardia over the last 3 or 4 days, whereas he did not have much of that before these recent events. This suggests there is something like ischemia causing these abnormalities. (3) Ventricular tachycardia: He has had frequent episodes of ventricular tachycardia identified recently, prior to that have been under good control. During his last hospitalization he was having a lot of ventricular tachycardia, on transfer to [facility] he was treated for ischemia and had good control of his arrhythmia until recently. I suspect his arrhythmia is ischemic base, although that is unusual with sustained monomorphic VT. He seems to have other evidence of ischemia currently and therefore I would recommend treating him with anticoagulation and nitroglycerin to control ischemia, continue his oral amiodarone for now and increase his beta-vianney if possible. If he has more VT we can consider other options. (4) CAD (coronary artery disease): He has known coronary artery disease, and 2018 control of his VT was achieved by stent placement. I believe we need to look at his coronary arteries again and we will tentatively plan on that for tomorrow. He is agreeable. (5) Ischemic cardiomyopathy: In 2018 his left ventricular ejection fraction was 35 to 40%. It may have worsened, I am going to get an echocardiogram this afternoon to see. (6) Chronic kidney disease, stage III (moderate): He does have chronic kidney disease, his creatinine is mildly elevated and may pose some risk for dye however I believe we will need to perform catheterization. (7) Atrial tachycardia: He has an atrial tachycardia which has been quite frequent and more prominent recently than in the past based on ICD monitoring. That has resulted in a dual tachycardia recently which created a situation prolonging ICD detection and therapy. This may have to be addressed over the long run either with programming or additional AV molly blocking medications. History of Present Illness Reason for Consultation: Unresponsiveness, ischemic heart disease, ICD Attending Physician: Dr. Elinor Foster History of Present Illness This is a 74-year-old male who has a history of hypertension and longstanding ischemic cardiomyopathy. He had prior coronary intervention in June 2007 as well as bypass surgery July 08, 1999 and he has diabetes and peripheral arterial disease. We first saw him in 2018 when he presented with a superficial femoral artery occlusion on the right and had surgery in September 2017. Postoperatively he was noted to have sustained ventricular tachycardia for which she received intravenous amiodarone, he had been on amiodarone 200 mg daily since 2014 but that was discontinued in the nursing home per the patient. He had persistent ventricular tachycardia, and some of these tachycardias were sustained and below the rate cutoff of the device. He did have a trial of intravenous lidocaine and esmolol. He was initially on amiodarone drip but was transitioned to oral amiodarone 200 mg twice daily and he was transferred to [facility]. At [facility] he underwent coronary angiography and had successful PCI. He was subsequently lost to follow-up and we have not seen him since that hospitalization in September 2017. He has a dual-chamber ICD in place, that was implanted at [facility] (I believe) on February 16, 2015 and is a [employer] device. He is a inmate at [facility] and he has been having difficulty with exertion recently, he is not a good historian and I cannot tell exactly how long that is been going on but it is relatively recent. He gets substernal chest discomfort and left arm discomfort. It has limited his activity. He is also been having episodes of lightheadedness and presyncope causing him to sit down and wait for them to pass, some of these can be minutes in duration. He has not had syncope to his knowledge and he denies ICD shocks (although he has had them). Prehospital records suggest that he had loss of consciousness today at around 9:00. At the time of my evaluation in the emergency room he was pain- free after initial evaluation, denying chest or left arm discomfort. He was not short of breath and was not having palpitations. Allergies Allergy/AdvReac Type Severity Reaction Status Date / Time tetracycline Allergy Unknown rash Unverified 11/25/17 10:36 azithromycin Allergy Unknown Unverified 02/29/20 11:31 wool Allergy Unknown Unverified 02/29/20 11:32 Home Medications Home Medications Medication Instructions Recorded Confirmed Type acetaminophen 650 mg PO QID PRN 02/29/20 02/29/20 History amiodarone 400 mg PO DAILY 02/29/20 02/29/20 History aspirin 325 mg PO DAILY 02/29/20 02/29/20 History carvedilol 12.5 mg PO BID 02/29/20 02/29/20 History clopidogrel 75 mg PO DAILY 02/29/20 02/29/20 History furosemide 40 mg PO PM 02/29/20 02/29/20 History furosemide 80 mg PO QAM 02/29/20 02/29/20 History glyburide 5 mg PO BID 02/29/20 02/29/20 History levalbuterol tartrate [Xopenex HFA] 2 inh INHALATION Q6H PRN 02/29/20 02/29/20 History losartan 25 mg PO DAILY 02/29/20 02/29/20 History nitroglycerin 0.4 mg SUBLINGUAL UD PRN 02/29/20 02/29/20 History nortriptyline 50 mg PO PM 02/29/20 02/29/20 History omeprazole 20 mg PO DAILY 02/29/20 02/29/20 History rosuvastatin 40 mg PO HS 02/29/20 02/29/20 History spironolactone 50 mg PO DAILY 02/29/20 02/29/20 History umeclidinium [Incruse Ellipta] 1 inh INHALATION DAILY 02/29/20 02/29/20 History Patient History Social History Smoking Status: Former smoker Feels Safe at Home: Yes Review of Systems Review of Systems: All systems reviewed & are unremarkable except as noted in HPI & below Physical Exam Physical Exam: Constitutional: Alert, cooperative and in no distress. HEENT: Unremarkable Neck: No jugular venous distention, carotid pulses are normal and equal bilaterally without bruits. Pulmonary: Clear to auscultation bilaterally. Cardiac: Regular rhythm with no murmur, gallop or rub. Abdomen: Soft, nontender with normal bowel sounds. Extremities: No edema. Distal pulses intact. Neurologic: No focal findings. Gait is steady. Skin: No rash, ecchymoses or petechiae. His left-sided ICD site is well-healed without erythema, swelling or tenderness. Results & Data ([facility]) Vital Signs (Past 12 Hours) Vital Signs Temp Pulse Resp BP Pulse Ox 02/29/20 14:00 69 20 124/52 L 95 02/29/20 13:30 73 16 136/72 93 02/29/20 12:00 75 18 135/93 96 02/29/20 11:30 76 17 135/61 96 02/29/20 11:00 75 18 123/58 L 94 02/29/20 10:57 92 02/29/20 10:54 36.4 C L 75 18 133/67 92 02/29/20 10:46 72 19 134/56 L 94 Laboratory Results Cardiac Enzymes 02/29/20 02/29/20 Range/Units 10:40 10:40 AST 33 (15-37) U/L CK-MB (CK-2) 1.5 (0.5-3.6) ng/ml Troponin I 0.164 H* (0-0.045) ng/ml Coagulation 02/29/20 02/29/20 Range/Units 12:10 12:54 PT Cancelled 11.1 APTT Cancelled 27.5 CBC 02/29/20 Range/Units 10:40 WBC 7.84 (4.8-10.8) K/uL RBC 3.99 L (4.7-6.1) M/uL Hgb 13.7 L (14.0-18.0) g/dL Hct 39.6 L (42-52) % Plt Count 100 L (130-400) K/uL Neut # (Auto) 6.08 (1.4-6.5) K/uL Lymph # (Auto) 0.85 L (1.2-3.4) K/uL [place] # (Auto) 0.59 (0.11-0.59) K/uL Eos # (Auto) 0.24 (0-0.5) K/uL Baso # (Auto) 0.04 (0-0.2) K/uL Comprehensive Metabolic Panel 02/29/20 Range/Units 10:40 Sodium 142 (136-145) mmol/L Potassium 3.6 (3.5-5.1) mmol/L Chloride 107 (98-107) mmol/L Carbon Dioxide 28 (21-32) mmol/L BUN 28 H (7-18) mg/dl Creatinine 1.67 H (0.6-1.4) mg/dl Glucose 181 H (70-99) mg/dl Calcium 8.5 (8.5-10.1) mg/dl AST 33 (15-37) U/L ALT 49 (12-78) U/L Alkaline Phosphatase 148 H (45-117) U/L Total Protein 6.7 (6.4-8.2) gm/dl Albumin 3.5 (3.4-5.0) gm/dl Intake and Output 02/28/20 02/29/20 02/29/20 22:59 06:59 14:59 Intake Total 300 / 300 Balance 300 / 300 Intake: IV 300 / 300 OFIRMEV 1,000 mg In 100 ml @ 100 / 100 400 mls/hr IV NOW STA Rx#: [id number] MAGNESIUM SULFATE / D5W 1 gm In 200 / 200 100 ml @ 100 mls/hr IV NOW STA Rx#:[id number] Other: Weight 89.1 kg Patient Weight 03/01/20 06:59 Weight 89.1 kg Diagnostic Findings Telemetry: Probably sinus rhythm, P waves are difficult to see. Electrocardiogram: Although P waves are hard to see and the rhythm has been called junctional in the past it appears to be a sinus or atrial mechanism with a sinus arrhythmia or PACs. IVCD of the left bundle type. There are electrocardiographic changes since his last visit where he had a more typical nonspecific IVCD pattern and a different QRS axis. It is hard to read acute changes with his abnormal ECG. PG Care Time/CCT Total # of Minutes Spent Total Time Spent with Patient: Total time spent is greater than 50% in coordination of care (as documented) at patient's floor/unit and/or counseling patient: Coding Level of Care Code 17475 Initial Inpt Care Lvl 3 Diagnoses Unresponsiveness R41.89 ICD (implantable cardioverter-defibrillator), dual, in situ Z95.810 Ventricular tachycardia I47.2 CAD (coronary artery disease) I25.10 Ischemic cardiomyopathy I25.5 Chronic kidney disease, stage III (moderate) N18.3 Atrial tachycardia I47.1 CPT Codes Implantable Defib dual lead programming - [id number] ([id number])
[2020-02-29] MEDS ORDERED: HEPARIN 25000 UNIT/500 ML D5W IV ONE (15:19)
[2020-02-29] MEDS ORDERED: HEPARIN SOD (PORCINE) 1000 UNIT/ML 10 ML VIAL ONE (15:19)
[2020-02-29] MEDS ORDERED: Heparin Adult STANDARD Wt-Based Dextrose 5% 25,000 units/500 mL IV SCH (15:45)
--- NOTE | 2020-02-29 16:12 | XCELERA ---
[id number]
[2020-02-29] MEDS ORDERED: CARBOHYDRATES FOR HYPOGLYCEMIA PO PRN (16:30)
[2020-02-29] MEDS ORDERED: DEXTROSE 50% 50 ML SYRINGE IV PRN (16:30)
[2020-02-29] MEDS ORDERED: GLUCOSE 40% GEL 15 GM TUBE PO PRN (16:30)
[2020-02-29] MEDS ORDERED: STAT IV Infusion **Titration per Protocol STA (16:30)
[2020-02-29] MEDS ORDERED: GLUCAGON FOR INJ 1 MG VIAL SQ PRN (16:30)
[2020-02-29] MEDS ORDERED: SPIRONOLACTONE 25 MG TAB PO SCH (16:30)
[2020-02-29] MEDS ORDERED: GLUCOSE 10 TABS/TUBE PO PRN (16:30)
[2020-02-29] MEDS ORDERED: POLYETHYLENE (MIRALAX) 17 GM PACK PO PRN (16:30)
[2020-02-29] MEDS ORDERED: NITROGLYCERIN SL 0.4 MG/TAB TAB SL PRN (16:30)
[2020-02-29] MEDS ORDERED: LOSARTAN POTASSIUM 25 MG TAB PO SCH (16:30)
[2020-02-29] MEDS: NITROGLYCERIN/D5W 100MCG/ML 250 ML IV SCH (17:08)
[2020-02-29] MEDS: AMIODARONE 200 MG TAB PO SCH (17:10)
--- NOTE | 2020-02-29 17:18 | Critical Care Consultation ---
Date of Consultation February 29, 2020 Assessment & Plan (1) Unresponsiveness: Patient's unresponsiveness was likely related to ventricular tachycardia. He is status post AICD interrogation which did show 3 shocks today and evidence of ventricular tachycardia. This is being evaluated by cardiology. Continue amiodarone drip. Ventricular currently tachycardia is thought to be related to ischemia. Continue heparin drip and initiate nitroglycerin drip to minimize ischemia. Will uptitrate beta-vianney as his blood pressure and heart rate allow. Continue antiplatelet therapy. Cardiology plans for left heart catheterization tomorrow. Recheck potassium and magnesium with goals of m aintaining potassium above 4 magnesium above 2. He received 4 g of magnesium in the ER. Echocardiogram demonstrates reduced LVEF with 35 to 40% function and a large apical scar. Question whether this is the possible location where the V. tach is emanating from. He also has SUSAN. We will hold his angiotensin receptor vianney. He also has atrial tachycardia. I suspect he has underlying COPD as well which may be worsening some of his atrial tachycardia. He likely has secondary pulmonary hypertension as well from left-sided heart disease which can cause syncope as well. Right heart cath may be prudent along with the left heart cath to evaluate his mean pulmonary artery pressures and pulmonary vascular resistance. We will monitor in the ICU for the time being. Patient would like to remain a full code. (2) ICD (implantable cardioverter-defibrillator), dual, in situ: (3) Atrial tachycardia: (4) CAD (coronary artery disease): (5) Acute renal failure: (6) Hx of CABG: (7) Ventricular tachycardia: (8) Elevated troponin I level: History of Present Illness Reason for Consultation: Monomorphic V. tach and ICU monitoring Requesting Physician: Dr. Elinor Foster Attending Physician: Elinor Foster MD History of Present Illness 74-year-old male with a past medical history of ischemic cardiomyopathy status post CABG in 1999, diabetes, peripheral arterial disease, AICD placement, history of ventricular tachycardia on amiodarone who presented to the hospital due to loss of consciousness this morning and the present while walking downstairs. Patient notes that he has been feeling increasingly dizzy the last several days. He also notices some shortness of breath. He did describe some substernal chest pain. He thinks he lost consciousness around 9 AM. Since being admitted to the hospital, he feels substantially better and denies any significant chest pain or shortness of breath at this time. He has a long history of smoking for 40 years roughly 1 pack/day. He has been incarcerated for 35 years. 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 He is currently on a heparin drip. Cardiology is requesting a nitroglycerin drip as well to control ischemia. The plan is for possible left heart cath tomorrow morning. Hemoglobin is 13.7 on admission. INR is 1.1. Troponin admission was 0.164. TSH 5.84. Potassium was 3.6. Magnesium was not checked. He received 4 g of magnesium in the ER. He underwent a CT of his head, chest, cervical spine and abdomen and pelvis. No acute findings in the CT head. CT chest with moderate emphysema and bronchial wall thickening diffusely. Trace bilateral effusions. Mild diffuse right pleural thickening noted with rounded atelectasis. Cervical spine with no evidence of acute fractures. Abdomen pelvis with no evidence of acute intra-abdominal injury. 22 mm cystic lesion involving the pancreatic head possibly representing an IPMN. Echocardiogram with an EF of 35 to 40%. Large apical aneurysm noted. Akinetic apex. Posterior mitral valve leaflet is thickened and fixed consistent with prior mitral valve surgery. Annuloplasty ring is present in the mitral position . Moderate mitral regurgitation noted. Mild mitral stenosis. RVSP estimated 40 to 50 mmHg. Allergies Allergy/AdvReac Type Severity Reaction Status Date / Time tetracycline Allergy Unknown rash Unverified 11/25/17 10:36 azithromycin Allergy Unknown Unverified 02/29/20 11:31 wool Allergy Unknown Unverified 02/29/20 11:32 Home Medications Home Medications Medication Instructions Recorded Confirmed Type acetaminophen 650 mg PO QID PRN 02/29/20 02/29/20 History amiodarone 400 mg PO DAILY 02/29/20 02/29/20 History aspirin 325 mg PO DAILY 02/29/20 02/29/20 History carvedilol 12.5 mg PO BID 02/29/20 02/29/20 History clopidogrel 75 mg PO DAILY 02/29/20 02/29/20 History furosemide 40 mg PO PM 02/29/20 02/29/20 History furosemide 80 mg PO QAM 02/29/20 02/29/20 History glyburide 5 mg PO BID 02/29/20 02/29/20 History levalbuterol tartrate [Xopenex HFA] 2 inh INHALATION Q6H PRN 02/29/20 02/29/20 History losartan 25 mg PO DAILY 02/29/20 02/29/20 History nitroglycerin 0.4 mg SUBLINGUAL UD PRN 02/29/20 02/29/20 History nortriptyline 50 mg PO PM 02/29/20 02/29/20 History omeprazole 20 mg PO DAILY 02/29/20 02/29/20 History rosuvastatin 40 mg PO HS 02/29/20 02/29/20 History spironolactone 50 mg PO DAILY 02/29/20 02/29/20 History umeclidinium [Incruse Ellipta] 1 inh INHALATION DAILY 02/29/20 02/29/20 History Patient History Medical History (Updated 02/29/20 @ 17:16 by Abelino De Luna MD) Elevated troponin I level Ventricular tachycardia Social History Smoking Status: Former smoker Second Hand Exposure: No; Hx Alcohol Use: No Hx Substance Use: No Preferred Language: [place] Communication Ability: Effective Finance Business Partner Required: No Beliefs That Will Affect Care: None Current Living Situation: Other Current Living Situation Comment: shaun Feels Safe at Home: Yes Assistive Devices: Cane and Denture - Upper Review of Systems Review of Systems: All systems reviewed & are unremarkable except as noted in HPI & below Physical Exam Constitutional: WD/WN, vitals as above Eyes: PERRL, conjunctivae normal, anicteric sclerae ENMT: external ear and nose normal, oropharynx normal Neck: normal visual inspection Respiratory: no retractions Auscultation: + crackles Cardiovascular: RRR, no murmur, no edema Gastrointestinal (Abdomen): normal bowel sounds, soft, nontender, no hepatos plenomegaly Musculoskeletal: no cyanosis or clubbing, extremities motor strength 5/5 Skin: no rashes, warm and dry Neurologic: PERRL, EOMI, accommodation nl, no face palsy, no dysarthria Psychiatric: A+Ox3, euthymic affect Results & Data Results & Data ([facility]) Vital Signs (Past 12 Hours) Vital Signs Temp Pulse Pulse Resp BP BP Pulse Ox 02/29/20 16:20 63 22 93 02/29/20 16:18 67 14 138/59 L 93 02/29/20 16:10 72 17 92 02/29/20 16:08 98.1 F 68 18 134/41 L 94 02/29/20 16:03 98.1 F 72 18 134/41 L 94 02/29/20 15:40 65 12 91 02/29/20 15:26 58 L 16 113/57 L 96 02/29/20 15:20 63 16 96 02/29/20 15:10 63 17 96 02/29/20 15:00 70 15 111/49 L 94 02/29/20 14:55 66 16 94 02/29/20 14:30 70 13 97/33 L 64 L 02/29/20 14:00 69 20 124/52 L 95 02/29/20 13:30 73 16 136/72 93 02/29/20 12:00 75 18 135/93 96 02/29/20 11:30 76 17 135/61 96 02/29/20 11:00 75 18 123/58 L 94 02/29/20 10:57 92 02/29/20 10:54 97.5 F L 75 18 133/67 92 02/29/20 10:46 72 19 134/56 L 94 I reviewed vital signs, labs and chest imaging Coding Level of Care Code 06748 Inpt Consult Level 5 Diagnoses Unresponsiveness R41.89 ICD (implantable cardioverter-defibrillator), dual, in situ Z95.810 Atrial tachycardia I47.1 CAD (coronary artery disease) I25.10 Acute renal failure N17.9 Hx of CABG Z95.1 Ventricular tachycardia I47.2 Elevated troponin I level R79.89
[2020-02-29] MEDS: UMECLIDINIUM BROMIDE 62.5MCG/BLISTER 7 PUFFS/INHALER INH SCH (17:21)
[2020-02-29] MEDS: ASPIRIN 325 MG ECTAB PO SCH (17:21)
[2020-02-29] MEDS: INSULIN ASPART 100 UNITS/ML 3 ML PEN SC SCH ×2 (17:22→21:46)
[2020-02-29] MEDS: SENNA 8.6 MG TAB PO SCH (17:25)
[2020-02-29] MEDS: HEPARIN SODIUM/DEXTROSE 25,000 UNITS/500 ML BAG IV SCH (17:26)
[2020-02-29] MEDS: CLOPIDOGREL BISULFATE 75 MG TAB PO SCH (17:26)
[2020-02-29 17:30] LABS: BUN Creatinine Ratio 15.4 (10-20); Calcium 8.3 mg/dl (8.5-10.1); Creatinine Clr Calc Pharmacy 46.1 ml/min; Est GFR (African American) 49.5; Est GFR (Non-African American) 42.7; Magnesium 3.4 mg/dl (1.8-2.4); Potassium 3.9 mmol/L (3.5-5.1)
[2020-02-29 17:32] LABS: Troponin I 0.253 ng/ml (0-0.045)
[2020-02-29] MEDS ORDERED: carvediloL 12.5 MG TAB PO SCH (21:00)
[2020-02-29] MEDS ORDERED: NORTRIPTYLINE HCL 25 MG CAP PO SCH (21:00)
--- NOTE | 2020-02-29 21:40 | Billing Data ---
Date of Service February 29, 2020 Coding Level of Care Code 82519 Initial Inpt Care Lvl 3
[2020-02-29] MEDS: DOCUSATE SODIUM 100 MG CAP PO SCH (21:43)
[2020-02-29] MEDS: ROSUVASTATIN CALCIUM 20 MG TAB PO SCH (21:44)
[2020-03-01 00:01] LABS: Partial Thromboplastin Ratio 4.7
[2020-03-01 00:04] LABS: Partial Thromboplastin Time 130.5 Seconds (21.0-31.0)
[2020-03-01 00:53] LABS: Partial Thromboplastin Ratio 2.6
[2020-03-01 01:00] LABS: Partial Thromboplastin Time 73.2 Seconds (21.0-31.0)
[2020-03-01 04:42] LABS: Appearance Urine Clear (Clear); Bacteria Urine Automated Negative (Negative); Bilirubin Urine Negative (Negative); Blood Urine Trace (Negative); Color Urine Yellow; Glucose Urine UA Negative (Negative); Ketones Urine Negative (Negative); Leukocyte Esterase Urine Negative (Negative); Nitrite Urine Negative (Negative); Protein Urine Negative (Negative); RBC Urine Automated 0-4 /hpf (0-4); Specific Gravity Urine 1.034 (1.000-1.030); Urobilinogen Urine Negative (Negative)
[2020-03-01 04:54] LABS: Basophils # (auto) 0.05 K/uL (0-0.2); Basophils % (auto) 0.3 %; Eosinophils # (auto) 0.23 K/uL (0-0.5); Eosinophils % (auto) 1.4 %; Hematocrit (blood only) 34.3 % (42-52); Hemoglobin 11.8 g/dL (14.0-18.0); Immature Granulocytes # (auto) 0.07 K/uL (0.00-0.02); Immature Granulocytes % (auto) 0.4 %; Lymphocytes # (auto) 0.79 K/uL (1.2-3.4); Lymphocytes % (auto) 4.7 %; Mean Corpuscular Hemoglobin 33.8 pg (25-34); Mean Corpuscular Hgb Conc 34.4 g/dL (32-36); Mean Corpuscular Volume 98.3 fL (80-100); Mean Platelet Volume 10.3 fL (7.4-10.4); Monocytes # (auto) 1.34 K/uL (0.11-0.59); Neutrophils # (auto) 14.22 K/uL (1.4-6.5); Neutrophils % (auto) 85.2 %; Platelet Count 111 K/uL (130-400); RDW Standard Deviation 49.7 fL (36.4-46.3); Red Blood Count 3.49 M/uL (4.7-6.1)
[2020-03-01 05:12] LABS: Partial Thromboplastin Ratio 2.8
[2020-03-01 05:26] LABS: Partial Thromboplastin Time 78.8 Seconds (21.0-31.0)
[2020-03-01 05:28] LABS: RBC Morphology Unremarkable
[2020-03-01 05:38] LABS: Albumin Globulin Ratio 0.9 (0.9-2); Albumin Level 3.1 gm/dl (3.4-5.0); BUN Creatinine Ratio 13.1 (10-20); Bilirubin,Total 1.7 mg/dl (0.2-1); Calcium 7.9 mg/dl (8.5-10.1); Creatinine Clr Calc Pharmacy 35.6 ml/min; Est GFR (African American) 36.2; Est GFR (Non-African American) 31.2; Globulin 3.3 gm/dl (2.5-4.0); Magnesium 2.7 mg/dl (1.8-2.4); Phosphorus 3.1 mg/dl (2.5-4.9); Potassium 4.7 mmol/L (3.5-5.1); T4 Free Thyroxine 1.2 ng/dl (0.8-1.6); Total Protein 6.4 gm/dl (6.4-8.2); Troponin I 0.279 ng/ml (0-0.045)
[2020-03-01 06:08] LABS: Estimated Average Glucose 140 mg/dl; Hemoglobin A1C 6.5 % (4.5-5.6)
[2020-03-01] MEDS: UMECLIDINIUM BROMIDE 62.5MCG/BLISTER 7 PUFFS/INHALER INH SCH (08:43)
[2020-03-01] MEDS: INSULIN ASPART 100 UNITS/ML 3 ML PEN SC SCH ×5 (08:45→21:29)
[2020-03-01] MEDS: AMIODARONE 200 MG TAB PO SCH (08:55)
[2020-03-01] MEDS: ASPIRIN 325 MG ECTAB PO SCH ×2 (08:55→11:45)
[2020-03-01] MEDS: CLOPIDOGREL BISULFATE 75 MG TAB PO SCH (08:55)
[2020-03-01] MEDS: PANTOprazole 40 MG TAB PO SCH (08:57)
--- NOTE | 2020-03-01 09:20 | Critical Care Progress Note ---
Date of Service March 01, 2020 Assessment & Plan (1) Unresponsiveness: Patient with evidence of ventricular tachycardia on yesterday's interrogation of his AICD. Echocardiogram with an EF of 35 to 40% with a large apical aneurysm and apical kinesis. Mild mitral stenosis and moderate mitral regurgitation noted. RVSP estimated 40 to 50 mmHg. Pending cardiology recommendations today. He maintains on the nitroglycerin and heparin drip for possible coronary ischemia. He is having left shoulder pain today. Will obtain x-rays of the left shoulder given his recent fall. Continue aspirin and Plavix. He is on a full dose aspirin and we will check with pharmacy regarding the proper dosage. Holding Coreg today given his bradycardia and hypotension. Continue amiodarone. Holding losartan and spironolactone given his SUSAN. Will start gentle fluid hydration. Patient would like to remain a full code. (2) ICD (implantable cardioverter-defibrillator), dual, in situ: (3) Atrial tachycardia: (4) CAD (coronary artery disease): (5) Acute renal failure: (6) Hx of CABG: (7) Ventricular tachycardia: (8) Elevated troponin I level: Admission and Anticipated Discharge Date Admission Date: February 29, 2020 Subjective Patient with some increasing shortness of breath today. He is complaining of left shoulder pain and right flank pain. Denies any nausea or vomiting. He is a bit hypotensive today with a map of 60 on nitroglycerin. Review of Systems Review of Systems: All systems reviewed & are unremarkable except as noted in HPI & below Physical Exam Constitutional: WD/WN, vitals as above Eyes: PERRL, conjunctivae normal, anicteric sclerae ENMT: external ear and nose normal, oropharynx normal Neck: normal visual inspection Respiratory: no retractions Auscultation: + crackles Cardiovascular: RRR, no murmur, no edema Gastrointestinal (Abdomen): normal bowel sounds, soft, nontender, no hepatosplenomegaly Musculoskeletal: Pain and tenderness and anterior aspect of his left shoulder. Reduced range of motion. Skin: no rashes, warm and dry Neurologic: PERRL, EOMI, accommodation nl, no face palsy, no dysarthria Psychiatric: A+Ox3, euthymic affect Results & Data Results & Data ([facility]) Vital Signs (Past 12 Hours) Vital Signs Temp Pulse Resp BP Pulse Ox 03/01/20 05:29 61 21 111/39 L 90 03/01/20 04:29 98.1 F 66 28 H 118/45 L 90 03/01/20 03:29 63 29 H 123/49 L 90 03/01/20 02:29 66 27 H 133/48 L 88 L 03/01/20 01:35 82 22 121/49 L 88 L 03/01/20 01:08 80 25 H 147/57 H 87 L 03/01/20 00:18 79 26 H 147/57 H 91 03/01/20 00:03 98.1 F 85 20 127/66 92 03/01/20 00:00 71 02/29/20 23:48 84 20 132/59 L 86 L 02/29/20 23:34 84 18 146/83 H 82 L 02/29/20 23:18 82 20 153/65 H 94 02/29/20 23:03 80 23 137/61 90 02/29/20 22:48 75 19 136/54 L 92 02/29/20 22:35 71 19 95 02/29/20 22:34 69 10 L 129/54 L 91 02/29/20 22:30 72 15 87 L 02/29/20 22:18 75 24 136/58 L 91 02/29/20 22:03 70 23 145/54 H 86 L 02/29/20 22:00 73 22 92 02/29/20 21:52 69 21 119/63 92 02/29/20 21:30 58 L 13 91 02/29/20 21:18 63 25 H 127/53 L 90 I reviewed vital signs, labs and imaging Coding Level of Care Code Critical Care 1st 30-74 mins Diagnoses Unresponsiveness R41.89 ICD (implantable cardioverter-defibrillator), dual, in situ Z95.810 Atrial tachycardia I47.1 CAD (coronary artery disease) I25.10 Acute renal failure N17.9 Hx of CABG Z95.1 Ventricular tachycardia I47.2 Elevated troponin I level R79.89 Time Spent (min) 32
--- NOTE | 2020-03-01 09:42 | XRay Report ---
XR shoulder LT min 2V routine CLINICAL HISTORY: Left shoulder pain status post trauma COMPARISON: None. DISCUSSION: No acute fractures or dislocations are visualized. The heart appears enlarged. There are postsurgical changes of midline sternotomy. Is a left subclavian pacemaker. There is mild vascular pr ominence. IMPRESSION: No acute fractures or dislocations identified. ACT 112: Negative or not required by law. Electronically signed by: Boris Hernandez M.D. 03/01/2020 9:40 AM
[2020-03-01] MEDS: NORMOSOL-R 1,000 ML IV SCH ×2 (10:23→21:31)
--- NOTE | 2020-03-01 10:23 | Cardiology Progress Note ---
Date of Service March 01, 2020 Assessment & Plan (1) Unresponsiveness: I believe he had loss of consciousness prior to his transfer to the emergency room, although he does not recall that. What ever the event was (unresponsiveness or prolonged presyncope) it does coincide with a prolonged episode of ventricular tachycardia. (2) ICD (implantable cardioverter-defibrillator), dual, in situ: His ICD is working well although there is some difficulty with tachycardia detection due to the slow rate of his ventricular tachycardia at times and the presence of a dual tachycardia with atrial tachycardia and ventricular tachycardia. This led to some prolonged detection times and his symptoms. Device interrogation indicates that he has had a dramatic falloff in activity over the last several months consistent with his symptoms, additionally he has had frequent episodes of ventricular tachycardia receiving ICD shocks (12 episodes) over the last several weeks but none before that. He has also had identification of this atrial tachycardia over the last 3 or 4 days, whereas he did not have much of that before these recent events. This suggests there is something like ischemia causing these abnormalities. (3) Ventricular tachycardia: He has had frequent episodes of ventricular tachycardia identified recently, prior to that have been under good control. During his last hospitalization he was having a lot of ventricular tachycardia, on transfer to [facility] he was treated for ischemia and had good control of his arrhythmia until recently. I suspect his arrhythmia is ischemic base, although that is unusual with sustained monomorphic VT. He seems to have other evidence of ischemia currently and therefore I would recommend treating him with anticoagulation and nitroglycerin to control ischemia, continue his oral amiodarone for now and increase his beta-vianney if possible. If he has more VT we can consider other options. (4) CAD (coronary artery disease): He has known coronary artery disease, and 2018 control of his VT was achieved by stent placement. I believe we need to look at his coronary arteries again and we will tentatively plan on that for tomorrow, it was scheduled for today however due to worsening kidney function we are going to hold off on that. He is agreeable. (5) Ischemic cardiomyopathy: In 2018 his left ventricular ejection fraction was 35 to 40%. It has not changed significantly therefore worsening of left ventricular function is non- explanation for his increased ectopy. (6) Chronic kidney disease, stage III (moderate): He does have chronic kidney disease, however his creatinine has increased since admission which is worrisome in view of a anticipated dye load. We will wait until at least tomorrow to perform catheterization. (7) Atrial tachycardia: He has an atrial tachycardia which has been quite frequent and more prominent recently than in the past based on ICD monitoring. That has resulted in a dual tachycardia recently which created a situation prolonging ICD dete ction and therapy. This may have to be addressed over the long run either with programming or additional AV molly blocking medications. Admission and Anticipated Discharge Date Admission Date: February 29, 2020 Subjective He is complaining of left shoulder pain, no chest discomfort. Physical Exam Physical Exam: Constitutional: Alert, cooperative and in no distress. HEENT: Unremarkable Neck: No jugular venous distention, carotid pulses are normal and equal bilaterally without bruits. Pulmonary: Clear to auscultation bilaterally. Cardiac: Regular rhythm with no murmur, gallop or rub. Abdomen: Soft, nontender with normal bowel sounds. Extremities: No edema. Distal pulses intact. Neurologic: No focal findings. Gait is steady. Skin: No rash, ecchymoses or petechiae. His left-sided ICD site is well-healed without erythema, swelling or tenderness. Results & Data ([facility]) Vital Signs (Past 12 Hours) Vital Signs Temp Pulse Resp BP Pulse Ox 03/01/20 05:29 61 21 111/39 L 90 03/01/20 04:29 36.7 C 66 28 H 118/45 L 90 03/01/20 03:29 63 29 H 123/49 L 90 03/01/20 02:29 66 27 H 133/48 L 88 L 03/01/20 01:35 82 22 121/49 L 88 L 03/01/20 01:08 80 25 H 147/57 H 87 L 03/01/20 00:18 79 26 H 147/57 H 91 03/01/20 00:03 36.7 C 85 20 127/66 92 03/01/20 00:00 71 02/29/20 23:48 84 20 132/59 L 86 L 02/29/20 23:34 84 18 146/83 H 82 L 02/29/20 23:18 82 20 153/65 H 94 02/29/20 23:03 80 23 137/61 90 02/29/20 22:48 75 19 136/54 L 92 02/29/20 22:35 71 19 95 02/29/20 22:34 69 10 L 129/54 L 91 02/29/20 22:30 72 15 87 L Laboratory Results Cardiac Enzymes 02/29/20 02/29/20 02/29/20 Range/Units 10:40 10:40 16:50 AST 33 (15-37) U/L CK-MB (CK-2) 1.5 (0.5-3.6) ng/ml Troponin I 0.164 H* 0.253 H* (0-0.045) ng/ml 02/29/20 03/01/20 Range/Units 21:25 04:34 AST 29 (15-37) U/L CK-MB (CK-2) (0.5-3.6) ng/ml Troponin I 0.299 H* 0.279 H* (0-0.045) ng/ml Coagulation 02/29/20 02/29/20 02/29/20 Range/Units 12:10 12:54 21:25 PT Cancelled 11.1 APTT Cancelled 27.5 Cancelled 02/29/20 03/01/20 03/01/20 Range/Units 23:27 00:23 04:34 PT APTT 130.5 H* 73.2 H* 78.8 H* CBC 02/29/20 03/01/20 Range/Units 10:40 04:34 WBC 7.84 16.70 H (4.8-10.8) K/uL RBC 3.99 L 3.49 L (4.7-6.1) M/uL Hgb 13.7 L 11.8 L (14.0-18.0) g/dL Hct 39.6 L 34.3 L (42-52) % Plt Count 100 L 111 L (130-400) K/uL Neut # (Auto) 6.08 14.22 H (1.4-6.5) K/uL Lymph # (Auto) 0.85 L 0.79 L (1.2-3.4) K/uL [place] # (Auto) 0.59 1.34 H (0.11-0.59) K/uL Eos # (Auto) 0.24 0.23 (0-0.5) K/uL Baso # (Auto) 0.04 0.05 (0-0.2) K/uL Comprehensive Metabolic Panel 02/29/20 02/29/20 03/01/20 Range/Units 10:40 16:50 04:34 Sodium 142 139 135 L (136-145) mmol/L Potassium 3.6 3.9 4.7 D (3.5-5.1) mmol/L Chloride 107 106 105 (98-107) mmol/L Carbon Dioxide 28 27 28 (21-32) mmol/L BUN 28 H 25 H 27 H (7-18) mg/dl Creatinine 1.67 H 1.59 H 2.06 H D (0.6-1.4) mg/dl Glucose 181 H 200 H 196 H (70-99) mg/dl Calcium 8.5 8.3 L 7.9 L (8.5-10.1) mg/dl AST 33 29 (15-37) U/L ALT 49 43 (12-78) U/L Alkaline Phosphatase 148 H 124 H (45-117) U/L Total Protein 6.7 6.4 (6.4-8.2) gm/dl Albumin 3.5 3.1 L (3.4-5.0) gm/dl Intake and Output 02/29/20 03/01/20 03/01/20 22:59 06:59 14:59 Intake Total 420 / 831.25 111.25 / 831.25 82.117 / 82.117 Output Total 1010 / 1010 Balance 420 / -178.75 -898.75 / -178.75 82.117 / 82.117 Intake: IV 200 / 611.25 111.25 / 611.25 82.117 / 82.117 HEPARIN SODIUM/DEXTROSE 25,000 0 / 111.25 111.25 / 111.25 34.467 / 34.467 units In 500 ml @ 1,100 UNITS/ HR 22 mls/hr IV .[id number] SHADI Rx #:[id number] MAGNESIUM SULFATE / D5W 1 gm In 200 / 200 100 ml @ 200 mls/hr IV Q30M SHADI Rx#:[id number] NITROGLYCERIN/D5w 100 Mcg/Ml 47.65 / 47.65 250 ML @ 5 MCG/MIN 3 mls/hr IV .Q24H SHADI Rx#:[id number] Oral 220 / 220 Output: Urine Amount (Catheter) 1010 / 1010 Meza/Indwelling 1010 / 1010 Other: Weight 92.2 kg 89.4 kg Diagnostic Findings Telemetry: Probable sinus rhythm, no ventricular tachycardia Echocardiogram: LVEF 35 to 40%, apical aneurysm, similar to prior. PG Care Time/CCT Total # of Minutes Spent Total Time Spent with Patient: Total time spent is greater than 50% in coordination of care (as documented) at patient's floor/unit and/or counseling patient: Coding Level of Care Code 87878 Subseq Hosp Care Lvl 3 Diagnoses Unresponsiveness R41.89 ICD (implantable cardioverter-defibrillator), dual, in situ Z95.810 Ventricular tachycardia I47.2 CAD (coronary artery disease) I25.10 Ischemic cardiomyopathy I25.5 Chronic kidney disease, stage III (moderate) N18.3 Atrial tachycardia I47.1
[2020-03-01 10:29] LABS: Folate (Folic Acid) 14.29 ng/ml (>5.38)
[2020-03-01] MEDS: DOCUSATE SODIUM 100 MG CAP PO SCH ×2 (10:30→21:30)
[2020-03-01] MEDS: SENNA 8.6 MG TAB PO SCH (10:30)
[2020-03-01] MEDS: POLYETHYLENE (MIRALAX) 17 GM PACK PO SCH (10:31)
[2020-03-01] MEDS: INSULIN GLARGINE SOLOSTAR 100 UNITS/ML 3 ML PEN SC SCH (10:32)
[2020-03-01] MEDS: ASPIRIN 81 MG ECTAB PO SCH (12:22)
[2020-03-01] MEDS: HEPARIN SODIUM/DEXTROSE 25,000 UNITS/500 ML BAG IV SCH ×2 (13:45→17:30)
--- NOTE | 2020-03-01 14:18 | Electrocardiogram Report ---
Test Reason : Blood Pressure : / mmHG Vent. Rate : 068 BPM Atrial Rate : 416 BPM P-R Int : 000 ms QRS Dur : 152 ms QT Int : 490 ms P-R-T Axes : 000 083 199 degrees QTc Int : 521 ms Possible wandering atrial pacemaker Left bundle branch block Abnormal ECG When compared with ECG of 29-FEB-2020 10:39, (unconfirmed) No significant change was found Confirmed by Roge Haines ([id number]) on 03/01/2020 2:18:15 PM Referred By: [facility] Confirmed By:Roge Haines
[2020-03-01 17:55] LABS: Partial Thromboplastin Ratio 2.4; Partial Thromboplastin Time 66.8 Seconds (21.0-31.0)
[2020-03-01] MEDS: ROSUVASTATIN CALCIUM 20 MG TAB PO SCH (21:30)
--- NOTE | 2020-03-01 23:52 | Hospitalist Progress Note ---
Date of Service March 01, 2020 Assessment & Plan (1) Syncope: 74-year-old male with a past medical history of V. tach, ischemic cardiomyopathy, AICD in place, admitted for syncopal episodes, elevated troponin and concern for cardiac ischemia. - Syncope likely secondary to VT/Afib episodes on AICD interrogation - AICD fired on Feb 16, [patient denies feelings these] - continuous cardiac monitoring -AICD interrogation showed VT - optimize/replete electrolytes as necessary -Cardiology consultation appreciated-plan for possible cardiac catheterization tomorrow as increased frequent V. tach may be secondary to worsening underlying ischemia (2) Elevated troponin I level: most likely demand ischemia with repeated runs of Afib/VT as well as from being shocked this morning; however, suspect underlying ischemia as above contributing to recurrent V. tach trending trops: increased to .299 continue nitrog drip and heparin (3) Ventricular tachycardia: With several runs of V. tach requiring shocks as per ICD/pacer interrogation with cardiology in the ER Continue amiodarone 400 mg daily -Replete electrolytes as above Continue carvedilol and titrate upwards to 25 mg p.o. twice daily if tolerated (4) ICD (implantable cardioverter-defibrillator), dual, in situ: Placed for moderate ischemic cardiomyopathy and history of V. tach (5) Atrial fibrillation: New onset, noted on ECG here and on interrogation of pacemaker Cardio however described as atrial tachycardia, currently rate is normal with regular rhythm [id number] score significantly elevated at 7 Heparin drip with bolus for anticoagulation TTE ordered Cardiology consult Continue carvedilol 12.5 BID, Amiodarone 400 daily (6) CAD (coronary artery disease): hx 3V CABG as well as multiple JENNIFER remotely With left shoulder pain is anginal equivalent here relieved with nitroglycerin, mildly elevated troponin plan for cath in [facility] continue ASA, statin, carvedilol Holding losartan for mild increase in creatinine and plan for cardiac catheterization tomorrow (7) Ischemic cardiomyopathy: medications continued as above Most recent EF 35-40% on echo from 2018 Not volume overloaded at this time (8) Chronic kidney disease, stage III (moderate): Cr 1.67 at admission, roughly same as prior admissions daily BMP (9) Hx of CABG: As above (10) COPD (chronic obstructive pulmonary disease): No acute issues CT of the chest with chronic pleural thickening and atelectasis, emphysematous changes Continue incruse ellipta albuterol PRN for SOB O2 goal >88% not on oxygen at baseline (11) Hypothyroid: TSH 5.8 on admission no hx thyroid disease Free T4 ordered for AM may contribute to tachycardic episodes (12) Splenomegaly: Noted to be mildly enlarged on CT scan at 13.5 cm With mild thrombocytopenia Follow as an outpatient (13) Thrombocytopenia: Platelets low at 100 but fairly stable from the past 2 years Splenomegaly may be contributing Perhaps has ITP or underlying liver issues? Check peripheral smear with CBC in the morning Consider hematology consultation as an outpatient Check B12 levels in the morning (14) Anemia: Macrocytic, mild Checking B12 and folate levels in the morning Follow CBC Peripheral smear as above (15) Hyperlipidemia: Continue statin high intensity for severe CAD (16) Diabetes mellitus: Most recent hemoglobin A1c was from 2018 and was 5.8% With blood glucose 200 here Check hemoglobin A1c in the morning Place on NovoLog supplemental insulin before meals and at bedtime with Accu- Cheks Is not on medications at home (17) Chronic systolic CHF (congestive heart failure): Noted as above and ischemic cardiomyopathy Continue guideline directed medical therapy with carvedilol and titrate up as able to, losartan which is currently on hold for mildly elevated creatinine in anticipation of cardiac catheterization, and Aldactone -Holding home Lasix (18) Peripheral arterial disease with history of revascularization: With a history of right lower extremity superficial femoral artery and right popliteal artery occlusions with angioplasty and stenting in 2018 Continue aspirin, statin (19) History of CVA (cerebrovascular accident): With a history of such, CT head here with small focus of encephalomalacia in the right frontal lobe favoring an old infarct Continue aspirin, statin Now on heparin drip for atrial fibrillation (20) Pancreatic cyst: Noted incidentally on CT scan with 2.2 cm cyst Needs outpatient follow-up (21) DVT prophylaxis: DVT ppx: on heparin drip FEN/GI: heart healthy, low sodium, NPO at [place] Code Status: Full Code Dispo: ICU for monitoring on nitro drip given frequent AICD firings Admission and Anticipated Discharge Date Admission Date: February 29, 2020 Subjective Patient reports left shoulder pain, it is moderate and dull. Non radiating. No other symptoms. Review of Systems Review of Systems: All systems reviewed & are unremarkable except as noted in HPI & below Physical Exam Physical Exam: Constitutional: prisoner in no apparent distress, laying comfortably in bed Eyes: EOMI, pupils equal and reactive bilaterally, no scleral icterus Cardiac: RRR, no murmurs, gallops or rubs. Normal S1, S2 Pulm: CTA BL, no wheezes, rhonchi, crackles or rubs, moving air well throughout both lungs Abd: soft, tender to palp in RLQ, nondistended, normal bowel sounds, no rebound or guarding, tympanic to percussion at upper quadrants Extremities: 2+ peripheral pulses, no edema, Neuro: no focal deficits, moving all 4 limbs, A&Ox3 Results & Data Results & Data ([facility]) Vital Signs (Past 12 Hours) Vital Signs Temp Pulse Resp BP Pulse Ox 03/01/20 21:44 60 22 109/47 L 95 03/01/20 21:30 62 17 93/50 L 91 03/01/20 20:29 60 20 93/44 L 95 03/01/20 20:00 36.8 C 03/01/20 19:29 60 21 100/42 L 93 03/01/20 18:00 37.0 C 60 22 90 03/01/20 17:31 60 24 90 03/01/20 17:29 60 22 94/44 L 90 03/01/20 17:00 37.2 C 61 20 89 L 03/01/20 16:31 64 18 88 L 03/01/20 16:29 64 15 106/52 L 90 03/01/20 16:00 64 19 91 03/01/20 15:31 70 23 91 03/01/20 15:29 64 24 100/47 L 92 03/01/20 15:00 63 22 91 03/01/20 14:31 53 L 24 92 03/01/20 14:29 60 23 109/47 L 93 03/01/20 13:29 53 L 27 H 114/52 L 92 03/01/20 12:29 57 L 27 H 104/52 L 92 PG Care Time/CCT Total # of Minutes Spent Total Time Spent with Patient: Total time spent is greater than 50% in coordination of care (as documented) at patient's floor/unit and/or counseling patient: Coding Level of Care Code 76986 Subseq Hosp Care Lvl 3 Diagnoses Syncope R55 Elevated troponin I level R79.89 Ventricular tachycardia I47.2 ICD (implantable cardioverter-defibrillator), dual, in situ Z95.810 Atrial fibrillation I48.91 CAD (coronary artery disease) I25.10 Ischemic cardiomyopathy I25.5 Chronic kidney disease, stage III (moderate) N18.3 Hx of CABG Z95.1 COPD (chronic obstructive pulmonary disease) J44.9 Hypothyroid E03.9 Splenomegaly R16.1 Thrombocytopenia D69.6 Anemia D64.9 Hyperlipidemia E78.5 Diabetes mellitus E11.9 Chronic systolic CHF (congestive heart failure) I50.22 Peripheral arterial disease with history of revascularization I73.9; Z98.890 History of CVA (cerebrovascular accident) Z86.73 Pancreatic cyst K86.2 DVT prophylaxis Z29.9 Time Spent (min) 35
[2020-03-02 00:46] LABS: Partial Thromboplastin Ratio 2.1
[2020-03-02 00:51] LABS: Partial Thromboplastin Time 57.5 Seconds (21.0-31.0)
[2020-03-02 04:55] LABS: Hematocrit (blood only) 28.1 % (42-52); Hemoglobin 9.6 g/dL (14.0-18.0); Mean Corpuscular Hemoglobin 33.6 pg (25-34); Mean Corpuscular Hgb Conc 34.2 g/dL (32-36); Mean Corpuscular Volume 98.3 fL (80-100); RDW Standard Deviation 50.5 fL (36.4-46.3); Red Blood Count 2.86 M/uL (4.7-6.1); White Blood Count 10.56 K/uL (4.8-10.8)
[2020-03-02 05:18] LABS: Platelet Count 91 K/uL (130-400)
[2020-03-02 05:19] LABS: Basophils # (auto) 0.03 K/uL (0-0.2); Basophils % (auto) 0.3 %; Eosinophils # (auto) 0.23 K/uL (0-0.5); Eosinophils % (auto) 2.2 %; Immature Granulocytes # (auto) 0.06 K/uL (0.00-0.02); Immature Granulocytes % (auto) 0.6 %; Lymphocytes # (auto) 0.97 K/uL (1.2-3.4); Lymphocytes % (auto) 9.2 %; Monocytes # (auto) 1.12 K/uL (0.11-0.59); Monocytes % (auto) 10.6 %; Neutrophils # (auto) 8.15 K/uL (1.4-6.5); Neutrophils % (auto) 77.1 %; Platelet Estimate Decreased (Normal)
[2020-03-02 05:20] LABS: Partial Thromboplastin Ratio 1.8
[2020-03-02 05:22] LABS: BUN Creatinine Ratio 16.5 (10-20); Calcium 7.6 mg/dl (8.5-10.1); Creatinine Clr Calc Pharmacy 29.9 ml/min; Est GFR (African American) 29.4; Est GFR (Non-African American) 25.3; Magnesium 2.6 mg/dl (1.8-2.4); Potassium 4.1 mmol/L (3.5-5.1)
[2020-03-02 05:23] LABS: Phosphorus 3.5 mg/dl (2.5-4.9)
[2020-03-02] MEDS: NITROGLYCERIN/D5W 100MCG/ML 250 ML IV SCH (07:59)
[2020-03-02] MEDS: HEPARIN SODIUM/DEXTROSE 25,000 UNITS/500 ML BAG IV SCH (07:59)
[2020-03-02] MEDS: DOCUSATE SODIUM 100 MG CAP PO SCH ×2 (08:02→20:39)
[2020-03-02] MEDS: ASPIRIN 81 MG ECTAB PO SCH (08:02)
[2020-03-02] MEDS: AMIODARONE 200 MG TAB PO SCH (08:02)
[2020-03-02] MEDS: INSULIN GLARGINE SOLOSTAR 100 UNITS/ML 3 ML PEN SC SCH (08:02)
[2020-03-02] MEDS: PANTOprazole 40 MG TAB PO SCH (08:02)
[2020-03-02] MEDS: POLYETHYLENE (MIRALAX) 17 GM PACK PO SCH (08:02)
[2020-03-02] MEDS: SENNA 8.6 MG TAB PO SCH (08:02)
[2020-03-02] MEDS: UMECLIDINIUM BROMIDE 62.5MCG/BLISTER 7 PUFFS/INHALER INH SCH (08:02)
[2020-03-02] MEDS: CLOPIDOGREL BISULFATE 75 MG TAB PO SCH (08:02)
[2020-03-02] MEDS: INSULIN ASPART 100 UNITS/ML 3 ML PEN SC SCH ×4 (08:03→20:39)
--- NOTE | 2020-03-02 08:29 | Critical Care Progress Note ---
Date of Service March 02, 2020 Assessment & Plan (1) Unresponsiveness: Patient with evidence of worsening renal failure this morning. Consulting nephrology for evaluation. Possible etiologies include cardiorenal failure versus ischemic ATN. No evidence of significant hypotension during this admission, but perhaps he had hypotension prior to the admission. Will defer diuretic therapy to cardiology. Left heart cath is on hold currently due to elevated creatinine. Holding lisinopril and spironolactone at this time due to SUSAN. Defer management of anticoagulation to cardiology at this time as patient is on heparin drip. Continue dual antiplatelet therapy. Decrease his aspirin from 324 mg to 81 mg yesterday. Continue amiodarone for his history of ventricular tachycardia and atrial tachycardia. Continue statin. Carvedilol is currently on hold due to his periodic bradycardia and borderline hypotension. Discontinue nitroglycerin. Continue Incruse Ellipta given his history of COPD. No evidence of exacerbation at this time. Patient can likely be transferred to the floor with telemetry. (2) ICD (implantable cardioverter-defibrillator), dual, in situ: (3) Atrial tachycardia: (4) CAD (coronary artery disease): (5) Acute renal failure: (6) Hx of CABG: (7) Ventricular tachycardia: (8) Elevated troponin I level: Admission and Anticipated Discharge Date Admission Date: February 29, 2020 Subjective Patient with some mild left shoulder pain today. Tolerating his breakfast okay. No chest pain overnight. No significant hemodynamic issues. Review of Systems Review of Systems: All systems reviewed & are unremarkable except as noted in HPI & below Physical Exam Constitutional: WD/WN, vitals as above Eyes: PERRL, conjunctivae normal, anicteric sclerae ENMT: external ear and nose normal, oropharynx normal Neck: normal visual inspection Respiratory: no retractions Auscultation: + crackles Cardiovascular: RRR, no murmur, no edema Gastrointestinal (Abdomen): normal bowel sounds, soft, nontender, no h epatosplenomegaly Musculoskeletal: no cyanosis or clubbing, extremities motor strength 5/5 Skin: no rashes, warm and dry Neurologic: PERRL, EOMI, accommodation nl, no face palsy, no dysarthria Psychiatric: A+Ox3, euthymic affect Results & Data Results & Data ([facility]) Vital Signs (Past 12 Hours) Vital Signs Temp Pulse Resp BP Pulse Ox 03/02/20 06:14 68 19 120/55 L 95 03/02/20 05:44 68 17 107/48 L 97 03/02/20 05:14 67 20 118/51 L 97 03/02/20 04:44 66 17 84/47 L 97 03/02/20 04:26 98.6 F 03/02/20 04:14 67 23 110/50 L 92 03/02/20 03:44 65 22 111/49 L 93 03/02/20 03:14 65 19 109/49 L 95 03/02/20 02:44 65 25 H 112/50 L 94 03/02/20 02:14 65 21 112/47 L 93 03/02/20 01:44 64 17 109/48 L 95 03/02/20 01:14 63 18 107/48 L 94 03/02/20 00:44 60 24 98/49 L 96 03/02/20 00:14 98.6 F 60 22 114/47 L 95 03/01/20 23:44 60 22 106/45 L 95 03/01/20 23:14 60 22 106/47 L 93 03/01/20 22:44 60 21 100/48 L 94 03/01/20 22:14 60 22 110/48 L 95 03/01/20 21:44 60 22 109/47 L 95 03/01/20 21:30 62 17 93/50 L 91 03/01/20 20:29 60 20 93/44 L 95 reviewed vital signs, labs and imaging Coding Level of Care Code 09510 Subseq Hosp Care Lvl 3 Diagnoses Unresponsiveness R41.89 ICD (implantable cardioverter-defibrillator), dual, in situ Z95.810 Atrial tachycardia I47.1 CAD (coronary artery disease) I25.10 Acute renal failure N17.9 Hx of CABG Z95.1 Ventricular tachycardia I47.2 Elevated troponin I level R79.89
[2020-03-02] MEDS ORDERED: NORMOSOL-R 1,000 ML IV SCH (08:30)
[2020-03-02] MEDS ORDERED: FUROSEMIDE 40 MG in SYRINGE 0 ML IV ONE (08:45)
--- NOTE | 2020-03-02 10:49 | Nephrology Consultation ---
Date of Consultation March 02, 2020 Assessment & Plan (1) SUSAN (acute kidney injury): Clinically consistent with ATN in setting of hemodynamic instability. Non- oliguric. Losartan has been held. Diuretics held. Volume status acceptable. BP appropriate. Medications appropriately dosed for kidney function. Dose adjustment of Rosuvastatin to 10 mg daily for renal dysfunction has been made. Electrolytes are normal. There is no emergent role for dialysis. Increased JVD and evidence of predominately R heart failure. IVF's have been stopped. Diuretics to be provided as needed to encourage a slightly negative fluid balance. Repeat metabolic profile tomorrow AM. (2) Chronic systolic CHF (congestive heart failure): Volume status acceptable. Furosemide PRN to encourage slightly negative fluid balance (3) Ischemic cardiomyopathy: Catheterization deferred due to SUSAN. Discussed with Dr. Angela this AM. Will monitor. (4) Chronic kidney disease, stage III (moderate): Baseline creatinine ~1.6 mg/dL. UA bland with acellular microscopy. History of Present Illness Reason for Consultation: SUSAN/CKD Requesting Physician: Monika Pardo DO Attending Physician: Monika Pardo DO History of Present Illness Mr. Jarrell Arnett is a 74-year-old male with hypertension, PAD, COPD, ischemic cardiomyopathy, DMII, and CKD III. CKD attributed to microvascular disease. He is aware of his CKD and relates that he has had regular follow up with telehealth nephrology consultation for the past 2 years at the [facility]. Medical history includes coronary intervention in June 2007 as well as bypass surgery July 08, 1999. He has a dual-chamber ICD placed in 2014. He presented to [facility] in 2017 when he presented with a superficial femoral artery occlusion on the right and had surgery in September 2017. Postoperatively he suffered sustained ventricular tachycardia. He was transferred to [facility] and underwent coronary angiography with PCI. Melquiades is an inmate at [facility]. Recent history includes decreased activity tolerance and increasing BALLARD. It is reported that he has had exertional angina which has limited his activities. He also experienced recent episodes of lightheadedness and presyncope. Melquiades was admitted for evaluation of syncopal episodes, elevated troponin, and concern for cardiac ischemia. Based on interrogation of ICD, syncope is likely secondary to VT/Afib episodes. AICD fired on Feb 16, , and . Hospital course notable for new onset atrial fibrillation noted on ECG as well as interrogation of pacemaker as well as episodes of ventricular tachycardia. Melquiades remains on amiodarone with titration of his beta-vianney. Cardiac catheterization was planned for today but deferred due to worsening kidney function. Serum creatinine has risen from 1.67 mg/dL on admission to 2.45 mg/dL today. Melquiades has been maintained in a positive fluid balance. Meza intact. CT of the abdomen and pelvis on admission did not demonstrate any evidence of obstruction. Allergies Allergy/AdvReac Type Severity Reaction Status Date / Time tetracycline Allergy Unknown rash Unverified 11/25/17 10:36 azithromycin Allergy Unknown Unverified 02/29/20 11:31 wool Allergy Unknown Unverified 02/29/20 11:32 Home Medications Home Medications Medication Instructions Recorded Confirmed Type acetaminophen 650 mg PO QID PRN 02/29/20 02/29/20 History amiodarone 400 mg PO DAILY 02/29/20 02/29/20 History aspirin 325 mg PO DAILY 02/29/20 02/29/20 History carvedilol 12.5 mg PO BID 02/29/20 02/29/20 History clopidogrel 75 mg PO DAILY 02/29/20 02/29/20 History furosemide 40 mg PO PM 02/29/20 02/29/20 History furosemide 80 mg PO QAM 02/29/20 02/29/20 History glyburide 5 mg PO BID 02/29/20 02/29/20 History levalbuterol tartrate [Xopenex HFA] 2 inh INHALATION Q6H PRN 02/29/20 02/29/20 History losartan 25 mg PO DAILY 02/29/20 02/29/20 History nitroglycerin 0.4 mg SUBLINGUAL UD PRN 02/29/20 02/29/20 History nortriptyline 50 mg PO PM 02/29/20 02/29/20 History omeprazole 20 mg PO DAILY 02/29/20 02/29/20 History rosuvastatin 40 mg PO HS 02/29/20 02/29/20 History spironolactone 50 mg PO DAILY 02/29/20 02/29/20 History umeclidinium [Incruse Ellipta] 1 inh INHALATION DAILY 02/29/20 02/29/20 History Patient History Medical History Anemia Atrial fibrillation CAD (coronary artery disease) Chronic kidney disease, stage III (moderate) Chronic systolic CHF (congestive heart failure) COPD (chronic obstructive pulmonary disease) Diabetes mellitus Elevated troponin I level GERD (gastroesophageal reflux disease) History of CVA (cerebrovascular accident) Hyperkalemia Hyperlipidemia Hypothyroid ICD (implantable cardioverter-defibrillator), dual, in situ Ischemia of right lower extremity Ischemic cardiomyopathy Pancreatic cyst Peripheral arterial disease with history of revascularization SIRS (systemic inflammatory response syndrome) Splenomegaly Superficial femoral artery occlusion Thrombocytopenia Ventricular tachycardia Surgical History History of mitral valve repair History of permanent cardiac pacemaker placement Hx of CABG Stented coronary artery Family History Other Family history non-contributory Social History Smoking Status: Former smoker Second Hand Exposure: No; Hx Alcohol Use: No Hx Substance Use: No Preferred Language: Korean Communication Ability: Effective Community Engagement Representative Required: No Beliefs That Will Affect Care: None marital status: Unknown Current Living Situation: Other Current Living Situation Comment: shaun Feels Safe at Home: Yes Assistive Devices: Oxygen - Continuous Review of Systems Review of Systems: All systems reviewed & are unremarkable except as noted in HPI & below Physical Exam Constitutional: well developed and + thin; no acute distress Eyes: + anicteric sclerae; no corneal abnormality ENMT: Mouth: no oral mucosal abnormality and oral mucous membranes not dry Neck: normal visual inspection and trachea midline Respiratory: normal respiratory effort Auscultation: lungs clear to auscultation bilaterally Cardiovascular: Rate/Rhythm: regular rate Heart Sounds: normal S1 and norm al S2 Extremities: no edema AICD right upper chest wall Gastrointestinal (Abdomen): Percussion/Palpation: abdomen soft; abdomen nontender Musculoskeletal: Extremities: no cyanosis and no clubbing Skin: normal turgor; no lesions Neurologic: Motor/Sensory: no tremor and no asterixis Psychiatric: Orientation: alert and oriented x 3 Genitourinary: Meza draining clear yellow urine Results & Data ([facility]) Vital Signs (Past 12 Hours) Vital Signs Temp Pulse Resp BP Pulse Ox 03/02/20 06:14 68 19 120/55 L 95 03/02/20 05:44 68 17 107/48 L 97 03/02/20 05:14 67 20 118/51 L 97 03/02/20 04:44 66 17 84/47 L 97 03/02/20 04:26 37.0 C 03/02/20 04:14 67 23 110/50 L 92 03/02/20 03:44 65 22 111/49 L 93 03/02/20 03:14 65 19 109/49 L 95 03/02/20 02:44 65 25 H 112/50 L 94 03/02/20 02:14 65 21 112/47 L 93 03/02/20 01:44 64 17 109/48 L 95 03/02/20 01:14 63 18 107/48 L 94 03/02/20 00:44 60 24 98/49 L 96 03/02/20 00:14 37.0 C 60 22 114/47 L 95 03/01/20 23:44 60 22 106/45 L 95 03/01/20 23:14 60 22 106/47 L 93 Laboratory Results Laboratory Results - last 24 hr 03/01/20 03/01/20 03/01/20 10:28 11:41 15:56 WBC RBC Hgb Hct MCV MCH MCHC RDW Std Deviation RDW Coeff of Andrew Plt Count MPV Immature Gran % (Auto) Neut % (Auto) Lymph % (Auto) [place] % (Auto) Eos % (Auto) Baso % (Auto) Neut # (Auto) Lymph # (Auto) [place] # (Auto) Eos # (Auto) Baso # (Auto) Immature Gran # (Auto) Platelet Estimate APTT 112.0 H* PTT Ratio 4.0 Sodium Potassium Chloride Carbon Dioxide Anion Gap BUN Creatinine Est Cr Clr Drug Dosing Est GFR ( Amer) Est GFR (Non-Af Amer) BUN/Creatinine Ratio Glucose POC Glucose 176 H 181 H Calcium Phosphorus Magnesium Total Creatine Kinase 03/01/20 03/01/20 03/02/20 17:20 21:24 00:10 WBC RBC Hgb Hct MCV MCH MCHC RDW Std Deviation RDW Coeff of Andrew Plt Count MPV Immature Gran % (Auto) Neut % (Auto) Lymph % (Auto) [place] % (Auto) Eos % (Auto) Baso % (Auto) Neut # (Auto) Lymph # (Auto) [place] # (Auto) Eos # (Auto) Baso # (Auto) Immature Gran # (Auto) Platelet Estimate APTT 66.8 H* 57.5 H* PTT Ratio 2.4 2.1 Sodium Potassium Chloride Carbon Dioxide Anion Gap BUN Creatinine Est Cr Clr Drug Dosing Est GFR ( Amer) Est GFR (Non-Af Amer) BUN/Creatinine Ratio Glucose POC Glucose 160 H Calcium Phosphorus Magnesium Total Creatine Kinase 03/02/20 03/02/20 03/02/20 04:44 04:44 04:44 WBC 10.56 RBC 2.86 L Hgb 9.6 L Hct 28.1 L MCV 98.3 MCH 33.6 MCHC 34.2 RDW Std Deviation 50.5 H RDW Coeff of Andrew 14.0 Plt Count 91 L MPV 10.0 Immature Gran % (Auto) 0.6 Neut % (Auto) 77.1 Lymph % (Auto) 9.2 [place] % (Auto) 10.6 Eos % (Auto) 2.2 Baso % (Auto) 0.3 Neut # (Auto) 8.15 H Lymph # (Auto) 0.97 L [place] # (Auto) 1.12 H Eos # (Auto) 0.23 Baso # (Auto) 0.03 Immature Gran # (Auto) 0.06 H Platelet Estimate Decreased L APTT 51.0 H* PTT Ratio 1.8 Sodium 136 Potassium 4.1 Chloride 104 Carbon Dioxide 27 Anion Gap 5.0 BUN 41 H D Creatinine 2.45 H D Est Cr Clr Drug Dosing 29.9 Est GFR ( Amer) 29.4 Est GFR (Non-Af Amer) 25.3 BUN/Creatinine Ratio 16.5 Glucose 164 H POC Glucose Calcium 7.6 L Phosphorus 3.5 Magnesium 2.6 H Total Creatine Kinase 03/02/20 03/02/20 07:44 10:15 WBC RBC Hgb Hct MCV MCH MCHC RDW Std Deviation RDW Coeff of Andrew Plt Count MPV Immature Gran % (Auto) Neut % (Auto) Lymph % (Auto) [place] % (Auto) Eos % (Auto) Baso % (Auto) Neut # (Auto) Lymph # (Auto) [place] # (Auto) Eos # (Auto) Baso # (Auto) Immature Gran # (Auto) Platelet Estimate APTT PTT Ratio Sodium Potassium Chloride Carbon Dioxide Anion Gap BUN Creatinine Est Cr Clr Drug Dosing Est GFR ( Amer) Est GFR (Non-Af Amer) BUN/Creatinine Ratio Glucose POC Glucose 183 H Calcium Phosphorus Magnesium Total Creatine Kinase [address] abdomen and pelvis personally reviewed. Kidneys are normal in size and appearance. There is a 7 mm lower pole right renal hypodensity likely representing a cyst. Echocardiogram with an EF of 35 to 40%. Large apical aneurysm noted. Akinetic apex. Posterior mitral valve leaflet is thickened and fixed consistent with prior mitral valve surgery. Annuloplasty ring is present in the mitral position. Moderate mitral regurgitation noted. Mild mitral stenosis. RVSP estimated 40 to 50 mmHg. PG Care Time/CCT Total # of Minutes Spent Total Time Spent with Patient: Total time spent is greater than 50% in coordination of care (as documented) at patient's floor/unit and/or counseling patient: Coding Level of Care Code 52903 Inpt Consult Level 4 Diagnoses SUSAN (acute kidney injury) N17.9 Chronic systolic CHF (congestive heart failure) I50.22 Ischemic cardiomyopathy I25.5 Chronic kidney disease, stage III (moderate) N18.3
[2020-03-02] MEDS ORDERED: INSULIN GLARGINE SOLOSTAR 100 UNITS/ML 3 ML PEN SC ONE (11:30)
--- NOTE | 2020-03-02 11:43 | Cardiology Progress Note ---
Date of Service March 02, 2020 Assessment & Plan (1) Unresponsiveness: I believe he had loss of consciousness prior to his transfer to the emergency room, although he does not recall that. Whatever the event was (unresponsiveness or prolonged presyncope) it does coincide with a prolonged episode of ventricular tachycardia. It is hard to tell from the ICD diagnostics how long this might of been since it was not detected properly and it will only recognize an arrhythmia if it is detected by the device. (2) ICD (implantable cardioverter-defibrillator), dual, in situ: His ICD is working well although there was some difficulty with tachycar homer detection due to the slow rate of his ventricular tachycardia at times and the presence of a dual tachycardia with atrial tachycardia and ventricular tachycardia. This led to some prolonged detection times and his symptoms. Device interrogation on presentation indicates that he has had a dramatic falloff in activity over the last several months consistent with his symptoms, additionally he has had frequent episodes of ventricular tachycardia receiving ICD shocks (12 episodes) over the last several weeks but none before that. He has also had identification of this atrial tachycardia over the last 3 or 4 days, whereas he did not have much of that before these recent events. This suggests there is something like ischemia causing these abnormalities. I have reprogrammed his ICD to increase the pacing rate as well as to avoid prolonged detection and deliver therapy earlier, hopefully this will prevent the situation that caused his admission in the future. (3) Ventricular tachycardia: He has had frequent episodes of ventricular tachycardia identified recently, prior to that his VT had been under good control. During his last hospitalization in 2018 he was having a lot of ventricular tachycardia, on transfer to [facility] he was treated for ischemia and had good control of his arrhythmia until recently. I suspect his current arrhythmia is on and ischemic basis, although that is unusual with sustained monomorphic VT. He seems to have other evidence of ischemia currently and therefore I would recommend treating him with anticoagulation and nitroglycerin to control ischemia, continue his oral amiodarone for now and increase his beta-vianney if possible. If he has more VT we can consider other options. So far treating ischemia has seemed to control his arrhythmia. (4) CAD (coronary artery disease): He has known coronary artery disease, in 2018 control of his VT was achieved by stent placement. I believe we need to look at his coronary arteries again however we will need to wait until his kidney function shows evidence of improvement. (5) Ischemic cardiomyopathy: In 2018 his left ventricular ejection fraction was 35 to 40%. It has not changed significantly therefore worsening of left ventricular function is non- explanation for his increased ectopy. (6) Chronic kidney disease, stage III (moderate): He does have chronic kidney disease, however his creatinine has increased since admission which is worrisome in view of an anticipated dye load with catheterization. He may have had a more prolonged episode of hypotension then we initially thought which could explain some of his increasing creatinine, additionally he received x-ray dye on February 29, 2020 for his radiology studies. (7) Atrial tachycardia: He has an atrial tachycardia which has been quite frequent and more prominent recently than in the past based on ICD monitoring. That has resulted in a dual tachycardia recently which created a situation prolonging ICD detection and therapy. This may have to be addressed over the long run either with programming or additional AV molly blocking medications. So far during the hospitalization this has not been a problem. Admission and Anticipated Discharge Date Admission Date: February 29, 2020 Subjective Patient has no complaints other than the left shoulder discomfort which has been ongoing. No cardiac symptoms. Physical Exam Physical Exam: Constitutional: Alert, cooperative and in no distress. HEENT: Unremarkable Neck: No jugular venous distention, carotid pulses are normal and equal bilaterally without bruits. Pulmonary: Clear to auscultation bilaterally. Cardiac: Regular rhythm with no murmur, gallop or rub. Abdomen: Soft, nontender with normal bowel sounds. Extremities: No edema. Distal pulses intact. Neurologic: No focal findings. Gait is steady. Skin: No rash, ecchymoses or petechiae. His left-sided ICD site is well-healed without erythema, swelling or tenderness. Results & Data ([facility]) Vital Signs (Past 12 Hours) Vital Signs Temp Pulse Resp BP Pulse Ox 03/02/20 06:14 68 19 120/55 L 95 03/02/20 05:44 68 17 107/48 L 97 03/02/20 05:14 67 20 118/51 L 97 03/02/20 04:44 66 17 84/47 L 97 03/02/20 04:26 37.0 C 03/02/20 04:14 67 23 110/50 L 92 03/02/20 03:44 65 22 111/49 L 93 03/02/20 03:14 65 19 109/49 L 95 09/24/20 02:44 65 25 H 112/50 L 94 03/02/20 02:14 65 21 112/47 L 93 03/02/20 01:44 64 17 109/48 L 95 03/02/20 01:14 63 18 107/48 L 94 03/02/20 00:44 60 24 98/49 L 96 03/02/20 00:14 37.0 C 60 22 114/47 L 95 03/01/20 23:44 60 22 106/45 L 95 Laboratory Results Coagulation 03/01/20 03/01/20 03/02/20 Range/Units 11:41 17:20 00:10 APTT 112.0 H* 66.8 H* 57.5 H* (21.0-31.0) Seconds 03/02/20 Range/Units 04:44 APTT 51.0 H* (21.0-31.0) Seconds CBC 03/02/20 Range/Units 04:44 WBC 10.56 (4.8-10.8) K/uL RBC 2.86 L (4.7-6.1) M/uL Hgb 9.6 L (14.0-18.0) g/dL Hct 28.1 L (42-52) % Plt Count 91 L (130-400) K/uL Neut # (Auto) 8.15 H (1.4-6.5) K/uL Lymph # (Auto) 0.97 L (1.2-3.4) K/uL [place] # (Auto) 1.12 H (0.11-0.59) K/uL Eos # (Auto) 0.23 (0-0.5) K/uL Baso # (Auto) 0.03 (0-0.2) K/uL Comprehensive Metabolic Panel 03/02/20 Range/Units 04:44 Sodium 136 (136-145) mmol/L Potassium 4.1 (3.5-5.1) mmol/L Chloride 104 (98-107) mmol/L Carbon Dioxide 27 (21-32) mmol/L BUN 41 H D (7-18) mg/dl Creatinine 2.45 H D (0.6-1.4) mg/dl Glucose 164 H (70-99) mg/dl Calcium 7.6 L (8.5-10.1) mg/dl Intake and Output 03/01/20 03/02/20 03/02/20 22:59 06:59 14:59 Intake Total 1606.574 / 2349.324 1144.597 / 1144.597 Output Total 310 / 950 540 / 950 Balance 1296.574 / 1399.324 -540 / 1547.085 8538.597 / 1144.597 Intake: IV 996.574 / 4770.246 7644.597 / 1144.597 HEPARIN SODIUM/DEXTROSE 25,000 85.417 / 240.517 184.5 / 184.5 units In 500 ml @ 750 UNITS/HR 15 mls/hr IV .Q24H SHADI Rx#: [id number] NITROGLYCERIN/D5w 100 Mcg/Ml 20.490 / 68.140 5.43 / 5.43 250 ML @ 2.5 MCG/MIN 1.5 mls/hr IV .Q24H SHADI Rx#:[id number] Normosol-R 1,000 ml @ 80 mls/hr 890.667 / 890.667 954.667 / 954.667 IV .[id number] SHADI Rx#:[id number] Oral 610 / 1150 Output: Urine Amount (Catheter) 310 / 950 540 / 950 Meza/Indwelling 310 / 950 540 / 950 Other: Other Intake Source Can of soda and Ice Cream Weight 89.4 kg Diagnostic Findings Telemetry: No ventricular tachycardia, unusual atrial rhythm continues with periods of atrial pacing as well as an atrial rhythm with intact AV conduction. No atrial fibrillation or flutter. ICD evaluation: His ICD was fully evaluated yesterday, we did reprogram his tachycardia detection zones to try to minimize prolonged withholding of therapy. I also increased his pacing rate from 50-60 as that may help since he atrially paces frequently. PG Care Time/CCT Total # of Minutes Spent Total Time Spent with Patient: Total time spent is greater than 50% in coordination of care (as documented) at patient's floor/unit and/or counseling patient: Coding Level of Care Code 21430 Subseq Hosp Care Lvl 2 Diagnoses Unresponsiveness R41.89 ICD (implantable cardioverter-defibrillator), dual, in situ Z95.810 Ventricular tachycardia I47.2 CAD (coronary artery disease) I25.10 Ischemic cardiomyopathy I25.5 Chronic kidney disease, stage III (moderate) N18.3 Atrial tachycardia I47.1
--- NOTE | 2020-03-02 17:12 | Hospitalist Progress Note ---
Date of Service March 02, 2020 Assessment & Plan (1) Syncope: 74-year-old male with a past medical history of V. tach, ischemic cardiomyopathy, AICD in place, admitted for syncopal episodes, elevated troponin and concern for cardiac ischemia. - Syncope likely secondary to VT/Afib episodes on AICD interrogation - AICD fired on Feb 16, [patient denies feelings these] - continuous cardiac monitoring -AICD interrogation showed VT - optimize/replete electrolytes as necessary -Cardiology consultation appreciated-plan for possible cardiac catheterization, however unable to proceed due to elevated creatinine (2) Elevated troponin I level: most likely demand ischemia with repeated runs of Afib/VT as well as from being shocked this morning; however, suspect underlying ischemia as above contributing to recurrent V. tach trending trops: increased to .299 continue nitro drip and heparin (3) Ventricular tachycardia: With several runs of V. tach requiring shocks as per ICD/pacer interroga tion with cardiology in the ER Continue amiodarone 400 mg daily -Replete electrolytes as above Continue carvedilol and titrate upwards to 25 mg p.o. twice daily if tolerated (4) ICD (implantable cardioverter-defibrillator), dual, in situ: Placed for moderate ischemic cardiomyopathy and history of V. tach (5) Atrial fibrillation: New onset, noted on ECG here and on interrogation of pacemaker Cardio however described as atrial tachycardia, currently rate is normal with regular rhythm [id number] score significantly elevated at 7 Heparin drip with bolus for anticoagulation TTE ordered Cardiology consult Continue carvedilol 12.5 BID, Amiodarone 400 daily (6) CAD (coronary artery disease): hx 3V CABG as well as multiple JENNIFER remotely With left shoulder pain is anginal equivalent here relieved with nitroglycerin, mildly elevated troponin continue ASA, statin, carvedilol Holding losartan for mild increase in creatinine and plan for cardiac catheterization tomorrow (7) Ischemic cardiomyopathy: medications continued as above Most recent EF 35-40% on echo from 2018 Not volume overloaded at this time (8) Chronic kidney disease, stage III (moderate): Cr 1.67 at admission, roughly same as prior admissions daily BMP Now is in acute renal failure with cr 2.4 (9) Hx of CABG: As above (10) COPD (chronic obstructive pulmonary disease): No acute issues CT of the chest with chronic pleural thickening and atelectasis, emphysematous changes Continue incruse ellipta albuterol PRN for SOB O2 goal >88% not on oxygen at baseline (11) Hypothyroid: TSH 5.8 on admission no hx thyroid disease Free T4 ordered for AM may contribute to tachycardic episodes (12) Splenomegaly: Noted to be mildly enlarged on CT scan at 13.5 cm With mild thrombocytopenia Follow as an outpatient (13) Thrombocytopenia: Platelets low but fairly stable from the past 2 years Splenomegaly may be contributing Perhaps has ITP or underlying liver issues? Check peripheral smear with CBC in the morning Consider hematology consultation as an outpatient (14) Anemia: Macrocytic, mild Checking B12 is low normal at 366, will start IM s/p cath Folate WNL Follow CBC Peripheral smear as above (15) Hyperlipidemia: Continue statin high intensity for severe CAD (16) Diabetes mellitus: Most recent hemoglobin A1c was from 2018 and was 5.8% With blood glucose [address] NovoLog supplemental insulin before meals and at bedtime with Accu- Cheks Is not on medications at home (17) Chronic systolic CHF (congestive heart failure): Noted as above and ischemic cardiomyopathy Continue guideline directed medical therapy with carvedilol and titrate up as able to, losartan which is currently on hold for mildly elevated creatinine in anticipation of cardiac catheterization, and Aldactone -Holding home Lasix (18) Peripheral arterial disease with history of revascularization: With a history of right lower extremity superficial femoral artery and right popliteal artery occlusions with angioplasty and stenting in 2018 Continue aspirin, statin (19) History of CVA (cerebrovascular accident): With a history of such, CT head here with small focus of encephalomalacia in the right frontal lobe favoring an old infarct Continue aspirin, statin Now on heparin drip for atrial fibrillation (20) Pancreatic cyst: Noted incidentally on CT scan with 2.2 cm cyst Needs outpatient follow-up (21) DVT prophylaxis: DVT ppx: on heparin drip FEN/GI: heart healthy, low sodium, NPO at [place] Code Status: Full Code Candy Spreader requests transfer from ICU to tele Admission and Anticipated Discharge Date Admission Date: February 29, 2020 Subjective Pt still with L shoulder pain that is as intense as [employer]ER. No SOB or chest pain. Tolerating PO without issue. Pt has baseline LE neuropathy which he says is also bothering him. Pt denies fever, abd pain, n/v/c/d, LE pain. Review of Systems Review of Systems: Pertinent positives and negatives reviewed in HPI--all others negative Physical Exam Constitutional: WD/WN, vitals as above Eyes: normal visual chong by confrontation and + anicteric sclerae Neck: normal visual inspection and trachea midline Respiratory: normal respiratory effort, lungs clear to auscultation Cardiovascular: Rate/Rhythm: regular rate and regular rhythm Gastrointestinal (Abdomen): Inspection/Auscultation: abdomen not distended Percussion/Palpation: abdomen soft; abdomen nontender Musculoskeletal: Head/Neck/Chest: normocephalic and head atraumatic negative for edema, peripheral pulses intact Skin: no rashes, warm and dry Neurologic: awake; not confused Speech / Cognition: normal speech Psychiatric: A+Ox3, euthymic affect Results & Data Results & Data ([facility]) Vital Signs (Past 12 Hours) Vital Signs Pulse Resp BP Pulse Ox 03/02/20 06:14 68 19 120/55 L 95 03/02/20 05:44 68 17 107/48 L 97 03/02/20 05:14 67 20 118/51 L 97 PG Care Time/CCT Total # of Minutes Spent Total Time Spent with Patient: Total time spent is greater than 50% in coordination of care (as documented) at patient's floor/unit and/or counseling patient: Coding Level of Care Code 62803 Subseq Hosp Care Lvl 3 Diagnoses Syncope R55 Elevated troponin I level R79.89 Ventricular tachycardia I47.2 ICD (implantable cardioverter-defibrillator), dual, in situ Z95.810 Atrial fibrillation I48.91 CAD (coronary artery disease) I25.10 Ischemic cardiomyopathy I25.5 Chronic kidney disease, stage III (moderate) N18.3 Hx of CABG Z95.1 COPD (chronic obstructive pulmonary disease) J44.9 Hypothyroid E03.9 Splenomegaly R16.1 Thrombocytopenia D69.6 Anemia D64.9 Hyperlipidemia E78.5 Diabetes mellitus E11.9 Chronic systolic CHF (congestive heart failure) I50.22 Peripheral arterial disease with history of revascularization I73.9; Z98.890 History of CVA (cerebrovascular accident) Z86.73 Pancreatic cyst K86.2 DVT prophylaxis Z29.9
[2020-03-02] MEDS: ACETAMINOPHEN 325 MG TAB PO PRN (20:38)
[2020-03-02] MEDS: ROSUVASTATIN CALCIUM 20 MG TAB PO SCH (20:39)
[2020-03-03] MEDS: HEPARIN SODIUM/DEXTROSE 25,000 UNITS/500 ML BAG IV SCH ×2 (01:38→16:48)
[2020-03-03 05:14] LABS: Partial Thromboplastin Ratio 1.5; Partial Thromboplastin Time 40.7 Seconds (21.0-31.0)
[2020-03-03] MEDS ORDERED: HEPARIN IV BOLUS 7,000 UNITS in SYRINGE 0 ML IV ONE (05:45)
[2020-03-03] MEDS: INSULIN ASPART 100 UNITS/ML 3 ML PEN SC SCH ×4 (07:45→21:11)
[2020-03-03] MEDS: DOCUSATE SODIUM 100 MG CAP PO SCH ×2 (07:46→19:45)
[2020-03-03] MEDS: ASPIRIN 81 MG ECTAB PO SCH (07:47)
[2020-03-03] MEDS: SENNA 8.6 MG TAB PO SCH (07:47)
[2020-03-03] MEDS: CLOPIDOGREL BISULFATE 75 MG TAB PO SCH (07:48)
[2020-03-03] MEDS: PANTOprazole 40 MG TAB PO SCH (07:48)
[2020-03-03] MEDS: AMIODARONE 200 MG TAB PO SCH (07:48)
[2020-03-03] MEDS: POLYETHYLENE (MIRALAX) 17 GM PACK PO SCH (07:49)
[2020-03-03] MEDS: INSULIN GLARGINE SOLOSTAR 100 UNITS/ML 3 ML PEN SC SCH (07:50)
[2020-03-03] MEDS: UMECLIDINIUM BROMIDE 62.5MCG/BLISTER 7 PUFFS/INHALER INH SCH (07:51)
[2020-03-03 08:37] LABS: Albumin Level 2.9 gm/dl (3.4-5.0); Calcium 8.2 mg/dl (8.5-10.1); Creatinine Clr Calc Pharmacy 35.8 ml/min; Est GFR (African American) 36.4; Est GFR (Non-African American) 31.4; Potassium 4.2 mmol/L (3.5-5.1)
[2020-03-03 08:41] LABS: Phosphorus 2.6 mg/dl (2.5-4.9)
--- NOTE | 2020-03-03 09:58 | Nephrology Progress Note ---
Date of Service March 03, 2020 Assessment & Plan (1) SUSAN (acute kidney injury): * Clinically consistent with ATN in the setting of VT vs. PHILLY -- CT abd/plv +contrast 02/28. Creatinine slightly improved today. Non-oliguric. Melquiades is in a slightly negative fluid balance despite diuretics being held. * Volume status is acceptable. I would favor continuing to maintain a slightly negative fluid balance. During the period of renal recovery, favor continue to delay cardiac angiography if able at this time. * Losartan has been held. BP appropriate. * Medications are currently appropriately dosed for kidney function. Rosuvastatin has been dose adjusted to 10 mg daily for renal dysfunction. * Electrolytes are normal. There is no emergent role for dialysis. * Meza may be removed at nurses discretion. Please continue to document strict I/O's and daily weight. Repeat metabolic profile tomorrow AM. (2) Chronic kidney disease, stage III (moderate): * Baseline creatinine ~1.6 mg/dL. UA bland with acellular microscopy. (3) Chronic systolic CHF (congestive heart failure): * Volume status acceptable. * Strict I/O's and daily weight. * Furosemide PRN to encourage slightly negative fluid balance. (4) Ischemic cardiomyopathy: * Catheterization deferred due to SUSAN. Admission and Anticipated Discharge Date Admission Date: February 29, 2020 Subjective No acute events overnight. Melquiades feels well this morning. No chest pain. Denies shortness of breath. Negative fluid balance despite no diuretics. BP stable. No arrhythmia on monitor. No palpitations. No syncope or presyncope. Review of Systems Review of Systems: All systems reviewed & are unremarkable except as noted in HPI & below Physical Exam Constitutional: well developed; no acute distress Eyes: + anicteric sclerae; no corneal abnormality ENMT: Mouth: no oral mucosal abnormality and oral mucous membranes not dry Neck: normal visual inspection and trachea midline Respiratory: normal respiratory effort Auscultation: lungs clear to auscultation bilaterally Cardiovascular: Rate/Rhythm: regular rate Heart Sounds: normal S1 and normal S2 Vessels: + JVD Extremities: no edema Gastrointestinal (Abdomen): Percussion/Palpation: abdomen soft; abdomen nontender Musculoskeletal: Extremities: no cyanosis and no clubbing Skin: normal turgor; no lesions Neurologic: Motor/Sensory: no tremor and no asterixis Psychiatric: Orientation: alert and oriented x 3 Results & Data ([facility]) Vital Signs (Past 12 Hours) Vital Signs Temp Pulse Pulse Resp BP Pulse Ox 03/03/20 08:00 78 03/03/20 07:35 37.0 C 78 20 125/65 96 03/03/20 04:22 37.1 C 77 18 120/53 L 96 03/02/20 23:54 37 C 74 18 126/53 L 95 Laboratory Results Laboratory Results - last 24 hr 03/02/20 03/02/20 03/02/20 10:15 11:50 16:35 APTT PTT Ratio Sodium Potassium Chloride Carbon Dioxide Anion Gap BUN Creatinine Est Cr Clr Drug Dosing Est GFR ( Amer) Est GFR (Non-Af Amer) BUN/Creatinine Ratio Glucose POC Glucose 209 H 167 H Calcium Phosphorus Total Creatine Kinase 153 Albumin 03/02/20 03/03/20 03/03/20 20:19 04:41 07:32 APTT 40.7 H PTT Ratio 1.5 Sodium Potassium Chloride Carbon Dioxide Anion Gap BUN Creatinine Est Cr Clr Drug Dosing Est GFR ( Amer) Est GFR (Non-Af Amer) BUN/Creatinine Ratio Glucose POC Glucose 170 H 182 H Calcium Phosphorus Total Creatine Kinase Albumin 03/03/20 07:53 APTT PTT Ratio Sodium 136 Potassium 4.2 Chloride 104 Carbon Dioxide 25 Anion Gap 7.0 BUN 37 H Creatinine 2.05 H D Est Cr Clr Drug Dosing 35.8 Est GFR ( Amer) 36.4 Est GFR (Non-Af Amer) 31.4 BUN/Creatinine Ratio 18.0 Glucose 174 H POC Glucose Calcium 8.2 L Phosphorus 2.6 Total Creatine Kinase Albumin 2.9 L PG Care Time/CCT Total # of Minutes Spent Total Time Spent with Patient: Total time spent is greater than 50% in coordination of care (as documented) at patient's floor/unit and/or counseling patient: Coding Level of Care Code 36800 Subseq Hosp Care Lvl 3 Diagnoses SUSAN (acute kidney injury) N17.9 Chronic kidney disease, stage III (moderate) N18.3 Chronic systolic CHF (congestive heart failure) I50.22 Ischemic cardiomyopathy I25.5
--- NOTE | 2020-03-03 12:05 | Electrocardiogram Report ---
Test Reason : Blood Pressure : / mmHG Vent. Rate : 063 BPM Atrial Rate : 234 BPM P-R Int : 000 ms QRS Dur : 138 ms QT Int : 488 ms P-R-T Axes : 000 077 188 degrees QTc Int : 499 ms Sinus rhythm with a competing junctional pacemaker Non-specific intra-ventricular conduction block T wave abnormality, consider inferolateral ischemia Abnormal ECG When compared with ECG of 29-FEB-2020 13:51, (unconfirmed) No significant change was found Confirmed by Roge Haines ([id number]) on 03/03/2020 12:04:54 PM Referred By: [facility] Confirmed By:Roge Haines
[2020-03-03 12:26] LABS: Partial Thromboplastin Ratio 3.4
[2020-03-03 12:30] LABS: Partial Thromboplastin Time 95.8 Seconds (21.0-31.0)
--- NOTE | 2020-03-03 14:11 | Hospitalist Progress Note ---
Date of Service March 03, 2020 Assessment & Plan (1) Syncope: 74-year-old male with a past medical history of V. tach, ischemic cardiomyopathy, AICD in place, admitted for syncopal episodes, elevated troponin and concern for cardiac ischemia. - Syncope likely secondary to VT/Afib episodes on AICD interrogation - AICD fired on Feb 16, [patient denies feelings these] - continuous cardiac monitoring -AICD interrogation showed VT - optimize/replete electrolytes as necessary -Cardiology consultation appreciated-plan for possible cardiac catheterization, however unable to proceed due to elevated creatinine ECHO noted for EF 35-40% and large apical aneurysm with hypokinesis (2) Elevated troponin I level: most likely demand ischemia with repeated runs of Afib/VT as well as from being shocked [place]OOKER; however, suspect underlying ischemia as above contributing to recurrent V. tach trending trops: increased to .299 continue nitro drip and heparin (3) Ventricular tachycardia: With several runs of V. tach requiring shocks as per ICD/pacer interrogation with cardiology in the ER Continue amiodarone 400 mg daily -Replete electrolytes as above Continue carvedilol and titrate upwards to 25 mg p.o. twice daily if tolerated (4) ICD (implantable cardioverter-defibrillator), dual, in situ: Placed for moderate ischemic cardiomyopathy and history of V. tach (5) Atrial fibrillation: New onset, noted on ECG here and on interrogation of pacemaker Cardio however described as atrial tachycardia, currently rate is normal with regular rhythm [id number] score significantly elevated at 7 Heparin drip with bolus for anticoagulation ECHO as noted above Cardiology consult Continue carvedilol 12.5 BID, Amiodarone 400 daily (6) CAD (coronary artery disease): hx 3V CABG as well as multiple JENNIFER remotely With left shoulder pain is anginal equivalent here relieved with nitroglycerin, mildly elevated troponin continue ASA, statin, carvedilol Holding losartan for mild increase in creatinine (7) Ischemic cardiomyopathy: medications continued as above Most recent EF 35-40% on echo from 2018, repeat is with stable EF Not volume overloaded at this time (8) Chronic kidney disease, stage III (moderate): Cr 1.67 at admission, roughly same as prior admissions daily BMP Now is in acute renal failure with cr 2.4 (9) Hx of CABG: As above (10) COPD (chronic obstructive pulmonary disease): No acute issues CT of the chest with chronic pleural thickening and atelectasis, emphysematous changes Continue incruse ellipta albuterol PRN for SOB O2 goal >88% not on oxygen at baseline (11) Hypothyroid: TSH 5.8 on admission no hx thyroid disease Free T4 ordered for AM may contribute to tachycardic episodes (12) Splenomegaly: Noted to be mildly enlarged on CT scan at 13.5 cm With mild thrombocytopenia Follow as an outpatient (13) Thrombocytopenia: Platelets low but fairly stable from the past 2 years Splenomegaly may be contributing Perhaps has ITP or underlying liver issues? Check peripheral smear with CBC in the morning Consider hematology consultation as an outpatient (14) Anemia: Macrocytic, mild Checking B12 is low normal at 366, will start IM s/p cath Folate WNL Follow CBC Peripheral smear as above (15) Hyperlipidemia: Continue statin high intensity for severe CAD (16) Diabetes mellitus: Most recent hemoglobin A1c was from 2018 and was 5.8% With blood glucose [address] NovoLog supplemental insulin before meals and at bedtime with Accu- Cheks Is not on medications at home (17) Chronic systolic CHF (congestive heart failure): Noted as above and ischemic cardiomyopathy Continue guideline directed medical therapy with carvedilol and titrate up as able to, losartan which is currently on hold for mildly elevated creatinine in anticipation of cardiac catheterization, and Aldactone -Holding home Lasix (18) Peripheral arterial disease with history of revascularization: With a history of right lower extremity superficial femoral artery and right popliteal artery occlusions with angioplasty and stenting in 2018 Continue aspirin, statin (19) History of CVA (cerebrovascular accident): With a history of such, CT head here with small focus of encephalomalacia in the right frontal lobe favoring an old infarct Continue aspirin, statin Now on heparin drip for atrial fibrillation (20) Pancreatic cyst: Noted incidentally on CT scan with 2.2 cm cyst Needs outpatient follow-up (21) DVT prophylaxis: DVT ppx: on heparin drip FEN/GI: heart healthy, low sodium, NPO at [place] Code Status: Full Code Admission and Anticipated Discharge Date Admission Date: February 29, 2020 Subjective Ongoing L shoulder pain. No nitza chest pain. Tolerating PO without issue. Pt denies fever, SOB, abd pain, n/v/c/d, LE pain or swelling. Review of Systems Review of Systems: Pertinent positives and negatives reviewed in HPI--all others negative Physical Exam Constitutional: WD/WN, vitals as above Eyes: normal visual chong by confrontation and + anicteric sclerae Neck: normal visual inspection and trachea midline Respiratory: normal respiratory effort, lungs clear to auscultation Cardiovascular: Rate/Rhythm: regular rate and regular rhythm Extremities: + edema Gastrointestinal (Abdomen): Inspection/Auscultation: abdomen not distended Percussion/Palpation: abdomen soft; abdomen nontender Musculoskeletal: Head/Neck/Chest: normocephalic and head atraumatic Skin: no rashes, warm and dry Neurologic: awake; not confused Speech / Cognition: normal speech Psychiatric: A+Ox3, euthymic affect Results & Data Results & Data ([facility]) Vital Signs (Past 12 Hours) Vital Signs Temp Pulse Pulse Resp BP Pulse Ox 03/03/20 12:07 36.7 C 89 20 123/56 L 91 03/03/20 08:00 78 03/03/20 07:35 37.0 C 78 20 125/65 96 03/03/20 04:22 37.1 C 77 18 120/53 L 96 PG Care Time/CCT Total # of Minutes Spent Total Time Spent with Patient: Total time spent is greater than 50% in coordination of care (as documented) at patient's floor/unit and/or counseling patient: Coding Level of Care Code 97867 Subseq Hosp Care Lvl 3 Diagnoses Syncope R55 Syncope type: unspecified Elevated troponin I level R79.89 Ventricular tachycardia I47.2 ICD (implantable cardioverter-defibrillator), dual, in situ Z95.810 Atrial fibrillation I48.91 Atrial fibrillation type: unspecified CAD (coronary artery disease) I25.10 Ischemic cardiomyopathy I25.5 Chronic kidney disease, stage III (moderate) N18.3 Hx of CABG Z95.1 COPD (chronic obstructive pulmonary disease) J44.9 Hypothyroid E03.9 Splenomegaly R16.1 Thrombocytopenia D69.6 Anemia D64.9 Hyperlipidemia E78.5 Diabetes mellitus E11.9 Chronic systolic CHF (congestive heart failure) I50.22 Peripheral arterial disease with history of revascularization I73.9; Z98.890 History of CVA (cerebrovascular accident) Z86.73 Pancreatic cyst K86.2 DVT prophylaxis Z29.9 (1) Syncope Syncope type: unspecified Qualified Code(s): R55 - Syncope and collapse (2) Atrial fibrillation Atrial fibrillation type: unspecified Qualified Code(s): I48.91 - Unspecified atrial fibrillation
--- NOTE | 2020-03-03 14:24 | Cardiology Progress Note ---
Date of Service March 03, 2020 Assessment & Plan (1) Unresponsiveness: I believe he had loss of consciousness prior to his transfer to the emergency room, although he does not recall that. Whatever the event was (unresponsiveness or prolonged presyncope) it does coincide with a prolonged episode of ventricular tachycardia. It is hard to tell from the ICD diagnostics how long this might of been since it was not detected properly and it will only recognize an arrhythmia if it is detected by the device. (2) ICD (implantable cardioverter-defibrillator), dual, in situ: His ICD is working well although there was some difficulty with tachycar homer detection due to the slow rate of his ventricular tachycardia at times and the presence of a dual tachycardia with atrial tachycardia and ventricular tachycardia. This led to some prolonged detection times and his symptoms. Device interrogation on presentation indicates that he has had a dramatic falloff in activity over the last several months consistent with his symptoms, additionally he has had frequent episodes of ventricular tachycardia receiving ICD shocks (12 episodes) over the last several weeks but none before that. He has also had identification of this atrial tachycardia over the last 3 or 4 days, whereas he did not have much of that before these recent events. This suggests there is something like ischemia causing these abnormalities. I have reprogrammed his ICD to increase the pacing rate as well as to avoid prolonged detection and deliver therapy earlier, hopefully this will prevent the situation that caused his admission in the future. (3) Ventricular tachycardia: He has had frequent episodes of ventricular tachycardia identified recently, prior to that his VT had been under good control. During his last hospitalization in 2018 he was having a lot of ventricular tachycardia, on transfer to [facility] he was treated for ischemia and had good control of his arrhythmia until recently. I suspect his current arrhythmia is on and ischemic basis, although that is unusual with sustained monomorphic VT. He seems to have other evidence of ischemia currently and therefore I would recommend treating him with anticoagulation and nitroglycerin to control ischemia, continue his oral amiodarone for now and increase his beta-vianney if possible. If he has more VT we can consider other options. So far treating ischemia has seemed to control his arrhythmia. (4) CAD (coronary artery disease): He has known coronary artery disease, in 2018 control of his VT was achieved by stent placement. I believe we need to look at his coronary arteries again however we will need to wait until his kidney function has stabilized. (5) Ischemic cardiomyopathy: In 2018 his left ventricular ejection fraction was 35 to 40%. It has not changed significantly therefore worsening of left ventricular function is non- explanation for his increased ectopy. (6) Chronic kidney disease, stage III (moderate): He does have chronic kidney disease, however his creatinine has increased since admission which is worrisome in view of an anticipated dye load with catheterization. He may have had a more prolonged episode of hypotension then we initially thought which could explain some of his increasing creatinine, additionally he received x-ray dye on February 29, 2020 for his radiology studies. His creatinine is a little bit lower today but we will wait until Friday to give him another dye load to prevent worsening his kidney function. (7) Atrial tachycardia: He has an atrial tachycardia which has been quite frequent and more prominent recently than in the past based on ICD monitoring. That has resulted in a dual tachycardia recently which created a situation prolonging ICD detection and therapy. This may have to be addressed over the long run either with programming or additional AV molly blocking medications. So far during the hospitalization this has not been a problem. Admission and Anticipated Discharge Date Admission Date: February 29, 2020 Subjective He is complaining of pain on the left side of his body including his left shoulder and left leg. No cardiovascular symptoms. Physical Exam Physical Exam: Constitutional: Alert, cooperative and in no distress. HEENT: Unremarkable Neck: No jugular venous distention, carotid pulses are normal and equal bilaterally without bruits. Pulmonary: Clear to auscultation bilaterally. Cardiac: Regular rhythm with no murmur, gallop or rub. Abdomen: Soft, nontender with normal bowel sounds. Extremities: No edema. Distal pulses intact. Neurologic: No focal findings. Gait was not tested. Skin: No rash, ecchymoses or petechiae. His left-sided ICD site is well-healed without erythema, swelling or tenderness. Results & Data ([facility]) Vital Signs (Past 12 Hours) Vital Signs Temp Pulse Pulse Resp BP Pulse Ox 03/03/20 12:07 36.7 C 89 20 123/56 L 91 03/03/20 08:00 78 03/03/20 07:35 37.0 C 78 20 125/65 96 03/03/20 04:22 37.1 C 77 18 120/53 L 96 Laboratory Results Coagulation 03/03/20 03/03/20 Range/Units 04:41 11:46 APTT 40.7 H 95.8 H* (21.0-31.0) Seconds Comprehensive Metabolic Panel 03/03/20 Range/Units 07:53 Sodium 136 (136-145) mmol/L Potassium 4.2 (3.5-5.1) mmol/L Chloride 104 (98-107) mmol/L Carbon Dioxide 25 (21-32) mmol/L BUN 37 H (7-18) mg/dl Creatinine 2.05 H D (0.6-1.4) mg/dl Glucose 174 H (70-99) mg/dl Calcium 8.2 L (8.5-10.1) mg/dl Albumin 2.9 L (3.4-5.0) gm/dl Intake and Output 03/02/20 03/03/20 03/03/20 22:59 06:59 14:59 Intake Total 479.5 / 1801.780 177.683 / 1801.780 28.6 / 28.6 Output Total 250 / 1000 750 / 1000 Balance 229.5 / 801.780 -572.317 / 801.780 28.6 / 28.6 Intake: IV 179.5 / 1501.780 177.683 / 1501.780 28.6 / 28.6 HEPARIN SODIUM/DEXTROSE 25,000 179.5 / 541.683 177.683 / 541.683 28.6 / 28.6 units In 500 ml @ 1,100 UNITS/ HR 22 mls/hr IV .[id number] [facility] Rx #:[id number] Oral 300 / 300 Output: Urine Amount (Catheter) 250 / 1000 750 / 1000 Meza/Indwelling 250 / 1000 750 / 1000 Other: Weight 89.4 kg Diagnostic Findings Telemetry: No significant arrhythmia PG Care Time/CCT Total # of Minutes Spent Total Time Spent with Patient: Total time spent is greater than 50% in coordination of care (as documented) at patient's floor/unit and/or counseling patient: Coding Level of Care Code 45740 Subseq Hosp Care Lvl 2 Diagnoses Unresponsiveness R41.89 ICD (implantable cardioverter-defibrillator), dual, in situ Z95.810 Ventricular tachycardia I47.2 CAD (coronary artery disease) I25.10 Ischemic cardiomyopathy I25.5 Chronic kidney disease, stage III (moderate) N18.3 Atrial tachycardia I47.1
[2020-03-03] MEDS: ACETAMINOPHEN 325 MG TAB PO PRN (19:45)
[2020-03-03] MEDS: ROSUVASTATIN CALCIUM 20 MG TAB PO SCH (19:45)
[2020-03-03 21:04] LABS: Partial Thromboplastin Ratio 1.7
[2020-03-03 21:07] LABS: Partial Thromboplastin Time 48.2 Seconds (21.0-31.0)
[2020-03-04] MEDS: ACETAMINOPHEN 325 MG TAB PO PRN ×3 (03:57→19:36)
[2020-03-04] MEDS: HEPARIN SODIUM/DEXTROSE 25,000 UNITS/500 ML BAG IV SCH (03:58)
[2020-03-04 04:35] LABS: Basophils # (auto) 0.03 K/uL (0-0.2); Basophils % (auto) 0.3 %; Eosinophils # (auto) 0.22 K/uL (0-0.5); Eosinophils % (auto) 2.2 %; Hematocrit (blood only) 25.3 % (42-52); Hemoglobin 8.8 g/dL (14.0-18.0); Lymphocytes # (auto) 0.92 K/uL (1.2-3.4); Lymphocytes % (auto) 9.3 %; Mean Corpuscular Hemoglobin 34.6 pg (25-34); Mean Corpuscular Hgb Conc 34.8 g/dL (32-36); Mean Corpuscular Volume 99.6 fL (80-100); Monocytes # (auto) 1.04 K/uL (0.11-0.59); Monocytes % (auto) 10.5 %; Neutrophils % (auto) 76.7 %; Platelet Count 122 K/uL (130-400); RDW Coefficient of Variation 14.3 % (11.5-14.5); Red Blood Count 2.54 M/uL (4.7-6.1); White Blood Count 9.91 K/uL (4.8-10.8)
[2020-03-04 04:52] LABS: BUN Creatinine Ratio 19.8 (10-20); Calcium 7.8 mg/dl (8.5-10.1); Creatinine Clr Calc Pharmacy 42.9 ml/min; Est GFR (African American) 45.4; Est GFR (Non-African American) 39.1
[2020-03-04 04:56] LABS: Partial Thromboplastin Ratio 1.8
[2020-03-04 05:07] LABS: Partial Thromboplastin Time 51.5 Seconds (21.0-31.0)
--- NOTE | 2020-03-04 08:05 | XRay Report ---
XR chest 1V portable HISTORY: 74 years-old Male new o2 req acute hypoxia COMPARISON: Chest radiograph and chest CT 02/29/2020 TECHNIQUE: Portable AP view of the chest FINDINGS: Cardiac silhouette is enlarged, unchanged. Prior median sternotomy. Left subclavian pacer/AICD. Emphy sema. Chronic blunting of the costophrenic angles. No pneumothorax. Pulmonary vascular congestion wit h interstitial coarsening. Progressively worsened asymmetric airspace opacities of the right midlung. Bones appear grossly intact. IMPRESSION: 1. Cardiomegaly with emphysema and pulmonary vascular congestion. 2. Progressively worsened airspace opacities of the right midlung suggests pneumonia versus asymmetri c pulmonary edema. ACT 112: Negative or not required by law. The above report was generated using voice recognition software. It may contain grammatical, syntax o r spelling errors. Electronically signed by: Han Miranda M.D. 03/04/2020 8:04 AM
[2020-03-04] MEDS: ASPIRIN 81 MG ECTAB PO SCH (08:43)
[2020-03-04] MEDS: CLOPIDOGREL BISULFATE 75 MG TAB PO SCH (08:43)
[2020-03-04] MEDS: PANTOprazole 40 MG TAB PO SCH (08:43)
[2020-03-04] MEDS: DOCUSATE SODIUM 100 MG CAP PO SCH ×2 (08:44→19:36)
[2020-03-04] MEDS: UMECLIDINIUM BROMIDE 62.5MCG/BLISTER 7 PUFFS/INHALER INH SCH (08:44)
[2020-03-04] MEDS: SENNA 8.6 MG TAB PO SCH (08:44)
[2020-03-04] MEDS: POLYETHYLENE (MIRALAX) 17 GM PACK PO SCH (08:44)
[2020-03-04] MEDS: AMIODARONE 200 MG TAB PO SCH (08:44)
[2020-03-04] MEDS: INSULIN GLARGINE SOLOSTAR 100 UNITS/ML 3 ML PEN SC SCH (08:46)
[2020-03-04] MEDS: INSULIN ASPART 100 UNITS/ML 3 ML PEN SC SCH ×4 (08:48→20:53)
--- NOTE | 2020-03-04 12:05 | Nephrology Progress Note ---
Date of Service March 04, 2020 Assessment & Plan (1) SUSAN (acute kidney injury): * ATN related to recurrent episodes of VT * PHILLY may also have contributed: CT abd/pelvis 02/29/20 + IV contrast * Creatinine is nearing baseline 1.6. Volume status and electrolyte balance remain acceptable * No obstruction reported on 02/29/[address] - 7mm lower pole R renal cyst (2) Chronic kidney disease, stage III (moderate): * Baseline Cr 1.6 - likely due to microvascular disease (3) Chronic systolic CHF (congestive heart failure): * Volume status is currently acceptable * Monitor I&O's, daily weight (4) Ischemic cardiomyopathy: * Cardiac cath planned once Cr ~ 1.6 and stable (5) Expressive aphasia: * Notified primary service of new neurologic findings * 02/29/[address] was negative for acute intracranial abnormality * Consider repeating head CT and consulting w/ neurology Admission and Anticipated Discharge Date Admission Date: February 29, 2020 Subjective Mr. Vieyra was seen & examined in his hospital room this morning. He c/o persistent L chest discomfort. He denies fever or dyspnea. His primary concern is new expressive aphasia Review of Systems Constitutional: no fever Eyes: no problem reported Ear, Nose, Mouth, Throat: no problem reported Respiratory: no dyspnea Cardiovascular: no palpitations and no edema Gastrointestinal: no abdominal pain and no diarrhea/loose stools Genitourinary: no dysuria and no hematuria Musculoskeletal: no back pain Integumentary: no rash Neurologic: + abnormal speech; no dizziness Physical Exam Constitutional: not in distress Eyes: PERRL, conjunctivae normal, anicteric sclerae ENMT: external ear and nose normal, oropharynx normal Neck: trachea midline, no thyromegaly Respiratory: normal respiratory effort, lungs clear to auscultation Cardiovascular: RRR, no murmur, no edema Gastrointestinal (Abdomen): normal bowel sounds, soft, nontender, no hepatosplenomegaly Musculoskeletal: Extremities: no cyanosis Skin: no rashes, warm and dry Neurologic: awake Speech / Cognition: + abnormal speech Results & Data ([facility]) Vital Signs (Past 12 Hours) Vital Signs Temp Pulse Resp BP Pulse Ox 03/04/20 08:12 37.0 C 77 18 98/59 L 96 03/04/20 03:35 37.7 C H 81 22 110/65 92 Laboratory Tests 03/03/20 03/04/20 03/04/20 07:53 04:20 04:20 WBC 9.91 Hgb 8.8 L Hct 25.3 L Plt Count 122 L Sodium 138 Potassium 4.0 Chloride 108 H Carbon Dioxide 25 BUN 34 H Creatinine 1.71 H D Glucose 149 H Calcium 7.8 L Albumin 2.9 L PG Care Time/CCT Total # of Minutes Spent Total Time Spent with Patient: Total time spent is greater than 50% in coordination of care (as documented) at patient's floor/unit and/or counseling patient: Coding Level of Care Code 57903 Subseq Hosp Care Lvl 3 Diagnoses SUSAN (acute kidney injury) N17.9 Chronic kidney disease, stage III (moderate) N18.3 Chronic systolic CHF (congestive heart failure) I50.22 Ischemic cardiomyopathy I25.5 Expressive aphasia R47.01
--- NOTE | 2020-03-04 12:17 | CT Scan Report ---
CT head/brain wo con CLINICAL HISTORY: 74 years-old Male with slurred speech. Acute strokelike symptoms with slurred spee ch TECHNIQUE: Multiple axial CT images of the head were obtained without contrast. A dose lowering tech nique was utilized adhering to the principles of ALARA. CT DOSE: 918.33 mGy.cm COMPARISON: Head CT 02/27/2020 FINDINGS: No acute intracranial hemorrhage, midline shift, intracranial mass, hydrocephalus, territorial ischem ia or abnormal extra-axial collection. Motion degraded exam. Portion of the study was then repeated. Age-related involutional changes. Patchy white matter hypodensities suggest chronic microvascular isc hemic disease. Cerebral vascular calcifications. Encephalomalacia of the right frontal lobe. The calvarium is intact. Prior bilateral lens replacement. The paranasal sinuses, mastoid air cells, and middle ear cavities are clear. IMPRESSION: No acute intracranial abnormality. ACT 112: Negative or not required by law. The above report was generated using voice recognition software. It may contain grammatical, syntax o r spelling errors. Electronically signed by: Han Miranda M.D. 03/04/2020 12:16 PM
--- NOTE | 2020-03-04 13:59 | Hospitalist Progress Note ---
Date of Service March 04, 2020 Assessment & Plan (1) Syncope: 74-year-old male with a past medical history of V. tach, ischemic cardiomyopathy, AICD in place, admitted for syncopal episodes, elevated troponin and concern for cardiac ischemia. - Syncope likely secondary to VT/Afib episodes on AICD interrogation - AICD fired on Feb 16, [patient denies feelings these] - continuous cardiac monitoring -AICD interrogation showed VT - optimize/replete electrolytes as necessary -Cardiology consultation appreciated-plan for possible cardiac catheterization, however unable to proceed due to elevated creatinine ECHO noted for EF 35-40% and large apical aneurysm with hypokinesis (2) Elevated troponin I level: most likely demand ischemia with repeated runs of Afib/VT as well as from being shocked [employer]; however, suspect underlying ischemia as above contributing to recurrent V. tach trending trops: increased to .299 continue nitro drip and heparin (3) Ventricular tachycardia: With several runs of V. tach requiring shocks as per ICD/pacer interrogation with cardiology in the ER Continue amiodarone 400 mg daily -Replete electrolytes as above Continue carvedilol and titrate upwards to 25 mg p.o. twice daily if tolerated (4) ICD (implantable cardioverter-defibrillator), dual, in situ: Placed for moderate ischemic cardiomyopathy and history of V. tach (5) Atrial fibrillation: New onset, noted on ECG here and on interrogation of pacemaker Cardio however described as atrial tachycardia, currently rate is normal with regular rhythm [id number] score significantly elevated at 7 Heparin drip with bolus for anticoagulation ECHO as noted above Cardiology consult Continue carvedilol 12.5 BID, Amiodarone 400 daily (6) CAD (coronary artery disease): hx 3V CABG as well as multiple JENNIFER remotely With left shoulder pain is anginal equivalent here relieved with nitroglycerin, mildly elevated troponin continue ASA, statin, carvedilol Holding losartan for mild increase in creatinine (7) Ischemic cardiomyopathy: medications continued as above Most recent EF 35-40% on echo from 2018, repeat is with stable EF Not volume overloaded at this time (8) Chronic kidney disease, stage III (moderate): Cr 1.67 at admission, roughly same as prior admissions daily BMP Now is in acute renal failure with cr 2.4 (9) Hx of CABG: As above (10) COPD (chronic obstructive pulmonary disease): No acute issues CT of the chest with chronic pleural thickening and atelectasis, emphysematous changes Continue incruse ellipta albuterol PRN for SOB O2 goal >88% not on oxygen at baseline (11) Hypothyroid: TSH 5.8 on admission no hx thyroid disease Free T4 ordered for AM may contribute to tachycardic episodes (12) Splenomegaly: Noted to be mildly enlarged on CT scan at 13.5 cm With mild thrombocytopenia Follow as an outpatient (13) Thrombocytopenia: Platelets low but fairly stable from the past 2 years Splenomegaly may be contributing Perhaps has ITP or underlying liver issues? Check peripheral smear with CBC in the morning Consider hematology consultation as an outpatient (14) Anemia: Macrocytic, mild Checking B12 is low normal at 366, will start IM s/p cath Folate WNL Follow CBC Peripheral smear as above (15) Hyperlipidemia: Continue statin high intensity for severe CAD (16) Diabetes mellitus: Most recent hemoglobin A1c was from 2018 and was 5.8% With blood glucose [address] NovoLog supplemental insulin before meals and at bedtime with Accu- Cheks Is not on medications at home (17) Chronic systolic CHF (congestive heart failure): Noted as above and ischemic cardiomyopathy Continue guideline directed medical therapy with carvedilol and titrate up as able to, losartan which is currently on hold for mildly elevated creatinine in anticipation of cardiac catheterization, and Aldactone -Holding home Lasix (18) Peripheral arterial disease with history of revascularization: With a history of right lower extremity superficial femoral artery and right popliteal artery occlusions with angioplasty and stenting in 2018 Continue aspirin, statin (19) History of CVA (cerebrovascular accident): With a history of such, CT head here with small focus of encephalomalacia in the right frontal lobe favoring an old infarct Continue aspirin, statin Now on heparin drip for atrial fibrillation (20) Pancreatic cyst: Noted incidentally on CT scan with 2.2 cm cyst Needs outpatient follow-up (21) DVT prophylaxis: DVT ppx: on heparin drip FEN/GI: heart healthy, low sodium, NPO at MN Code Status: Full Code (22) Expressive aphasia: Repeat CT head neg for acute, cannot get MRI due to pacer Has been on and off for days per pt Has not been mentioned or noted prior to today by myself, although teeth not in place during discussion today Continue to monitor Admission and Anticipated Discharge Date Admission Date: February 29, 2020 Subjective Pt states he is having difficulty speaking today. He feels he has trouble with slurring and getting out words. He states that this has been happening "on and off" for the last few days, but is worse today. No issues with any other senses. He has not been OOB due to restraints, but is not having issues using either arm. Ongoing L shoulder pain into his arm. Pt denies fever, SOB, chest pain, abd pain, n/v/c/d, LE pain or swelling. Review of Systems Review of Systems: Pertinent positives and negatives reviewed in HPI--all others negative Physical Exam Constitutional: WD/WN, vitals as above Eyes: normal visual chong by confrontation and + anicteric sclerae Neck: normal visual inspection and trachea midline Respiratory: normal respiratory effort, lungs clear to auscultation Cardiovascular: Rate/Rhythm: regular rate and regular rhythm Extremities: + edema Gastrointestinal (Abdomen): Inspection/Auscultation: abdomen not distended Percussion/Palpation: abdomen soft; abdomen nontender Musculoskeletal: Head/Neck/Chest: normocephalic and head atraumatic Skin: no rashes, warm and dry Neurologic: awake; not confused Speech / Cognition: + abnormal speech (mild slurring with stutter today, not heard prior, teeth not in place) Psychiatric: A+Ox3, euthymic affect Orientation: cooperative Results & Data Results & Data ([facility]) Vital Signs (Past 12 Hours) Vital Signs Temp Pulse Resp BP Pulse Ox 03/04/20 12:28 37.5 C 82 18 109/59 L 94 03/04/20 08:12 37.0 C 77 18 98/59 L 96 03/04/20 03:35 37.7 C H 81 22 110/65 92 PG Care Time/CCT Total # of Minutes Spent Total Time Spent with Patient: Total time spent is greater than 50% in coordination of care (as documented) at patient's floor/unit and/or counseling patient: Coding Level of Care Code 13910 Subseq Hosp Care Lvl 3 Diagnoses Syncope R55 Syncope type: unspecified Elevated troponin I level R79.89 Ventricular tachycardia I47.2 ICD (implantable cardioverter-defibrillator), dual, in situ Z95.810 Atrial fibrillation I48.91 Atrial fibrillation type: unspecified CAD (coronary artery disease) I25.10 Ischemic cardiomyopathy I25.5 Chronic kidney disease, stage III (moderate) N18.3 Hx of CABG Z95.1 COPD (chronic obstructive pulmonary disease) J44.9 Hypothyroid E03.9 Splenomegaly R16.1 Thrombocytopenia D69.6 Anemia D64.9 Hyperlipidemia E78.5 Diabetes mellitus E11.9 Chronic systolic CHF (congestive heart failure) I50.22 Peripheral arterial disease with history of revascularization I73.9; Z98.890 History of CVA (cerebrovascular accident) Z86.73 Pancreatic cyst K86.2 DVT prophylaxis Z29.9 Expressive aphasia R47.01 (1) Syncope Syncope type: unspecified Qualified Code(s): R55 - Syncope and collapse (2) Atrial fibrillation Atrial fibrillation type: unspecified Qualified Code(s): I48.91 - Unspecified atrial fibrillation
[2020-03-04] MEDS: LEVALBUTEROL TARTRATE 15 GM HFA.AER.AD INH PRN (16:14)
[2020-03-04] MEDS: ROSUVASTATIN CALCIUM 20 MG TAB PO SCH (19:35)
[2020-03-05] MEDS: HEPARIN SODIUM/DEXTROSE 25,000 UNITS/500 ML BAG IV SCH (05:33)
[2020-03-05 05:59] LABS: Hematocrit (blood only) 25.6 % (42-52); Hemoglobin 8.7 g/dL (14.0-18.0); Mean Corpuscular Hemoglobin 33.9 pg (25-34); Mean Corpuscular Volume 99.6 fL (80-100); Mean Platelet Volume 9.8 fL (7.4-10.4); Platelet Count 137 K/uL (130-400); RDW Standard Deviation 52.3 fL (36.4-46.3); Red Blood Count 2.57 M/uL (4.7-6.1); White Blood Count 11.16 K/uL (4.8-10.8)
[2020-03-05 06:19] LABS: Partial Thromboplastin Ratio 1.6; Partial Thromboplastin Time 44.6 Seconds (21.0-31.0)
[2020-03-05 06:28] LABS: BUN Creatinine Ratio 18.6 (10-20); Creatinine Clr Calc Pharmacy 41.9 ml/min; Est GFR (African American) 44.1; Est GFR (Non-African American) 38.1; Potassium 4.2 mmol/L (3.5-5.1)
[2020-03-05] MEDS ORDERED: HEPARIN IV BOLUS 3,000 UNITS in SYRINGE 0 ML IV ONE (06:30)
[2020-03-05] MEDS: POLYETHYLENE (MIRALAX) 17 GM PACK PO SCH (07:57)
[2020-03-05] MEDS: DOCUSATE SODIUM 100 MG CAP PO SCH ×2 (07:57→20:13)
[2020-03-05] MEDS: SENNA 8.6 MG TAB PO SCH (07:57)
[2020-03-05] MEDS: CLOPIDOGREL BISULFATE 75 MG TAB PO SCH (07:57)
[2020-03-05] MEDS: AMIODARONE 200 MG TAB PO SCH (07:58)
[2020-03-05] MEDS: UMECLIDINIUM BROMIDE 62.5MCG/BLISTER 7 PUFFS/INHALER INH SCH (07:58)
[2020-03-05] MEDS: ASPIRIN 81 MG ECTAB PO SCH (07:58)
[2020-03-05] MEDS: PANTOprazole 40 MG TAB PO SCH (07:58)
[2020-03-05] MEDS: INSULIN ASPART 100 UNITS/ML 3 ML PEN SC SCH ×4 (08:10→20:30)
[2020-03-05] MEDS: INSULIN GLARGINE SOLOSTAR 100 UNITS/ML 3 ML PEN SC SCH (08:11)
--- NOTE | 2020-03-05 08:30 | Electrocardiogram Report ---
Test Reason : Blood Pressure : / mmHG Vent. Rate : 105 BPM Atrial Rate : 105 BPM P-R Int : 198 ms QRS Dur : 180 ms QT Int : 362 ms P-R-T Axes : 000 -73 090 degrees QTc Int : 478 ms Poor data quality, interpretation may be adversely affected Ventricular-paced rhythm with very wide complex Abnormal ECG When compared with ECG of 01-MAR-2020 08:44, Electronic ventricular pacemaker has replaced Sinus rhythm Vent. rate has increased BY 42 BPM Confirmed by Roge Haines ([id number]) on 03/05/2020 8:30:01 AM Referred By: [facility] Confirmed By:Roge Haines
--- NOTE | 2020-03-05 08:31 | Electrocardiogram Report ---
Test Reason : Blood Pressure : / mmHG Vent. Rate : 104 BPM Atrial Rate : 105 BPM P-R Int : 176 ms QRS Dur : 180 ms QT Int : 488 ms P-R-T Axes : 000 -87 142 degrees QTc Int : 641 ms Wide QRS tachycardia with intermittent ventricular pacing Left axis deviation Non-specific intra-ventricular conduction block Abnormal ECG When compared with ECG of 03-MAR-2020 23:45, (unconfirmed) No significant change was found Confirmed by Roge Haines ([id number]) on 03/05/2020 8:31:06 AM Referred By: [facility] Confirmed By:Roge Haines
--- NOTE | 2020-03-05 09:02 | XRay Report ---
XR chest 1V portable CLINICAL HISTORY: Shortness of breath. COMPARISON STUDY: Chest CT February 29, 2020. Chest radiograph March 04, 2020. FINDINGS: A left subclavian pacer/AICD, median sternotomy wires and prosthetic mitral valve are noted . Moderate cardiomegaly is noted. There are small bilateral pleural effusions. No pneumothorax is pre sent. Interstitial thickening and bilateral opacities have progressed since prior chest radiograph. IMPRESSION: 1. Progression of interstitial thickening and bilateral opacities. Pulmonary edema is favored however pneumonia could appear similar. 2. Small bilateral pleural effusions. ACT 112: Negative or not required by law. Electronically signed by: Anish Kuhn M.D. 03/05/2020 9:01 AM
[2020-03-05] MEDS ORDERED: FUROSEMIDE 40 MG in SYRINGE 0 ML IV ONE (09:30)
--- NOTE | 2020-03-05 11:24 | Nephrology Progress Note ---
Date of Service March 05, 2020 Assessment & Plan (1) SUSAN (acute kidney injury): * ATN related to recurrent episodes of VT * PHILLY may also have contributed: CT abd/pelvis 02/29/20 + IV contrast * Creatinine is nearing baseline 1.6. Electrolyte balance remains acceptable * CXR shows mild CHF. SaO2 only 90% on 3L/min NC. Agree w/ primary service order for Furosemide 40 mg IV x1 * No obstruction reported on 02/29/[address] - 7mm lower pole R renal cyst (2) Chronic kidney disease, stage III (moderate): * Baseline Cr 1.6 - likely due to microvascular disease (3) Chronic systolic CHF (congestive heart failure): * Volume status is currently acceptable * Monitor I&O's, daily weight (4) Ischemic cardiomyopathy: * Cardiac cath planned once Cr ~ 1.6 and stable (5) Expressive aphasia: * Head CT 03/04/20 negative for acute change * Symptomatically improved this morning w/ fluent speech Admission and Anticipated Discharge Date Admission Date: February 29, 2020 Subjective Mr. Vieyra was seen & examined in his hospital room this morning. CP has resolved. Speech is now fluent. c/o mild dyspnea. Review of Systems Constitutional: no fever Eyes: no problem reported Ear, Nose, Mouth, Throat: no problem reported Respiratory: no dyspnea Cardiovascular: no palpitations and no edema Gastrointestinal: no abdominal pain and no diarrhea/loose stools Genitourinary: no dysuria and no hematuria Musculoskeletal: no back pain Integumentary: no rash Neurologic: no dizziness Physical Exam Constitutional: not in distress Eyes: PERRL, conjunctivae normal, anicteric sclerae ENMT: external ear and nose normal, oropharynx normal Neck: trachea midline, no thyromegaly Respiratory: normal respiratory effort, lungs clear to auscultation Cardiovascular: RRR, no murmur, no edema Gastrointestinal (Abdomen): normal bowel sounds, soft, nontender, no hepatosplenomegaly Musculoskeletal: Extremities: no cyanosis Skin: no rashes, warm and dry Neurologic: awake Speech / Cognition: + abnormal speech Results & Data ([facility]) Vital Signs (Past 12 Hours) Vital Signs Temp Pulse Pulse Resp BP Pulse Ox 03/05/20 07:27 37.1 C 83 22 113/52 L 90 03/05/20 04:20 36.9 C 72 22 115/64 92 03/04/20 23:27 36.7 C 77 20 120/63 94 Laboratory Results Laboratory Tests 03/05/20 03/05/20 05:49 05:49 WBC 11.16 H Hgb 8.7 L Hct 25.6 L Plt Count 137 Sodium 138 Potassium 4.2 Chloride 107 Carbon Dioxide 22 BUN 33 H Creatinine 1.75 H Glucose 169 H Calcium 8.0 L PG Care Time/CCT Total # of Minutes Spent Total Time Spent with Patient: Total time spent is greater than 50% in coordination of care (as documented) at patient's floor/unit and/or counseling patient: Coding Level of Care Code 17442 Subseq Hosp Care Lvl 3 Diagnoses SUSAN (acute kidney injury) N17.9 Chronic kidney disease, stage III (moderate) N18.3 Chronic systolic CHF (congestive heart failure) I50.22 Ischemic cardiomyopathy I25.5 Expressive aphasia R47.01
--- NOTE | 2020-03-05 11:29 | Hospitalist Progress Note ---
Date of Service March 05, 2020 Assessment & Plan (1) Syncope: 74-year-old male with a past medical history of V. tach, ischemic cardiomyopathy, AICD in place, admitted for syncopal episodes, elevated troponin and concern for cardiac ischemia. - Syncope likely secondary to VT/Afib episodes on AICD interrogation - AICD fired on Feb 16, [patient denies feelings these] - continuous cardiac monitoring -AICD interrogation showed VT - optimize/replete electrolytes as necessary -Cardiology consultation appreciated-plan for possible cardiac catheterization, however unable to proceed due to elevated creatinine ECHO noted for EF 35-40% and large apical aneurysm with hypokinesis (2) Acute CHF (congestive heart failure): Home lasix dosing has been on hold since admission due to elevated cr CXR noted for possible pulm edema vs PNA WBC WNL, afebrile Neg for LE swelling, however given hx of baseline lasix use that has been held, CHF exacerbation is more likely than PNA at this time Lasix 40mg IV x1 and monitor (3) Elevated troponin I level: most likely demand ischemia with repeated runs of Afib/VT 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 tach trending trops: increased to .299 continue nitro drip and heparin (4) Ventricular tachycardia: With several runs of V. tach requiring shocks as per ICD/pacer interrogation with cardiology in the ER Continue amiodarone 400 mg daily -Replete electrolytes as above Continue carvedilol and titrate upwards to 25 mg p.o. twice daily if tolerated (5) ICD (implantable cardioverter-defibrillator), dual, in situ: Placed for moderate ischemic cardiomyopathy and history of V. tach (6) Atrial fibrillation: New onset, noted on ECG here and on interrogation of pacemaker Cardio however described as atrial tachycardia, currently rate is normal with re gular rhythm [id number] score significantly elevated at 7 Heparin drip with bolus for anticoagulation ECHO as noted above Cardiology consult Continue carvedilol 12.5 BID, Amiodarone 400 daily (7) CAD (coronary artery disease): hx 3V CABG as well as multiple JENNIFER remotely With left shoulder pain is anginal equivalent here relieved with nitroglycerin, mildly elevated troponin continue ASA, statin, carvedilol Holding losartan for mild increase in creatinine (8) Ischemic cardiomyopathy: medications continued as above Most recent EF 35-40% on echo from 2018, repeat is with stable EF Not volume overloaded at this time (9) Chronic kidney disease, stage III (moderate): Cr 1.67 at admission, roughly same as prior admissions daily BMP Now is in acute renal failure with cr 2.4 (10) Hx of CABG: As above (11) COPD (chronic obstructive pulmonary disease): No acute issues CT of the chest with chronic pleural thickening and atelectasis, emphysematous changes Continue incruse ellipta albuterol PRN for SOB O2 goal >88% not on oxygen at baseline (12) Hypothyroid: TSH 5.8 on admission no hx thyroid disease Free T4 ordered for AM may contribute to tachycardic episodes (13) Splenomegaly: Noted to be mildly enlarged on CT scan at 13.5 cm With mild thrombocytopenia Follow as an outpatient (14) Thrombocytopenia: Platelets low but fairly stable from the past 2 years Splenomegaly may be contributing Perhaps has ITP or underlying liver issues? Check peripheral smear with CBC in the morning Consider hematology consultation as an outpatient (15) Anemia: Macrocytic, mild Checking B12 is low normal at 366, will start IM s/p cath Folate WNL Follow CBC Peripheral smear as above (16) Hyperlipidemia: Continue statin high intensity for severe CAD (17) Diabetes mellitus: Most recent hemoglobin A1c was from 2018 and was 5.8% With blood glucose [address] NovoLog supplemental insulin before meals and at bedtime with Accu- Cheks Is not on medications at home (18) Chronic systolic CHF (congestive heart failure): Noted as above and ischemic cardiomyopathy Continue guideline directed medical therapy with carvedilol and titrate up as able to, losartan which is currently on hold for mildly elevated creatinine in anticipation of cardiac catheterization, and Aldactone -Holding home Lasix dosing (80mg PO AM and 40mg PO 1600 at baseline) (19) Peripheral arterial disease with history of revascularization: With a history of right lower extremity superficial femoral artery and right popliteal artery occlusions with angioplasty and stenting in 2018 Continue aspirin, statin (20) History of CVA (cerebrovascular accident): With a history of such, CT head here with small focus of encephalomalacia in the right frontal lobe favoring an old infarct Continue aspirin, statin Now on heparin drip for atrial fibrillation (21) Pancreatic cyst: Noted incidentally on CT scan with 2.2 cm cyst Needs outpatient follow-up (22) DVT prophylaxis: DVT ppx: on heparin drip FEN/GI: heart healthy, low sodium, NPO at [place] Code Status: Full Code (23) Expressive aphasia: Repeat CT head neg for acute, cannot get MRI due to pacer Has been on and off for days per pt Has not been mentioned or noted prior to today by myself, although teeth not in place during discussion today Continue to monitor Admission and Anticipated Discharge Date Admission Date: February 29, 2020 Subjective Called by nursing this AM as pt with SOB and coughing with deep breaths at rest. He is not OOB due to restraints. Pt states this started yesterday. He feels that his speech is better today. He did not eat breakfast due to feeling generally unwell. Ongoing L shoulder pain into his arm. Pt denies fever, chest pain, abd pain, n/v/c/d, LE pain or swelling. Review of Systems Review of Systems: Pertinent positives and negatives reviewed in HPI--all others negative Physical Exam Constitutional: WD/WN, vitals as above Eyes: normal visual chong by confrontation and + anicteric sclerae Neck: normal visual inspection and trachea midline Respiratory: normal respiratory effort; no respiratory distress Auscultation: + crackles (diffuse); no wheezes Cardiovascular: Rate/Rhythm: regular rate and regular rhythm Extremities: + edema Gastrointestinal (Abdomen): Inspection/Auscultation: abdomen not distended Percussion/Palpation: abdomen soft; abdomen nontender Musculoskeletal: Head/Neck/Chest: normocephalic and head atraumatic Skin: no rashes, warm and dry Neurologic: awake; not confused Speech / Cognition: + abnormal speech (mild slurring resolved, stutter still noted but better, teeth not in place) Psychiatric: A+Ox3, euthymic affect Orientation: cooperative Results & Data Results & Data ([facility]) Vital Signs (Past 12 Hours) Vital Signs Temp Pulse Pulse Resp BP Pulse Ox 03/05/20 07:27 37.1 C 83 22 113/52 L 90 03/05/20 04:20 36.9 C 72 22 115/64 92 03/04/20 23:27 36.7 C 77 20 120/63 94 PG Care Time/CCT Total # of Minutes Spent Total Time Spent with Patient: Total time spent is greater than 50% in coordination of care (as documented) at patient's floor/unit and/or counseling patient: Coding Level of Care Code 64086 Subseq Hosp Care Lvl 3 Diagnoses Syncope R55 Syncope type: unspecified Acute CHF (congestive heart failure) I50.9 Elevated troponin I level R79.89 Ventricular tachycardia I47.2 ICD (implantable cardioverter-defibrillator), dual, in situ Z95.810 Atrial fibrillation I48.91 Atrial fibrillation type: unspecified CAD (coronary artery disease) I25.10 Ischemic cardiomyopathy I25.5 Chronic kidney disease, stage III (moderate) N18.3 Hx of CABG Z95.1 COPD (chronic obstructive pulmonary disease) J44.9 Hypothyroid E03.9 Splenomegaly R16.1 Thrombocytopenia D69.6 Anemia D64.9 Hyperlipidemia E78.5 Diabetes mellitus E11.9 Chronic systolic CHF (congestive heart failure) I50.22 Peripheral arterial disease with history of revascularization I73.9; Z98.890 History of CVA (cerebrovascular accident) Z86.73 Pancreatic cyst K86.2 DVT prophylaxis Z29.9 Expressive aphasia R47.01 (1) Syncope Syncope type: unspecified Qualified Code(s): R55 - Syncope and collapse (2) Atrial fibrillation Atrial fibrillation type: unspecified Qualified Code(s): I48.91 - Unspecified atrial fibrillation
[2020-03-05 13:05] LABS: Partial Thromboplastin Ratio 2.2
[2020-03-05 13:06] LABS: Partial Thromboplastin Time 62.2 Seconds (21.0-31.0)
[2020-03-05] MEDS: ROSUVASTATIN CALCIUM 20 MG TAB PO SCH (20:13)
[2020-03-06] MEDS: HEPARIN SODIUM/DEXTROSE 25,000 UNITS/500 ML BAG IV SCH (04:22)
[2020-03-06 06:38] LABS: Basophils # (auto) 0.04 K/uL (0-0.2); Basophils % (auto) 0.4 %; Eosinophils # (auto) 0.26 K/uL (0-0.5); Eosinophils % (auto) 2.4 %; Hematocrit (blood only) 25.9 % (42-52); Hemoglobin 8.8 g/dL (14.0-18.0); Immature Granulocytes # (auto) 0.11 K/uL (0.00-0.02); Lymphocytes # (auto) 0.73 K/uL (1.2-3.4); Lymphocytes % (auto) 6.7 %; Mean Corpuscular Hemoglobin 34.6 pg (25-34); Mean Platelet Volume 9.7 fL (7.4-10.4); Monocytes # (auto) 1.22 K/uL (0.11-0.59); Monocytes % (auto) 11.2 %; Neutrophils # (auto) 8.54 K/uL (1.4-6.5); Neutrophils % (auto) 78.3 %; Nucleated RBC # (auto) 0.03 K/uL (0-0); Nucleated RBC % (auto) 0.2 %; Platelet Count 164 K/uL (130-400); RDW Coefficient of Variation 15.3 % (11.5-14.5); RDW Standard Deviation 54.8 fL (36.4-46.3); Red Blood Count 2.54 M/uL (4.7-6.1)
[2020-03-06 06:58] LABS: Partial Thromboplastin Ratio 1.9
[2020-03-06 07:02] LABS: Partial Thromboplastin Time 54.4 Seconds (21.0-31.0)
[2020-03-06 07:11] LABS: BUN Creatinine Ratio 19.1 (10-20); Calcium 8.1 mg/dl (8.5-10.1); Creatinine Clr Calc Pharmacy 40.9 ml/min; Est GFR (African American) 42.9; Potassium 3.8 mmol/L (3.5-5.1)
[2020-03-06] MEDS: SENNA 8.6 MG TAB PO SCH (07:50)
[2020-03-06] MEDS: CLOPIDOGREL BISULFATE 75 MG TAB PO SCH (07:50)
[2020-03-06] MEDS: PANTOprazole 40 MG TAB PO SCH (07:50)
[2020-03-06] MEDS: AMIODARONE 200 MG TAB PO SCH (07:50)
[2020-03-06] MEDS: POLYETHYLENE (MIRALAX) 17 GM PACK PO SCH (07:50)
[2020-03-06] MEDS: UMECLIDINIUM BROMIDE 62.5MCG/BLISTER 7 PUFFS/INHALER INH SCH (07:51)
[2020-03-06] MEDS: ASPIRIN 81 MG ECTAB PO SCH (07:51)
[2020-03-06] MEDS: DOCUSATE SODIUM 100 MG CAP PO SCH ×2 (07:51→21:14)
[2020-03-06] MEDS: INSULIN ASPART 100 UNITS/ML 3 ML PEN SC SCH ×4 (07:52→22:13)
[2020-03-06] MEDS ORDERED: FUROSEMIDE 40 MG/4 ML VIAL IV ONE (08:36)
[2020-03-06] MEDS: INSULIN GLARGINE SOLOSTAR 100 UNITS/ML 3 ML PEN SC SCH (08:37)
[2020-03-06] MEDS ORDERED: FUROSEMIDE 40 MG in SYRINGE 0 ML IV ONE (08:45)
[2020-03-06 09:11] LABS: Base Excess VBG -0.8 mEq/L; HCO3 VBG 24 mmol/L; PCO2 VBG 37 mmHg (38-50); PO2 VBG 24 mmHg; pH VBG 7.42 (7.36-7.41)
[2020-03-06 09:12] LABS: Oxygen Saturation VBG < 60.0 %
[2020-03-06] MEDS: LEVALBUTEROL TARTRATE 15 GM HFA.AER.AD INH PRN (09:29)
[2020-03-06 09:39] LABS: Troponin I 1.02 ng/ml (0-0.045)
--- NOTE | 2020-03-06 10:03 | XRay Report ---
XR chest 1V portable HISTORY: Shortness of breath COMPARISON: Chest 03/05/2020. FINDINGS: No pneumothorax. The heart remains enlarged. Is left-sided pacemaker/defibrillator. Postste rnotomy changes. Small right pleural effusion. Right greater than left interstitial thickening and navarrete zy airspace opacities have slightly improved. This favors pulmonary edema. IMPRESSION: 1. Slight improvement in the asymmetric pulmonary edema. 2. Small right pleural effusion. 3. Persisting cardiomegaly. ACT 112: Negative or not required by law. Electronically signed by: Giorgi Salmeron M.D. 03/06/2020 10:01 AM
--- NOTE | 2020-03-06 10:20 | Nephrology Progress Note ---
Date of Service March 06, 2020 Assessment & Plan (1) SUSAN (acute kidney injury): * ATN related to recurrent episodes of VT and recent IV contrast administration * CT abd/pelvis 02/29/20 + IV contrast * Cr stable at 1.7 this am (baseline 1.6). Electrolyte balance remains acceptable * CXR this am w/ mild improvement in pulmonary vascular congestion. SaO2 has improved to 92% on 2L/min NC. Agree w/ primary service order for Furosemide 40 mg IV x1 this am * No obstruction reported on 02/29/[address] - 7mm lower pole R renal cyst (2) Chronic kidney disease, stage III (moderate): * Baseline Cr 1.6 - likely due to microvascular disease (3) Chronic systolic CHF (congestive heart failure): * Volume status is currently acceptable * Monitor I&O's, daily weight (4) Ischemic cardiomyopathy: * Await Cardiology input - patient may require coronary angiography (5) Expressive aphasia: * Head CT 03/04/20 negative for acute change * Symptomatically improved. Speech is now fluent Admission and Anticipated Discharge Date Admission Date: February 29, 2020 Subjective Mr. Vieyra was seen & examined in his hospital room this morning. ~ 2400 cc UO in response to IV furosemide yesterday. Patient reports that breathing has not significantly improved. Primary service has redosed diuretic this am. Review of Systems Constitutional: no fever Eyes: no problem reported Ear, Nose, Mouth, Throat: no problem reported Respiratory: no dyspnea Cardiovascular: no palpitations and no edema Gastrointestinal: no abdominal pain and no diarrhea/loose stools Genitourinary: no dysuria and no hematuria Musculoskeletal: no back pain Integumentary: no rash Neurologic: no dizziness Physical Exam Constitutional: not in distress Eyes: PERRL, conjunctivae normal, anicteric sclerae ENMT: external ear and nose normal, oropharynx normal Neck: trachea midline, no thyromegaly Respiratory: Auscultation: + rales and + wheezes Cardiovascular: RRR, no murmur, no edema Gastrointestinal (Abdomen): normal bowel sounds, soft, nontender, no hepatosplenomegaly Musculoskeletal: Extremities: no cyanosis Skin: no rashes, warm and dry Neurologic: awake Speech / Cognition: normal speech Results & Data ([facility]) Vital Signs (Past 12 Hours) Vital Signs Temp Pulse Pulse Resp BP Pulse Ox 03/06/20 09:29 91 H 18 94 03/06/20 08:00 36.8 C 88 108 H 18 121/69 92 03/06/20 03:26 37.6 C H 101 H 20 136/70 93 03/06/20 00:15 98 H 03/05/20 23:52 36.8 C 79 18 84/50 L 95 Laboratory Results Laboratory Tests 03/06/20 03/06/20 05:55 05:55 WBC 10.90 H Hgb 8.8 L Hct 25.9 L Plt Count 164 Sodium 138 Potassium 3.8 Chloride 105 Carbon Dioxide 23 BUN 34 H Creatinine 1.79 H Glucose 181 H PG Care Time/CCT Total # of Minutes Spent Total Time Spent with Patient: Total time spent is greater than 50% in coordination of care (as documented) at patient's floor/unit and/or counseling patient: Coding Level of Care Code 72616 Subseq Hosp Care Lvl 3 Diagnoses SUSAN (acute kidney injury) N17.9 Chronic kidney disease, stage III (moderate) N18.3 Chronic systolic CHF (congestive heart failure) I50.22 Ischemic cardiomyopathy I25.5 Expressive aphasia R47.01
--- NOTE | 2020-03-06 13:38 | Hospitalist Progress Note ---
Date of Service March 06, 2020 Assessment & Plan (1) Ventricular tachycardia: With several runs of V. tach requiring shocks as per ICD/pacer interrogation with cardiology in the ER Continue amiodarone 400 mg daily -Replete electrolytes as above Continue carvedilol and titrate upwards to 25 mg p.o. twice daily if tolerated - Thought by cardiology that this may be ischemia driving his increased VT. Cath today. 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 tach trending trops: increased to .299 continue nitro drip and heparin Continues to have shortness of breath and cough. CXR with continued edema. Plan for cath today. Discussed case with cardiology. (3) Syncope: 74-year-old male with a past medical history of V. tach, ischemic cardiomyopathy, AICD in place, admitted for syncopal episodes, elevated troponin and concern for cardiac ischemia. - Syncope likely secondary to VT/Afib episodes on AICD interrogation - AICD fired on Feb 16 [patient denies feelings these] - continuous cardiac monitoring -AICD interrogation showed VT - optimize/replete electrolytes as necessary -Cardiology consultation appreciated-plan for possible cardiac catheterization ECHO noted for EF 35-40% and large apical aneurysm with hypokinesis (4) Acute CHF (congestive heart failure): Home lasix dosing has been on hold since admission due to elevated cr CXR noted for possible pulm edema vs PNA WBC WNL, afebrile Neg for LE swelling, however given hx of baseline lasix use that has been held, CHF exacerbation is more likely than PNA at this time Lasix 40mg IV x1 and monitor -> Another dose given today. (5) ICD (implantable cardioverter-defibrillator), dual, in situ: Placed for moderate ischemic cardiomyopathy and history of V. tach (6) Atrial fibrillation: New onset, noted on ECG here and on interrogation of pacemaker Cardio however described as atrial tachycardia, currently rate is normal with regular rhythm [id number] score significantly elevated at 7 Heparin drip with bolus for anticoagulation ECHO as noted above Cardiology consult Continue carvedilol 12.5 BID, Amiodarone 400 daily (7) CAD (coronary artery disease): hx 3V CABG as well as multiple JENNIFER remotely With left shoulder pain is anginal equivalent here relieved with nitroglycerin, mildly elevated troponin continue ASA, statin, carvedilol Holding losartan for mild increase in creatinine (8) Ischemic cardiomyopathy: medications continued as above Most recent EF 35-40% on echo from 2018, repeat is with stable EF - Possibly overloaded today. Gave another dose of Lasix 40 mg IV x 1. (9) Chronic kidney disease, stage III (moderate): Cr 1.67 at admission, roughly same as prior admissions daily BMP Now is in acute renal failure with cr 2.4 (10) Hx of CABG: As above (11) COPD (chronic obstructive pulmonary disease): No acute issues CT of the chest with chronic pleural thickening and atelectasis, emphysematous changes Continue incruse ellipta albuterol PRN for SOB O2 goal >88% not on oxygen at baseline (12) Hypothyroid: TSH 5.8 on admission no hx thyroid disease Free T4 ordered for AM may contribute to tachycardic episodes (13) Splenomegaly: Noted to be mildly enlarged on CT scan at 13.5 cm With mild thrombocytopenia Follow as an outpatient (14) Thrombocytopenia: Platelets low but fairly stable from the past 2 years Splenomegaly may be contributing Perhaps has ITP or underlying liver issues? Check peripheral smear with CBC in the morning Consider hematology consultation as an outpatient (15) Anemia: Macrocytic, mild Checking B12 is low normal at 366, will start IM s/p cath Folate WNL Follow CBC Peripheral smear as above (16) Hyperlipidemia: Continue statin high intensity for severe CAD (17) Diabetes mellitus: Most recent hemoglobin A1c was from 2018 and was 5.8% With blood glucose [address] NovoLog supplemental insulin before meals and at bedtime with Accu- Cheks Is not on medications at home (18) Chronic systolic CHF (congestive heart failure): Noted as above and ischemic cardiomyopathy Continue guideline directed medical therapy with carvedilol and titrate up as able to, losartan which is currently on hold for mildly elevated creatinine in anticipation of cardiac catheterization, and Aldactone -Holding home Lasix dosing (80mg PO AM and 40mg PO 1600 at baseline) (19) Peripheral arterial disease with history of revascularization: With a history of right lower extremity superficial femoral artery and right popliteal artery occlusions with angioplasty and stenting in 2018 Continue aspirin, statin (20) History of CVA (cerebrovascular accident): With a history of such, CT head here with small focus of encephalomalacia in the right frontal lobe favoring an old infarct Continue aspirin, statin Now on heparin drip for atrial fibrillation (21) Pancreatic cyst: Noted incidentally on CT scan with 2.2 cm cyst Needs outpatient follow-up (22) DVT prophylaxis: DVT ppx: on heparin drip FEN/GI: heart healthy, low sodium, NPO at [place] Code Status: Full Code (23) Expressive aphasia: Repeat CT head neg for acute, cannot get MRI due to pacer Has been on and off for days per pt Has not been mentioned or noted prior to today by myself, although teeth not in place during discussion today Continue to monitor Admission and Anticipated Discharge Date Admission Date: February 29, 2020 Subjective Feels his cough and shortness of breath are a bit worse today. More tired. R eports no fevers/chills, chest pain, abdominal pain, nausea, or vomiting. Physical Exam Constitutional: WD/WN, vitals as above Eyes: EOM intact bilaterally; no conjunctival abnormality ENMT: external ear and nose normal, oropharynx normal Neck: trachea midline, no thyromegaly normal visual inspection Respiratory: normal respiratory effort, lungs clear to auscultation no respiratory distress Cardiovascular: RRR, no murmur, no edema Vessels: + JVD Gastrointestinal (Abdomen): Inspection/Auscultation: abdomen normal to inspection; abdomen not distended Musculoskeletal: no cyanosis or clubbing, extremities motor strength 5/5 Skin: no rashes, warm and dry Neurologic: moves all extremities and awake Psychiatric: Orientation: alert, oriented to person and cooperative Results & Data Results & Data ([facility]) Vital Signs (Past 12 Hours) Vital Signs Temp Pulse Pulse Resp BP Pulse Ox 03/06/20 11:33 37.0 C 79 20 101/64 96 03/06/20 09:29 91 H 18 94 03/06/20 08:00 36.8 C 88 108 H 18 121/69 92 03/06/20 03:26 37.6 C H 101 H 20 136/70 93 PG Care Time/CCT Total # of Minutes Spent Total Time Spent with Patient: Total time spent is greater than 50% in coordination of care (as documented) at patient's floor/unit and/or counseling patient: Coding Level of Care Code 79094 Subseq Hosp Care Lvl 2 Diagnoses Ventricular tachycardia I47.2 Elevated troponin I level R79.89 Syncope R55 Syncope type: unspecified Acute CHF (congestive heart failure) I50.9 ICD (implantable cardioverter-defibrillator), dual, in situ Z95.810 Atrial fibrillation I48.91 Atrial fibrillation type: unspecified CAD (coronary artery disease) I25.10 Ischemic cardiomyopathy I25.5 Chronic kidney disease, stage III (moderate) N18.3 Hx of CABG Z95.1 COPD (chronic obstructive pulmonary disease) J44.9 Hypothyroid E03.9 Splenomegaly R16.1 Thrombocytopenia D69.6 Anemia D64.9 Hyperlipidemia E78.5 Diabetes mellitus E11.9 Chronic systolic CHF (congestive heart failure) I50.22 Peripheral arterial disease with history of revascularization I73.9; Z98.890 History of CVA (cerebrovascular accident) Z86.73 Pancreatic cyst K86.2 DVT prophylaxis Z29.9 Expressive aphasia R47.01 (1) Atrial fibrillation Atrial fibrillation type: unspecified Qualified Code(s): I48.91 - Unspecified atrial fibrillation (2) Syncope Syncope type: unspecified Qualified Code(s): R55 - Syncope and collapse
[2020-03-06] MEDS ORDERED: NiCARDipine HCL INJ 2.5 MG/ML 10 ML AMP ONE (14:23)
[2020-03-06] MEDS ORDERED: HEPARIN (PORCINE) 1000 UNIT/ML 10 ML (CATH LAB USE ONLY) ONE (14:23)
[2020-03-06] MEDS ORDERED: fentaNYL citrate 100 MCG/2 ML VIAL ONE (14:23)
[2020-03-06] MEDS ORDERED: MIDAZOLAM HCL 1 MG/ML 2ML VIAL ONE (14:24)
[2020-03-06] MEDS ORDERED: NITROGLYCERIN/D5W 100MCG/ML 20ML SYR ONE (14:24)
--- NOTE | 2020-03-06 17:11 | Post Anesthesia Assessment ---
Date of Service March 06, 2020 Post Sedation Assessment Vital Signs Temp Pulse Pulse Resp BP Pulse Ox 03/06/20 14:51 86 16 118/60 99 03/06/20 11:33 98.6 F 79 20 101/64 96 03/06/20 09:29 91 H 18 94 03/06/20 08:00 98.2 F 88 108 H 18 121/69 92 03/06/20 03:26 99.7 F H 101 H 20 136/70 93 03/06/20 00:15 98 H 03/05/20 23:52 98.2 F 79 18 84/50 L 95 03/05/20 19:27 97.5 F L 84 20 135/71 91 Recovery Score Activity: Moves 4 extremities Respiration: Deep Breath/Cough Circulation: +/-20% PreAnes Value Consciousness: Fully Awake Oxygen Saturation: O2 needed for >90% Discharge Sedation Level of Care: Fast Track Phase II Post Sedation Plan On clinical assessment, the patient appears to have tolerated the sedation without complications. Patient is recovering as anticipated. Patient will continue to be monitored by nursing and may be discharged when sedation discharge criteria are met per below protocol. Upon Completions of procedure up to 15 minutes continue every 5 minute vital signs and the P.A.R. score; then discharge to a Phase I or Fast Track to Phase II per the following guidelines: * Discharge Patient to appropriate Phase II area if PAR is 8 or greater or return to pre- procedure baseline. The post - procedure orders will be as directed. * If PAR score is less than 8 or not return to pre-procedure baseline then patient will follow Phase I monitoring till PAR is reached for Phase II. The Phase I may be done in procedure room or may call to secure a Phase I area. * If naloxone or flumazenil are used for reversal, hold in Phase I for continued monitoring from when last reversal dose was given for a minimum of 60 minutes or longer pending the nurse and/or physician discretion of patient condition before discharge to Phase II. Please call the Sedation Physician to re-evaluate and complete post-note for discharge to Phase II area. Do NOT discharge from procedure sedation or Phase 1 until post- sedation evaluation note is complete by procedure /sedation MD Sedation Discharge Instructions to be given to the patient at discharge to home.
--- NOTE | 2020-03-06 17:11 | Pre Anesthesia Assessment ---
Date of Service March 06, 2020 Pre Sedation Assessment Vital Signs Temp Pulse Pulse Resp BP Pulse Ox 03/06/20 14:51 86 16 118/60 99 03/06/20 11:33 98.6 F 79 20 101/64 96 03/06/20 09:29 91 H 18 94 03/06/20 08:00 98.2 F 88 108 H 18 121/69 92 03/06/20 03:26 99.7 F H 101 H 20 136/70 93 03/06/20 00:15 98 H 03/05/20 23:52 98.2 F 79 18 84/50 L 95 03/05/20 19:27 97.5 F L 84 20 135/71 91 Cardiovascular RRR, no murmur, no edema Respiratory normal respiratory effort, lungs clear to auscultation Pre-Sedation Airway Assessment Smoking Status: Former smoker Hx Sleep Apnea: No Hx Difficult Intubation: No Short, Thick Neck: No Thyromental Distance: > or= 3.5 Finger Breadths Oral Cavity: + Chipped Teeth Mallampati Class: II ASA: ASA3 NPO Status Date of Last Intake of Fluids: 03/05/20 Time of Last Intake of Fluids: 21:30 Date of Last Intake of Solid Food: 03/05/20 Time of Last Intake of Solid Foods: 21:30 Procedure Planning Contraindications for Sedation: none Current Medications Reviewed: Yes Notes The planned sedation has been discussed with the patient. Informed Consent was obtained. I have identified the patient, determined the appropriateness of sedation and have assessed the patient immediately prior to the procedure. All medicine(s) and interventions are by my order.
--- NOTE | 2020-03-06 17:30 | Cardiac Catheterization ---
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 Cardiac Status Clinical evaluation leading to the procedure CAD Presenation: Non STEMI Anginal Classification: CCS III Heart Failure: NYHA Class: CCS IV Cardiogenic Shock within 24 Hours: No Cardiac Arrest within 24 Hours: No Imaging Studies Past 6 Months: Yes Stress Studies Past 6 Months: No Diagnostic Physicians Name: Dinesh Angela MD Status: Elective Closure Device Percutaneous Entry Location: Radial (Femoral as well) Closure Device: Mynx and Radial Band Recommendations: Medical Therapy and/or Counseling Intraprocedure Events Significant Disection: No Perforation: No Cardiac Cath Procedure Full Procedure Date March 06, 2020 Pre-Procedure Diagnosis Pre-Procedure Diagnosis: Non STEMI, Cardiomyopathy and Arrhythmia AUC Score AUC Score: 8 Post-Procedure Diagnosis Post-Procedure Diagnosis: Severe CAD and Normal Intracardiac Pressures Procedure(s) Performed Procedure(s) Performed: Coronary Angiography, Left Heart Cath and Bypass Graft Angiography Correctional Supervisor Lieutenant Dinesh Angela MD Recruiting Coordinator(s) Osmel Estimated Blood Loss Estimated Blood Loss: 15 Medication(s) Medication(s): Fentanyl, Heparin, Lidocaine 1%, Nicardipine, Nitroglycerin and Versed Summary of Findings Indication: NSTEMI, ventricular arrhythmia Access: 6Fr right radial artery, 5Fr right CHAIN PERSON Catheters: [place], JR4, MPA, ARACELIS Findings: LM - Stent 100% acute on chronically occluded. LAD - Occluded Circumflex - Stents occluded RCA - 100% proximal RCA chronic total occlusion. RUDOLPH to LAD -- widely patent. SVG to diagonal -- widely patent. Minimal collaterals to circumflex system SVG to PDA -- widely patent LVEDP - 15 Arterial Closure: TR Band, Mynx Summary: 1. Severe creek multivessel coronary artery disease - 100% acute on chronic appearing left main stent occlusion. - 100% RCA chronic total occlusion. 2. Widely patent RUDOLPH to LAD, SVG to diagonal, SVG to PDA 3. Normal intracardiac filling pressure Recommendations: Asymptomatic at this time -- recommend continued medical management of CAD, heart failure, arrhythmias. Continued DAPT with aspirin and clopidogrel and ASCVD risk factor modification Hemodynamics Rest Ao:: 106/42/69 Final Ao: 118/47/72 LV: 104/15 Recommendations Recommendations: Medical Therapy and/or Counseling Specimens Specimens: None Radiation Exposure (mGy) -- Contrast (mls) 75 Procedural Complication(s) None Disposition PCU I attest to the content of the Intraoperative Record and any orders documented therein. Any exceptions are noted below. [facility] Card Cath Procedure Codes Cardiac Catheterization Procedure 1: Cardiovascular Cath Procedures: 81691 Coronaries & LHC (+/-LV) & Grafts/IM (arterial & venous) Moderate Sedation Procedure 1: Sedation/Anesthesia: 68877 Mod Sedation by the same physician;Init15 Min Child Age 5 & Up Procedure 2: Sedation/Anesthesia: 82915 Mod Sedation by the same physician; Ea [id number] Minutes PG Care Time/CCT Total # of Minutes Spent Total Time Spent with Patient: Total time spent is greater than 50% in coordination of care (as documented) at patient's floor/unit and/or counseling patient:
[2020-03-06] MEDS: ROSUVASTATIN CALCIUM 20 MG TAB PO SCH (21:14)
[2020-03-07 07:08] LABS: Hematocrit (blood only) 27.3 % (42-52); Mean Corpuscular Hemoglobin 33.6 pg (25-34); Mean Corpuscular Volume 101.9 fL (80-100); Mean Platelet Volume 9.9 fL (7.4-10.4); Platelet Count 190 K/uL (130-400); RDW Coefficient of Variation 16.2 % (11.5-14.5); RDW Standard Deviation 56.7 fL (36.4-46.3); Red Blood Count 2.68 M/uL (4.7-6.1); White Blood Count 11.56 K/uL (4.8-10.8)
[2020-03-07 07:23] LABS: Partial Thromboplastin Ratio 0.9; Partial Thromboplastin Time 26.5 Seconds (21.0-31.0)
[2020-03-07 07:44] LABS: BUN Creatinine Ratio 19.8 (10-20); Calcium 8.1 mg/dl (8.5-10.1); Creatinine Clr Calc Pharmacy 40.3 ml/min; Est GFR (African American) 42.1; Est GFR (Non-African American) 36.3; Magnesium 2.3 mg/dl (1.8-2.4)
[2020-03-07] MEDS: UMECLIDINIUM BROMIDE 62.5MCG/BLISTER 7 PUFFS/INHALER INH SCH (08:20)
[2020-03-07] MEDS: SENNA 8.6 MG TAB PO SCH (08:20)
[2020-03-07] MEDS: PANTOprazole 40 MG TAB PO SCH (08:20)
[2020-03-07] MEDS: AMIODARONE 200 MG TAB PO SCH (08:20)
[2020-03-07] MEDS: CLOPIDOGREL BISULFATE 75 MG TAB PO SCH (08:20)
[2020-03-07] MEDS: INSULIN ASPART 100 UNITS/ML 3 ML PEN SC SCH ×4 (08:21→20:13)
[2020-03-07] MEDS: ASPIRIN 81 MG ECTAB PO SCH (08:21)
[2020-03-07] MEDS: INSULIN GLARGINE SOLOSTAR 100 UNITS/ML 3 ML PEN SC SCH (08:21)
[2020-03-07] MEDS: ACETAMINOPHEN 325 MG TAB PO PRN ×2 (08:28→22:19)
[2020-03-07] MEDS: POLYETHYLENE (MIRALAX) 17 GM PACK PO SCH (08:28)
[2020-03-07] MEDS: DOCUSATE SODIUM 100 MG CAP PO SCH ×2 (08:28→20:48)
--- NOTE | 2020-03-07 09:43 | Cardiology Progress Note ---
Date of Service March 07, 2020 Assessment & Plan (1) Unresponsiveness: I believe he had loss of consciousness prior to his transfer to the emergency room, although he does not recall that. Whatever the event was (unresponsiveness or prolonged presyncope) it does coincide with a prolonged episode of ventricular tachycardia. It is hard to tell from the ICD diagnostics how long this might of been since it was not detected properly and it will only recognize an arrhythmia if it is detected by the device. Hopefully this has been corrected by ICD reprogramming. (2) ICD (implantable cardioverter-defibrillator), dual, in situ: His ICD is working well although there was some difficulty with tachycardia detection due to the slow rate of his ventricular tachycardia at times and the presence of a dual tachycardia with atrial tachycardia and ve ntricular tachycardia. This led to some prolonged detection times and his presenting symptoms. Device interrogation on presentation indicates that he has had a dramatic falloff in activity over the last several months consistent with his symptoms, additionally he has had frequent episodes of ventricular tachycardia receiving ICD shocks (12 episodes) over the last several weeks but none before that. He has also had identification of this atrial tachycardia over the prior 3 or 4 days preceding admission, whereas he did not have much of that before these recent events. This suggests there is something like ischemia causing these abnormalities, possibly progressive occlusion of his vessel. I had reprogrammed his ICD to increase the pacing rate as well as to avoid prolonged detection and deliver therapy earlier, hopefully this will prevent the situation that caused his admission in the future. It worked correctly last evening when he had an episode of ventricular tachycardia. (3) Ventricular tachycardia: He has had frequent episodes of ventricular tachycardia identified recently, prior to that his VT had been under good control. During his last hospitalization in 2017 he was having a lot of ventricular tachycardia, on transfer to [facility] he was treated for ischemia and had good control of his arrhythmia until recently. I suspect his current arrhythmia is on an perhaps ischemic basis, although that is unusual with sustained monomorphic VT. He seems to have other evidence of ischemia currently and gradual occlusion of his vessel triggered these events. Therefore I would continue his oral amiodarone for now and increase his beta-vianney if possible, I have not done that now as his blood pressure is on the low side. If he has more VT we can consider other options. So far treating ischemia has seemed to control his arrhythmia. (4) CAD (coronary artery disease): He has known coronary artery disease, in 2018 control of his VT was achieved by stent placement. If he has further difficult to control events we should consider intervention on his currently identified disease. (5) Ischemic cardiomyopathy: In 2018 his left ventricular ejection fraction was 35 to 40%. It has not changed significantly therefore worsening of left ventricular function is non- explanation for his increased ectopy. (6) Chronic kidney disease, stage III (moderate): He does have chronic kidney disease, however his creatinine has remained stable following catheterization yesterday. (7) Atrial tachycardia: He has an atrial tachycardia which has been quite frequent and more prominent recently than in the past based on ICD monitoring. That has resulted in a dual tachycardia recently which created a situation prolonging ICD detection and therapy. This may have to be addressed over the long run either with programming or additional AV molly blocking medications. So far during the hospitalization this has not been a problem although he has had occasional episodes of atrial tachycardia but the device has handled them appropriately. Admission and Anticipated Discharge Date Admission Date: February 29, 2020 Subjective Patient was sound asleep when I evaluated him this morning, he awoke and had no cardiac complaints, he is complaining of ankle discomfort. Physical Exam Physical Exam: Constitutional: Alert, cooperative and in no distress. HEENT: Unremarkable Neck: No jugular venous distention, carotid pulses are normal and equal bilaterally without bruits. Pulmonary: Clear to auscultation bilaterally. Cardiac: Regular rhythm with no murmur, gallop or rub. Abdomen: Soft, nontender with normal bowel sounds. Extremities: No edema. Distal pulses intact. Neurologic: No focal findings. Gait was not tested. Skin: No rash, ecchymoses or petechiae. His left-sided ICD site is well-healed without erythema, swelling or tenderness. Results & Data ([facility]) Vital Signs (Past 12 Hours) Vital Signs Temp Pulse Pulse Resp BP Pulse Ox 03/07/20 07:35 37.6 C H 99 H 19 107/56 L 92 03/07/20 07:21 95 H 03/07/20 04:00 36.6 C 97 H 20 122/61 94 03/06/20 23:14 36.7 C 111 H 20 92/62 L 97 Laboratory Results Coagulation 03/07/20 Range/Units 06:45 APTT 26.5 (21.0-31.0) Seconds CBC 09/29/20 Range/Units 06:45 WBC 11.56 H (4.8-10.8) K/uL RBC 2.68 L (4.7-6.1) M/uL Hgb 9.0 L (14.0-18.0) g/dL Hct 27.3 L (42-52) % Plt Count 190 (130-400) K/uL Comprehensive Metabolic Panel 03/07/20 Range/Units 06:45 Sodium 136 (136-145) mmol/L Potassium 4.0 (3.5-5.1) mmol/L Chloride 104 (98-107) mmol/L Carbon Dioxide 22 (21-32) mmol/L BUN 36 H (7-18) mg/dl Creatinine 1.82 H (0.6-1.4) mg/dl Glucose 187 H (70-99) mg/dl Calcium 8.1 L (8.5-10.1) mg/dl Intake and Output 03/06/20 03/07/20 03/07/20 22:59 06:59 14:59 Intake Total 921.333 / 1430.000 450 / 1430.000 Output Total 450 / 1850 300 / 1850 Balance 471.333 / -420.000 150 / -420.000 Intake: IV 441.333 / 500.000 HEPARIN SODIUM/DEXTROSE 25,000 441.333 / 500.000 units In 500 ml @ 1,100 UNITS/ HR 22 mls/hr IV .[id number] [facility] Rx #:[id number] Oral 480 / 930 450 / 930 Output: Urine Amount (Catheter) 450 / 1850 300 / 1850 Meza/Indwelling 450 / 1850 300 / 1850 Other: Weight 87.8 kg Diagnostic Findings Telemetry: Predominantly sinus rhythm, he did have an episode of sustained ventricular tachycardia for which he had antitachycardia pacing during the night. PG Care Time/CCT Total # of Minutes Spent Total Time Spent with Patient: Total time spent is greater than 50% in coordination of care (as documented) at patient's floor/unit and/or counseling patient: Coding Level of Care Code 38830 Subseq Hosp Care Lvl 3 Diagnoses Unresponsiveness R41.89 ICD (implantable cardioverter-defibrillator), dual, in situ Z95.810 Ventricular tachycardia I47.2 CAD (coronary artery disease) I25.10 Ischemic cardiomyopathy I25.5 Chronic kidney disease, stage III (moderate) N18.3 Atrial tachycardia I47.1
--- NOTE | 2020-03-07 11:42 | XCELERA ---
[id number]___[id number]
--- NOTE | 2020-03-07 11:43 | Nephrology Progress Note ---
Date of Service March 07, 2020 Assessment & Plan (1) SUSAN (acute kidney injury): * ATN related to recurrent episodes of VT and recent IV contrast administration * CT abd/pelvis 02/29/20 + IV contrast * Cr stable at 1.8 this am (baseline 1.6). Electrolyte balance remains acceptable * CXR this am w/ mild improvement but persistent pulmonary vascular congestion. Patient c/o mild dyspnea. Will provide Furosemide 40 mg IV x1 this am * No obstruction reported on 02/29/[address] - 7mm lower pole R renal cyst (2) Chronic kidney disease, stage III (moderate): * Baseline Cr 1.6 - likely due to microvascular disease (3) Chronic systolic CHF (congestive heart failure): * Mild persistent CHF on CXR * Will provide Furosemide 40 mg IV x1 this am * Monitor I&O's, daily weight (4) Ischemic cardiomyopathy: * Cardiac cath 03/06/20: patent bypass vessels (5) Expressive aphasia: * Head CT 03/04/20 negative for acute change * Symptomatically improved. Speech is now fluent Admission and Anticipated Discharge Date Admission Date: February 29, 2020 Subjective Mr. Vieyra was seen & examined in his hospital room this morning. ~ 400 cc UO in response to IV furosemide yesterday. Patient remains mildly dyspneic. Cardiac cath yesterday revealed patent bypass vessels. Review of Systems Constitutional: no fever Eyes: no problem reported Ear, Nose, Mouth, Throat: no problem reported Respiratory: no dyspnea Cardiovascular: no palpitations and no edema Gastrointestinal: no abdominal pain and no diarrhea/loose stools Genitourinary: no dysuria and no hematuria Musculoskeletal: no back pain Integumentary: no rash Neurologic: no dizziness Physical Exam Constitutional: not in distress Eyes: PERRL, conjunctivae normal, anicteric sclerae ENMT: external ear and nose normal, oropharynx normal Neck: trachea midline, no thyromegaly Respiratory: normal respiratory effort, lungs clear to auscultation Auscultation: + rales and + wheezes Cardiovascular: RRR, no murmur, no edema Gastrointestinal (Abdomen): normal bowel sounds, soft, nontender, no hepatosplenomegaly Musculoskeletal: Extremities: no cyanosis Skin: no rashes, warm and dry Neurologic: awake Speech / Cognition: normal speech Results & Data ([facility]) Vital Signs (Past 12 Hours) Vital Signs Temp Pulse Pulse Resp BP Pulse Ox 03/07/20 11:20 37.3 C 90 20 110/55 L 95 03/07/20 07:35 37.6 C H 99 H 19 107/56 L 92 03/07/20 07:21 95 H 03/07/20 04:00 36.6 C 97 H 20 122/61 94 Laboratory Results Laboratory Tests 03/07/20 03/07/20 06:45 06:45 WBC 11.56 H Hgb 9.0 L Hct 27.3 L Plt Count 190 Sodium 136 Potassium 4.0 Chloride 104 Carbon Dioxide 22 BUN 36 H Creatinine 1.82 H PG Care Time/CCT Total # of Minutes Spent Total Time Spent with Patient: Total time spent is greater than 50% in coordination of care (as documented) at patient's floor/unit and/or counseling patient: Coding Level of Care Code 17344 Subseq Hosp Care Lvl 3 Diagnoses SUSAN (acute kidney injury) N17.9 Chronic kidney disease, stage III (moderate) N18.3 Chronic systolic CHF (congestive heart failure) I50.22 Ischemic cardiomyopathy I25.5 Expressive aphasia R47.01
[2020-03-07] MEDS ORDERED: FUROSEMIDE 40 MG in SYRINGE 0 ML IV ONE ×2 (12:15→20:00)
[2020-03-07] MEDS: LEVALBUTEROL HCL 1.25 MG/3 ML NEB NEB SCH (19:25)
--- NOTE | 2020-03-07 19:40 | XRay Report ---
SINGLE VIEW CHEST CLINICAL HISTORY: Cough. FINDINGS: An AP, portable, upright chest radiograph is compared to study dated 03/06/2020 and correlat ed with chest CT dated 02/29/2020. The examination is degraded by portable technique and patient rotat ion. The patient is status post midline sternotomy. A 3-lead cardiac AICD is unchanged in position an d partially obscures the left upper chest. The heart is enlarged noting atherosclerotic calcification of the thoracic aorta. There is pulmonary vascular congestion with evidence of interstitial edema. T here are small pleural effusions with bibasilar consolidation. No pneumothorax is seen. The skeletal structures are osteopenic. The bony thorax is grossly intact. IMPRESSION: 1. Cardiomegaly and AICD with evidence of congestive failure and interstitial edema. This is similar to yesterday. 2. Small pleural effusions with bibasilar consolidation. ACT 112: Negative or not required by law. Electronically signed by: Radu Butler M.D. 03/07/2020 7:38 PM
[2020-03-07] MEDS: ROSUVASTATIN CALCIUM 20 MG TAB PO SCH (20:13)
--- NOTE | 2020-03-07 23:20 | Communication Note ---
Date of Service: March 07, 2020 Report from RN about pt spiking a fever 39.2 C that persisted despite Tylenol administration. CXR reviewed and showing bibasilar consolidations. Pt with additional coughing with brown coloured sputum. Will order blood/sputum cx, UA (pt with thomas), and start pt on IV Rocephin and IV Doxy (in light of pt with prolonged QTc). Will cont to monitor overnight. Addendum: Pt with SOB throughout shift with RR as high as 40. Maintained good O2 sats on Oxymask 5L. CXR showing small pleural effusions. Pt given additional IV Lasix 40 mg early in shift engineer for total of 80 mg IV for the day (in setting of CKD with SUSAN). Pt still with laboured respirations. Decision made to put pt on BiPAP and pt appeared more comfortable. Resident Activity Tracking Resident Involvement: Resident Care Provided Care Provided: Adult Hospital Medicine
--- NOTE | 2020-03-07 23:24 | Hospitalist Progress Note ---
Date of Service March 07, 2020 Assessment & Plan (1) Ventricular tachycardia: With several runs of V. tach requiring shocks as per ICD/pacer interrogation with cardiology in the ER Continue amiodarone 400 mg daily -Replete electrolytes as above Continue carvedilol and titrate upwards to 25 mg p.o. twice daily if tolerated - Thought by cardiology that this may be ischemia driving his increased VT. Cath today. (2) Elevated troponin I level: most likely demand ischemia with repeated runs of Afib/VT as well as from being shocked [employer]; however, suspect underlying ischemia as above contributing to recurrent V. tach trending trops: increased to .299 (3) Syncope: 74-year-old male with a past medical history of V. tach, ischemic cardiomyopathy, AICD in place, admitted for syncopal episodes, elevated troponin and concern for cardiac ischemia. - Syncope likely secondary to VT/Afib episodes on AICD interrogation - AICD fired on Feb 16, , [patient denies feelings these] - continuous cardiac monitoring -AICD interrogation showed VT - optimize/replete electrolytes as necessary -Cardiology consultation appreciated-plan for possible cardiac catheterization ECHO noted for EF 35-40% and large apical aneurysm with hypokinesis (4) Acute CHF (congestive heart failure): Home lasix dosing has been on hold since admission due to elevated cr CXR noted for possible pulm edema vs PNA WBC WNL, afebrile Neg for LE swelling, however given hx of baseline lasix use that has been held, CHF exacerbation is more likely than PNA at this time Lasix 40mg IV x1 and monitor (5) ICD (implantable cardioverter-defibrillator), dual, in situ: Placed for moderate ischemic cardiomyopathy and history of V. tach (6) Atrial fibrillation: New onset, noted on ECG here and on interrogation of pacemaker Cardio however described as atrial tachycardia, currently rate is normal with regular rhythm [id number] score significantly elevated at 7 Heparin drip with bolus for anticoagulation ECHO as noted above Cardiology consult Continue carvedilol 12.5 BID, Amiodarone 400 daily (7) CAD (coronary artery disease): hx 3V CABG as well as multiple JENNIFER remotely With left shoulder pain is anginal equivalent here relieved with nitroglycerin, mildly elevated troponin continue ASA, statin, carvedilol Holding losartan for mild increase in creatinine (8) Ischemic cardiomyopathy: medications continued as above Most recent EF 35-40% on echo from 2018, repeat is with stable EF - Possibly overloaded today. Gave another dose of Lasix 40 mg IV x 1. (9) Chronic kidney disease, stage III (moderate): Cr 1.67 at admission, roughly same as prior admissions daily BMP Now is in acute renal failure with cr 2.4 (10) Hx of CABG: As above (11) COPD (chronic obstructive pulmonary disease): No acute issues CT of the chest with chronic pleural thickening and atelectasis, emphysematous changes Continue incruse ellipta albuterol PRN for SOB O2 goal >88% not on oxygen at baseline (12) Hypothyroid: TSH 5.8 on admission no hx thyroid disease Free T4 ordered for AM may contribute to tachycardic episodes (13) Splenomegaly: Noted to be mildly enlarged on CT scan at 13.5 cm With mild thrombocytopenia Follow as an outpatient (14) Thrombocytopenia: Platelets low but fairly stable from the past 2 years Splenomegaly may be contributing Perhaps has ITP or underlying liver issues? Check peripheral smear with CBC in the morning Consider hematology consultation as an outpatient (15) Anemia: Macrocytic, mild Checking B12 is low normal at 366, will start IM s/p cath Folate WNL Follow CBC Peripheral smear as above (16) Hyperlipidemia: Continue statin high intensity for severe CAD (17) Diabetes mellitus: Most recent hemoglobin A1c was from 2018 and was 5.8% With blood glucose [address] NovoLog supplemental insulin before meals and at bedtime with Accu- Cheks Is not on medications at home (18) Chronic systolic CHF (congestive heart failure): Noted as above and ischemic cardiomyopathy Continue guideline directed medical therapy with carvedilol and titrate up as able to, losartan which is currently on hold for mildly elevated creatinine in anticipation of cardiac catheterization, and Aldactone -Holding home Lasix dosing (80mg PO AM and 40mg PO 1600 at baseline) (19) Peripheral arterial disease with history of revascularization: With a history of right lower extremity superficial femoral artery and right popliteal artery occlusions with angioplasty and stenting in 2018 Continue aspirin, statin (20) History of CVA (cerebrovascular accident): With a history of such, CT head here with small focus of encephalomalacia in the right frontal lobe favoring an old infarct Continue aspirin, statin Now on heparin drip for atrial fibrillation (21) Pancreatic cyst: Noted incidentally on CT scan with 2.2 cm cyst Needs outpatient follow-up (22) DVT prophylaxis: DVT ppx: on heparin drip FEN/GI: heart healthy, low sodium, NPO at [place] Code Status: Full Code (23) Expressive aphasia: Repeat CT head neg for acute, cannot get MRI due to pacer Has been on and off for days per pt Has not been mentioned or noted prior to today by myself, although teeth not in place during discussion today Continue to monitor (24) Cough: Will order chest x ray, repeat vitals. Admission and Anticipated Discharge Date Admission Date: February 29, 2020 Subjective 74 yo male is a poor historian and does not provide much history today. Guards say he is coughing more. Review of Systems Review of Systems: All systems reviewed & are unremarkable except as noted in HPI & below Physical Exam Physical Exam: Constitutional: prisoner in no apparent distress, laying comfortably in bed Eyes: EOMI, pupils equal and reactive bilaterally, no scleral icterus Cardiac: RRR, no murmurs, gallops or rubs. Normal S1, S2 Pulm: CTA BL, no wheezes, rhonchi, crackles or rubs, moving air well throughout both lungs Abd: soft, tender to palp in RLQ, nondistended, normal bowel sounds, no rebound or guarding, tympanic to percussion at upper quadrants Extremities: 2+ peripheral pulses, no edema, Neuro: no focal deficits, moving all 4 limbs, A&Ox3 Results & Data Results & Data ([facility]) Vital Signs (Past 12 Hours) Vital Signs Temp Pulse Pulse Resp BP Pulse Ox 03/07/20 22:58 37.3 C 83 40 H 124/57 L 93 03/07/20 22:47 39.1 C H 83 35 H 102/68 94 03/07/20 19:26 104 H 24 92 03/07/20 19:06 38.8 C H 106 H 20 134/68 94 03/07/20 16:00 87 03/07/20 15:37 37.1 C 87 22 126/67 98 PG Care Time/CCT Total # of Minutes Spent Total Time Spent with Patient: Total time spent is greater than 50% in coordination of care (as documented) at patient's floor/unit and/or counseling patient: Coding Level of Care Code 30004 Subseq Hosp Care Lvl 3 Diagnoses Ventricular tachycardia I47.2 Elevated troponin I level R79.89 Syncope R55 Syncope type: unspecified Acute CHF (congestive heart failure) I50.9 ICD (implantable cardioverter-defibrillator), dual, in situ Z95.810 Atrial fibrillation I48.91 Atrial fibrillation type: unspecified CAD (coronary artery disease) I25.10 Ischemic cardiomyopathy I25.5 Chronic kidney disease, stage III (moderate) N18.3 Hx of CABG Z95.1 COPD (chronic obstructive pulmonary disease) J44.9 Hypothyroid E03.9 Splenomegaly R16.1 Thrombocytopenia D69.6 Anemia D64.9 Hyperlipidemia E78.5 Diabetes mellitus E11.9 Chronic systolic CHF (congestive heart failure) I50.22 Peripheral arterial disease with history of revascularization I73.9; Z98.890 History of CVA (cerebrovascular accident) Z86.73 Pancreatic cyst K86.2 DVT prophylaxis Z29.9 Expressive aphasia R47.01 Cough R05 Time Spent (min) 35 (1) Atrial fibrillation Atrial fibrillation type: unspecified Qualified Code(s): I48.91 - Unspecified atrial fibrillation (2) Syncope Syncope type: unspecified Qualified Code(s): R55 - Syncope and collapse
[2020-03-07] MEDS ORDERED: cefTRIAXone SODIUM 2,000 MG in DEXTROSE 5% 50 ML IV SCH (23:30)
[2020-03-08] MEDS ORDERED: DOXYCYCLINE HYCLATE 100 MG in DEXTROSE 5% 100 ML IV SCH
[2020-03-08 00:09] LABS: Base Excess ABG -2.8 mEq/L (-9-1.8); HCO3 ABG 20 mmol/L (19-24); Oxygen Saturation ABG 96.9 % (90-95); PCO2 ABG 28 mmHg (35-46); PO2 ABG 92 mmHg (80-95); pH ABG 7.47 (7.35-7.45)
[2020-03-08 00:11] LABS: Allen Test Pos (Pos)
[2020-03-08 01:35] LABS: Appearance Urine Cloudy (Clear); Blood Urine 2+ (Negative); Color Urine Dark Yellow; Epithelial Cell Urine Auto >30 /lpf (0-5); Glucose Urine UA Negative (Negative); Ketones Urine Negative (Negative); Leukocyte Esterase Urine 1+ (Negative); Nitrite Urine Negative (Negative); Protein Urine 1+ (Negative); Specific Gravity Urine 1.017 (1.000-1.030); Urobilinogen Urine Positive (Negative)
[2020-03-08 01:39] LABS: Bilirubin Urine 1+ (Negative)
[2020-03-08 01:41] LABS: Ictotest Urine Positive (Negative)
[2020-03-08 01:49] LABS: Bacteria Urine Automated 2+ (Negative)
[2020-03-08 01:50] LABS: Cast Urine Automated >30 /lpf (0-5); Granular Casts Urine >30 /lpf (0)
[2020-03-08] MEDS: ALBUMIN 25% 50 ML IV SCH ×2 (05:35→05:49)
[2020-03-08] MEDS: LEVALBUTEROL HCL 1.25 MG/3 ML NEB NEB SCH ×4 (07:01→19:13)
[2020-03-08 07:03] LABS: Hematocrit (blood only) 24.9 % (42-52); Hemoglobin 8.5 g/dL (14.0-18.0); Immature Granulocytes # (auto) 0.08 K/uL (0.00-0.02); Immature Granulocytes % (auto) 0.5 %; Lymphocytes % (auto) 3.4 %; Mean Corpuscular Hemoglobin 34.3 pg (25-34); Mean Corpuscular Hgb Conc 34.1 g/dL (32-36); Mean Corpuscular Volume 100.4 fL (80-100); Mean Platelet Volume 9.8 fL (7.4-10.4); Monocytes # (auto) 0.61 K/uL (0.11-0.59); Monocytes % (auto) 3.5 %; Neutrophils # (auto) 16.19 K/uL (1.4-6.5); Neutrophils % (auto) 92.6 %; Nucleated RBC # (auto) 0.03 K/uL (0-0); Nucleated RBC % (auto) 0.1 %; Platelet Count 168 K/uL (130-400); RDW Coefficient of Variation 16.4 % (11.5-14.5); RDW Standard Deviation 58.1 fL (36.4-46.3); Red Blood Count 2.48 M/uL (4.7-6.1); White Blood Count 17.48 K/uL (4.8-10.8)
[2020-03-08 07:27] LABS: BUN Creatinine Ratio 19.3 (10-20); Calcium 8.3 mg/dl (8.5-10.1); Creatinine Clr Calc Pharmacy 29.9 ml/min; Est GFR (African American) 29.4; Est GFR (Non-African American) 25.3; Potassium 3.8 mmol/L (3.5-5.1)
[2020-03-08 07:30] LABS: Albumin Globulin Ratio 0.8 (0.9-2); Bilirubin,Total 3.4 mg/dl (0.2-1); Globulin 3.6 gm/dl (2.5-4.0); Total Protein 6.6 gm/dl (6.4-8.2)
[2020-03-08] MEDS: ACETAMINOPHEN 325 MG TAB PO PRN (08:25)
[2020-03-08] MEDS: INSULIN ASPART 100 UNITS/ML 3 ML PEN SC SCH ×4 (09:08→20:54)
[2020-03-08] MEDS: INSULIN GLARGINE SOLOSTAR 100 UNITS/ML 3 ML PEN SC SCH (09:09)
[2020-03-08] MEDS: SENNA 8.6 MG TAB PO SCH (09:11)
[2020-03-08] MEDS: AMIODARONE 200 MG TAB PO SCH (09:11)
[2020-03-08] MEDS: ASPIRIN 81 MG ECTAB PO SCH (09:11)
[2020-03-08] MEDS: PANTOprazole 40 MG TAB PO SCH (09:11)
[2020-03-08] MEDS: CLOPIDOGREL BISULFATE 75 MG TAB PO SCH (09:11)
[2020-03-08] MEDS: DOCUSATE SODIUM 100 MG CAP PO SCH ×2 (09:17→20:54)
[2020-03-08] MEDS ORDERED: PIPERACILL/TAZOBAC CONSULT ACTIVE PRN (10:30)
[2020-03-08] MEDS ORDERED: PIPERACILLIN/TAZOBACTAM 4.5 GM in DEXTROSE 5% 100 ML IV STA (10:32)
[2020-03-08] MEDS ORDERED: SODIUM CHLORIDE 0.9% 1000ML 1,000 ML IV SCH (10:45)
--- NOTE | 2020-03-08 10:59 | Nephrology Progress Note ---
Date of Service March 08, 2020 Assessment & Plan (1) SUSAN (acute kidney injury): * ATN related to recurrent episodes of VT and recent IV contrast administration * CT abd/pelvis 02/29/20 + IV contrast: No obstruction reported, 7mm lower pole R renal cyst * Cr has risen to 2.4 (baseline 1.6) following cardiac cath. Electrolyte balance remains acceptable. Patient is nonoliguric. He had net 2200 cc UO last night. Primary service has ordered 1L NS today * Will order follow up PRP and CXR for am (2) Chronic kidney disease, stage III (moderate): * Baseline Cr 1.6 - likely due to microvascular disease (3) Chronic systolic CHF (congestive heart failure): * Nonoliguric. Net -1L since admission * Monitor I&O's, daily weight (4) Ischemic cardiomyopathy: * Cardiac cath 03/06/20: patent bypass vessels (5) Expressive aphasia: * Head CT 03/04/20 negative for acute change * Symptomatically improved. Speech is now fluent Admission and Anticipated Discharge Date Admission Date: February 29, 2020 Subjective Mr. Vieyra was seen & examined in his hospital room this morning. Cardiac cath 03/06/20 revealed patent bypass vessels. CXR 03/07/20 revealed improving CHF. 2100 cc UO overnight Review of Systems Constitutional: no fever Eyes: no problem reported Ear, Nose, Mouth, Throat: no problem reported Respiratory: + dyspnea (mild) Cardiovascular: no palpitations and no edema Gastrointestinal: no abdominal pain and no diarrhea/loose stools Genitourinary: no dysuria and no hematuria Musculoskeletal: no back pain Integumentary: no rash Neurologic: no dizziness Physical Exam Constitutional: not in distress Eyes: PERRL, conjunctivae normal, anicteric sclerae ENMT: external ear and nose normal, oropharynx normal Neck: trachea midline, no thyromegaly Respiratory: normal respiratory effort, lungs clear to auscultation Auscultation: + rales Cardiovascular: RRR, no murmur, no edema Gastrointestinal (Abdomen): normal bowel sounds, soft, nontender, no hepatosplenomegaly Musculoskeletal: Extremities: no cyanosis Skin: no rashes, warm and dry Neurologic: awake Speech / Cognition: normal speech Results & Data ([facility]) Vital Signs (Past 12 Hours) Vital Signs Temp Pulse Pulse Pulse Resp BP BP 03/08/20 07:21 37.4 C 86 25 H 105/64 03/08/20 07:03 87 87 22 03/08/20 06:00 118 H 92/58 L 03/08/20 05:36 117 H 107/64 03/08/20 05:02 81/65 L 87/43 L 03/08/20 03:35 36.9 C 117 H 117 H 34 H 101/70 03/08/20 03:05 36.9 C 120 H 34 H 98/66 L 03/08/20 00:02 104 H 36 H 03/08/20 00:00 85 03/07/20 23:48 104 H 36 H 03/07/20 22:58 37.3 C 83 40 H 124/57 L Pulse Ox 03/08/20 07:21 98 03/08/20 07:03 97 03/08/20 06:00 03/08/20 05:36 03/08/20 05:02 03/08/20 03:35 97 03/08/20 03:05 98 03/08/20 00:02 96 03/08/20 00:00 03/07/20 23:48 96 03/07/20 22:58 93 Laboratory Tests 03/08/20 03/08/20 06:50 06:50 WBC 17.48 H Hgb 8.5 L Hct 24.9 L Plt Count 168 Sodium 133 L Potassium 3.8 Chloride 100 Carbon Dioxide 21 BUN 47 H Creatinine 2.45 H D Glucose 227 H PG Care Time/CCT Total # of Minutes Spent Total Time Spent with Patient: Total time spent is greater than 50% in coordination of care (as documented) at patient's floor/unit and/or counseling patient: Coding Level of Care Code 85184 Subseq Hosp Care Lvl 3 Diagnoses SUSAN (acute kidney injury) N17.9 Chronic kidney disease, stage III (moderate) N18.3 Chronic systolic CHF (congestive heart failure) I50.22 Ischemic cardiomyopathy I25.5 Expressive aphasia R47.01
[2020-03-08] MEDS: methylPREDNISolone 40 MG in SYRINGE 0 ML IV SCH (11:15)
[2020-03-08] MEDS: POLYETHYLENE (MIRALAX) 17 GM PACK PO SCH (11:53)
[2020-03-08] MEDS: UMECLIDINIUM BROMIDE 62.5MCG/BLISTER 7 PUFFS/INHALER INH SCH (13:52)
[2020-03-08] MEDS: PIPERACILLIN/TAZOBACTAM 3.375 GM in DEXTROSE 5% 100 ML IV SCH ×2 (15:42→23:35)
[2020-03-08] MEDS: ROSUVASTATIN CALCIUM 20 MG TAB PO SCH (20:54)
--- NOTE | 2020-03-08 21:37 | Hospitalist Progress Note ---
Date of Service March 08, 2020 Assessment & Plan (1) Pneumonia: Possible hospital acquired pneumonia. Patient without risk factors for multi drug resistant organism. will place on zosyn. will closely monitor. WBC has gone up. will check procal and lactic acidosis. (2) Ventricular tachycardia: With several runs of V. tach requiring shocks as per ICD/pacer interrogation with cardiology in the ER Continue amiodarone 400 mg daily -Replete electrolytes as above Continue carvedilol and titrate upwards to 25 mg p.o. twice daily if tolerated - Thought by cardiology that this may be ischemia driving his increased VT. Cath today. (3) Elevated troponin I level: most likely demand ischemia with repeated runs of Afib/VT as well as from being shocked [employer]IV[employer]; however, suspect underlying ischemia as above contributing to recurrent V. tach trending trops: increased to .299; peaked at 1.0 likely demand ischemia. (4) Syncope: 74-year-old male with a past medical history of V. tach, ischemic cardiomyopathy, AICD in place, admitted for syncopal episodes, elevated troponin and concern for cardiac ischemia. - Syncope likely secondary to VT/Afib episodes on AICD interrogation - AICD fired on Feb 16 [patient denies feelings these] - continuous cardiac monitoring -AICD interrogation showed VT - optimize/replete electrolytes as necessary -Cardiology consultation appreciated-plan for possible cardiac catheterization ECHO noted for EF 35-40% and large apical aneurysm with hypokinesis (5) Acute CHF (congestive heart failure): Home lasix dosing has been on hold since admission due to elevated cr CXR noted for possible pulm edema vs PNA WBC WNL, afebrile Neg for LE swelling, however given hx of baseline lasix use that has been held, CHF exacerbation is more likely than PNA at this time Lasix 40mg IV x1 and monitor (6) ICD (implantable cardioverter-defibrillator), dual, in situ: Placed for moderate ischemic cardiomyopathy and history of V. tach Rprogrammed his ICD. (7) Atrial fibrillation: New onset, noted on ECG here and on interrogation of pacemaker Cardio however described as atrial tachycardia, currently rate is normal with regular rhythm [id number] score significantly elevated at 7 Heparin drip with bolus for anticoagulation ECHO as noted above Cardiology consult Continue carvedilol 12.5 BID, Amiodarone 400 daily (8) CAD (coronary artery disease): hx 3V CABG as well as multiple JENNIFER remotely With left shoulder pain is anginal equivalent here relieved with nitroglycerin, mildly elevated troponin continue ASA, statin, carvedilol Holding losartan for mild increase in creatinine (9) Ischemic cardiomyopathy: medications continued as above Most recent EF 35-40% on echo from 2018, repeat is with stable EF - Possibly overloaded today. Gave another dose of Lasix 40 mg IV x 1. (10) Chronic kidney disease, stage III (moderate): Cr 1.67 at admission, roughly same as prior admissions daily BMP Now is in acute renal failure with cr 2.4 (11) Hx of CABG: As above (12) COPD (chronic obstructive pulmonary disease): No acute issues CT of the chest with chronic pleural thickening and atelectasis, emphysematous changes Continue incruse ellipta albuterol PRN for SOB O2 goal >88% not on oxygen at baseline (13) Hypothyroid: TSH 5.8 on admission no hx thyroid disease Free T4 ordered for AM may contribute to tachycardic episodes (14) Splenomegaly: Noted to be mildly enlarged on CT scan at 13.5 cm With mild thrombocytopenia Follow as an outpatient (15) Thrombocytopenia: Platelets low but fairly stable from the past 2 years Splenomegaly may be contributing Perhaps has ITP or underlying liver issues? Check peripheral smear with CBC in the morning Consider hematology consultation as an outpatient (16) Anemia: Macrocytic, mild Checking B12 is low normal at 366, will start IM s/p cath Folate WNL Follow CBC Peripheral smear as above (17) Hyperlipidemia: Continue statin high intensity for severe CAD (18) Diabetes mellitus: Most recent hemoglobin A1c was from 2018 and was 5.8% With blood glucose [address] NovoLog supplemental insulin before meals and at bedtime with Accu- Cheks Is not on medications at home (19) Chronic systolic CHF (congestive heart failure): Noted as above and ischemic cardiomyopathy Continue guideline directed medical therapy with carvedilol and titrate up as able to, losartan which is currently on hold for mildly elevated creatinine in anticipation of cardiac catheterization, and Aldactone -Holding home Lasix dosing (80mg PO AM and 40mg PO 1600 at baseline) (20) Peripheral arterial disease with history of revascularization: With a history of right lower extremity superficial femoral artery and right popliteal artery occlusions with angioplasty and stenting in 2018 Continue aspirin, statin (21) History of CVA (cerebrovascular accident): With a history of such, CT head here with small focus of encephalomalacia in the right frontal lobe favoring an old infarct Continue aspirin, statin Now on heparin drip for atrial fibrillation (22) Pancreatic cyst: Noted incidentally on CT scan with 2.2 cm cyst Needs outpatient follow-up (23) DVT prophylaxis: DVT ppx: on heparin drip FEN/GI: heart healthy, low sodium, NPO at [facility] Code Status: Full Code (24) Expressive aphasia: Repeat CT head neg for acute, cannot get MRI due to pacer Has been on and off for days per pt Has not been mentioned or noted prior to today by myself, although teeth not in place during discussion today Continue to monitor (25) Cough: Will order chest x ray, repeat vitals. Admission and Anticipated Discharge Date Admission Date: February 29, 2020 Subjective 74 yo male is tired, reports feeling mildly better. He is on BIPAP. Review of Systems Review of Systems: All systems reviewed & are unremarkable except as noted in HPI & below Physical Exam Physical Exam: Constitutional: prisoner in no apparent distress, laying comfortably in bed Eyes: EOMI, pupils equal and reactive bilaterally, no scleral icterus Cardiac: RRR, no murmurs, gallops or rubs. Normal S1, S2 Pulm: CTA BL, no wheezes, rhonchi, crackles or rubs, moving air well throughout both lungs Abd: soft, tender to palp in RLQ, nondistended, normal bowel sounds, no rebound or guarding, tympanic to percussion at upper quadrants Extremities: 2+ peripheral pulses, no edema, Neuro: no focal deficits, moving all 4 limbs, A&Ox3 Results & Data Results & Data ([facility]) Vital Signs (Past 12 Hours) Vital Signs Temp Pulse Pulse Resp BP Pulse Ox 03/08/20 19:14 107 H 18 97 03/08/20 18:54 36.9 C 99 H 24 94/48 L 95 03/08/20 16:00 92 H 03/08/20 15:23 37.1 C 91 H 23 91/48 L 98 03/08/20 13:27 83 18 98 03/08/20 11:30 36.5 C 72 16 129/72 95 PG Care Time/CCT Total # of Minutes Spent Total Time Spent with Patient: Total time spent is greater than 50% in coordination of care (as documented) at patient's floor/unit and/or counseling patient: Coding Level of Care Code 46848 Subseq Hosp Care Lvl 3 Diagnoses Pneumonia J18.9 Ventricular tachycardia I47.2 Elevated troponin I level R79.89 Syncope R55 Syncope type: unspecified Acute CHF (congestive heart failure) I50.9 ICD (implantable cardioverter-defibrillator), dual, in situ Z95.810 Atrial fibrillation I48.91 Atrial fibrillation type: unspecified CAD (coronary artery disease) I25.10 Ischemic cardiomyopathy I25.5 Chronic kidney disease, stage III (moderate) N18.3 Hx of CABG Z95.1 COPD (chronic obstructive pulmonary disease) J44.9 Hypothyroid E03.9 Splenomegaly R16.1 Thrombocytopenia D69.6 Anemia D64.9 Hyperlipidemia E78.5 Diabetes mellitus E11.9 Chronic systolic CHF (congestive heart failure) I50.22 Peripheral arterial disease with history of revascularization I73.9; Z98.890 History of CVA (cerebrovascular accident) Z86.73 Pancreatic cyst K86.2 DVT prophylaxis Z29.9 Expressive aphasia R47.01 Cough R05 Time Spent (min) 35 (1) Atrial fibrillation Atrial fibrillation type: unspecified Qualified Code(s): I48.91 - Unspecified atrial fibrillation (2) Syncope Syncope type: unspecified Qualified Code(s): R55 - Syncope and collapse
[2020-03-09] MEDS: LEVALBUTEROL HCL 1.25 MG/3 ML NEB NEB SCH ×4 (01:05→19:19)
[2020-03-09 06:22] LABS: Hematocrit (blood only) 23.2 % (42-52); Hemoglobin 7.8 g/dL (14.0-18.0); Mean Corpuscular Hemoglobin 33.8 pg (25-34); Mean Corpuscular Hgb Conc 33.6 g/dL (32-36); Mean Corpuscular Volume 100.4 fL (80-100); Nucleated RBC # (auto) 0.02 K/uL (0-0); Nucleated RBC % (auto) 0.1 %; Platelet Count 163 K/uL (130-400); RDW Coefficient of Variation 16.3 % (11.5-14.5); RDW Standard Deviation 58.3 fL (36.4-46.3); Red Blood Count 2.31 M/uL (4.7-6.1); White Blood Count 13.48 K/uL (4.8-10.8)
[2020-03-09 06:52] LABS: BUN Creatinine Ratio 24.5 (10-20); Calcium 8.2 mg/dl (8.5-10.1); Creatinine Clr Calc Pharmacy 31.5 ml/min; Est GFR (African American) 31.2; Est GFR (Non-African American) 26.9; Potassium 3.7 mmol/L (3.5-5.1)
[2020-03-09] MEDS: ACETAMINOPHEN 325 MG TAB PO PRN (07:40)
[2020-03-09] MEDS: ASPIRIN 81 MG ECTAB PO SCH (07:41)
[2020-03-09] MEDS: UMECLIDINIUM BROMIDE 62.5MCG/BLISTER 7 PUFFS/INHALER INH SCH (07:41)
[2020-03-09] MEDS: PANTOprazole 40 MG TAB PO SCH (07:41)
[2020-03-09] MEDS: CLOPIDOGREL BISULFATE 75 MG TAB PO SCH (07:42)
[2020-03-09] MEDS: SENNA 8.6 MG TAB PO SCH (07:42)
[2020-03-09] MEDS: AMIODARONE 200 MG TAB PO SCH (07:42)
[2020-03-09] MEDS: PIPERACILLIN/TAZOBACTAM 3.375 GM in DEXTROSE 5% 100 ML IV SCH ×2 (07:51→15:34)
[2020-03-09] MEDS: DOCUSATE SODIUM 100 MG CAP PO SCH ×2 (07:51→20:04)
[2020-03-09] MEDS: INSULIN ASPART 100 UNITS/ML 3 ML PEN SC SCH ×4 (07:52→21:37)
[2020-03-09] MEDS: INSULIN GLARGINE SOLOSTAR 100 UNITS/ML 3 ML PEN SC SCH (07:53)
--- NOTE | 2020-03-09 08:12 | XRay Report ---
XR chest 1V portable CLINICAL HISTORY: CHF COMPARISON STUDY: 03/07/2020 FINDINGS: The heart remains enlarged. There are postsurgical changes of a midline sternotomy. There i s a left subclavian pacer/defibrillator. There is radiographic evidence of pulmonary edema with small bilateral pleural effusions.[ IMPRESSION: Persistent pulmonary edema with small bilateral pleural effusions. ACT 112: Negative or not required by law. Electronically signed by: Boris Hernandez M.D. 03/09/2020 8:10 AM
[2020-03-09 08:47] LABS: Base Excess VBG -1.7 mEq/L; HCO3 VBG 23 mmol/L; PCO2 VBG 39 mmHg (38-50); PO2 VBG 26 mmHg; pH VBG 7.39 (7.36-7.41)
[2020-03-09 08:50] LABS: Oxygen Saturation VBG < 60.0 %
--- NOTE | 2020-03-09 09:53 | Cardiology Progress Note ---
Date of Service March 09, 2020 Assessment & Plan (1) ICD (implantable cardioverter-defibrillator), dual, in situ: On presentation his ICD was not detecting properly and he had both atrial and ventricular arrhythmias increasing in frequency based on device monitoring. With device reprogramming detection has been better although not ideal. Interrogation of his device shows that is functioning well in general, he does have some slow ventricular tachycardia which we really cannot program to include however it is slow enough that is probably not necessary as long as the episodes do not become extraordinarily long. No changes made. (2) Ventricular tachycardia: He has had frequent episodes of ventricular tachycardia identified prior to admission as well as over the last day or 2, prior to that his VT had been under good control. During his last hospitalization in 2018 he was having a lot of ventricular tachycardia, on transfer to [facility] he was treated for ischemia and had good control of his arrhythmia until recently. I suspect his current arrhythmia is on an perhaps ischemic basis, although that is unusual with sustained monomorphic VT. He seems to have other evidence of ischemia currently and gradual occlusion of his vessel triggered these events. We had hoped that with the vessel occluded he would not have ongoing difficulty with ischemia however over the last several days he has had a lot of ventricular tachycardia as well as an elevated troponin. I do not believe the elevated troponin is secondary to the arrhythmia itself, it has not been prolonged enough for that. I suspect he has ongoing ischemia. (3) CAD (coronary artery disease): He has known coronary artery disease, in 2018 control of his VT was achieved by stent placement. He has had progression of disease and we were hopeful that with what appears to be recent vessel occlusion that that would stabilize things over his preadmission arrhythmias, that happened for a short time but now he is having increasing ventricular ectopy which I suspect is on the basis of ischemia. Possibly his known disease, possibly worsening over the last several days. I believe we will be forced to take another look and see if intervention is indicated but I will have to leave that decision up to Dr. Angela. I discussed options with the patient and he feels we should do what ever is needed. He is willing to go to the [facility]. I also discussed the possibility of temporary dialysis and he is agreeable. 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 (4) Chronic kidney disease, stage III (moderate): He does have chronic kidney disease, he received dye twice this admission, in the emergency room for x-ray studies and then sometime later for catheterization (March 06, 2020). On both occasions he seemed to develop a dye induced nephropathy, his creatinine is recovering slightly today following his catheterization on Friday but is still not back to baseline. This places him at increased risk for total kidney failure should we use dye, generally this would be temporary dialysis although permanent is a conceivable outcome.. (5) Ischemic cardiomyopathy: In 2018 his left ventricular ejection fraction was 35 to 40%. It has not changed significantly therefore worsening of left ventricular function is not and explanation for his increased ectopy. (6) Atrial tachycardia: He has an atrial tachycardia which has been quite frequent and more prominent recently than in the past based on ICD monitoring. That has resulted in a dual tachycardia recently which created a situation prolonging ICD detection and therapy. This may have to be addressed over the long run either with programming or additional AV molly blocking medications. So far during the hospitalization this has not been a problem although he has had occasional of atrial tachycardia but the device has handled them appropriately. (7) Unresponsiveness: I believe he had loss of consciousness prior to his transfer to the emergency room, although he does not recall that. Whatever the event was (unresponsiveness or prolonged presyncope) it do did es coincide with a pr olonged episode of ventricular tachycardia. It is hard to tell from the ICD diagnostics how long this might of been since it was not detected properly and it will only recognize an arrhythmia if it is detected by the device. Hopefully this has been corrected by ICD reprogramming although he still has prolonged episodes of wide-complex tachycardia. Admission and Anticipated Discharge Date Admission Date: February 29, 2020 Subjective Patient has been sleeping a lot last few days however he tells me that is because he is tired, he denies cardiovascular symptoms. He has been having a lot more ventricular tachycardia over the last several days, yesterday morning his troponin was 1, today it is over 3. He denies chest pain. His kidney function is improving but still not back to baseline. He is laying supine in bed and evidently not short of breath and his oxygen saturation is good. Physical Exam Physical Exam: Constitutional: Alert, cooperative and in no distress. I woke him up from sleep. He is laying in bed. HEENT: Unremarkable Neck: No jugular venous distention, carotid pulses are normal and equal bilaterally without bruits. Pulmonary: Crackles bilaterally, he is supine. Cardiac: Regular rhythm with no murmur, gallop or rub. Abdomen: Soft, nontender with normal bowel sounds. Extremities: No edema. Distal pulses intact. Neurologic: No focal findings. Gait was not tested. Skin: No rash, ecchymoses or petechiae. His left-sided ICD site is well-healed without erythema, swelling or tenderness. Results & Data ([facility]) Vital Signs (Past 12 Hours) Vital Signs Temp Pulse Pulse Resp BP Pulse Ox 03/09/20 07:09 36.8 C 104 H 31 H 104/50 L 98 03/09/20 07:02 103 H 24 94 03/09/20 05:33 37.5 C 95 H 20 97/56 L 94 03/09/20 02:33 93/50 L 03/09/20 01:05 92 H 21 98 03/09/20 00:00 97 H 03/08/20 23:35 37.2 C 108 H 24 85/48 L 94 Laboratory Results Cardiac Enzymes 03/09/20 Range/Units 08:32 Troponin I 3.310 H* (0-0.045) ng/ml CBC 03/09/20 Range/Units 06:12 WBC 13.48 H (4.8-10.8) K/uL RBC 2.31 L (4.7-6.1) M/uL Hgb 7.8 L (14.0-18.0) g/dL Hct 23.2 L (42-52) % Plt Count 163 (130-400) K/uL Comprehensive Metabolic Panel 03/09/20 Range/Units 06:12 Sodium 133 L (136-145) mmol/L Potassium 3.7 (3.5-5.1) mmol/L Chloride 101 (98-107) mmol/L Carbon Dioxide 23 (21-32) mmol/L BUN 57 H (7-18) mg/dl Creatinine 2.33 H (0.6-1.4) mg/dl Glucose 173 H (70-99) mg/dl Calcium 8.2 L (8.5-10.1) mg/dl Intake and Output 03/08/20 03/09/20 03/09/20 22:59 06:59 14:59 Intake Total 815 / 3355 2070 / 3355 Output Total 450 / 1750 650 / 1750 Balance 365 / 1605 1420 / 1605 Intake: IV 115 / 1350 1115 / 1350 Zosyn 3.375 gm In D5 100 ml @ 115 / 230 115 / 230 28.75 mls/hr IV Q8H SHADI Rx#: [id number] Nss 1000ML 1,000 ml @ 80 mls/hr 1000 / 1000 IV .[id number] SHADI Rx#:[id number] Oral 700 / 2004 955 / 2005 Output: Urine 450 / 450 Urine Amount (Catheter) 650 / 1300 Meza/Indwelling 650 / 1300 Other: Weight 86.4 kg Diagnostic Findings Telemetry: Sinus rhythm, atrial pacing and runs of PAT. Episodes of ventricular tachycardia increasing in frequency, some detected and treated appropriately by the device, some with prolonged detection. ICD evaluation: The ICD is functioning well, some of the ventricular tachycardia is still too slow to be appropriately detected, other episodes are appropriately detected and treated. PG Care Time/CCT Total # of Minutes Spent Total Time Spent with Patient: Total time spent is greater than 50% in coordination of care (as documented) at patient's floor/unit and/or counseling patient: Coding Level of Care Code 96157 Subseq Hosp Care Lvl 3 Diagnoses ICD (implantable cardioverter-defibrillator), dual, in situ Z95.810 Ventricular tachycardia I47.2 CAD (coronary artery disease) I25.10 Chronic kidney disease, stage III (moderate) N18.3 Ischemic cardiomyopathy I25.5 Atrial tachycardia I47.1 Unresponsiveness R41.89 CPT Codes Implantable Defib dual lead programming - 03406 ([id number])
[2020-03-09] MEDS ORDERED: fentaNYL citrate 100 MCG/2 ML VIAL ONE (11:00)
[2020-03-09] MEDS ORDERED: NiCARDipine HCL INJ 2.5 MG/ML 10 ML AMP ONE (11:00)
[2020-03-09] MEDS ORDERED: HEPARIN (PORCINE) 1000 UNIT/ML 10 ML (CATH LAB USE ONLY) ONE ×2 (11:00→12:05)
[2020-03-09] MEDS ORDERED: NITROGLYCERIN/D5W 100MCG/ML 20ML SYR ONE (11:01)
[2020-03-09] MEDS ORDERED: MIDAZOLAM HCL 1 MG/ML 2ML VIAL ONE (11:01)
--- NOTE | 2020-03-09 11:08 | Nephrology Progress Note ---
Date of Service March 09, 2020 Assessment & Plan (1) SUSAN (acute kidney injury): * ATN related to recurrent episodes of VT and recent IV contrast administration * CT abd/pelvis 02/29/20 + IV contrast: No obstruction reported, 7mm lower pole R renal cyst * Cr daniel to 2.4 (baseline 1.6) following cardiac cath and remains stable today. Electrolyte balance remains acceptable. Patient is nonoliguric. No acute indication for TRACTOR CRANE OPERATOR at this time * CXR w/ mild CHF (2) Chronic kidney disease, stage III (moderate): * Baseline Cr 1.6 - likely due to microvascular disease (3) Chronic systolic CHF (congestive heart failure): * Nonoliguric * Monitor I&O's, daily weight (4) Ischemic cardiomyopathy: * Cardiac cath 03/06/20: patent bypass vessels * Cardiology reports patient suffering recurrent V-tach and troponin is trending up. Plan cardiac cath today due to concerns of ongoing myocardial ischemia (5) Expressive aphasia: * Head CT 03/04/20 negative for acute change * Symptomatically improved. Speech is now fluent Admission and Anticipated Discharge Date Admission Date: February 29, 2020 Subjective Mr. Vieyra was seen & examined in his hospital room this morning. Cardiac cath 03/06/20 revealed patent bypass vessels. CXR 03/07/20 revealed improving CHF. Patient was volume + overnight but denies dyspnea this morning. Review of Systems Constitutional: no fever Eyes: no problem reported Respiratory: no dyspnea Cardiovascular: no chest pain Gastrointestinal: no abdominal pain Physical Exam Constitutional: not in distress Eyes: PERRL, conjunctivae normal, anicteric sclerae ENMT: external ear and nose normal, oropharynx normal Neck: trachea midline, no thyromegaly Respiratory: normal respiratory effort, lungs clear to auscultation Auscultation: + rales Cardiovascular: RRR, no murmur, no edema Gastrointestinal (Abdomen): normal bowel sounds, soft, nontender, no hepatosplenomegaly Musculoskeletal: Extremities: no cyanosis Skin: no rashes, warm and dry Neurologic: awake Speech / Cognition: normal speech Results & Data ([facility]) Vital Signs (Past 12 Hours) Vital Signs Temp Pulse Pulse Resp BP Pulse Ox 03/09/20 07:09 36.8 C 104 H 31 H 104/50 L 98 03/09/20 07:02 103 H 24 94 03/09/20 05:33 37.5 C 95 H 20 97/56 L 94 03/09/20 02:33 93/50 L 03/09/20 01:05 92 H 21 98 03/09/20 00:00 97 H 03/08/20 23:35 37.2 C 108 H 24 85/48 L 94 Laboratory Results Laboratory Tests 03/09/20 03/09/20 06:12 06:12 WBC 13.48 H Hgb 7.8 L Hct 23.2 L Plt Count 163 Sodium 133 L Potassium 3.7 Chloride 101 Carbon Dioxide 23 BUN 57 H Creatinine 2.33 H Glucose 173 H PG Care Time/CCT Total # of Minutes Spent Total Time Spent with Patient: Total time spent is greater than 50% in coordination of care (as documented) at patient's floor/unit and/or counseling patient: Coding Level of Care Code 12642 Subseq Hosp Care Lvl 3 Diagnoses SUSAN (acute kidney injury) N17.9 Chronic kidney disease, stage III (moderate) N18.3 Chronic systolic CHF (congestive heart failure) I50.22 Ischemic cardiomyopathy I25.5 Expressive aphasia R47.01
[2020-03-09 11:14] LABS: Albumin Level 2.6 gm/dl (3.4-5.0); Bilirubin Direct 1.7 mg/dl (0-0.2); Bilirubin,Total 2.5 mg/dl (0.2-1); Total Protein 6.1 gm/dl (6.4-8.2)
--- NOTE | 2020-03-09 11:26 | Pre Anesthesia Assessment ---
Date of Service March 09, 2020 Pre Sedation Assessment Vital Signs Temp Pulse Pulse Resp BP Pulse Ox 03/09/20 07:09 98.2 F 104 H 31 H 104/50 L 98 03/09/20 07:02 103 H 24 94 03/09/20 05:33 99.5 F 95 H 20 97/56 L 94 03/09/20 02:33 93/50 L 03/09/20 01:05 92 H 21 98 03/09/20 00:00 97 H 03/08/20 23:35 99.0 F 108 H 24 85/48 L 94 03/08/20 19:14 107 H 18 97 03/08/20 18:54 98.4 F 99 H 24 94/48 L 95 03/08/20 16:00 92 H 03/08/20 15:23 98.8 F 91 H 23 91/48 L 98 03/08/20 13:27 83 18 98 03/08/20 11:30 97.7 F 72 16 129/72 95 Cardiovascular RRR, no murmur, no edema Respiratory normal respiratory effort, lungs clear to auscultation Pre-Sedation Airway Assessment Smoking Status: Former smoker Hx Sleep Apnea: No Hx Difficult Intubation: No Short, Thick Neck: No Thyromental Distance: > or= 3.5 Finger Breadths Oral Cavity: + Chipped Teeth Mallampati Class: II ASA: ASA3 NPO Status Date of Last Intake of Fluids: 03/05/20 Time of Last Intake of Fluids: 21:30 Date of Last Intake of Solid Food: 03/05/20 Time of Last Intake of Solid Foods: 21:30 Procedure Planning Contraindications for Sedation: none Current Medications Reviewed: Yes Notes The planned sedation has been discussed with the patient. Informed Consent was obtained. I have identified the patient, determined the appropriateness of sedation and have assessed the patient immediately prior to the procedure. All medicine(s) and interventions are by my order.
[2020-03-09] MEDS ORDERED: NOREPINEPHRINE BITARTRATE 1 MG/ML 4 ML VIAL (CATH LAB USE ONLY) ONE (11:27)
[2020-03-09] MEDS ORDERED: METOPROLOL TARTRATE 1 MG/ML VIAL IV ONE (12:33)
[2020-03-09] MEDS ORDERED: EPTIFIBATIDE BOLUS/DRIP IV STA (13:04)
[2020-03-09] MEDS ORDERED: STAT IV Infusion **Titration per Protocol STA (13:09)
[2020-03-09] MEDS ORDERED: LIDOCAINE/D5W DRIP 4MG/ML 2,000 MG/500 ML BAG IV SCH (13:15)
[2020-03-09] MEDS ORDERED: NOREPINEPHRINE BIT INJ 8 MG in DEXTROSE 5% 500 ML IV SCH (13:15)
--- NOTE | 2020-03-09 13:16 | Post Anesthesia Assessment ---
Date of Service March 09, 2020 Post Sedation Assessment Vital Signs Temp Pulse Pulse Resp BP Pulse Ox 03/09/20 07:09 98.2 F 104 H 31 H 104/50 L 98 03/09/20 07:02 103 H 24 94 03/09/20 05:33 99.5 F 95 H 20 97/56 L 94 03/09/20 02:33 93/50 L 03/09/20 01:05 92 H 21 98 03/09/20 00:00 97 H 03/08/20 23:35 99.0 F 108 H 24 85/48 L 94 03/08/20 19:14 107 H 18 97 03/08/20 18:54 98.4 F 99 H 24 94/48 L 95 03/08/20 16:00 92 H 03/08/20 15:23 98.8 F 91 H 23 91/48 L 98 03/08/20 13:27 83 18 98 Recovery Score Activity: Moves 4 extremities Respiration: Deep Breath/Cough Circulation: +/-20% PreAnes Value Consciousness: Fully Awake Oxygen Saturation: O2 needed for >90% Discharge Sedation Level of Care: Fast Track Phase II Post Sedation Plan On clinical assessment, the patient appears to have tolerated the sedation without complications. Patient is recovering as anticipated. Patient will continue to be monitored by nursing and may be discharged when sedation discharge criteria are met per below protocol. Upon Completions of procedure up to 15 minutes continue every 5 minute vital signs and the P.A.R. score; then discharge to a Phase I or Fast Track to Phase II per the following guidelines: * Discharge Patient to appropriate Phase II area if PAR is 8 or greater or return to pre- procedure baseline. The post - procedure orders will be as directed. * If PAR score is less than 8 or not return to pre-procedure baseline then patient will follow Phase I monitoring till PAR is reached for Phase II. The Phase I may be done in procedure room or may call to secure a Phase I area. * If naloxone or flumazenil are used for reversal, hold in Phase I for continued monitoring from when last reversal dose was given for a minimum of 60 minutes or longer pending the nurse and/or physician discretion of patient condition before discharge to Phase II. Please call the Sedation Physician to re-evaluate and complete post-note for discharge to Phase II area. Do NOT discharge from procedure sedation or Phase 1 until post- sedation evaluation note is complete by procedure /sedation MD Sedation Discharge Instructions to be given to the patient at discharge to home.
--- NOTE | 2020-03-09 13:21 | Cardiac Catheterization ---
[facility] Data: Speech Therapist Early Intervention Cardiac Status Clinical evaluation leading to the procedure CAD Presenation: Non STEMI Anginal Classification: CCS IV Heart Failure: NYHA Class: CCS IV Cardiogenic Shock within 24 Hours: No Cardiac Arrest within 24 Hours: No Imaging Studies Past 6 Months: Yes Stress Studies Past 6 Months: No Diagnostic Physicians Name: Dinesh Angela MD Status: Elective Closure Device Percutaneous Entry Location: Ulnar Closure Device: Radial Band Recommendations: PCI without planned CABG Lesion Segment Name: Left main Culprit Artery: Yes Stenosis Prior to Rx (%): 100 Chronic Total Occlusion: No IVUS: Yes FFR: No Pre-Procedure LALI Flow: 0 Previously Treated Lesion: Timeframe: 6-12 months Treated with Stent: Yes In- Stent Restenosis: Yes In-Stent Thrombosis: Yes Stent Type: JENNIFER Yes Lesion Complexity: High/C Lesion Length (mm): 25 Thrombus Present: No Bifurcation Lesion: No Guidewire Across Lesion: No Intraprocedure Events Significant Disection: No Perforation: No Cardiac Cath Procedure Full Procedure Date March 09, 2020 Pre-Procedure Diagnosis Pre-Procedure Diagnosis: Non STEMI, Cardiomyopathy and Arrhythmia AUC Score AUC Score: 8 Post-Procedure Diagnosis Post-Procedure Diagnosis: Severe CAD, Successful PCI and Elevated Intracardiac Pressures Procedure(s) Performed Procedure(s) Performed: Coronary Angiography, PTCA, Ultrasound Guided Vascular Access and IVUS Manager Inpatient Dinesh Angela MD Hollow Handle Bench Worker(s) Bruno Estimated Blood Loss Estimated Blood Loss: 15 Medication(s) Medication(s): Fentanyl, Heparin, Nicardipine, Norepinephrine and Versed Medication(s): lopressor Summary of Findings Indication: Underwent cardiac catheterization 2 days ago revealing patent bypass grafts. Known chronically occluded RCA and new acute on chronic appearing left main in- stent occlusion. In the interim has had recurrent ventricular ectopy, persistent heart failure. Decision to bring back for attempted PCI of left main in-stent occlusion. Access: Right ulnar artery under ultrasound guidance, 6 Fr slender short sheath Catheters: EBU 3.5 guide Findings: For full details of patient's coronary angiography please see cath report from 03/06/2020. -- PCI -- Antithrombotic therapy: Heparin, clopidogrel Procedure: Left main cannulated with BU 3.5 guide Left main occlusion crossed with police pilot 50 wire with the aid of a Corsair catheter. Wire exchanged for mailman support wire. In-stent circumflex/left main lesions predilated with 2.0 compliant balloon IVUS showed underexpanded mid left main stent with mild residual restenosis/thrombus Left main redilated with 3.0 NC to high pressure Post balloon inflations LALI I-II flow throughout stents OM's noted to be small and had planned for further balloon dilation of distal circumflex but patient developed seizure-like activity, 2 episodes. Electrically stable during event. Mental status slow to return to normal. With completion of event O2 saturations normalized. Relative hypotension and started on norepinephrine Arterial Closure: Ear pain Summary: 1. Angioplasty of in-stent left main acute on chronic occlusion with 3.0 NC balloon 2. Angioplasty of proximal to mid circumflex stents with 2.0 compliant balloon. Poor reflow in distal circumflex and OM following angioplasty. 3. Apparent seizure-like activity 4. Recurrent ventricular ectopy 5. Elevated intracardiac filling pressures. LVEDP 24 Recommendations: To ICU for continued monitoring Wean off norepinephrine as able We will hold off on additional heparin, Integrilin in the setting of questionable neurologic event Continue dual-antiplatelet therapy with aspirin, clopidogrel Additional diuresis Consider addition of lidocaine if recurrent VT. Hemodynamics Rest Ao:: -- Final Ao: -- LV: -- Recommendations Recommendations: PCI without planned CABG Specimens Specimens: None Radiation Exposure (mGy) -- Contrast (mls) 30 Drains Drains: none Anesthesia moderate Procedural Complication(s) None Disposition ICU I attest to the content of the Intraoperative Record and any orders documented therein. Any exceptions are noted below. [facility] Card Cath Procedure Codes Cardiac Catheterization Procedure 1: Cardiovascular Cath Procedures: 34672 Left Heart Cath (+/-LV) Therapeutic Services & Ancillary Proc Procedure 1: Cardiovascular Tx and Anc Procedures: 89819 IV Ultrasound (Coronary or Graft) Moderate Sedation Procedure 1: Sedation/Anesthesia: 87261 Mod Sedation by the same physician;Init15 Min Child Age 5 & Up Procedure 2: Sedation/Anesthesia: 87300 Mod Sedation by the same physician; Ea [id number] Minutes Angioplasty Procedure 1: Cardiovascular Angioplasty Procedures: 92464 PTCA; Single mafor coronary artery or branch RC LC LD PG Care Time/CCT Total # of Minutes Spent Total Time Spent with Patient: Total time spent is greater than 50% in coordination of care (as documented) at patient's floor/unit and/or counseling patient:
--- NOTE | 2020-03-09 13:39 | Critical Care Consultation ---
Date of Consultation March 09, 2020 Assessment & Plan (1) CAD (coronary artery disease): Reason Critically Ill:Medically complex 74m that presents to the ICU s/p cardiac catheterization after having 2 episodes concerning for seizures and hypotension requiring Levophed for blood pressure stabilization. NEURO: [facility] ICU: Negative ?Seizure like activity -Patient with concerns of witnessed seizure like activity while undergoing heart cath 03/09/20 -Patient was noted to have eye rolling to the L, tongue protrusion, lip smacking, and R hand flapping. -No documented history of seizure disorder in patient. -There was some mention of aphasia on and off for the patient, but this has yet to be demonstrated while in the ICU -Glucose at time arrival to ICU was 249 and prolactin level was not obtained -Patient currently answering questions appropriately and does not appear to be in a post-ictal like state. -Recent Head CT 03/04/20 showed no acute findings, chronic microvascular ischemic disease, cerebral vascular calcifications, and encephalomalacia of the R frontal lobe. -Seizure Precautions -Continue to monitor for changes in cognitive status -History of CVA as noted by encephalomalacia of R frontal lobe CARDIAC: -Very complex cardiac history with CAD, V-Tachy s/p ICD, HfReF -Cardiology on board -Underwent cardiac cath on 03/06/20 initially showing 100% acute on chronic L main stent occlusion, 100% RCA chronic total occlusion, patent RUDOLPH to LAD, SVG to diagonal, SVG to PDA. Recommended patient continue medical management at that time. -Underwent cardiac cath again on 03/09/20 which included angioplasty of the L main in-stent occlusion, Angioplasty of the proximal to mid circumflex stents. Was to have further balloon dilation of distal circumflex, but patient developed seizure like activity and hypotension. -Additional heparin and Integrillin held in setting of questionable neurologic event -Continue dual-antiplatelet therapy with ASA and Clopidogrel -Additional Diuresis -Patient started on Norepinephrine for relative hypotension -- currently titrated down to 0.08mcg, titrate off as tolerable. -New onset Atrial Fibrillation -Not currently on heparin, was initially on heparin gtt -holding anticoagulation at this time due to questionable neurologic event -Most recent Echo showing EF 35-40% with apical aneurysm and hypokinesis -Hold Carvedilol, Losartan, and Spironolactone while pressures low -Continue Amiodarone 400mg QD -Continue Crestor -Patient with minimal crackles currently, will diurese as pressures improve/fluid overload worsens -Strict I/O's RESPIRATORY: -Patient bacteremic with staph species, but unsure if pulmonary source -Was originally on Rocephin/Doxy then Zosyn - will switch to Cefazolin IV for treatment of staph -History of COPD -Continue Xopenex and Levalbuterol -Continue methylpred 40mg IV qd -Bipap PRN GI: -HH DM2 diet -Consider PPI for gastroprotection RENAL/LYTES: -SUSAN at creatinine 2.33, base 1.6 -Likely multifactorial from ATN secondary to V-tach and intravenous dye -Nephrology on board -Electrolytes acceptable -Continue to monitor daily : -Strict I/O ENDO: -Sugars running in the ~200's since initiating steroids -ICU hyperglycemia protocol, insulin gtt HEME: -Anemia at 7.8, continue to monitor ID: -Blood culture positive for Staphylococcus species -Will switch to Cefazolin from Zosyn LINES/IV ACCESS: 2 peripherals CODE STATUS: Full DVT PROPHYLAXIS: On hold at this time Thank you for allowing us to participate in the care of this patient. Please refer to my attending physician's documentation for any further recommendations. (2) ICD (implantable cardioverter-defibrillator), dual, in situ: (3) Ventricular tachycardia: (4) History of CVA (cerebrovascular accident): (5) Diabetes mellitus: (6) Hyperlipidemia: (7) Pneumonia: (8) Atrial fibrillation: (9) Witnessed seizure-like activity: Supervising Physician Co-Signing Physician Notes Dr. Kilpatrick was resident physician during care of patient. I separately evaluated patient for velez portions of the history and the exam. I was present during the critical portion of medical decision making, and I discussed the case with the resident. I generally agree with the findings and plan. Discussed with Dr. Angela, will hold lidocaine for now as he has not had significant V. tach nor another seizure. Would load with fosphenytoin if he has another seizure otherwise would start lidocaine if he has more episodes of ventricular tachycardia. Patient is critically ill. I have personally spent 50 minutes of critical care time in the direct management of this patient. This is a life/limb threatening event. This includes time spent evaluating patient, direct bedside care, chart review, placing orders, interpretation of diagnostic studies, discussion with consultants, patient, and/or family members regarding treatment decisions, as well as other required patient management activities. This time is exclusive of all separately billable procedures, and teaching time and separate from and in addition to any other critical care service time. History of Present Illness Attending Physician: Harvinder Vázquez History of Present Illness Patient is a medically complex 74 year old male that presents to the ICU s/p cardiac catheterization after having 2 episodes concerning for seizures and hypotension requiring Levophed for blood pressure stabilization. Patient complicated with medical history of CAD s/p CABG and JENNIFER, ICD/PM, COPD, PAD, ischemic cardiomyopathy, heart failure with reduced ejection fraction, DM2, CKD stage 3, HLD, hypothyroidism, CVA, ventricular tachycardia, and mitral valve annuloplasty who had initially presented on 02/29/20 with syncope secondary to a sustained ventricular tachycardia requiring ICD firing. He was also found at time of admission to be with new onset atrial fibrillation. His troponin elevated and T wave inversions were noted in the lateral leads. Pacer interrogation had noted multiple firings (12) of his ICD for Ventricular tachycardia over the last several weeks prior to admission. He was meant to have a cardiac cath shortly after admission, however, this was held off due to worsening kidney function which was clinically consistent with ATN likely related to recurrent episodes of VT. He was optimized as much as possible and underwent cardiac cath on 03/06/[address] Angela. At that time no stenting was undergone and he was continued on medical management for his CAD, HF, and arrhythmias. On the night of 03/07/20 patient had spiking fevers to 39.2C despite tylenol administration, worsening SOB, worsening cough, and bibasilar consolidations on CXR and was started on IV Rocephin and IV Doxy for concern of hospital acquired pneumonia and was switched to Zosyn the following day. Patient was also started on BiPap at that time which improved his symptoms. Today cardiology had discussed with the patient about undergoing a secondary cardiac cath to which the patient was agreeable. During the cath the patient was found to have 2 episodes concerning for seizures while on the cath table including tongue protrusion, eyes rolling to the L, lip smacking, and R hand flapping. He was also difficult to arouse at that point in time, but slowly recovered his mentation. He was also found to be hypotensive requiring levophed administration for blood pressure stabilization. Evaluation of the patient in the ICU noted a patient that initially had his eyes closed, but was easily aroused. He noted that he currently was not in any pain and that he was not having SOB or chest pain either. He denied any history of seizures and does not recall having one earlier today. He is alert and oriented to person and location, but not time. He does state that he has been in the hospital for "quite some time." Allergies Allergy/AdvReac Type Severity Reaction Status Date / Time tetracycline Allergy Unknown rash Unverified 11/25/17 10:36 azithromycin Allergy Unknown Unverified 02/29/20 11:31 wool Allergy Unknown Unverified 02/29/20 11:32 Home Medications Home Medications Medication Instructions Recorded Confirmed Type acetaminophen 650 mg PO QID PRN 02/29/20 02/29/20 History amiodarone 400 mg PO DAILY 02/29/20 02/29/20 History aspirin 325 mg PO DAILY 02/29/20 02/29/20 History carvedilol 12.5 mg PO BID 02/29/20 02/29/20 History clopidogrel 75 mg PO DAILY 02/29/20 02/29/20 History furosemide 40 mg PO PM 02/29/20 02/29/20 History furosemide 80 mg PO QAM 02/29/20 02/29/20 History glyburide 5 mg PO BID 02/29/20 02/29/20 History levalbuterol tartrate [Xopenex HFA] 2 inh INHALATION Q6H PRN 02/29/20 02/29/20 History losartan 25 mg PO DAILY 02/29/20 02/29/20 History nitroglycerin 0.4 mg SUBLINGUAL UD PRN 02/29/20 02/29/20 History nortriptyline 50 mg PO PM 02/29/20 02/29/20 History omeprazole 20 mg PO DAILY 02/29/20 02/29/20 History rosuvastatin 40 mg PO HS 02/29/20 02/29/20 History spironolactone 50 mg PO DAILY 02/29/20 02/29/20 History umeclidinium [Incruse Ellipta] 1 inh INHALATION DAILY 02/29/20 02/29/20 History Patient History Medical History Anemia Atrial fibrillation CAD (coronary artery disease) Chronic kidney disease, stage III (moderate) Chronic systolic CHF (congestive heart failure) COPD (chronic obstructive pulmonary disease) Diabetes mellitus Elevated troponin I level GERD (gastroesophageal reflux disease) History of CVA (cerebrovascular accident) Hyperkalemia Hyperlipidemia Hypothyroid ICD (implantable cardioverter-defibrillator), dual, in situ Ischemia of right lower extremity Ischemic cardiomyopathy Pancreatic cyst Peripheral arterial disease with history of revascularization SIRS (systemic inflammatory response syndrome) Splenomegaly Superficial femoral artery occlusion Thrombocytopenia Ventricular tachycardia Surgical History History of mitral valve repair History of permanent cardiac pacemaker placement Hx of CABG Stented coronary artery Family History Other Family history non-contributory Social History Smoking Status: Former smoker Second Hand Exposure: No; Hx Alcohol Use: No Hx Substance Use: No Preferred Language: Czech Communication Ability: Effective Supervisor Ski Production Required: No Beliefs That Will Affect Care: None marital status: Unknown Current Living Situation: Other Current Living Situation Comment: shaun Feels Safe at Home: Yes Assistive Devices: Oxygen - Continuous Review of Systems Constitutional: no fever, no chills and no weakness Eyes: no worsening vision Ear, Nose, Mouth, Throat: no dizziness Respiratory: + cough; no dyspnea Cardiovascular: + lightheadedness (when standing or sitting up too quickly ); no chest pain and no chest pain at rest Gastrointestinal: no abdominal pain, no nausea and no vomiting Musculoskeletal: + radicular pain (notes in his feet b/l ) Physical Exam Constitutional: + disheveled and cooperative; no acute distress Eyes: PERRL, conjunctivae normal, anicteric sclerae ENMT: external ear and nose normal, oropharynx normal Respiratory: normal respiratory effort (on 4L NC ) and + cough; no respiratory distress Auscultation: + crackles (at bases) Cardiovascular: Rate/Rhythm: + abnormal rate (irregularly irregular ) and + abnormal rhythm Heart Sounds: no murmur Chest (Breasts): Chest: + pacemaker (on L chest wall ) Gastrointestinal (Abdomen): Inspection/Auscultation: abdomen normal to inspection and normal bowel sounds; abdomen not distended Percussion/Palpation: abdomen soft; abdomen nontender Musculoskeletal: Muscle strength testing of upper and LE 5/5, moves all extremities TR band in place on Right wrist Neurologic: moves all extremities and awake Cranial Nerves: PERRL, normal accommodation, EOM intact bilaterally, normal facial strength, tongue midline, normal hearing, able to rotate head bilaterally, able to elevate shoulders bi laterally and symmetric palate elevation Psychiatric: Orientation: alert, oriented to person, oriented to place and cooperative; + not oriented to time Eye Contact: + fair eye contact Results & Data Results & [facility] ([facility]) Vital Signs (Past 12 Hours) Vital Signs Temp Pulse Resp BP Pulse Ox 03/09/20 13:32 71 20 92 03/09/20 07:09 36.8 C 104 H 31 H 104/50 L 98 03/09/20 07:02 103 H 24 94 03/09/20 05:33 37.5 C 95 H 20 97/56 L 94 03/09/20 02:33 93/50 L Resident Activity Tracking Resident Involvement: Resident Care Provided Care Provided: Adult Hospital Medicine (1) Atrial fibrillation Atrial fibrillation type: unspecified Qualified Code(s): I48.91 - Unspecified atrial fibrillation
[2020-03-09] MEDS: POLYETHYLENE (MIRALAX) 17 GM PACK PO SCH (14:17)
[2020-03-09] MEDS: methylPREDNISolone 40 MG in SYRINGE 0 ML IV SCH (15:01)
[2020-03-09] MEDS ORDERED: INSULIN PROTOCOL GOAL RANGE ONE (15:08)
[2020-03-09] MEDS ORDERED: MODERATE STRESS LEVEL ONE (15:08)
[2020-03-09] MEDS ORDERED: NovoLIN-R BOLUS FROM BAG IV ONE (15:14)
[2020-03-09] MEDS ORDERED: INSULIN REGULAR 250 UNITS in SODIUM CHLORIDE 0.9% 247.5 ML IV SCH (15:15)
[2020-03-09] MEDS: CEFAZOLIN 2000MG 2,000 MG/15 ML SYR IV SCH (16:23)
--- NOTE | 2020-03-09 18:35 | XCELERA ---
[id number] \\[id number]
[2020-03-09] MEDS: ROSUVASTATIN CALCIUM 20 MG TAB PO SCH (20:02)
--- NOTE | 2020-03-09 22:38 | Hospitalist Progress Note ---
Date of Service March 09, 2020 Assessment & Plan (1) NSTEMI (non-ST elevated myocardial infarction): Patient had an elevated trop and went to get a cardiac cath, 1. Angioplasty of in-stent left main acute on chronic occlusion with 3.0 NC balloon 2. Angioplasty of proximal to mid circumflex stents with 2.0 compliant balloon. Poor reflow in distal circumflex and OM following angioplasty. 3. Apparent seizure-like activity 4. Recurrent ventricular ectopy 5. Elevated intracardiac filling pressures. LVEDP 24 Recommendations: To ICU for continued monitoring Wean off norepinephrine as able We will hold off on additional heparin, Integrilin in the setting of questionable neurologic event Continue dual-antiplatelet therapy with aspirin, clopidogrel Additional diuresis Consider addition of lidocaine if recurrent VT. Transferred to ICU. (2) Bacteremia: Bacteremia: one culture is showing possible staph aureus infection. Unsure of source. Premin showing MSSA. Switched antibiotic to cefazolin as per critical care team. (3) Pneumonia: Possible hospital acquired pneumonia. Patient without risk factors for multi drug resistant organism. was on zosyn, now breathing better. elevated procal. likley from bactermia. will closely monitor. (4) Ventricular tachycardia: With several runs of V. tach requiring shocks as per ICD/pacer interrogation with cardiology in the ER Continue amiodarone 400 mg daily -Replete electrolytes as above Continue carvedilol and titrate upwards to 25 mg p.o. twice daily if tolerated - Thought by cardiology that this may be ischemia driving his increased VT. Cath today. (5) Elevated troponin I level: most likely demand ischemia with repeated runs of Afib/VT as well as from being shocked [employer]; however, suspect underlying ischemia as above contributing to recurrent V. tach trending trops: increased to .299; peaked at 1.0 likely demand ischemia. (6) Syncope: 74-year-old male with a past medical history of V. tach, ischemic cardiomyopathy, AICD in place, admitted for syncopal episodes, elevated troponin and concern for cardiac ischemia. - Syncope likely secondary to VT/Afib episodes on AICD interrogation - AICD fired on Feb 16, [patient denies feelings these] - continuous cardiac monitoring -AICD interrogation showed VT - optimize/replete electrolytes as necessary -Cardiology consultation appreciated-plan for possible cardiac catheterization ECHO noted for EF 35-40% and large apical aneurysm with hypokinesis (7) Acute CHF (congestive heart failure): Home lasix dosing has been on hold since admission due to elevated cr CXR noted for possible pulm edema vs PNA WBC WNL, afebrile Neg for LE swelling, however given hx of baseline lasix use that has been held, CHF exacerbation is more likely than PNA at this time Lasix 40mg IV x1 and monitor (8) ICD (implantable cardioverter-defibrillator), dual, in situ: Placed for moderate ischemic cardiomyopathy and history of V. tach Rprogrammed his ICD. (9) Atrial fibrillation: New onset, noted on ECG here and on interrogation of pacemaker Cardio however described as atrial tachycardia, currently rate is normal with regular rhythm [id number] score significantly elevated at 7 Heparin drip with bolus for anticoagulation ECHO as noted above Cardiology consult Continue carvedilol 12.5 BID, Amiodarone 400 daily (10) CAD (coronary artery disease): hx 3V CABG as well as multiple JENNIFER remotely With left shoulder pain is anginal equivalent here relieved with nitroglycerin, mildly elevated troponin continue ASA, statin, carvedilol Holding losartan for mild increase in creatinine (11) Ischemic cardiomyopathy: medications continued as above Most recent EF 35-40% on echo from 2018, repeat is with stable EF - Possibly overloaded today. Gave another dose of Lasix 40 mg IV x 1. (12) Chronic kidney disease, stage III (moderate): Cr 1.67 at admission, roughly same as prior admissions daily BMP Now is in acute renal failure with cr 2.4 (13) Hx of CABG: As above (14) COPD (chronic obstructive pulmonary disease): No acute issues CT of the chest with chronic pleural thickening and atelectasis, emphysematous changes Continue incruse ellipta albuterol PRN for SOB O2 goal >88% not on oxygen at baseline (15) Hypothyroid: TSH 5.8 on admission no hx thyroid disease Free T4 ordered for AM may contribute to tachycardic episodes (16) Splenomegaly: Noted to be mildly enlarged on CT scan at 13.5 cm With mild thrombocytopenia Follow as an outpatient (17) Thrombocytopenia: Platelets low but fairly stable from the past 2 years Splenomegaly may be contributing Perhaps has ITP or underlying liver issues? Check peripheral smear with CBC in the morning Consider hematology consultation as an outpatient (18) Anemia: Macrocytic, mild Checking B12 is low normal at 366, will start IM s/p cath Folate WNL Follow CBC Peripheral smear as above (19) Hyperlipidemia: Continue statin high intensity for severe CAD (20) Diabetes mellitus: Most recent hemoglobin A1c was from 2018 and was 5.8% With blood glucose [address] NovoLog supplemental insulin before meals and at bedtime with Accu- Cheks Is not on medications at home (21) Chronic systolic CHF (congestive heart failure): Noted as above and ischemic cardiomyopathy Continue guideline directed medical therapy with carvedilol and titrate up as able to, losartan which is currently on hold for mildly elevated creatinine in anticipation of cardiac catheterization, and Aldactone -Holding home Lasix dosing (80mg PO AM and 40mg PO 1600 at baseline) (22) Peripheral arterial disease with history of revascularization: With a history of right lower extremity superficial femoral artery and right popliteal artery occlusions with angioplasty and stenting in 2018 Continue aspirin, statin (23) History of CVA (cerebrovascular accident): With a history of such, CT head here with small focus of encephalomalacia in the right frontal lobe favoring an old infarct Continue aspirin, statin Now on heparin drip for atrial fibrillation (24) Pancreatic cyst: Noted incidentally on CT scan with 2.2 cm cyst Needs outpatient follow-up (25) DVT prophylaxis: FEN/GI: heart healthy, low sodium, NPO at MN Code Status: Full Code (26) Expressive aphasia: Repeat CT head neg for acute, cannot get MRI due to pacer Has been on and off for days per pt Has not been mentioned or noted prior to today by myself, although teeth not in place during discussion today Continue to monitor (27) Cough: Will order chest x ray, repeat vitals. Admission and Anticipated Discharge Date Admission Date: February 29, 2020 Subjective Patient denies any chest pain today. He states he wants to sleep after the cardiac cath. Patient denies any SOB. Review of Systems Review of Systems: All systems reviewed & are unremarkable except as noted in HPI & below Physical Exam Physical Exam: Constitutional: prisoner in no apparent distress, laying comfortably in bed Eyes: EOMI, pupils equal and reactive bilaterally, no scleral icterus Cardiac: RRR, no murmurs, gallops or rubs. Normal S1, S2 Pulm: CTA BL, no wheezes, rhonchi, crackles or rubs, moving air well throughout both lungs Abd: soft, tender to palp in RLQ, nondistended, normal bowel sounds, no rebound or guarding, tympanic to percussion at upper quadrants Extremities: 2+ peripheral pulses, no edema, Neuro: no focal deficits, moving all 4 limbs, A&Ox3 Results & Data Results & Data ([facility]) Vital Signs (Past 12 Hours) Vital Signs Temp Pulse Pulse Pulse Resp BP Pulse Ox 03/09/20 22:00 91 H 24 108/50 L 100 03/09/20 21:00 87 24 102/60 98 03/09/20 20:00 37 C 84 21 117/61 97 03/09/20 19:19 118 H 28 H 98 03/09/20 19:00 94 H 26 H 113/46 L 95 03/09/20 18:01 36.8 C 97 H 24 93/56 L 100 03/09/20 17:01 118 H 24 99/68 L 100 03/09/20 16:53 117 H 24 95/46 L 100 03/09/20 16:52 116 H 25 H 87/44 L 100 03/09/20 16:01 37.0 C 108 H 24 98/51 L 99 03/09/20 15:46 96 H 29 H 94/52 L 93 03/09/20 15:16 87 24 99/54 L 95 03/09/20 15:02 85 28 H 106/54 L 100 03/09/20 14:46 96 H 26 H 97/54 L 100 03/09/20 14:31 90 24 111/50 L 100 03/09/20 14:16 93 H 29 H 106/59 L 99 03/09/20 14:03 101 H 21 120/65 90 03/09/20 14:00 36.4 C L 102 H 22 100 03/09/20 13:53 101 H 24 115/55 L 98 03/09/20 13:43 92 H 23 109/52 L 95 03/09/20 13:33 94 H 23 111/67 92 03/09/20 13:32 71 20 92 03/09/20 13:23 100 H 24 107/56 L 91 03/09/20 13:13 95 H 16 100/62 96 03/09/20 12:46 90 17 104/50 L PG Care Time/CCT Total # of Minutes Spent Total Time Spent with Patient: Total time spent is greater than 50% in coordination of care (as documented) at patient's floor/unit and/or counseling patient: Coding Level of Care Code 35765 Subseq Hosp Care Lvl 3 Diagnoses NSTEMI (non-ST elevated myocardial infarction) I21.4 Bacteremia R78.81 Pneumonia J18.9 Ventricular tachycardia I47.2 Elevated troponin I level R79.89 Syncope R55 Syncope type: unspecified Acute CHF (congestive heart failure) I50.9 ICD (implantable cardioverter-defibrillator), dual, in situ Z95.810 Atrial fibrillation I48.91 Atrial fibrillation type: unspecified CAD (coronary artery disease) I25.10 Ischemic cardiomyopathy I25.5 Chronic kidney disease, stage III (moderate) N18.3 Hx of CABG Z95.1 COPD (chronic obstructive pulmonary disease) J44.9 Hypothyroid E03.9 Splenomegaly R16.1 Thrombocytopenia D69.6 Anemia D64.9 Hyperlipidemia E78.5 Diabetes mellitus E11.9 Chronic systolic CHF (congestive heart failure) I50.22 Peripheral arterial disease with history of revascularization I73.9; Z98.890 History of CVA (cerebrovascular accident) Z86.73 Pancreatic cyst K86.2 DVT prophylaxis Z29.9 Expressive aphasia R47.01 Cough R05 Time Spent (min) 35 (1) Atrial fibrillation Atrial fibrillation type: unspecified Qualified Code(s): I48.91 - Unspecified atrial fibrillation (2) Syncope Syncope type: unspecified Qualified Code(s): R55 - Syncope and collapse
[2020-03-10] MEDS: LEVALBUTEROL HCL 1.25 MG/3 ML NEB NEB SCH ×2 (00:30→07:19)
[2020-03-10] MEDS: ACETAMINOPHEN 325 MG TAB PO PRN (03:06)
[2020-03-10] MEDS: CEFAZOLIN 2000MG 2,000 MG/15 ML SYR IV SCH (03:06)
[2020-03-10 04:36] LABS: Hematocrit (blood only) 22.3 % (42-52); Hemoglobin 7.6 g/dL (14.0-18.0); Mean Corpuscular Hemoglobin 33.9 pg (25-34); Mean Corpuscular Hgb Conc 34.1 g/dL (32-36); Mean Corpuscular Volume 99.6 fL (80-100); Mean Platelet Volume 10.2 fL (7.4-10.4); Nucleated RBC # (auto) 0.05 K/uL (0-0); Nucleated RBC % (auto) 0.3 %; Platelet Count 199 K/uL (130-400); RDW Coefficient of Variation 16.2 % (11.5-14.5); RDW Standard Deviation 57.8 fL (36.4-46.3); Red Blood Count 2.24 M/uL (4.7-6.1); White Blood Count 16.66 K/uL (4.8-10.8)
[2020-03-10 05:02] LABS: BUN Creatinine Ratio 27.4 (10-20); Calcium 7.6 mg/dl (8.5-10.1); Creatinine Clr Calc Pharmacy 34.2 ml/min; Est GFR (African American) 34.6; Est GFR (Non-African American) 29.8; Magnesium 2.9 mg/dl (1.8-2.4); Phosphorus 3.2 mg/dl (2.5-4.9); Potassium 3.6 mmol/L (3.5-5.1)
--- NOTE | 2020-03-10 05:31 | Critical Care Progress Note ---
Date of Service March 10, 2020 Assessment & Plan (1) CAD (coronary artery disease): Reason Critically Ill:Medically complex 74m that presents to the ICU s/p cardiac catheterization after having 2 episodes concerning for seizures and hypotension requiring Levophed for blood pressure stabilization. NEURO: CAM ICU: Negative ?Seizure like activity -Patient with concerns of witnessed seizure like activity while undergoing heart cath 03/09/20 -Patient was noted to have eye rolling to the L, tongue protrusion, lip smacking, and R hand flapping. -No documented history of seizure disorder in patient. -There was some mention of aphasia on and off for the patient, but this has yet to be demonstrated while in the ICU -Glucose at time arrival to ICU was 249 and prolactin level was not obtained -Patient currently answering questions appropriately and does not appear to be in a post-ictal like state. -Recent Head CT 03/04/20 showed no acute findings, chronic microvascular ischemic disease, cerebral vascular calcifications, and encephalomalacia of the R frontal lobe. -Seizure Precautions -Continue to monitor for changes in cognitive status -Has not had anymore witnessed episodes during stay in ICU. -History of CVA as noted by encephalomalacia of R frontal lobe CARDIAC: -Very complex cardiac history with CAD, V-Tachy s/p ICD, HfReF -Cardiology on board -Underwent cardiac cath on 03/06/20 initially showing 100% acute on chronic L main stent occlusion, 100% RCA chronic total occlusion, patent RUDOLPH to LAD, SVG to diagonal, SVG to PDA. Recommended patient continue medical management at that time. -Underwent cardiac cath again on 03/09/20 which included angioplasty of the L main in-stent occlusion, Angioplasty of the proximal to mid circumflex stents. Was to have further balloon dilation of distal circumflex, but patient developed seizure like activity and hypotension. 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 Lidocaine was discontinued and he was given a bolus Amiodarone and started Amio drip. At that time he was also given a 2.5mg lopressor push and Ativan 1mg IV -Will continue Amiodarone drip, Lopressor 2.5mg q4h PRN, and Ativan 1mg IV q4h PRN until transfer -Plan for TERI per [facility] Request -Plan for transfer to [facility] to Dr. Cano by helicopter transport RESPIRATORY: -Patient bacteremic with staph species, but unsure if pulmonary source -Was originally on Rocephin/Doxy then Zosyn - will switch to Cefazolin IV for treatment of staph -History of COPD -Continue Xopenex and Levalbuterol -Continue methylpred 40mg IV qd -Bipap PRN -COVID-19 testing was NEGATIVE GI: -HH DM2 diet -Consider PPI for gastroprotection RENAL/LYTES: -SUSAN at creatinine 2.33, base 1.6 -Likely multifactorial from ATN secondary to V-tach and intravenous dye -Nephrology on board -Electrolytes acceptable -Continue to monitor daily : -Strict I/O ENDO: -Sugars running in the ~200's since initiating steroids -ICU hyperglycemia protocol, insulin gtt -Transition off drip HEME: -Anemia at 7.8, continue to monitor ID: -Blood culture positive for Staphylococcus species -Will switch to Cefazolin from Zosyn -Full body exam today without obvious source of infection, ?oral source, patient wears oral dentures though no obvious cuts or ulcers noted. -Staph species -- Staph Aureus real sensitive, continue Cefazolin LINES/IV ACCESS: 2 peripherals CODE STATUS: Full DVT PROPHYLAXIS: Lovenox 40qd Thank you for allowing us to participate in the care of this patient. Please refer to my attending physician's documentation for any further recommendations. (2) ICD (implantable cardioverter-defibrillator), dual, in situ: (3) Ventricular tachycardia: (4) History of CVA (cerebrovascular accident): (5) Diabetes mellitus: (6) Hyperlipidemia: (7) Pneumonia: (8) Atrial fibrillation: (9) Witnessed seizure-like activity: Admission and Anticipated Discharge Date Admission Date: February 29, 2020 Supervising Physician Co-Signing Physician Notes Dr. Kilpatrick was resident physician during care of patient. I separately evaluated patient for velez portions of the history and the exam. I was present during the critical portion of medical decision making, and I discussed the case with the resident. I generally agree with the findings and plan. Ventricular storm, we have ordered a COVID test as well as will be obtaining a TERI per [facility]'s recommendation. Patient will ultimately be transferred to [facility] under the care of Dr. Cano. Will discontinue insulin infusion which will be easier for transfer via helicopter EMS. Further discussion with cardiology services, TERI is unavailable at this institution at this time COVID test is negative he is hemodynamically stable and we will be contacting [facility] for transport. Subjective Patient evaluated this AM at the bedside. At that time patient noted he was feeling "about the same" as yesterday without complaint. He did state that he had felt his heart beating fast occasionally, but denied chest pain, SOB, fever, chills, abdominal pain. --Upon reevaluation later in the morning patient was found to have several bouts of Ventricular Tachycardia, his ICD delivering 2 witnessed shocks. Patient continued to deny chest pain at this time, but did state he was feeling fatigued. This was ultimately abated after amiodarone IV bolus, Lopressor push, and Ativan push. Cardiology was at bedside and felt that it would suit patients needs best if they were to be transferred to a tertiary center where they may be able to evaluate and possible ablate the patient to prevent further v-tach storms. [facility] was contacted and Dr. Cano from Cardiology accepted the patient, requesting we complete COVID-19 testing and a TERI prior to transfer by helicoptor. Review of Systems Constitutional: + weakness; no fever and no chills Ear, Nose, Mouth, Throat: no dizziness Respiratory: + cough; no dyspnea Cardiovascular: + palpitations and + lightheadedness (when standing or sitting up too quickly ); no chest pain and no chest pain at rest Gastrointestinal: no abdominal pain, no nausea and no vomiting Musculoskeletal: + radicular pain (notes in his feet b/l ) Physical Exam Constitutional: + disheveled and cooperative; no acute distress Eyes: PERRL, conjunctivae normal, anicteric sclerae ENMT: external ear and nose normal, oropharynx normal Respiratory: normal respiratory effort (on 4L NC ) and + cough; no respiratory distress Auscultation: + crackles (at bases) Cardiovascular: Rate/Rhythm: + abnormal rate (irregularly irregular ) and + abnormal rhythm Heart Sounds: no murmur Chest (Breasts): Chest: + pacemaker (on L chest wall ) Gastrointestinal (Abdomen): Inspection/Auscultation: abdomen normal to inspection and normal bowel sounds; abdomen not distended Percussion/Palpation: abdomen soft; abdomen nontender Skin: No lesions noted on patients upper extremities, abdomen, LE, feet, inside of mouth Patient does have significant bruising in multiple locations in various stages of healing, secondary to prior fall. Neurologic: moves all extremities and awake Cranial Nerves: PERRL, normal accommodation, EOM intact bilaterally, normal facial strength, tongue midline, normal hearing, able to rotate head bilaterally, able to elevate shoulders bilaterally and symmetric palate elevation Psychiatric: Orientation: alert, oriented to person, oriented to place and cooperative; + not oriented to time Eye Contact: + fair eye contact Results & Data Results & Data ([facility]) Vital Signs (Past 12 Hours) Vital Signs Temp Pulse Pulse Resp BP Pulse Ox 03/10/20 05:00 99 H 21 93/57 L 97 03/10/20 04:00 37.4 C 108 H 21 101/58 L 95 03/10/20 03:00 106 H 24 101/48 L 100 03/10/20 02:00 103 H 17 94/47 L 96 03/10/20 01:00 102 H 24 95/51 L 95 03/10/20 00:30 92 H 24 100 03/10/20 00:00 94 H 25 H 102/47 L 94 03/09/20 23:00 95 H 26 H 97/54 L 100 03/09/20 22:00 91 H 24 108/50 L 100 03/09/20 21:00 87 24 102/60 98 03/09/20 20:00 37 C 84 21 117/61 97 03/09/20 19:19 118 H 28 H 98 03/09/20 19:00 94 H 26 H 113/46 L 95 03/09/20 18:01 36.8 C 97 H 24 93/56 L 100 Critical Care Time Critical Care Time: Yes Total Critical Care Time: 45 I have personally spent 45 minutes of critical care time in the direct management of this patient. This is a life/limb threatening event. This includes time spent evaluating patient, direct bedside care, chart review, placing orders, interpretation of diagnostic studies, discussion with consultants, patient, and/or family members regarding treatment decisions, as well as other required patient management activities. This time is exclusive of all separately billable procedures, and teaching time and separate from and in addition to any other critical care service time. Resident Activity Tracking Resident Involvement: Resident Care Provided Care Provided: Adult [facility] Medicine (1) Atrial fibrillation Atrial fibrillation type: unspecified Qualified Code(s): I48.91 - Unspecified atrial fibrillation
--- NOTE | 2020-03-10 06:08 | Electrocardiogram Report ---
Test Reason : Blood Pressure : / mmHG Vent. Rate : 091 BPM Atrial Rate : 090 BPM P-R Int : 000 ms QRS Dur : 164 ms QT Int : 450 ms P-R-T Axes : 000 074 218 degrees QTc Int : 553 ms Atrial fibrillation with premature ventricular or aberrantly conducted complexes Non-specific intra-ventricular conduction block Abnormal ECG When compared with ECG of 03-MAR-2020 23:45, Ventricular pacing is no longer present Confirmed by Bam Mai ([id number]) on 03/10/2020 6:08:00 AM Referred By: [facility] Confirmed By:Bam Mai
[2020-03-10] MEDS: PANTOprazole 40 MG TAB PO SCH (07:38)
[2020-03-10] MEDS: CLOPIDOGREL BISULFATE 75 MG TAB PO SCH (07:38)
[2020-03-10] MEDS: INSULIN ASPART 100 UNITS/ML 3 ML PEN SC SCH (07:38)
[2020-03-10] MEDS: SENNA 8.6 MG TAB PO SCH (07:38)
[2020-03-10] MEDS: AMIODARONE 200 MG TAB PO SCH (07:38)
[2020-03-10] MEDS: ASPIRIN 81 MG ECTAB PO SCH (07:38)
[2020-03-10] MEDS: UMECLIDINIUM BROMIDE 62.5MCG/BLISTER 7 PUFFS/INHALER INH SCH (07:38)
[2020-03-10] MEDS: DOCUSATE SODIUM 100 MG CAP PO SCH (07:42)
[2020-03-10] MEDS: POLYETHYLENE (MIRALAX) 17 GM PACK PO SCH (07:46)
[2020-03-10] MEDS ORDERED: AMIODARONE / D5W 150 MG/100 ML BAG IV STA (08:03)
[2020-03-10] MEDS ORDERED: 0.2 MICRON FILTER SET 1 EA IV ONE ×3 (08:03→14:36)
--- NOTE | 2020-03-10 08:03 | Cardiology Progress Note ---
Date of Service March 10, 2020 Assessment & Plan (1) ICD (implantable cardioverter-defibrillator), dual, in situ: On presentation his ICD was not detecting properly and he had both atrial and ventricular arrhythmias increasing in frequency based on device monitoring. With device reprogramming detection has been better although not ideal. Interrogation of his device shows that is functioning well in general, he does have some slow ventricular tachycardia which we really cannot program to include however it is slow enough that is probably not necessary as long as the episodes do not become extraordinarily long. This morning he began to have a lot of ventricular tachycardia, often fast enough that triggered the device, antitachycardia pacing generally worked although sometimes it required ICD shock. This all seems to be appropriate function of the device. (2) Ventricular tachycardia: He has had frequent episodes of ventricular tachycardia identified for several days, prior to that his VT had been under good control. During his last hospitalization in 2018 he was having a lot of ventricular tachycardia, on transfer to [facility] he was treated for ischemia and had good control of his arrhythmia until recently. I suspected his current arrhythmia was perhaps on an ischemic basis, although that is unusual with sustained monomorphic VT, and now post intervention he continues to have very frequent episodes. It still could be on an ischemic basis as reperfusion was not ideal following intervention yesterday. He seems to have other evidence of ischemia currently with a rising troponin. At this point I have given intravenous metoprolol, he was on lidocaine which seems to make the arrhythmia worse and I am going to discontinue that, I am going to give a bolus of amiodarone and put him on a drip despite him being on oral amiodarone. We will give him sedation. As a last resort we could intubate and fully sedate him. I believe we need to make arrangements to transfer him to a tertiary care center, there is not a lot more that we can do here at this point to control his arrhythmia. (3) CAD (coronary artery disease): He has known coronary artery disease, in 2018 control of his VT was achieved by stent placement. He has had progression of disease and we were hopeful that with what appears to be recent vessel occlusion that that would stabilize things over his preadmission arrhythmias, that happened for a short time but then over the last several days he was having increasing ventricular ectopy which I suspect is on the basis of ischemia. Intervention yesterday seem ed to help things overnight, although he still had slow tachycardia, but this morning he is having a lot of tachycardia requiring ICD therapy. (4) Chronic kidney disease, stage III (moderate): He does have chronic kidney disease, he received dye 3 times this admission, in the emergency room for x-ray studies and then sometime later for catheterization (March 06, 2020) and yesterday. On both prior occasions he seemed to develop a dye induced nephropathy, his creatinine today has not increased but he received minimal dye yesterday. Hopefully he will not have difficulty with this. (5) Ischemic cardiomyopathy: In 2018 his left ventricular ejection fraction was 35 to 40%. It had not changed significantly on admission therefore worsening of left ventricular function is not and explanation for his increased ectopy on presentation, now his ejection fraction is a little bit worse but by measurements not a lot and that is not surprising. (6) Atrial tachycardia: He has an atrial tachycardia which has been quite frequent and more prominent recently than in the past based on ICD monitoring. That has resulted in a dual tachycardia recently which created a situation prolonging ICD detection and therapy. This may have to be addressed over the long run either with programming or additional AV molly blocking medications. So far during the hospitalization this has not been a problem although he has had occasional of atrial tachycardia but the device has handled them appropriately. (7) Unresponsiveness: I believe he had loss of consciousness prior to his transfer to the emergency room, although he does not recall that. Whatever the event was (unresponsiveness or prolonged presyncope) it do did es coincide with a prolonged episode of ventricular tachycardia. It is hard to tell from the ICD diagnostics how long this might of been since it was not detected properly and it will only recognize an arrhythmia if it is detected by the device. Hopefully this has been corrected by ICD reprogramming although he still has prolonged episodes of wide-complex tachycardia. Admission and Anticipated Discharge Date Admission Date: February 29, 2020 Subjective Events of yesterday reviewed. Patient is not doing very well today but he is feeling fairly well. He is not complaining of any chest discomfort, he is not having any palpitations although he is having a lot of ventricular tachycardia. Physical Exam Physical Exam: Constitutional: Alert, cooperative and in no distress. He is laying in bed. HEENT: Unremarkable Neck: No jugular venous distention, carotid pulses are normal and equal bilaterally without bruits. Pulmonary: Crackles bilaterally, he is supine. Cardiac: Regular rhythm very frequent ventricular beats with no murmur, gallop or rub. Abdomen: Soft, nontender with normal bowel sounds. Extremities: No edema. Distal pulses intact. Neurologic: No focal findings. Gait was not tested. Skin: No rash, ecchymoses or petechiae. His left-sided ICD site is well-healed without erythema, swelling or tenderness. Results & Data ([facility]) Vital Signs (Past 12 Hours) Vital Signs Temp Pulse Pulse Resp BP Pulse Ox 03/10/20 07:19 95 H 22 89 L 03/10/20 06:00 95 H 24 100/53 L 98 03/10/20 05:00 99 H 21 93/57 L 97 03/10/20 04:00 37.4 C 108 H 21 101/58 L 95 03/10/20 03:00 106 H 24 101/48 L 100 03/10/20 02:00 103 H 17 94/47 L 96 03/10/20 01:00 102 H 24 95/51 L 95 03/10/20 00:30 92 H 24 100 03/10/20 00:00 94 H 25 H 102/47 L 94 03/09/20 23:00 95 H 26 H 97/54 L 100 03/09/20 22:00 91 H 24 108/50 L 100 03/09/20 21:00 87 24 102/60 98 Laboratory Results Cardiac Enzymes 03/09/20 03/09/20 Range/Units 08:32 08:32 AST 255 H (15-37) U/L Troponin I 3.310 H* (0-0.045) ng/ml CBC 03/10/20 Range/Units 04:10 WBC 16.66 H (4.8-10.8) K/uL RBC 2.24 L (4.7-6.1) M/uL Hgb 7.6 L (14.0-18.0) g/dL Hct 22.3 L (42-52) % Plt Count 199 (130-400) K/uL Comprehensive Metabolic Panel 03/09/20 03/10/20 Range/Units 08:32 04:10 Sodium 132 L (136-145) mmol/L Potassium 3.6 (3.5-5.1) mmol/L Chloride 102 (98-107) mmol/L Carbon Dioxide 22 (21-32) mmol/L BUN 59 H (7-18) mg/dl Creatinine 2.14 H (0.6-1.4) mg/dl Glucose 119 H (70-99) mg/dl Calcium 7.6 L (8.5-10.1) mg/dl Direct Bilirubin 1.7 H (0-0.2) mg/dl AST 255 H (15-37) U/L ALT 193 H (12-78) U/L Alkaline Phosphatase 91 (45-117) U/L Total Protein 6.1 L (6.4-8.2) gm/dl Albumin 2.6 L (3.4-5.0) gm/dl Intake and Output 03/09/20 03/10/20 03/10/20 22:59 06:59 14:59 Intake Total 399.009 / 1008.409 494.4 / 1008.409 14.12 / 14.12 Output Total 650 / 1300 550 / 1300 Balance -250.991 / -291.591 -55.6 / -291.591 14.12 / 14.12 Intake: IV 39.009 / 168.409 14.4 / 168.409 14.12 / 14.12 NovoLIN R 250 UNITS In Nss 247. 11.534 / 25.934 14.4 / 25.934 3.87 / 3.87 5 ml @ 1.8 UNITS/HR 1.8 mls/hr IV .Q24H SHADI Rx#:[id number] XYLOCAINE/D5W DRIP 4MG/ML 2,000 1.75 / 1.75 10.25 / 10.25 mg In 500 ml @ 0 MG/MIN IV . Q0M SHADI Rx#:[id number] Levophed Inj 8 mg In D5w 500 ml 10.725 / 10.725 @ 0 MCG/KG/MIN IV .Q0M SHADI Rx# :[id number] Zosyn 3.375 gm In D5 100 ml @ 15 / 130 28.75 mls/hr IV Q8H SHADI Rx#: [id number] Oral 360 / 840 480 / 840 Output: Urine Amount (Catheter) 650 / 1300 550 / 1300 Meza/Indwelling 650 / 1300 550 / 1300 # Bowel Movements 0 / 0 0 / 0 Other: Weight 86.4 kg 87.5 kg Diagnostic Findings Telemetry: Multiple runs of ventricular tachycardia, overnight he had a slow ventricular tachycardia below the rate cutoff of the device and not much faster than his sinus rhythm, however this morning he is having multiple rapid runs of tachycardia requiring ICD therapy (both antitachycardia pacing and ICD shocks). The ICD is working appropriately. PG Care Time/CCT Total # of Minutes Spent Total Time Spent with Patient: Total time spent is greater than 50% in coordination of care (as documented) at patient's floor/unit and/or counseling patient: Coding Level of Care Code 86451 Subseq Hosp Care Lvl 3 Diagnoses ICD (implantable cardioverter-defibrillator), dual, in situ Z95.810 Ventricular tachycardia I47.2 CAD (coronary artery disease) I25.10 Chronic kidney disease, stage III (moderate) N18.3 Ischemic cardiomyopathy I25.5 Atrial tachycardia I47.1 Unresponsiveness R41.89
[2020-03-10] MEDS ORDERED: METOPROLOL TARTRATE 1 MG/ML VIAL IV STA (08:04)
[2020-03-10] MEDS ORDERED: METOPROLOL TARTRATE 1 MG/ML VIAL IV ONE (08:04)
[2020-03-10] MEDS ORDERED: AMIODARONE 150MG / 100ML D5W IV ONE (08:05)
[2020-03-10] MEDS ORDERED: AMIODARONE 360MG / 200ML D5W IV ONE (08:05)
[2020-03-10] MEDS ORDERED: LORazepam 1 MG/2 ML VIAL IV STA (08:16)
[2020-03-10] MEDS ORDERED: LORazepam 1 MG/2 ML VIAL IV PRN (08:36)
[2020-03-10] MEDS ORDERED: AMIODARONE / D5W 360 MG/200 ML BAG IV ONE (08:36)
[2020-03-10] MEDS ORDERED: METOPROLOL TARTRATE 1 MG/ML VIAL IV PRN (08:36)
--- NOTE | 2020-03-10 09:24 | Billing Data ---
Date of Service March 10, 2020 Coding Level of Care Code Critical Care 1st - mins
--- NOTE | 2020-03-10 09:27 | Billing Data ---
Date of Service March 09, 2020 Coding Level of Care Code Critical Care mins
--- NOTE | 2020-03-10 09:55 | Nephrology Progress Note ---
Date of Service March 10, 2020 Assessment & Plan (1) SUSAN (acute kidney injury): * ATN related to recurrent episodes of VT and recent IV contrast administration * CT abd/pelvis 02/29/20 + IV contrast: No obstruction reported, 7mm lower pole R renal cyst * Cr daniel to 2.4 (baseline 1.6) following cardiac cath 03/06. He suffered recurrent V-tach and rising troponin. Repeat cath 03/09/20 revealed restenosis or L main stent. PCI performed. Cr 2.1 this am. Electrolyte balance acceptable. Patient is nonoliguric. No acute indication for [employer] at this time (2) Chronic kidney disease, stage III (moderate): * Baseline Cr 1.6 - likely due to microvascular disease (3) Chronic systolic CHF (congestive heart failure): * Nonoliguric * Monitor I&O's, daily weight (4) Ischemic cardiomyopathy: * Probable transfer to tertiary care facility due to recurrent V-tach Admission and Anticipated Discharge Date Admission Date: February 29, 2020 Subjective Mr. Vieyra was seen & examined in the ICU this morning. He denied angina or palpitations. EMR review shows patient underwent cardiac catheterization w/ PCI of L main stent stenosis 03/09/20 due to recurrent V-tach and rising troponin. This morning he continues to have intermittent V-tach despite lidocaine gtt. Review of Systems Constitutional: + weakness; no fever Eyes: no problem reported Ear, Nose, Mouth, Throat: no problem reported Respiratory: no dyspnea Cardiovascular: no chest pain and no edema Gastrointestinal: no abdominal pain, no vomiting and no diarrhea/loose stools Musculoskeletal: no back pain Integumentary: no rash Neurologic: no confusion Physical Exam Constitutional: not in distress Eyes: PERRL, conjunctivae normal, anicteric sclerae ENMT: external ear and nose normal, oropharynx normal Neck: trachea midline, no thyromegaly Respiratory: normal respiratory effort, lungs clear to auscultation Auscultation: + rales Cardiovascular: RRR, no murmur, no edema Gastrointestinal (Abdomen): normal bowel sounds, soft, nontender, no hepatosplenomegaly Musculoskeletal: Extremities: no cyanosis Skin: no rashes, warm and dry Neurologic: awake Speech / Cognition: normal speech Results & Data ([facility]) Vital Signs (Past 12 Hours) Vital Signs Temp Pulse Pulse Resp BP Pulse Ox 03/10/20 09:42 101 H 29 H 115/80 97 03/10/20 09:08 89 29 H 102/54 L 93 03/10/20 09:00 99 H 20 94 03/10/20 08:58 90 33 H 109/58 L 93 03/10/20 08:48 96 H 32 H 106/44 L 97 03/10/20 08:38 107 H 30 H 93/63 L 93 03/10/20 08:28 84 27 H 104/45 L 91 03/10/20 08:18 36.4 C L 84 24 94/52 L 92 03/10/20 08:09 120 H 91/59 L 03/10/20 08:08 139 H 30 H 91/59 L 91 03/10/20 08:01 155 H 39 H 81/51 L 90 03/10/20 07:58 142 H 32 H 68/50 L 91 03/10/20 07:19 95 H 22 89 L 03/10/20 07:01 106 H 33 H 108/56 L 92 03/10/20 06:00 95 H 24 100/53 L 98 03/10/20 05:00 99 H 21 93/57 L 97 03/10/20 04:00 37.4 C 108 H 21 101/58 L 95 03/10/20 03:00 106 H 24 101/48 L 100 03/10/20 02:00 103 H 17 94/47 L 96 03/10/20 01:00 102 H 24 95/51 L 95 03/10/20 00:30 92 H 24 100 03/10/20 00:00 94 H 25 H 102/47 L 94 03/09/20 23:00 95 H 26 H 97/54 L 100 03/09/20 22:00 91 H 24 108/50 L 100 PG Care Time/CCT Total # of Minutes Spent Total Time Spent with Patient: Total time spent is greater than 50% in coordination of care (as documented) at patient's floor/unit and/or counseling patient: Coding Level of Care Code 83275 Subseq Hosp Care Lvl 3 Diagnoses SUSAN (acute kidney injury) N17.9 Chronic kidney disease, stage III (moderate) N18.3 Chronic systolic CHF (congestive heart failure) I50.22 Ischemic cardiomyopathy I25.5
[2020-03-10] MEDS ORDERED: PHARMACY GLYCEMIC MGMT CONSULT PRN (10:42)
[2020-03-10] MEDS ORDERED: INSULIN GLARGINE SOLOSTAR 100 UNITS/ML 3 ML PEN SC STA (10:44)
[2020-03-10 10:46] LABS: Hepatitis B Surface Antigen Neg (Neg)
[2020-03-10] MEDS ORDERED: ENOXAPARIN INJ 40 MG/0.4 ML SYR SQ SCH (11:00)
[2020-03-10] MEDS: methylPREDNISolone 40 MG in SYRINGE 0 ML IV SCH (11:12)
[2020-03-10 11:14] LABS: Hepatitis C IgG 13Yrs+Old_Rflx Neg (Neg)
[2020-03-10] MEDS ORDERED: INSULIN ASPART 100 UNITS/ML 3 ML PEN SC SCH (12:00)
--- NOTE | 2020-03-10 12:01 | Discharge Summary ---
Date of Service March 10, 2020 Admission HPI Per Admitting Provider 74-year-old male with a past medical history of V. tach, ischemic cardiomyopathy, AICD who presents from senior living for frequent syncopal episodes and recent falls. States that he is been having dizzy episodes for a couple of years but has been falling more in the last 2 weeks. He describes his dizzy spells as having the room spin, along with blurring vision. Denies hitting his head with any of the falls. Denies feeling his AICD go off. Says this morning he felt dizzy and fell and blacked out. Denies any chest pain in association with the episodes but has had trouble breathing with them. He does note that he has chest pain with exertion and activity. Has been taking all of his medications (discuss with senior living showed he is responsible for taking all of his medications except for plavix and pamelor). Interrogation of the AICD revealed multiple identified runs of new onset Afib, Vtach, as well as multiple firings from the AICD on Feb 16,. He is being admitted for syncope and cardiac workup for new Afib, repeated episodes of VT and cardiac ischemia. Admission Exam Per Admitting Provider Physical Exam: Constitutional: prisoner in no apparent distress, laying comfortably in bed with his eyes closed, though he has his fists clenched at his sides. Eyes: EOMI, pupils equal and reactive bilaterally, no scleral icterus Cardiac: irregularly irregular, tachycardic, no murmurs, gallops or rubs. Normal S1, S2 Pulm: CTA BL, no wheezes, rhonchi, crackles or rubs, moving air well throughout both lungs Abd: soft, tender to palp in RLQ, nondistended, normal bowel sounds, no rebound or guarding, tympanic to percussion at upper quadrants Extremities: 2+ peripheral pulses, no edema, Neuro: no focal deficits, moving all 4 limbs, A&Ox3 Principal Diagnosis Ventricular Tachycardia Discharge Exam Constitutional + disheveled and cooperative; no acute distress Eyes PERRL, conjunctivae normal, anicteric sclerae ENMT external ear and nose normal, oropharynx normal Respiratory normal respiratory effort (on 4L NC ) and + cough; no respiratory distress Auscultation: + crackles (at bases) Cardiovascular Rate/Rhythm: + abnormal rate (irregularly irregular ) and + abnormal rhythm Heart Sounds: no murmur Chest (Breasts) Chest: + pacemaker (on L chest wall ) Gastrointestinal (Abdomen) Inspection/Auscultation: abdomen normal to inspection and normal bowel sounds; abdomen not distended Percussion/Palpation: abdomen soft; abdomen nontender Neurologic moves all extremities and awake Cranial Nerves: PERRL, normal accommodation, EOM intact bilaterally, normal facial strength, tongue midline, normal hearing, able to rotate head bilaterally, able to elevate shoulders bilaterally and symmetric palate elevation Psychiatric Orientation: alert, oriented to person, oriented to place and cooperative; + not oriented to time Eye Contact: + fair eye contact Discharge Data Allergies Allergy/AdvReac Type Severity Reaction Status Date / Time tetracycline Allergy Unknown rash Unverified 11/25/17 10:36 azithromycin Allergy Unknown Unverified 02/29/20 11:31 wool Allergy Unknown Unverified 02/29/20 11:32 Consultations 02/29/20 13:07 ED Decision to Admit Stat 02/29/20 13:08 Consult Cardiology Stat 02/29/20 14:38 Consult Case Management - Discharge Planning Routine Consult Belt Turner Routine 03/02/20 08:21 Consult Nephrology Routine 03/10/20 08:44 Burn CD for patient Stat Procedures Performed Operation Date: 03/01/20 11:00 <No data on this case meets the specified criteria> Operation Date: 03/06/20 09:30 Actual Procedures s Cineradiography w/Routine Exam - Chato Angela MD p Cath, Left w/Cors Vent Grafts - Chato Angela MD Operation Date: 03/09/20 10:30 Actual Procedures s Cineradiography w/Routine Exam - Chato Angela MD p POBA SGL Vessel - Chato Angela MD s POBA each ADDTL Vessel - Chato Angela MD s IVUS Coronary Single Vessel - Chato Angela MD s IVUS Coronary each ADDL Vessel - Chato Angela MD Ordered Studies 02/29/20 11:44 CT abd pelvis IV con only Stat CT cervical spine wo con Stat CT chest w con Stat CT head/brain wo con Stat 03/01/20 06:46 CL Cath Imgs for PACS use only Stat 03/04/20 10:28 CT head/brain wo con Stat 03/06/20 14:47 CL Cath Imgs for PACS use only Stat 03/09/20 10:36 CL Cath Imgs for PACS use only Routine 03/09/20 13:22 CL IVUS Coronary Single Vessel Routine Hospital Course (1) CAD (coronary artery disease): hx 3V CABG as well as multiple JENNIFER remotely With left shoulder pain is anginal equivalent here relieved with nitroglycerin, mildly elevated troponin continue ASA, statin, carvedilol Holding losartan for mild increase in creatinine (2) ICD (implantable cardioverter-defibrillator), dual, in situ: Placed for moderate ischemic cardiomyopathy and history of V. tach Rprogrammed his ICD. (3) Ventricular tachycardia: With several runs of V. tach requiring shocks as per ICD/pacer interrogation with cardiology in the ER Continue amiodarone 400 mg daily -Replete electrolytes as above Continue carvedilol and titrate upwards to 25 mg p.o. twice daily if tolerated - Thought by cardiology that this may be ischemia driving his increased VT. Cath today. (4) History of CVA (cerebrovascular accident): With a history of such, CT head here with small focus of encephalomalacia in the right frontal lobe favoring an old infarct Continue aspirin, statin Now on heparin drip for atrial fibrillation (5) Diabetes mellitus: Most recent hemoglobin A1c was from 2018 and was 5.8% With blood glucose [address] NovoLog supplemental insulin before meals and at bedtime with Accu- Cheks Is not on medications at home (6) Hyperlipidemia: Continue statin high intensity for severe CAD (7) Pneumonia: Possible hospital acquired pneumonia. Patient without risk factors for multi drug resistant organism. was on zosyn, now breathing better. elevated procal. likley from bactermia. will closely monitor. (8) Atrial fibrillation: New onset, noted on ECG here and on interrogation of pacemaker Cardio however described as atrial tachycardia, currently rate is normal with regular rhythm [id number] score significantly elevated at 7 Heparin drip with bolus for anticoagulation ECHO as noted above Cardiology consult Continue carvedilol 12.5 BID, Amiodarone 400 daily (9) Witnessed seizure-like activity: (10) NSTEMI (non-ST elevated myocardial infarction): Patient had an elevated trop and went to get a cardiac cath, 1. Angioplasty of in-stent left main acute on chronic occlusion with 3.0 NC balloon 2. Angioplasty of proximal to mid circumflex stents with 2.0 compliant balloon. Poor reflow in distal circumflex and OM following angioplasty. 3. Apparent seizure-like activity 4. Recurrent ventricular ectopy 5. Elevated intracardiac filling pressures. LVEDP 24 Recommendations: To ICU for continued monitoring Wean off norepinephrine as able We will hold off on additional heparin, Integrilin in the setting of q uestionable neurologic event Continue dual-antiplatelet therapy with aspirin, clopidogrel Additional diuresis Consider addition of lidocaine if recurrent VT. Transferred to ICU. (11) Bacteremia: Bacteremia: one culture is showing possible staph aureus infection. Unsure of source. Premin showing MSSA. Switched antibiotic to cefazolin as per critical care team. 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 tach trending trops: increased to .299; peaked at 1.0 likely demand ischemia. (13) Syncope: 74-year-old male with a past medical history of V. tach, ischemic cardiomyopathy, AICD in place, admitted for syncopal episodes, elevated troponin and concern for cardiac ischemia. - Syncope likely secondary to VT/Afib episodes on AICD interrogation - AICD fired on Feb 16 [patient denies feelings these] - continuous cardiac monitoring -AICD interrogation showed VT - optimize/replete electrolytes as necessary -Cardiology consultation appreciated-plan for possible cardiac catheterization ECHO noted for EF 35-40% and large apical aneurysm with hypokinesis He has had frequent episodes of ventricular tachycardia identified for several days, prior to that his VT had been under good control. During his last hospitalization in 2018 he was having a lot of ventricular tachycardia, on transfer to [facility] he was treated for ischemia and had good control of his arrhythmia until recently. I suspected his current arrhythmia was perhaps on an ischemic basis, although that is unusual with sustained monomorphic VT, and now post intervention he continues to have very frequent episodes. It still could be on an ischemic basis as reperfusion was not ideal following intervention yest erday. He seems to have other evidence of ischemia currently with a rising troponin. At this point I have given intravenous metoprolol, he was on lidocaine which seems to make the arrhythmia worse and I am going to discontinue that, I am going to give a bolus of amiodarone and put him on a drip despite him being on oral amiodarone. We will give him sedation. As a last resort we could intubate and fully sedate him. I believe we need to make arrangements to transfer him to a tertiary care center, there is not a lot more that we can do here at this point to control his arrhythmia (14) Acute CHF (congestive heart failure): Home lasix dosing has been on hold since admission due to elevated cr CXR noted for possible pulm edema vs PNA WBC WNL, afebrile Neg for LE swelling, however given hx of baseline lasix use that has been held, CHF exacerbation is more likely than PNA at this time aur[place] (15) Ischemic cardiomyopathy: medications continued as above Most recent EF 35-40% on echo from 2018, repeat is with stable EF - Possibly overloaded today. Gave another dose of Lasix 40 mg IV x 1. (16) Chronic kidney disease, stage III (moderate): Cr 1.67 at admission, roughly same as prior admissions daily BMP Now is in acute renal failure with cr 2.4 (17) Hx of CABG: As above (18) COPD (chronic obstructive pulmonary disease): No acute issues CT of the chest with chronic pleural thickening and atelectasis, emphysematous changes Continue incruse ellipta albuterol PRN for SOB O2 goal >88% not on oxygen at baseline (19) Hypothyroid: TSH 5.8 on admission no hx thyroid disease Free T4 ordered for AM may contribute to tachycardic episodes (20) Splenomegaly: Noted to be mildly enlarged on CT scan at 13.5 cm With mild thrombocytopenia Follow as an outpatient (21) Thrombocytopenia: Platelets low but fairly stable from the past 2 years Splenomegaly may be contributing Perhaps has ITP or underlying liver issues? Check peripheral smear with CBC in the morning Consider hematology consultation as an outpatient (22) Anemia: Macrocytic, mild Checking B12 is low normal at 366, will start IM s/p cath Folate WNL Follow CBC Peripheral smear as above (23) Chronic systolic CHF (congestive heart failure): Noted as above and ischemic cardiomyopathy Continue guideline directed medical therapy with carvedilol and titrate up as able to, losartan which is currently on hold for mildly elevated creatinine in anticipation of cardiac catheterization, and Aldactone -Holding home Lasix dosing (80mg PO AM and 40mg PO 1600 at baseline) (24) Peripheral arterial disease with history of revascularization: With a history of right lower extremity superficial femoral artery and right popliteal artery occlusions with angioplasty and stenting in 2018 Continue aspirin, statin (25) Pancreatic cyst: Noted incidentally on CT scan with 2.2 cm cyst Needs outpatient follow-up (26) DVT prophylaxis: FEN/GI: heart healthy, low sodium, NPO at MN Code Status: Full Code (27) Expressive aphasia: Repeat CT head neg for acute, cannot get MRI due to pacer Has been on and off for days per pt Has not been mentioned or noted prior to today by myself, although teeth not in place during discussion today Continue to monitor (28) Cough: Will order chest x ray, repeat vitals. Total Time Total Time Spent Total Time Spent (In Minutes): 32 Total Time Includes: Examination of the Patient, Discharge Planning and Med ication Reconciliation Discharge Plan Discharge Items Patient Disposition: Transfer Acute Care Hospital Reason For Visit: SYNCOPE, NEW AFIB, VT Discharge Diagnosis: V Tach Activity: Per Instructions section Non-emergency contact: Primary Care Provider Call non-emergency contact if: you have any medication questions Follow-up/Referrals: Nic MASSEY [Primary Care Provider] - Diet: Regular Addtl Attending Provider Instructions: See discharge summary Pending Studies at Discharge: No Stand-Alone Forms: My [facility] Skilled Items Patient informed of condition?: Yes DNR: No Discharge Level of Care: Other Communicable Disease: No Discharge Prognosis: Deteriorating Lines: Peripheral IV Urinary Catheter: No Medications and DC Order Prescriptions: Continued furosemide 40 mg Tablet 40 mg PO PM RF: 0 furosemide 40 mg Tablet 80 mg PO QAM RF: 0 acetaminophen 325 mg Tablet 650 mg PO QID PRN (Reason: Pain) RF: 0 carvedilol 12.5 mg Tablet 12.5 mg PO BID RF: 0 aspirin 325 mg Tablet 325 mg PO DAILY RF: 0 glyburide 5 mg Tablet 5 mg PO BID RF: 0 amiodarone 200 mg Tablet 400 mg PO DAILY RF: 0 clopidogrel 75 mg Tablet 75 mg PO DAILY RF: 0 spironolactone 25 mg Tablet 50 mg PO DAILY RF: 0 losartan 25 mg Tablet 25 mg PO DAILY RF: 0 nitroglycerin 0.4 mg Tablet, Sublingual 0.4 mg sublingual UD PRN (Reason: Chest Pain) RF: 0 omeprazole 20 mg Capsule,Delayed Release(Dr/Ec) 20 mg PO DAILY RF: 0 nortriptyline 50 mg Capsule 50 mg PO PM RF: 0 rosuvastatin 40 mg Tablet 40 mg PO HS RF: 0 levalbuterol tartrate [Xopenex HFA] 45 mcg/actuation Hfa Aerosol Inhaler 2 inh INHALATION Q6H PRN (Reason: Shortness Of Breath) RF: 0 Incruse Ellipta 62.5 mcg/actuation Blister With Device 1 inh INHALATION DAILY RF: 0 Discharge Orders: Discharge Order (Routine); Ordered 03/10/20 Ordered By: Derek Kilpatrick Admission Data Admit Date/Time: 02/29/20 14:38 Attending Provider: Harvinder Vázquez Admit Provider: Meg Tomas Primary Care Provider: Nic MASSEY Other Providers: Elinor Foster ; Roge Haines ; Abelino De Luna ; Romelia Miles ; Hal Chadwick ; Good Feldman ; Katie Lozano ; Ismael Elizondo Other Interventions: Discharge Summary Assessment (RN) Last Done: 03/10/20 16:51 Supervising Physician Co-Signing Physician Notes Patient was seen and examined by myself. I had discussed case with Dr. Kilpatrick, ceramic worker, and load dispatcher. Patient will be transferred to tertiary center for Ventricular tachycardia My exam and plan is the same as above after I had edited above statements. Resident Activity Tracking Resident Involvement: Resident Care Provided Care Provided: Adult Hospital Medicine
[2020-03-10] MEDS ORDERED: [UNRECOGNIZED DRUG - REMARK] ONE (13:00)
[2020-03-10] MEDS ORDERED: CEFAZOLIN 2000MG 2,000 MG/15 ML SYR IV SCH (14:00)
[2020-03-10] MEDS ORDERED: AMIODARONE / D5W 360 MG/200 ML BAG IV SCH (14:36)
--- NOTE | 2020-03-10 22:11 | Electrocardiogram Report ---
Test Reason : Blood Pressure : / mmHG Vent. Rate : 117 BPM Atrial Rate : 117 BPM P-R Int : 104 ms QRS Dur : 170 ms QT Int : 422 ms P-R-T Axes : 000 115 -42 degrees QTc Int : 588 ms Poor data quality, interpretation may be adversely affected Wide QRS tachycardia Right bundle branch block Right ventricular hypertrophy Lateral infarct , possibly acute Anterior injury pattern Abnormal ECG When compared with ECG of 09-MAR-2020 13:38, Wide QRS tachycardia has replaced Atrial fibrillation Right bundle branch block is now Present Confirmed by Bam Mai ([id number]) on 03/10/2020 10:11:14 PM Referred By: [facility] Confirmed By:Bam Mai
[2020-03-11 05:07] LABS: Hepatitis A Antibody IgM NON-REACTIVE (NON-REACTIVE); Hepatitis B Core Antibody IgM NON-REACTIVE (NON-REACTIVE)
--- NOTE | 2020-03-17 08:18 | Billing Data ---
Date of Service March 10, 2020 Coding Level of Care Code D/C Day Management >30 mins Time Spent (min) 32
== END 2020-03-10 16:00 | disposition short-term general hospital (02) | DRG 246 ==
LOC: ED 10:31 → SUATTDRO 14:38 → 1E 14:38 → 2S 03-02 18:59 → 2E 03-06 16:50 → 1E 03-09 13:10
PROC: CLB.CCO (2020-03-09 10:30)